=== PATIENT | female | born 1985 | race Caucasian/White ===

== ENCOUNTER → 2017-02-11 | Outpatient (CLI) | payer OTHER ==
--- NOTE | 2017-02-11 10:29 | CT ---
EXAMINATION TYPE: CT lumbar spine wo con DATE OF EXAM: 02/11/2017 9:25 AM COMPARISON: NONE HISTORY: Lumbago with bilateral sciatica CT DLP: 355.6 mGycm Automated exposure control for dose reduction was used. An unenhanced CT of the lumbar spine was performed. Bone and soft tissue window settings are submitt ed as well as coronal and sagittal reconstructions. FINDINGS: Lumbar vertebral bodies are intact and show preserved height and alignment. There is no significant s tee stenosis or evidence of paraspinal mass. Findings within the kidney suggests medullary sponge k idney. The kidneys are otherwise morphologically normal, no hydronephrosis. No retroperitoneal adenop athy, aorta shows normal caliber. L1-L2: Normal disc space height. No disc herniation protrusion or central stenosis. No facet joint arthropathy. No evidence for foraminal encroachment. L2-L3: Normal disc space height. No disc herniation protrusion or central stenosis. No facet joint arthropathy. No evidence for foraminal encroachment. L3-L4: Mild lateral eccentric disc bulge courses towards the neural foramen causing minimal encroachm ent on the right. L4-L5: Eccentric disc bulge laterally on the right encroaches upon the neural foramen. L5-S1: Normal disc space height. No disc herniation protrusion or central stenosis. No facet joint arthropathy. No evidence for foraminal encroachment. Vacuum phenomenon present within the sacroiliac joints. There is some calcification associated with t he right adrenal gland measuring approximately 4 to 5 mm. IMPRESSION: No paraspinal masses are identified. Mild degenerative disc changes are suspected, eccentric disc bul ges as described, consider lumbar MRI. Medullary sponge kidney. Benign-appearing calcification associ ated with the right adrenal gland. Lumbar segments are intact.
== END | disposition home or self-care (01) ==
LOC: RADCTMAIN 09:01
PROVIDERS: ATTEND Family Medicine
DX: M51.26 Other intervertebral disc displacement, lumbar region (principal)
CPT/HCPCS: 72131

== ENCOUNTER 2019-08-04 18:23 | Emergency (ER) | payer OTHER ==
[2019-08-04] MEDS ORDERED: diphenhydrAMINE 50 MG/ML 1 ML VIAL IVP STA (19:01)
[2019-08-04] MEDS ORDERED: METOCLOPRAMIDE 5 MG/ML 2 ML VIAL IVP STA (19:01)
--- NOTE | 2019-08-04 19:30 | ED ---
Recheck HPI - General Chief Complaint: Recheck/Abnormal Lab/Rx Stated Complaint: methadone detox-5 1/2 wks preg Time Seen by Provider: 08/04/19 18:45 Source: patient Mode of arrival: ambulatory Limitations: no limitations - History of Present Illness Initial Comments: 34 year-old female patient presents to the emergency department today for evaluation of methadone withdrawal. Patient is 23 weeks , . Patient states that she had been receiving methadone from [place] up until Tuesday. States that she was switched over to the methadone clinic near her home in [place], she was here visiting her mother when her car broke down and she was unable to make her appointment. Patient states that she has been having tremors, nausea, vomiting, and abdominal tightness. States is her consistent with her usual withdrawal symptoms. She denies any fever or chills. Denies any abnormal vaginal bleeding or discharge. She does detect movement, believes it is increased due to the fetus being agitated. Patient denies any recent rash, shortness breath, chest pain, back pain, numbness, tingling, dizziness, weakness, hematuria, dysuria, urinary urgency, urinary frequency, headache, visual changes, or any other complaints. - Related Data Previous Rx's Medication Instructions Recorded Acetaminophen-Codeine 300-30mg 1 tab PO Q4H PRN #20 tablet 06/13/17 [Tylenol #3] Ibuprofen [Motrin] 600 mg PO Q8HR PRN #30 tab 06/13/17 Penicillin V Potassium [Pen Vee K] 500 mg PO QID #40 tab 06/13/17 Cephalexin [Keflex] 500 mg PO Q6H #28 cap 08/04/19 Allergies Allergy/AdvReac Type Severity Reaction Status Date / Time No Known Allergies Allergy Verified 06/13/17 15:18 Review of Systems ROS Statement: Those systems with pertinent positive or pertinent negative responses have been documented in the HPI. ROS Other: All systems not noted in ROS Statement are negative. Past Medical History Additional Past Medical History / Comment(s): chronic back pain History of Any Multi-Drug Resistant Organisms: None Reported Past Surgical History: Section Past Psychological History: No Psychological Hx Reported Smoking Status: Current every day smoker Past Alcohol Use History: None Reported Past Drug Use History: Marijuana General Exam Limitations: no limitations General appearance: alert, in no apparent distress, other (This is a well- developed, well-nourished adult female patient in no acute distress. Vital signs upon presentation are temperature 98.4F, pulse 100, respirations 20, blood pressure 132/60, pulse ox 99% on room air.) Eye exam: Present: normal appearance, PERRL, EOMI. Absent: scleral icterus, conjunctival injection, periorbital swelling ENT exam: Present: normal exam, normal oropharynx, mucous membranes moist Respiratory exam: Present: normal lung sounds bilaterally. Absent: respiratory distress, wheezes, rales, rhonchi, stridor Cardiovascular Exam: Present: regular rate, normal rhythm, normal heart sounds. Absent: systolic murmur, diastolic murmur, rubs, gallop, clicks GI/Abdominal exam: Present: soft, normal bowel sounds, other (Gravid abdomen). Absent: distended, tenderness, guarding, rebound, rigid Neurological exam: Present: alert, oriented X3, CN II-XII intact Psychiatric exam: Present: normal affect, normal mood Skin exam: Present: warm, dry, intact, normal color. Absent: rash Course Vital Signs 08/04/19 18:36 Temperature 98.4 F Pulse Rate 100 Respiratory 20 Rate Blood Pressure 132/60 O2 Sat by Pulse 99 Oximetry Medical Decision Making - Medical Decision Making 34 old female patient presents to the emergency department today for evaluation for drug withdrawal symptoms. She is 23 weeks . She is reporting tightening to her abdomen. Denies abnormal vaginal bleeding or discharge. Physical examination is unremarkable. Did perform urinalysis which shows evidence for urinary tract infection, this has been sent for culture. She'll be started on Keflex, given 1 dose of IV Rocephin. She was given her missing dose of methadone. She is instructed to follow-up with her methadone clinic as soon as possible. Return parameters discussed in detail. She verbalizes understanding and agrees with this plan. - Lab Data Lab Results 08/04/19 Range/Units 19:20 Urine Color Yellow Urine Appearance Cloudy H (Clear) Urine pH 7.5 (5.0-8.0) Ur Specific [place] 1.031 (1.001-1.035) Urine Protein 2+ H (Negative) Urine Glucose (UA) Negative (Negative) Urine Ketones 3+ H (Negative) Urine Blood Negative (Negative) Urine Nitrite Negative (Negative) Urine Bilirubin Negative (Negative) Urine Urobilinogen 12.0 (<2.0) mg/dL Ur Leukocyte Esterase Large H (Negative) Urine RBC 22 H (0-5) /hpf Urine WBC 46 H (0-5) /hpf Ur Squamous Epith Cells 7 H (0-4) /hpf Urine Mucus Many H (None) /hpf Urine Opiates Screen Not Detected (NotDetected) Ur Oxycodone Screen Not Detected (NotDetected) Urine Methadone Screen Detected H (NotDetected) Ur Propoxyphene Screen Not Detected (NotDetected) Ur Barbiturates Screen Not Detected (NotDetected) U Tricyclic Antidepress Not Detected (NotDetected) Ur Phencyclidine Scrn Not Detected (NotDetected) Ur Amphetamines Screen Not Detected (NotDetected) U Methamphetamines Scrn Not Detected (NotDetected) U Benzodiazepines Scrn Not Detected (NotDetected) Urine Cocaine Screen Detected H (NotDetected) U Marijuana (THC) Screen Detected H (NotDetected) Disposition Clinical Impression: Methadone withdrawal Disposition: HOME SELF-CARE Condition: Good Instructions (If sedation given, give patient instructions): Narcotic Withdrawal (ED) Additional Instructions: Call your clinic first thing Tuesday morning. Follow up with your ASSISTANT ACCOUNT MANAGER for recheck as soon as possible. Increase fluids. Rest. Return to the emergency department for any new, worsening, or concerning symptoms. Prescriptions: Cephalexin [Keflex] 500 mg PO Q6H #28 cap Is patient prescribed a controlled substance at d/c from ED?: No Referrals: Tyler Diaz MD [Primary Care Provider] - 1-2 days Time of Disposition: 20:15
[2019-08-04 19:42] LABS: Appearance,Urine Cloudy (Clear); Bilirubin,Urine Negative (Negative); Blood,Urine Negative (Negative); Color,Urine Yellow; Glucose,Urine (UA) Negative (Negative); Ketones,Urine 3+ (Negative); Leukocyte Esterase,Urine Large (Negative); Mucus,Urine Many /hpf; Nitrite,Urine Negative (Negative); PH, Urine 7.5 (5.0-8.0); Protein,Urine 2+ (Negative); RBC,Urine 22 /hpf (0-5); Specific Gravity,Urine 1.031 (1.001-1.035); Squamous Epithelial Cell,Urine 7 /hpf (0-4); WBC,Urine 46 /hpf (0-5)
[2019-08-04 19:48] LABS: Urn Cannabinoid Scrn Detected (NotDetected)
[2019-08-04 19:49] LABS: Amphetamine Screen,Urine Not Detected (NotDetected); Barbiturate Screen,Urine Not Detected (NotDetected); Benzodiazepines Screen,Urine Not Detected (NotDetected); Cocaine Screen,Urine Detected (NotDetected); Methadone Screen, Urine Detected (NotDetected); Opiate Screen,Urine Not Detected (NotDetected); Oxycodone Screen, Urine Not Detected (NotDetected); Phencyclidine Screen,Urine Not Detected (NotDetected); Tricyclic Antidepressant,Urine Not Detected (NotDetected)
[2019-08-04] MEDS ORDERED: METHADONE 5 MG TAB PO STA (20:12)
[2019-08-04] MEDS ORDERED: cefTRIAXone IN SWFI 1,000 MG/10 ML SYRINGE IVP STA (20:12)
[2019-08-04] MEDS ORDERED: METHADONE 10 MG TAB PO STA (20:12)
[2019-08-04] MEDS ORDERED: CEPHALEXIN 500MG STARTER PACK 4 CAP BTL PO STA (20:16)
[2019-08-04 21:00] VITALS: BP 130/72; PULSE 68; RESP 16; TEMP 97.7
== END 2019-08-04 20:59 | disposition home or self-care (01) ==
LOC: EC 18:23
DX: O99.322 Drug use complicating pregnancy, second trimester (principal); F11.23 Opioid dependence with withdrawal; O23.42 Unspecified infection of urinary tract in pregnancy, second trimester; O99.332 Smoking (tobacco) complicating pregnancy, second trimester; F17.200 Nicotine dependence, unspecified, uncomplicated; Z98.890 Other specified postprocedural states; Z3A.23 23 weeks gestation of pregnancy
CPT/HCPCS: 81001; 80306; 99284; 96374; 96375 ×2; J1200; J2765; J0696; S0109 ×2

== ENCOUNTER 2019-08-04 21:04 | Outpatient (CLI) | payer OTHER ==
[2019-08-04 23:29] VITALS: BP 112/68; PULSE 66; RESP 15; TEMP 99.1
--- NOTE | 2019-08-05 07:02 | P.MSEPDOC ---
Presenting Problems - Arrival Data Date of Arrival on Unit: 08/04/19 Time of Arrival on Unit: 21:04 Mode of Transport: Wheelchair - Complaint OB-Reason for Admission/Chief Complaint: Other Comment: Methadone withdrawl and abdominal pain for the past 3 days Medical History - Information : 6 Para: 5 Number of Living Children: 5 - Gestational Age Gestational Age by BETH (wks/days): 23 Weeks and 3 Days - History Complications: Smoker, Hx. Substance Abuse Comment: Pt states history of norco abuse and started methadone treatment 30 days ago Review of Systems - Review of Systems Constitutional: No problems Breast: No problems ENT: No problems Cardiovascular: No problems Respiratory: No problems Gastrointestinal: No problems Genitourinary: No problems Musculoskeletal: No problems Neurological: No problems Skin: No problems Vital Signs - Temperature Temperature: 99.1 F Temperature Source: Temporal Artery Scan - Pulse Pulse Oximetery Pulse Rate: 66 Pulse Assessment Method: Pulse Oximetry - Respirations Respiratory Rate: 15 Oxygen Delivery Method: Room Air O2 Sat by Pulse Oximetry: 96 - Blood Pressure Right Arm Blood Pressure: 112/68 Blood Pressure Mean: 82 Blood Pressure Source: Automatic Cuff Medical Screen Scoring (Pre) - Cervical Exam Dilation: Exam Deferred Effacement: Exam Deferred Membranes: Intact - Uterine Contractions Frequency: N/A Duration: N/A Intensity: N/A - Maternal Vital Signs Maternal Temperature: N/A Maternal Blood Pressure: N/A Signs of Preeclampsia: N/A Maternal Respirations: N/A - Maternal Trauma Maternal Trauma: N/A - Assessment - Baby A Baseline FHR: 145 Position: N/A Station: N/A - Total Score - Baby A Total Score - Baby A: 0 - Total Score - Baby B Total Score - Baby B: 0 - Total Score - Baby C Total Score - Baby C: 0 - Level of Risk - Baby A Level of Risk - Baby A: Low (0-5) - Level of Risk - Baby B Level of Risk - Baby B: Low (0-5) - Level of Risk - Baby C Level of Risk - Baby C: Low (0-5) Physician Notification (Pre) - Physician Notified Physician Notified Date: 08/04/19 Physician Notified Time: 21:32 New Order Received: Yes Disposition - Disposition OB Disposition: Discharge to home, Written follow up instructions reviewed Discharge Date: 08/04/19 Discharge Time: 21:35 I agree with the RN Medical Screening Exam: Yes Risk & Benefit of care provided described in d/c instruction: Yes Diagnosis: FALSE LABOR AT OR AFTER 37 COMPLETED WEEKS OF GESTATION (Patient presented to the emergency department seeking methadone refill. At the time she complained of some lower abdominal pain. Cervix is closed, heart tones were auscultated, and there was no evidence of labor. Patient was sleeping while in triage and therefore felt to be stable for discharge home follow up with her primary [employer] DRIVER.)
== END 2019-08-04 21:40 | disposition home or self-care (01) ==
LOC: FBPOP 21:04
PROVIDERS: ATTEND Obstetrics & Gynecology
DX: O47.1 False labor at or after 37 completed weeks of gestation (principal); Z3A.23 23 weeks gestation of pregnancy
CPT/HCPCS: 99213

== ENCOUNTER 2020-05-19 04:23 | Observation (INO) | payer OTHER ==
[2020-05-19] MEDS ORDERED: ACETAMINOPHEN TAB 500 MG TAB PO STA (04:45)
[2020-05-19 04:54] LABS: Appearance,Urine Cloudy (Clear); Bilirubin,Urine Negative (Negative); Blood,Urine Large (Negative); Color,Urine Yellow; Glucose,Urine (UA) Negative (Negative); Ketones,Urine Negative (Negative); Leukocyte Esterase,Urine Large (Negative); Mucus,Urine Rare /hpf; Nitrite,Urine Negative (Negative); PH, Urine 5.5 (5.0-8.0); Protein,Urine Trace (Negative); RBC,Urine 4 /hpf (0-5); Specific Gravity,Urine 1.011 (1.001-1.035); Squamous Epithelial Cell,Urine 4 /hpf (0-4); Urobilinogen,Urine <2.0 mg/dL (<2.0); WBC,Urine >182 /hpf (0-5)
--- NOTE | 2020-05-19 05:04 | ED ---
General Adult HPI - General Chief complaint: Urogenital Stated complaint: poss kidney infection Time Seen by Provider: 05/19/20 05:02 Source: patient Mode of arrival: ambulatory Limitations: no limitations - History of Present Illness Initial comments: Chelo is a 34-year-old female with a history of drug abuse, history of admission for pyelonephritis in the past, patient presents the emergency department today via private vehicle for evaluation of concern that she has a kidney infection. Patient reports that she's had over 1 week of dysuria, urinary frequency and hesitancy. She's been drinking plenty of water but she's been getting progressively worse. She reports that over the past day she's had pain in her left flank and associated fever. Patient reports that the pain was so bad she did heroin prior to arrival to treat the pain. Patient reports that she snorts heroin she does not use any IV drugs. She reports she is sexually active with a single partner, has experienced no vaginal discharge has no concern for sexual transmitted infections. - Related Data Home Medications Medication Instructions Recorded Confirmed Methadone [Dolophine] 55 mg PO DAILY 08/04/19 08/04/19 Allergies Allergy/AdvReac Type Severity Reaction Status Date / Time No Known Allergies Allergy Verified 08/04/19 21:09 Review of Systems ROS Statement: Those systems with pertinent positive or pertinent negative responses have been documented in the HPI. ROS Other: All systems not noted in ROS Statement are negative. Past Medical History Additional Past Medical History / Comment(s): chronic back pain History of Any Multi-Drug Resistant Organisms: None Reported Past Surgical History: Section Past Psychological History: No Psychological Hx Reported Smoking Status: Current every day smoker Past Alcohol Use History: None Reported Past Drug Use History: Heroin, Marijuana General Exam - General Exam Comments Initial Comments: Physical Exam GENERAL: Patient is well-developed and well-nourished. Patient is nontoxic and well-hydrated and is in no distress. HENT: Normocephalic, Atraumatic. EYES: PERRL, EOMI PULMONARY: Unlabored respirations. No audible rales rhonchi or wheezing was noted. CARDIOVASCULAR: There is a regular rate and rhythm without any murmurs gallops or rubs. ABDOMEN: Soft and nontender with normal bowel sounds. SKIN: Skin is clear with no lesions or rashes and otherwise unremarkable. : Deferred NEUROLOGIC: Patient is alert and oriented x3. Moving all extremities spontaneously MUSCULOSKELETAL: Normal extremities with adequate strength and full range of motion. No lower extremity swelling or edema. No calf tenderness. PSYCHIATRIC: Normal psychiatric evaluation. Limitations: no limitations Course Vital Signs 05/19/20 05/19/20 05/19/20 04:35 05:29 06:00 Temperature 101.9 F H 101.1 F H 99.2 F Pulse Rate 103 H 87 Respiratory 18 16 Rate Blood Pressure 115/67 107/62 O2 Sat by Pulse 100 100 Oximetry Procedures - Sepsis Sepsis Focused Exam #1 Time Sepsis Criteria Met: 05:30 Sepsis Focused Exam Date: 05/19/20 Sepsis Focused Exam Time: 06:00 Capillary Refill: < 2 Seconds: Fingers, Toes Peripheral Pulses: Normal: Radial (R), Radial (L) Skin Color: Normal for Patient Respiratory Exam: normal lung sounds Cardiovascular Exam: regular rate, normal rhythm Medical Decision Making - Medical Decision Making The patient was seen and evaluated, history is obtained from the patient 34-year-old female with lower urinary tract symptoms left-sided flank pain, fever tachycardia Septic workup was initiated IV fluids and antipyretics were ordered upon arrival Rocephin was empirically ordered for treatment of presumed sepsis Has resulted with leukocytosis, urine consistent with urinary tract infection, culture was obtained Sepsis was identified Considering the patient's been treating her flank pain with heroin and had symptoms for greater than 1 week before coming to the ER don't feel she is reliable for discharge home on oral antibiotics, I do feel the patient warrants IV fluids, IV antibiotics and close observation. Patient is agreeable to admission to the hospital for sepsis secondary to urinary tract infection and pyelonephritis Patient care was discussed with medicine [facility] [employer] consultant Dr. Maldonado of the [facility] who accepts the admission - Lab Data Result diagrams: 05/19/20 04:46 05/19/20 04:46 Lab Results 05/19/20 05/19/20 05/19/20 Range/Units 04:41 04:46 04:46 WBC 14.6 H (3.8-10.6) k/uL RBC 4.45 (3.80-5.40) m/uL Hgb 13.4 (11.4-16.0) gm/dL Hct 40.7 (34.0-46.0) % MCV 91.3 (80.0-100.0) fL MCH 30.1 (25.0-35.0) pg MCHC 33.0 (31.0-37.0) g/dL RDW 13.0 (11.5-15.5) % Plt Count 380 (150-450) k/uL Neutrophils % 75 % Lymphocytes % 16 % Monocytes % 5 % Eosinophils % 2 % Basophils % 0 % Neutrophils # 10.9 H (1.3-7.7) k/uL Lymphocytes # 2.4 (1.0-4.8) k/uL Monocytes # 0.8 (0-1.0) k/uL Eosinophils # 0.3 (0-0.7) k/uL Basophils # 0.1 (0-0.2) k/uL PT 9.6 (9.0-12.0) sec INR 0.9 (<1.2) APTT 26.9 (22.0-30.0) sec Sodium (137-145) mmol/L Potassium (3.5-5.1) mmol/L Chloride (98-107) mmol/L Carbon Dioxide (22-30) mmol/L Anion Gap mmol/L BUN (7-17) mg/dL Creatinine (0.52-1.04) mg/dL Est GFR (CKD-EPI)AfAm (>60 ml/min/1.73 sqM) Est GFR (CKD-EPI)NonAf (>60 ml/min/1.73 sqM) Glucose (74-99) mg/dL Plasma Lactic Acid Davi (0.7-2.0) mmol/L Calcium (8.4-10.2) mg/dL Total Bilirubin (0.2-1.3) mg/dL AST (14-36) U/L ALT (4-34) U/L Alkaline Phosphatase (38-126) U/L Total Protein (6.3-8.2) g/dL Albumin (3.5-5.0) g/dL Urine Color Yellow Urine Appearance Cloudy H (Clear) Urine pH 5.5 (5.0-8.0) Ur Specific [place] 1.011 (1.001-1.035) Urine Protein Trace H (Negative) Urine Glucose (UA) Negative (Negative) Urine Ketones Negative (Negative) Urine Blood Large H (Negative) Urine Nitrite Negative (Negative) Urine Bilirubin Negative (Negative) Urine Urobilinogen <2.0 (<2.0) mg/dL Ur Leukocyte Esterase Large H (Negative) Urine RBC 4 (0-5) /hpf Urine WBC >182 H (0-5) /hpf Urine WBC Clumps Few H (None) /hpf Ur Squamous Epith Cells 4 (0-4) /hpf Urine Mucus Rare H (None) /hpf 05/19/20 05/19/20 Range/Units 04:46 04:46 WBC (3.8-10.6) k/uL RBC (3.80-5.40) m/uL Hgb (11.4-16.0) gm/dL Hct (34.0-46.0) % MCV (80.0-100.0) fL MCH (25.0-35.0) pg MCHC (31.0-37.0) g/dL RDW (11.5-15.5) % Plt Count (150-450) k/uL Neutrophils % % Lymphocytes % % Monocytes % % Eosinophils % % Basophils % % Neutrophils # (1.3-7.7) k/uL Lymphocytes # (1.0-4.8) k/uL Monocytes # (0-1.0) k/uL Eosinophils # (0-0.7) k/uL Basophils # (0-0.2) k/uL PT (9.0-12.0) sec INR (<1.2) APTT (22.0-30.0) sec Sodium 130 L (137-145) mmol/L Potassium 5.2 H (3.5-5.1) mmol/L Chloride 102 (98-107) mmol/L Carbon Dioxide 22 (22-30) mmol/L Anion Gap 6 mmol/L BUN 15 (7-17) mg/dL Creatinine 0.86 (0.52-1.04) mg/dL Est GFR (CKD-EPI)AfAm >90 (>60 ml/min/1.73 sqM) Est GFR (CKD-EPI)NonAf 88 (>60 ml/min/1.73 sqM) Glucose 83 (74-99) mg/dL Plasma Lactic Acid Davi 1.1 (0.7-2.0) mmol/L Calcium 8.6 (8.4-10.2) mg/dL Total Bilirubin 0.9 (0.2-1.3) mg/dL AST 28 (14-36) U/L ALT 12 (4-34) U/L Alkaline Phosphatase 56 (38-126) U/L Total Protein 6.6 (6.3-8.2) g/dL Albumin 3.8 (3.5-5.0) g/dL Urine Color Urine Appearance (Clear) Urine pH (5.0-8.0) Ur Specific [place] (1.001-1.035) Urine Protein (Negative) Urine Glucose (UA) (Negative) Urine Ketones (Negative) Urine Blood (Negative) Urine Nitrite (Negative) Urine Bilirubin (Negative) Urine Urobilinogen (<2.0) mg/dL Ur Leukocyte Esterase (Negative) Urine RBC (0-5) /hpf Urine WBC (0-5) /hpf Urine WBC Clumps (None) /hpf Ur Squamous Epith Cells (0-4) /hpf Urine Mucus (None) /hpf - EKG Data -: EKG Interpreted by Me EKG Comments: EKG was obtained due to tachycardia and part of a septic workup, EKG was obtained at 4:59 AM, rate is 92 rhythm is sinus there is normal axis, normal in tervals LA 140, QRS 82, QTc 447 there are no acute ST elevations or depressions no evidence of acute ischemia or infarction Disposition Clinical Impression: Sepsis, Pyelonephritis Disposition: ADMITTED IP TO THIS [facility] Condition: Serious Referrals: None,Stated [Primary Care Provider] - 1-2 days
[2020-05-19 05:17] LABS: Basophils # (A) 0.1 k/uL (0-0.2); Basophils % (A) 0 %; Eosinophils # (A) 0.3 k/uL (0-0.7); Eosinophils % (A) 2 %; HCT 40.7 % (34.0-46.0); HGB 13.4 gm/dL (11.4-16.0); Lymphocytes # (A) 2.4 k/uL (1.0-4.8); Lymphocytes % (A) 16 %; MCH 30.1 pg (25.0-35.0); MCV 91.3 fL (80.0-100.0); Mean Platelet Volume 6.7; Monocytes # (A) 0.8 k/uL (0-1.0); Monocytes % (A) 5 %; Neutrophils # (A) 10.9 k/uL (1.3-7.7); Neutrophils % (A) 75 %; Platelet Count 380 k/uL (150-450); RBC 4.45 m/uL (3.80-5.40); WBC 14.6 k/uL (3.8-10.6)
[2020-05-19 05:26] LABS: ALT 12 U/L (4-34); AST 28 U/L (14-36); African American GFR (CKD) >90 (>60 ml/min/1.73 sqM); Albumin 3.8 g/dL (3.5-5.0); Alkaline Phosphatase 56 U/L (38-126); Anion Gap 6 mmol/L; Blood Urea Nitrogen 15 mg/dL (7-17); Calcium 8.6 mg/dL (8.4-10.2); Carbon Dioxide 22 mmol/L (22-30); Chloride 102 mmol/L (98-107); Glucose 83 mg/dL (74-99); INR 0.9 (<1.2); Non-African American GFR(CKD) 88 (>60 ml/min/1.73 sqM); Partial Thromboplastin Time 26.9 sec (22.0-30.0); Potassium 5.2 mmol/L (3.5-5.1); Prothrombin Time 9.6 sec (9.0-12.0); Sodium 130 mmol/L (137-145); Total Bilirubin 0.9 mg/dL (0.2-1.3); Total Protein 6.6 g/dL (6.3-8.2)
[2020-05-19] MEDS: SODIUM CHLORIDE 0.9% 1,000 ML IV SCH ×3 (05:26→19:56)
[2020-05-19] MEDS: SODIUM CHLORIDE 0.9% 500 ML 500 ML IV SCH ×2 (05:27→06:30)
[2020-05-19] MEDS ORDERED: NALOXONE 0.4 MG/ML 1 ML VIAL IV PRN (06:59)
[2020-05-19] MEDS ORDERED: ACETAMINOPHEN TAB 325 MG TAB PO PRN (06:59)
[2020-05-19] MEDS ORDERED: IBUPROFEN 400 MG TAB PO PRN (06:59)
[2020-05-19] MEDS ORDERED: MORPHINE SULFATE 4 MG/ML SYRINGE IV PRN (06:59)
[2020-05-19] MEDS ORDERED: KETOROLAC 15 MG/ML 1 ML VIAL IVP PRN (09:48)
[2020-05-19] MEDS ORDERED: HYDROcodone/APAP 5-325MG 1 EACH TAB PO PRN (10:08)
[2020-05-19] MEDS ORDERED: ONDANSETRON 4 MG/2 ML VIAL IVP PRN (10:08)
--- NOTE | 2020-05-19 10:14 | P.HPIM ---
History of Present Illness H&P Date: 05/19/20 Chief Complaint: back pain Patient is a 34-year-old female with a history of chronic back pain, prior opiate dependency, narcolepsy, and COPD who presented to the ER with complaints of flank pain. On arrival to the ER her temperature was 101.9, pulse was 103. Laboratory analysis showed white count 14.6, sodium 30, potassium 5.2 on the urinalysis showed white blood cells greater than 182. She was given Tylenol, Rocephin, and IV fluids. She was admitted for urinary tract infection with sepsis. Patient seen and examined at bedside. She reports that for the last 1 week she was having burning and urinary frequency. Yesterday she noted kidney pain on both sides of her back. This was associated with riders and chills. She also felt overall fatigued. She reports her appetite was good. She denies any nausea. She reports she has had a history of multiple urinary tract infections in the past, she believes they happened when she drinks too much pop. She does not medical attention prior to arrival in the ED yesterday. She has not had any recent antibiotics. She reports that she used to be on methadone but came off of it. Recently she has been snorting heroin. She denies any injection drug use. She has an appointment to resume her methadone on 05/21/2020. Review of Systems Pertinent positives and negatives as discussed in HPI, a complete review of systems was performed and all other systems are negative. Past Medical History Additional Past Medical History / Comment(s): chronic back pain, narcolepsy, COPD History of Any Multi-Drug Resistant Organisms: None Reported Past Surgical History: Section Additional Past Surgical History / Comment(s): Left knee meniscal tear repair Past Psychological History: No Psychological Hx Reported Smoking Status: Current every day smoker Past Alcohol Use History: None Reported Past Drug Use History: Heroin, Marijuana - Past Family History Mother Family Medical History: COPD Additional Family Medical History / Comment(s): Multuple family memeber with ccancer, none affecting the urinary tract Medications and Allergies Home Medications Medication Instructions Recorded Confirmed Type Dextroamphetamine/Amphetamine 20 mg PO BID PRN 05/19/20 05/19/20 History [Adderall] Allergies Allergy/AdvReac Type Severity Reaction Status Date / Time No Known Allergies Allergy Verified 05/19/20 09:12 Physical Exam Osteopathic Statement: *. No significant issues noted on an osteopathic structural exam other than those noted in the History and Physical/Consult. Vitals: Vital Signs Temp Pulse Resp BP Pulse Ox 05/19/20 07:40 89 16 121/89 100 05/19/20 06:00 99.2 F 05/19/20 05:29 101.1 F H 87 16 107/62 100 05/19/20 04:35 101.9 F H 103 H 18 115/67 100 Intake and Output 05/18/20 05/19/20 05/19/20 22:59 06:59 14:59 Other: Voiding Method Toilet Weight 61.235 kg General: ill appearing, no distress, appears at stated age Derm: warm, dry Head: atraumatic, normocephalic, symmetric Eyes: EOMI, no lid lag, anicteric sclera, pupils equal round reactive to light ENT: Nose and ears atraumatic, no thrush, no pharyngeal erythema Neck: No thyromegaly, no cervical lymphadenopathy, trachea midline, supple Mouth: no lip lesion, mucus membranes dry Cardiovascular: S1S2 reg, no murmur, positive posterior tibial pulse bilateral, no edema, capillary refill less than 2 seconds Lungs: clear to ascultation bilateral, no ronchi, no rales, no wheeze, no accessory muscle use Abdominal: soft, + tender to palpation LLQ and left CVA, no guarding, no appreciable organomegaly, normal bowel sounds Ext: no gross muscle atrophy, muscle strength muscle strength 5 out of 5 in all 4 extremities, no contractures Neuro: CN II-XI grossly intact, light touch intact all 4 extremities, finger to nose within normal limits, Psych: Alert, oriented, appropriate affect Results CBC & Chem 7: 05/19/20 04:46 05/19/20 04:46 Labs: Abnormal Lab Results - Last 24 Hours (Table) 05/19/20 05/19/20 05/19/20 Range/Units 04:41 04:46 04:46 WBC 14.6 H (3.8-10.6) k/uL Neutrophils # 10.9 H (1.3-7.7) k/uL Sodium 130 L (137-145) mmol/L Potassium 5.2 H (3.5-5.1) mmol/L Urine Appearance Cloudy H (Clear) Urine Protein Trace H (Negative) Urine Blood Large H (Negative) Ur Leukocyte Esterase Large H (Negative) Urine WBC >182 H (0-5) /hpf Urine WBC Clumps Few H (None) /hpf Urine Mucus Rare H (None) /hpf Thrombosis Risk Factor Assmnt - DVT/VTE Prophylaxis DVT/VTE Prophylaxis: Mechanical Prophylaxis ordered Assessment and Plan Assessment: Pyelonephritis with sepsis - rocephin - IVF - await urine culture - blood cultures pending Narcolepsy - reusme adderal on discharge Tobacco abuse - cessation - nicotine Heorin use - cessation - has plans for methadone clinic The patient is admitted with an anticipated greater than 2 midnight stay for evaluation of urinary tract intection wtih sepsis. Surrogate decision-maker: mother CODE STATUS:full DVT prophylaxis: heparin Discussed with: patient, nursing Anticipated discharge date: 2-[address]: home A total of 65 minutes was spent on the care of this complex patient more than 50% of the time was spent in counseling and care coordination.
[2020-05-19 13:09] LABS: African American GFR (CKD) >90 (>60 ml/min/1.73 sqM); Anion Gap 5 mmol/L; Blood Urea Nitrogen 12 mg/dL (7-17); Calcium 8.4 mg/dL (8.4-10.2); Carbon Dioxide 24 mmol/L (22-30); Chloride 109 mmol/L (98-107); Glucose 92 mg/dL (74-99); Non-African American GFR(CKD) >90 (>60 ml/min/1.73 sqM); Potassium 4.7 mmol/L (3.5-5.1); Sodium 138 mmol/L (137-145)
[2020-05-20] MEDS: SODIUM CHLORIDE 0.9% 1,000 ML IV SCH ×2 (03:41→09:15)
[2020-05-20 07:45] VITALS: BP 96/53; PULSE 77; RESP 16; TEMP 98.4
[2020-05-20 08:53] LABS: HCT 37.6 % (34.0-46.0); HGB 11.9 gm/dL (11.4-16.0); MCH 29.6 pg (25.0-35.0); MCHC 31.6 g/dL (31.0-37.0); MCV 93.7 fL (80.0-100.0); Mean Platelet Volume 6.9; Platelet Count 324 k/uL (150-450); RBC 4.01 m/uL (3.80-5.40); RDW 13.3 % (11.5-15.5); WBC 8.1 k/uL (3.8-10.6)
[2020-05-20] MEDS ORDERED: NICOTINE 14MG/24HR PATCH TRANSDERM SCH (09:00)
[2020-05-20 09:15] LABS: African American GFR (CKD) >90 (>60 ml/min/1.73 sqM); Anion Gap 8 mmol/L; Blood Urea Nitrogen 8 mg/dL (7-17); Calcium 8.4 mg/dL (8.4-10.2); Carbon Dioxide 20 mmol/L (22-30); Chloride 108 mmol/L (98-107); Glucose 118 mg/dL (74-99); Non-African American GFR(CKD) >90 (>60 ml/min/1.73 sqM); Potassium 4.1 mmol/L (3.5-5.1); Sodium 136 mmol/L (137-145)
--- NOTE | 2020-05-20 11:22 | P.DS ---
Providers Date of admission: 05/19/20 06:59 Attending physician: Nazario Maldonado MD Primary care physician: Stated None Hospital Course: Admitting diagnoses: Pyelonephritis with sepsis Narcolepsy Tobacco abuse Heorin use Discharge diagnoses: Pyelonephritis with sepsis Narcolepsy Tobacco abuse Heorin use Patient is a 34-year-old female with a history of chronic back pain, prior opiate dependency, narcolepsy, and COPD who presented to the ER with complaints of flank pain. On arrival to the ER her temperature was 101.9, pulse was 103. Laboratory analysis showed white count 14.6, sodium 30, potassium 5.2 on the urinalysis showed white blood cells greater than 182. She was given Tylenol, Rocephin, and IV fluids. She was admitted for urinary tract infection with sepsis. She reported that for the last 1 week she was having burning and urinary frequency. Yesterday she noted kidney pain on both sides of her back. This was associated with riders and chills. She also felt overall fatigued. She reported her appetite was good. She denied any nausea. She reported she has had a history of multiple urinary tract infections in the past, she believes they happened when she drinks too much pop. She has not had any recent antibiotics. She reported that she used to be on methadone but came off of it. Recently she has been snorting heroin. She denied any injection drug use. She has an appointment to resume her methadone on 05/21/2020. Patient was placed on IV antibiotics. Patient's white blood cell count did improve from 14.6 to 8.1. Sodium improved from 1:30 to 136. Potassium improved from 5.2 to 4.1. Patient was seen and examined at bedside. Patient denied any pain and was eager to go home. Patient could not wait for the process of discharged and signed AMA before given full instructions. However, patient was advised to pickle maker her oral antibiotics from the pharmacy. Vitals temperature 98.4 degrees orally heart rate 77 respiratory rate 16 blood pressure 96/53 oxygen saturation 96% on room air Follow-up with PCP in 1-2 days Condition stable Activity as tolerated Diet regular Patient Condition at Discharge: Stable Plan - Discharge Summary Discharge Rx Participant: Yes New Discharge Prescriptions: New Ciprofloxacin HCl [Cipro] 500 mg PO BID #20 tab Continue Dextroamphetamine/Amphetamine [Adderall] 20 mg PO BID PRN PRN Reason: ADHD Discharge Medication List Dextroamphetamine/Amphetamine [Adderall] 20 mg PO BID PRN 05/19/20 [History] Ciprofloxacin HCl [Cipro] 500 mg PO BID #20 tab 05/20/20 [Rx] Follow up Appointment(s)/Referral(s): None,Stated [Primary Care Provider] - 1-2 days Patient Instructions/Handouts: Urinary Tract Infection in Women (DC), Kidney Infection (DC), Sepsis (GEN) Discharge Disposition: HOME SELF-CARE
[2020-05-20] MEDS ORDERED: CIPROFLOXACIN HCL 500 MG TAB PO SCH (21:00)
== END 2020-05-20 11:21 | disposition left against medical advice (07) ==
LOC: EC 04:23 → 4SSUR 06:59 → INTOOBSV 06:59 → 4SSUR 15:23 → UNDODISIN 05-20 11:21
PROVIDERS: ADMIT Internal Medicine; ATTEND Internal Medicine
DX: A41.9 Sepsis, unspecified organism (principal); N12 Tubulo-interstitial nephritis, not specified as acute or chronic; G47.419 Narcolepsy without cataplexy; F17.200 Nicotine dependence, unspecified, uncomplicated; G89.29 Other chronic pain; M54.9 Dorsalgia, unspecified; J44.9 Chronic obstructive pulmonary disease, unspecified; Z87.440 Personal history of urinary (tract) infections; Z53.29 Procedure and treatment not carried out because of patient's decision for other reasons; E87.1 Hypo-osmolality and hyponatremia; E86.0 Dehydration; Z80.9 Family history of malignant neoplasm, unspecified; Z82.5 Family history of asthma and other chronic lower respiratory diseases; Z79.899 Other long term (current) drug therapy; F11.21 Opioid dependence, in remission
CPT/HCPCS: 96361; 96365; 99285; 36415; 93005; 80053; 80048 ×2; 83605; 83735; 85025; 85027; 85610; 85730; 81001; 87040; 87086; G0378 ×2; J0696 ×2

== ENCOUNTER 2020-06-15 16:40 | Emergency (ER) | payer OTHER ==
[2020-06-15 17:34] LABS: Appearance,Urine Clear (Clear); Bilirubin,Urine Negative (Negative); Blood,Urine Negative (Negative); Color,Urine Yellow; Glucose,Urine (UA) Negative (Negative); Ketones,Urine Negative (Negative); Leukocyte Esterase,Urine Negative (Negative); Nitrite,Urine Negative (Negative); PH, Urine 6.5 (5.0-8.0); Protein,Urine Negative (Negative); Specific Gravity,Urine 1.012 (1.001-1.035); Urobilinogen,Urine <2.0 mg/dL (<2.0)
--- NOTE | 2020-06-15 17:35 | ED ---
General Adult HPI - General Chief complaint: Recheck/Abnormal Lab/Rx Stated complaint: Kidney infection Time Seen by Provider: 06/15/20 17:00 Source: patient, RN notes reviewed Mode of arrival: ambulatory Limitations: no limitations - History of Present Illness Initial comments: This is a 34-year-old female who presents with complaints of possible UTI. She states she was here previously no head leave AMA and did not receive any antibiotics she denies any fevers chills nausea vomiting sweats dysuria hematuria abdominal or flank pain but she wants to make sure she has no evidence of infection. No other modifying factors or complaints at this time - Related Data Home Medications Medication Instructions Recorded Confirmed Dextroamphetamine/Amphetamine 20 mg PO BID PRN 05/19/20 05/19/20 [Adderall] Previous Rx's Medication Instructions Recorded Ciprofloxacin HCl [Cipro] 500 mg PO BID #20 tab 05/20/20 Allergies Allergy/AdvReac Type Severity Reaction Status Date / Time No Known Allergies Allergy Verified 06/15/20 16:53 Review of Systems ROS Statement: Those systems with pertinent positive or pertinent negative responses have been documented in the HPI. ROS Other: All systems not noted in ROS Statement are negative. Past Medical History Past Medical History: COPD Additional Past Medical History / Comment(s): Past pyelonephritis/sepsis, UTIs, chronic low back pain, narcolepsy, bronchitis. History of Any Multi-Drug Resistant Organisms: None Reported Past Surgical History: Section Additional Past Surgical History / Comment(s): Left knee meniscal tear repair Past Anesthesia/Blood Transfusion Reactions: No Reported Reaction Past Psychological History: No Psychological Hx Reported Smoking Status: Current every day smoker Past Alcohol Use History: None Reported Past Drug Use History: None Reported - Past Family History Mother Family Medical History: COPD Additional Family Medical History / Comment(s): Multuple family memeber with ccancer, none affecting the urinary tract Father History Unknown: Yes General Exam - General Exam Comments Initial Comments: This is a well-developed well-nourished awake alert oriented 3 female Limitations: no limitations General appearance: alert, in no apparent distress Head exam: Present: atraumatic, normocephalic, normal inspection Eye exam: Present: normal appearance, PERRL, EOMI. Absent: scleral icterus, conjunctival injection, periorbital swelling ENT exam: Present: normal exam, mucous membranes moist Neck exam: Present: normal inspection. Absent: tenderness, meningismus, lymphadenopathy Respiratory exam: Present: normal lung sounds bilaterally. Absent: respiratory distress, wheezes, rales, rhonchi, stridor Cardiovascular Exam: Present: regular rate, normal rhythm, normal heart sounds. Absent: systolic murmur, diastolic murmur, rubs, gallop, clicks GI/Abdominal exam: Present: soft, normal bowel sounds. Absent: distended, tenderness, guarding, rebound, rigid Extremities exam: Present: normal inspection, full ROM, normal capillary refill. Absent: tenderness, pedal edema, joint swelling, calf tenderness Back exam: Present: normal inspection Neurological exam: Present: alert, oriented X3, CN II-XII intact Psychiatric exam: Present: normal affect, normal mood Skin exam: Present: warm, dry, intact, normal color. Absent: rash Course Vital Signs 06/15/20 16:49 Temperature 98.0 F Pulse Rate 90 Respiratory 18 Rate Blood Pressure 119/66 O2 Sat by Pulse 99 Oximetry Medical Decision Making - Medical Decision Making I did review the findings the patient patient will be discharged no evidence of UTI at this time. - Lab Data Lab Results 06/15/20 Range/Units 17:15 Urine Color Yellow Urine Appearance Clear (Clear) Urine pH 6.5 (5.0-8.0) Ur Specific [place] 1.012 (1.001-1.035) Urine Protein Negative (Negative) Urine Glucose (UA) Negative (Negative) Urine Ketones Negative (Negative) Urine Blood Negative (Negative) Urine Nitrite Negative (Negative) Urine Bilirubin Negative (Negative) Urine Urobilinogen <2.0 (<2.0) mg/dL Ur Leukocyte Esterase Negative (Negative) Disposition Clinical Impression: Feared condition not demonstrated Disposition: HOME SELF-CARE Condition: Good Instructions (If sedation given, give patient instructions): Urinary Tract Infection in Women (ED) Is patient prescribed a controlled substance at d/c from ED?: No Referrals: None,Stated [Primary Care Provider] - 1-2 days
[2020-06-15 18:02] VITALS: BP 128/62; PULSE 62; RESP 14; TEMP 97.1
== END 2020-06-15 18:03 | disposition home or self-care (01) ==
LOC: EC 16:40
DX: Z71.1 Person with feared health complaint in whom no diagnosis is made (principal); G89.29 Other chronic pain; M54.5 Low back pain; F17.200 Nicotine dependence, unspecified, uncomplicated
CPT/HCPCS: 81003; 99283

== ENCOUNTER 2020-06-27 09:28 | Emergency (ER) | payer OTHER ==
[2020-06-27 09:32] VITALS: BP 115/72; PULSE 74; TEMP 97.9
--- NOTE | 2020-06-27 09:55 | ED ---
Recheck HPI - General Chief Complaint: Recheck/Abnormal Lab/Rx Stated Complaint: cough/congestion Time Seen by Provider: 06/27/20 09:40 Source: patient, RN notes reviewed, old records reviewed Mode of arrival: ambulatory Limitations: no limitations - History of Present Illness Initial Comments: Patient is a 34 rolled female presents emergency room today with upper respiratory congestion for the past week. She complains of a runny nose, dry cough. Patient states that she was exposed to positive Covid patient's last week. Patient states that she is intending to go to rehab next week and needs to be sure she does not have Covid virus before entering rehab.. Patient reports that there is been no recent fevers or chills. She denies any chest jocelyne n. She reports that she wants to be tested for covert that. - Related Data Home Medications Medication Instructions Recorded Confirmed Dextroamphetamine/Amphetamine 20 mg PO BID PRN 05/19/20 05/19/20 [Adderall] Previous Rx's Medication Instructions Recorded Ciprofloxacin HCl [Cipro] 500 mg PO BID #20 tab 05/20/20 Allergies Allergy/AdvReac Type Severity Reaction Status Date / Time No Known Allergies Allergy Verified 06/27/20 09:32 Review of Systems ROS Statement: Those systems with pertinent positive or pertinent negative responses have been documented in the HPI. ROS Other: All systems not noted in ROS Statement are negative. Past Medical History Past Medical History: COPD Additional Past Medical History / Comment(s): Past pyelonephritis/sepsis, UTIs, chronic low back pain, narcolepsy, bronchitis. History of Any Multi-Drug Resistant Organisms: None Reported Past Surgical History: Section Additional Past Surgical History / Comment(s): Left knee meniscal tear repair Past Anesthesia/Blood Transfusion Reactions: No Reported Reaction Past Psychological History: No Psychological Hx Reported Smoking Status: Current every day smoker Past Alcohol Use History: None Reported Past Drug Use History: None Reported - Past Family History Mother Family Medical History: COPD Additional Family Medical History / Comment(s): Multuple family memeber with ccancer, none affecting the urinary tract Father History Unknown: Yes General Exam - General Exam Comments Initial Comments: Well-appearing 34-year-old female. Limitations: no limitations General appearance: alert, in no apparent distress Head exam: Present: atraumatic, normocephalic, normal inspection Eye exam: Present: normal appearance, PERRL, EOMI. Absent: scleral icterus, conjunctival injection, periorbital swelling ENT exam: Present: normal exam, mucous membranes moist Neck exam: Present: normal inspection Respiratory exam: Present: normal lung sounds bilaterally. Absent: respiratory distress, wheezes, rales, rhonchi, stridor Cardiovascular Exam: Present: regular rate, normal rhythm, normal heart sounds. Absent: systolic murmur, diastolic murmur, rubs, gallop, clicks GI/Abdominal exam: Present: soft, normal bowel sounds. Absent: distended, tenderness, guarding, rebound, rigid Extremities exam: Present: normal inspection, full ROM, normal capillary refill. Absent: tenderness, pedal edema, joint swelling, calf tenderness Back exam: Present: normal inspection Neurological exam: Present: alert, oriented X3, CN II-XII intact Psychiatric exam: Present: normal affect, normal mood Skin exam: Present: warm, dry, intact, normal color. Absent: rash Course Vital Signs 06/27/20 09:29 Temperature 97.9 F Pulse Rate 74 Respiratory 18 Rate Blood Pressure 115/72 O2 Sat by Pulse 100 Oximetry Medical Decision Making - Medical Decision Making 34-year-old female presents with 1 week of URI symptoms. At this time Patient appears clinically well. She wants tested for Covid 19. Vital signs his treatment with [id number] medication. Discussed Patient should self quarantine until results of Covid. Disposition Clinical Impression: Congestion of respiratory tract Disposition: HOME SELF-CARE Condition: Good Instructions (If sedation given, give patient instructions): Upper Respiratory Infection (DC) Additional Instructions: Patient advised to follow-up with primary care physician. Patient should quarantine until results of Covid testing. Return to the ED if any alarming signs or symptoms occur. Is patient prescribed a controlled substance at d/c from ED?: No Referrals: None,Stated [Primary Care Provider] - 1-2 days Time of Disposition: 09:54
[2020-06-27 10:17] VITALS: RESP 19
== END 2020-06-27 10:11 | disposition home or self-care (01) ==
LOC: EC 09:28
DX: R09.89 Other specified symptoms and signs involving the circulatory and respiratory systems (principal); R05 Cough; F17.200 Nicotine dependence, unspecified, uncomplicated; Z20.828 Contact with and (suspected) exposure to other viral communicable diseases
CPT/HCPCS: 99284; U0003

== ENCOUNTER 2020-07-23 12:05 | Emergency (ER) | payer OTHER ==
[2020-07-23 12:28] VITALS: TEMP 98.1
[2020-07-23 13:06] LABS: Appearance,Urine Cloudy (Clear); Bilirubin,Urine Negative (Negative); Blood,Urine Negative (Negative); Color,Urine Yellow; Glucose,Urine (UA) Negative (Negative); Hyaline Casts,Urine 1 /lpf (0-2); Ketones,Urine Negative (Negative); Leukocyte Esterase,Urine Large (Negative); Nitrite,Urine Negative (Negative); PH, Urine 5.5 (5.0-8.0); Protein,Urine Negative (Negative); RBC,Urine 5 /hpf (0-5); Specific Gravity,Urine 1.014 (1.001-1.035); Squamous Epithelial Cell,Urine 28 /hpf (0-4); Urobilinogen,Urine <2.0 mg/dL (<2.0); WBC,Urine 10 /hpf (0-5)
[2020-07-23 14:02] VITALS: RESP 18
--- NOTE | 2020-07-23 14:10 | ED ---
General Adult HPI - General Chief complaint: Urogenital Stated complaint: Poss yeast infection Time Seen by Provider: 07/23/20 13:37 Source: patient, RN notes reviewed Limitations: no limitations - History of Present Illness Initial comments: 35-year-old female presents to the emergency room for vaginal discharge. Patient states she has had a white vaginal discharge over the past few weeks. States this started have a foul odor. Denies this she smell. Denies itching. Denies pelvic pain. Patient does not believe she is high risk for STD.Patient has no other complaints at this time including shortness of breath, chest pain, abdominal pain, nausea or vomiting, headache, or visual changes. - Related Data Home Medications Medication Instructions Recorded Confirmed Dextroamphetamine/Amphetamine 20 mg PO BID PRN 05/19/20 05/19/20 [Adderall] Previous Rx's Medication Instructions Recorded Ciprofloxacin HCl [Cipro] 500 mg PO BID #20 tab 05/20/20 Allergies Allergy/AdvReac Type Severity Reaction Status Date / Time No Known Allergies Allergy Verified 07/23/20 12:27 Review of Systems ROS Statement: Those systems with pertinent positive or pertinent negative responses have been documented in the HPI. ROS Other: All systems not noted in ROS Statement are negative. Past Medical History Past Medical History: COPD Additional Past Medical History / Comment(s): Past pyelonephritis/sepsis, UTIs, chronic low back pain, narcolepsy, bronchitis. History of Any Multi-Drug Resistant Organisms: None Reported Past Surgical History: Section, Orthopedic Surgery Additional Past Surgical History / Comment(s): Left knee meniscal tear repair Past Anesthesia/Blood Transfusion Reactions: No Reported Reaction Past Psychological History: No Psychological Hx Reported Smoking Status: Current every day smoker Past Alcohol Use History: None Reported Past Drug Use History: None Reported - Past Family History Mother Family Medical History: COPD Additional Family Medical History / Comment(s): Multuple family memeber with ccancer, none affecting the urinary tract Father History Unknown: Yes General Exam Limitations: no limitations General appearance: alert, in no apparent distress Head exam: Present: atraumatic, normocephalic, normal inspection Eye exam: Present: normal appearance, PERRL, EOMI. Absent: scleral icterus, conjunctival injection, periorbital swelling ENT exam: Present: normal exam, mucous membranes moist Neck exam: Present: normal inspection. Absent: tenderness, meningismus, lymphadenopathy Respiratory exam: Present: normal lung sounds bilaterally. Absent: respiratory distress, wheezes, rales, rhonchi, stridor Cardiovascular Exam: Present: regular rate, normal rhythm, normal heart sounds. Absent: systolic murmur, diastolic murmur, rubs, gallop, clicks GI/Abdominal exam: Present: soft, normal bowel sounds. Absent: distended, tenderness, guarding, rebound, rigid External exam: Present: normal external exam. Absent: erythema, swelling, lesions, lacerations, ecchymosis Speculum exam: Present: vaginal discharge (Patient has white vaginal discharge noted on pelvic exam). Absent: normal speculum exam, erythema, cervical discharge, vaginal bleeding, foreign body, tissue, laceration By manual exam: Present: normal by manual exam. Absent: cervical motion tenderness, adnexal tenderness, adnexal mass, uterine enlargement, uterine tenderness Neurological exam: Present: alert Course Vital Signs 07/23/20 07/23/20 12:24 13:27 Temperature 98.1 F Pulse Rate 85 Respiratory 20 18 Rate Blood Pressure 117/75 O2 Sat by Pulse 99 Oximetry Medical Decision Making - Medical Decision Making Patient is positive for Trichomonas. She does not have any pelvic pain or symptoms consistent with PID. Patient requested 2 g dosing of Flagyl versus seven-day course. Patient is agreeable to being treated empirically for gonorrhea and chlamydia as well. I discussed refraining from sexual intercourse until all symptoms have resolved and have partner treated as well. Discussed returning here for any worsening symptoms. - Lab Data Lab Results 07/23/20 07/23/20 07/23/20 Range/Units 12:34 12:34 13:57 Urine Color Yellow Urine Appearance Cloudy H (Clear) Urine pH 5.5 (5.0-8.0) Ur Specific [place] 1.014 (1.001-1.035) Urine Protein Negative (Negative) Urine Glucose (UA) Negative (Negative) Urine Ketones Negative (Negative) Urine Blood Negative (Negative) Urine Nitrite Negative (Negative) Urine Bilirubin Negative (Negative) Urine Urobilinogen <2.0 (<2.0) mg/dL Ur Leukocyte Esterase Large H (Negative) Urine RBC 5 (0-5) /hpf Urine WBC 10 H (0-5) /hpf Ur Squamous Epith Cells 28 H (0-4) /hpf Hyaline Casts 1 (0-2) /lpf Urine HCG, Qual Not Detected (Not Detectd) Trichomonas Ag (Rapid) Positive H (Negative) Disposition Clinical Impression: Trichomoniasis Disposition: HOME SELF-CARE Condition: Good Instructions (If sedation given, give patient instructions): Sexually Transmitted Diseases (ED) Additional Instructions: Please do not have sexual intercourse until your partner is treated and until all your symptoms have resolved. Please follow-up with your doctor in one to 2 days. If you have any worsening symptoms return to the emergency room. Is patient prescribed a controlled substance at d/c from ED?: No Referrals: Orquidea Shrot MD [Primary Care Provider] - 1-2 days Time of Disposition: 14:26
[2020-07-23] MEDS ORDERED: cefTRIAXone 250 MG VIAL IM STA (14:21)
[2020-07-23] MEDS ORDERED: AZITHROMYCIN 500 MG TAB PO STA (14:21)
[2020-07-23] MEDS ORDERED: metroNIDAZOLE 500 MG TAB PO STA (14:21)
[2020-07-23 14:53] VITALS: BP 119/73; PULSE 67
== END 2020-07-23 14:53 | disposition home or self-care (01) ==
LOC: EC 12:05
DX: A59.9 Trichomoniasis, unspecified (principal); G47.419 Narcolepsy without cataplexy; F17.200 Nicotine dependence, unspecified, uncomplicated
CPT/HCPCS: 81001; 81025; 87808; 87491; 87591; 87070; 99283; 96372; J0696

== ENCOUNTER 2021-02-23 15:18 | Emergency (ER) | payer OTHER ==
[2021-02-23] MEDS ORDERED: SODIUM CHLORIDE 0.9% 1,000 ML IV STA (15:33)
--- NOTE | 2021-02-23 15:47 | ED ---
General Adult HPI - General Chief complaint: Syncope Stated complaint: Heat exhaustion Time Seen by Provider: 02/23/21 15:25 Source: patient, EMS Mode of arrival: EMS Limitations: no limitations - History of Present Illness Initial comments: Patient is a 35-year-old female presenting to the emergency department via EMS secondary to heat exhaustion. Patient states she was visiting a friend in [place] when she started walking to [place]. Patient states she walked about 15 miles, felt fatigued, lightheaded, so she laid down on the ground. She denies any loss of consciousness. She states she has not eaten or drinking anything today as she did not have any money on her and was in a different city. She denies being . She denies any chest pain or shortness of breath, no abdominal pain, no nausea or vomiting. Patient received 1 L fluid in the EMS prior to arrival and states she is already feeling better. Patient has no further complaints at this time. Upon arrival to the ER, her vitals are stable. - Related Data Home Medications Medication Instructions Recorded Confirmed Dextroamphetamine/Amphetamine 20 mg PO BID PRN 05/19/20 05/19/20 [Adderall] Previous Rx's Medication Instructions Recorded Ciprofloxacin HCl [Cipro] 500 mg PO BID #20 tab 05/20/20 Allergies Allergy/AdvReac Type Severity Reaction Status Date / Time No Known Allergies Allergy Verified 07/23/20 12:27 Review of Systems ROS Statement: Those systems with pertinent positive or pertinent negative responses have been documented in the HPI. ROS Other: All systems not noted in ROS Statement are negative. Past Medical History Past Medical History: COPD Additional Past Medical History / Comment(s): Past pyelonephritis/sepsis, UTIs, chronic low back pain, narcolepsy, bronchitis. History of Any Multi-Drug Resistant Organisms: None Reported Past Surgical History: Section, Orthopedic Surgery Additional Past Surgical History / Comment(s): Left knee meniscal tear repair Past Anesthesia/Blood Transfusion Reactions: No Reported Reaction Past Psychological History: No Psychological Hx Reported Smoking Status: Current every day smoker Past Alcohol Use History: None Reported Past Drug Use History: None Reported - Past Family History Mother Family Medical History: COPD Additional Family Medical History / Comment(s): Multuple family memeber with ccancer, none affecting the urinary tract Father History Unknown: Yes General Exam - General Exam Comments Initial Comments: GENERAL: Patient is well-developed and well-nourished. Patient is nontoxic and in no acute distress. HEAD: Atraumatic, normocephalic. EYES: Pupils equal round and reactive to light, extraocular movements intact, sclera anicteric, conjunctiva are normal. Eyelids were unremarkable. ENT: TMs normal, nares patent, oropharynx clear without exudates. Moist mucous membranes. NECK: Normal range of motion, supple without lymphadenopathy or JVD. LUNGS: Unlabored respirations. Breath sounds clear to auscultation bilaterally and equal. No wheezes rales or rhonchi. HEART: Regular rate and rhythm without murmurs, rubs or gallops. ABDOMEN: Soft, nontender, normoactive bowel sounds. No guarding, no rebound. No masses appreciated. : Deferred MUSCULOSKELETAL: Normal extremities with adequate strength and normal range of motion, no pitting or edema. No clubbing or cyanosis. NEUROLOGICAL: Patient is alert and oriented x 3. Motor and sensory are also intact. Cranial nerves II through XII grossly intact. Symmetrical smile. Normal speech, normal gait. PSYCH: Normal mood, normal affect. SKIN: Warm, Dry, normal turgor, no rashes or lesions noted. Limitations: no limitations Course Vital Signs 02/23/21 02/23/21 15:31 16:03 Temperature 98.8 F Pulse Rate 72 Respiratory 16 16 Rate Blood Pressure 134/94 O2 Sat by Pulse 99 Oximetry Medical Decision Making - Medical Decision Making Patient is a 35-year-old female brought in by EMS for heat exhaustion. Patient was attempting to walk from [place] to [place] as nobody will come pick her up. Her vital signs are stable, labs are normal. Patient was given a total of 2 L of fluids. She reports improvement in her symptoms. She states she does have somebody to come pick her up, she is bradycardic O home. Patient is stable for discharge. Return parameters were discussed with her and she verbalized understanding. Case discussed with Dr. Colón. - Lab Data Result diagrams: 02/23/21 15:48 02/23/21 15:48 Lab Results 02/23/21 02/23/21 Range/Units 15:48 15:48 WBC 8.9 (3.8-10.6) k/uL RBC 4.37 (3.80-5.40) m/uL Hgb 13.1 (11.4-16.0) gm/dL Hct 38.3 (34.0-46.0) % MCV 87.6 (80.0-100.0) fL MCH 30.0 (25.0-35.0) pg MCHC 34.2 (31.0-37.0) g/dL RDW 13.6 (11.5-15.5) % Plt Count 294 (150-450) k/uL MPV 6.7 Neutrophils % 71 % Lymphocytes % 22 % Monocytes % 4 % Eosinophils % 1 % Basophils % 1 % Neutrophils # 6.3 (1.3-7.7) k/uL Lymphocytes # 2.0 (1.0-4.8) k/uL Monocytes # 0.4 (0-1.0) k/uL Eosinophils # 0.1 (0-0.7) k/uL Basophils # 0.1 (0-0.2) k/uL Sodium 142 (137-145) mmol/L Potassium 3.3 L (3.5-5.1) mmol/L Chloride 112 H (98-107) mmol/L Carbon Dioxide 23 (22-30) mmol/L Anion Gap 7 mmol/L BUN 14 (7-17) mg/dL Creatinine 0.92 (0.52-1.04) mg/dL Est GFR (CKD-EPI)AfAm >90 (>60 ml/min/1.73 sqM) Est GFR (CKD-EPI)NonAf 80 (>60 ml/min/1.73 sqM) Glucose 102 H (74-99) mg/dL Calcium 8.9 (8.4-10.2) mg/dL Total Bilirubin 0.5 (0.2-1.3) mg/dL AST 22 (14-36) U/L ALT 14 (4-34) U/L Alkaline Phosphatase 98 (38-126) U/L Total Protein 7.2 (6.3-8.2) g/dL Albumin 4.3 (3.5-5.0) g/dL Disposition Clinical Impression: Dehydration, Heat exhaustion Disposition: HOME SELF-CARE Condition: Stable Instructions (If sedation given, give patient instructions): Dehydration (ED) Additional Instructions: Please return to the Emergency Department if symptoms worsen or any other concerns. Continue to increase your fluid intakes, increase diet as tolerated. Follow up with your PCP. Is patient prescribed a controlled substance at d/c from ED?: No Referrals: Orquidea Short MD [Primary Care Provider] - 1-2 days Time of Disposition: 16:47
[2021-02-23 16:02] LABS: Basophils # (A) 0.1 k/uL (0-0.2); Basophils % (A) 1 %; Eosinophils # (A) 0.1 k/uL (0-0.7); Eosinophils % (A) 1 %; HCT 38.3 % (34.0-46.0); HGB 13.1 gm/dL (11.4-16.0); Lymphocytes % (A) 22 %; MCHC 34.2 g/dL (31.0-37.0); MCV 87.6 fL (80.0-100.0); Mean Platelet Volume 6.7; Monocytes # (A) 0.4 k/uL (0-1.0); Monocytes % (A) 4 %; Neutrophils # (A) 6.3 k/uL (1.3-7.7); Neutrophils % (A) 71 %; Platelet Count 294 k/uL (150-450); RBC 4.37 m/uL (3.80-5.40); RDW 13.6 % (11.5-15.5); WBC 8.9 k/uL (3.8-10.6)
[2021-02-23 16:13] LABS: ALT 14 U/L (4-34); AST 22 U/L (14-36); African American GFR (CKD) >90 (>60 ml/min/1.73 sqM); Albumin 4.3 g/dL (3.5-5.0); Alkaline Phosphatase 98 U/L (38-126); Anion Gap 7 mmol/L; Blood Urea Nitrogen 14 mg/dL (7-17); Calcium 8.9 mg/dL (8.4-10.2); Carbon Dioxide 23 mmol/L (22-30); Chloride 112 mmol/L (98-107); Glucose 102 mg/dL (74-99); Non-African American GFR(CKD) 80 (>60 ml/min/1.73 sqM); Potassium 3.3 mmol/L (3.5-5.1); Sodium 142 mmol/L (137-145); Total Bilirubin 0.5 mg/dL (0.2-1.3); Total Protein 7.2 g/dL (6.3-8.2)
[2021-02-23 17:56] VITALS: BP 158/84; PULSE 86; RESP 18; TEMP 98.1
== END 2021-02-23 17:56 | disposition home or self-care (01) ==
LOC: EC 15:18
DX: E86.0 Dehydration (principal); T67.5XXA Heat exhaustion, unspecified, initial encounter; J44.9 Chronic obstructive pulmonary disease, unspecified; F17.200 Nicotine dependence, unspecified, uncomplicated
CPT/HCPCS: 36415; 80053; 85025; 99284

== ENCOUNTER 2021-02-28 19:56 | Emergency (ER) | payer OTHER ==
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
[2021-02-28 20:38] VITALS: RESP 20
--- NOTE | 2021-02-28 20:49 | CT ---
EXAMINATION TYPE: CT brain wo con DATE OF EXAM: 02/28/2021 COMPARISON: 08/12/2012 HISTORY: Fall with head injury. CT DLP: 1099.4 mGycm Automated exposure control for dose reduction was used. Ventricles and sulci appear normal. There is no mass effect nor midline shift. There is no sign of in tracranial hemorrhage. The calvarium is intact. Skull base is intact. There is normal aeration of the mastoid sinuses. IMPRESSION: Negative unenhanced head CT scan. No change.
[2021-02-28 21:30] VITALS: BP 160/78; PULSE 78; TEMP 98.2
== END 2021-02-28 21:25 | disposition home or self-care (01) ==
LOC: EC 19:56
DX: T40.1X1A Poisoning by heroin, accidental (unintentional), initial encounter (principal); S00.03XA Contusion of scalp, initial encounter; F19.10 Other psychoactive substance abuse, uncomplicated; J44.9 Chronic obstructive pulmonary disease, unspecified; F17.200 Nicotine dependence, unspecified, uncomplicated; Z87.440 Personal history of urinary (tract) infections; W18.2XXA Fall in (into) shower or empty bathtub, initial encounter
CPT/HCPCS: 70450; 93005

== ENCOUNTER 2021-03-05 05:15 | Emergency (ER) | payer OTHER ==
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
[2021-03-05 06:31] LABS: Amorphous Sediment,Urine Rare /hpf; Appearance,Urine Clear (Clear); Bilirubin,Urine Negative (Negative); Blood,Urine Trace (Negative); Color,Urine Yellow; Glucose,Urine (UA) Negative (Negative); Hyaline Casts,Urine 3 /lpf (0-2); Ketones,Urine Negative (Negative); Leukocyte Esterase,Urine Negative (Negative); Mucus,Urine Many /hpf; Nitrite,Urine Negative (Negative); PH, Urine 6.5 (5.0-8.0); Protein,Urine 2+ (Negative); Squamous Epithelial Cell,Urine 4 /hpf (0-4); WBC,Urine 6 /hpf (0-5)
[2021-03-05 06:53] LABS: Amphetamine Screen,Urine Not Detected (NotDetected); Barbiturate Screen,Urine Not Detected (NotDetected); Benzodiazepines Screen,Urine Not Detected (NotDetected); Cocaine Screen,Urine Detected (NotDetected); Methadone Screen, Urine Not Detected (NotDetected); Opiate Screen,Urine Not Detected (NotDetected); Oxycodone Screen, Urine Not Detected (NotDetected); Phencyclidine Screen,Urine Not Detected (NotDetected); Tricyclic Antidepressant,Urine Not Detected (NotDetected); Urn Cannabinoid Scrn Detected (NotDetected)
[2021-03-05 07:01] VITALS: BP 133/68; PULSE 99; RESP 22; TEMP 99
[2021-03-09 14:29] LABS: C. trachomatis,PCR Negative (Neg,Equiv); Chlamydia trachomatis Source Urine; N. gonorrhoeae,PCR Negative (Neg,Equiv); Neisseria Source Urine
== END 2021-03-05 07:01 | disposition home or self-care (01) ==
LOC: EC 05:15
DX: R41.82 Altered mental status, unspecified (principal); F17.200 Nicotine dependence, unspecified, uncomplicated; J44.9 Chronic obstructive pulmonary disease, unspecified; Y04.8XXA Assault by other bodily force, initial encounter
CPT/HCPCS: 80306; 81001; 87491; 87591; 99284

== ENCOUNTER 2021-06-25 04:00 | Emergency (ER) | payer OTHER ==
[2021-06-25 04:08] VITALS: BP 121/70; PULSE 101; RESP 22; TEMP 98
--- NOTE | 2021-06-25 05:03 | ED ---
Female Urogenital HPI - General Chief complaint: GI Bleed Stated complaint: GI bleed Time Seen by Provider: 06/25/21 04:07 Source: patient, RN notes reviewed, old records reviewed Mode of arrival: ambulatory Limitations: no limitations - History of Present Illness Initial comments: This is a 35-year-old female to the emergency room today. Patient Dese for evaluation regards to dysuria with concern for STD she also noticed blood in stool started a few bowel movements. Patient does have history of hemorrhoids. Patient mainly here for concern for STD SVT treatment. Doesn't some mild abdominal pain but no other significant complaints. MD Complaint: vaginal discharge, dysuria, pelvic pain, possible STD -: days(s) Location: suprapubic Radiation: suprapubic Severity: mild Severity scale (1-10): 2 Quality: sharp Consistency: intermittent Improves with: none Worsens with: urination Patient : No Associated Symptoms: abdominal pain, dysuria - Related Data Sexually active: Yes Home Medications Medication Instructions Recorded Confirmed Dextroamphetamine/Amphetamine 20 mg PO BID PRN 05/19/20 02/28/21 [Adderall] Allergies Allergy/AdvReac Type Severity Reaction Status Date / Time No Known Allergies Allergy Verified 06/25/21 04:08 Review of Systems ROS Statement: Those systems with pertinent positive or pertinent negative responses have been documented in the HPI. ROS Other: All systems not noted in ROS Statement are negative. Past Medical History Past Medical History: COPD Additional Past Medical History / Comment(s): Past pyelonephritis/sepsis, UTIs, chronic low back pain, narcolepsy, bronchitis. History of Any Multi-Drug Resistant Organisms: None Reported Past Surgical History: Section, Orthopedic Surgery Additional Past Surgical History / Comment(s): Left knee meniscal tear repair Past Anesthesia/Blood Transfusion Reactions: No Reported Reaction Past Psychological History: No Psychological Hx Reported Smoking Status: Current every day smoker Past Alcohol Use History: None Reported Past Drug Use History: Cocaine, Heroin, Opiates - Past Family History Mother Family Medical History: COPD Additional Family Medical History / Comment(s): Multuple family memeber with ccancer, none affecting the urinary tract Father History Unknown: Yes General Exam Limitations: no limitations General appearance: alert, in no apparent distress, anxious Head exam: Present: atraumatic, normocephalic, normal inspection Eye exam: Present: normal appearance, PERRL, EOMI. Absent: scleral icterus, conjunctival injection, periorbital swelling ENT exam: Present: normal exam, mucous membranes moist Neck exam: Present: normal inspection. Absent: tenderness, meningismus, lymphadenopathy Respiratory exam: Present: normal lung sounds bilaterally. Absent: respiratory distress, wheezes, rales, rhonchi, stridor Cardiovascular Exam: Present: regular rate, normal rhythm, normal heart sounds. Absent: systolic murmur, diastolic murmur, rubs, gallop, clicks GI/Abdominal exam: Present: soft, normal bowel sounds. Absent: distended, tenderness, guarding, rebound, rigid Extremities exam: Present: normal inspection, full ROM, normal capillary refill. Absent: tenderness, pedal edema, joint swelling, calf tenderness Back exam: Present: normal inspection Neurological exam: Present: alert, oriented X3, CN II-XII intact Psychiatric exam: Present: normal affect, normal mood Skin exam: Present: warm, dry, intact, normal color. Absent: rash Course Vital Signs 06/25/21 04:02 Temperature 98 F Pulse Rate 101 H Respiratory 22 Rate Blood Pressure 121/70 O2 Sat by Pulse 97 Oximetry - Reevaluation(s) Reevaluation #1: 06/25/21 06:08 Medical records reviewed Reevaluation #2: Patient reassured regarding GI bleed, or for STD will send cultures Medical Decision Making - Medical Decision Making 35 female to the emergency department, patient concern for hemorrhoids, GI bleed no active bleeding here in the ER tested for STDs the patient has no symptoms and can be discharged home - Lab Data Lab Results 06/25/21 06/25/21 Range/Units 05:33 05:33 Urine Color Yellow Urine Appearance Clear (Clear) Urine pH 5.5 (5.0-8.0) Ur Specific [place] 1.017 (1.001-1.035) Urine Protein Negative (Negative) Urine Glucose (UA) Negative (Negative) Urine Ketones Negative (Negative) Urine Blood Negative (Negative) Urine Nitrite Negative (Negative) Urine Bilirubin Negative (Negative) Urine Urobilinogen <2.0 (<2.0) mg/dL Ur Leukocyte Esterase Small H (Negative) Urine RBC 1 (0-5) /hpf Urine WBC 7 H (0-5) /hpf Ur Squamous Epith Cells 1 (0-4) /hpf Urine Bacteria Rare H (None) /hpf Urine Mucus Rare H (None) /hpf Urine HCG, Qual Not Detected (Not Detectd) Disposition Clinical Impression: Dysuria, Hemorrhoids Disposition: HOME SELF-CARE Condition: Good Instructions (If sedation given, give patient instructions): Cervicitis (ED), Hemorrhoids (ED) Is patient prescribed a controlled substance at d/c from ED?: No Referrals: Orquidea Short MD [Primary Care Provider] - 1-2 days
[2021-06-25 06:08] LABS: Appearance,Urine Clear (Clear); Bacteria,Urine Rare /hpf; Bilirubin,Urine Negative (Negative); Blood,Urine Negative (Negative); Color,Urine Yellow; Glucose,Urine (UA) Negative (Negative); Ketones,Urine Negative (Negative); Leukocyte Esterase,Urine Small (Negative); Mucus,Urine Rare /hpf; Nitrite,Urine Negative (Negative); PH, Urine 5.5 (5.0-8.0); Protein,Urine Negative (Negative); RBC,Urine 1 /hpf (0-5); Specific Gravity,Urine 1.017 (1.001-1.035); Squamous Epithelial Cell,Urine 1 /hpf (0-4); Urobilinogen,Urine <2.0 mg/dL (<2.0); WBC,Urine 7 /hpf (0-5)
[2021-06-26 15:12] LABS: C. trachomatis,PCR Positive (Neg,Equiv); Chlamydia trachomatis Source Urine; N. gonorrhoeae,PCR Negative (Neg,Equiv); Neisseria Source Urine
== END 2021-06-25 07:26 | disposition home or self-care (01) ==
LOC: EC 04:00
DX: K64.9 Unspecified hemorrhoids (principal); R30.0 Dysuria; J44.9 Chronic obstructive pulmonary disease, unspecified; F17.200 Nicotine dependence, unspecified, uncomplicated; F14.90 Cocaine use, unspecified, uncomplicated; F11.90 Opioid use, unspecified, uncomplicated; F12.90 Cannabis use, unspecified, uncomplicated; Z79.899 Other long term (current) drug therapy
CPT/HCPCS: 81001; 81025; 87491; 87591; 99284

== ENCOUNTER 2021-09-07 12:05 | Emergency (ER) | payer OTHER ==
[2021-09-07 12:53] VITALS: BP 101/63; PULSE 136; RESP 18; TEMP 100.8
[2021-09-07] MEDS ORDERED: IBUPROFEN 600 MG TAB PO STA (13:29)
[2021-09-07] MEDS ORDERED: ACETAMINOPHEN TAB 325 MG TAB PO STA (13:29)
--- NOTE | 2021-09-07 14:18 | XR ---
EXAMINATION TYPE: XR chest 2V DATE OF EXAM: 09/07/2021 COMPARISON: Chest x-ray May 29, 2010 HISTORY: Cough and Shortness of breath. TECHNIQUE: Frontal and lateral views of the chest are obtained. FINDINGS: There is mild chronic parenchymal change without suspicious new focal air space opacity, p leural effusion, or pneumothorax seen. New Lateral left basilar linear atelectasis. The cardiac silhouette size remains within normal limits. The osseous structures are intact. IMPRESSION: No new acute infiltrate.
== END 2021-09-07 13:30 | disposition left against medical advice (07) ==
LOC: EC 12:05
DX: Z53.21 Procedure and treatment not carried out due to patient leaving prior to being seen by health care provider (principal)
CPT/HCPCS: 71046; 87635; 99499

== ENCOUNTER 2021-09-08 02:26 | Emergency (ER) | payer OTHER ==
[2021-09-08 02:30] VITALS: TEMP 98.1
[2021-09-08 02:42] VITALS: BP 140/85; PULSE 99; RESP 19
[2021-09-08] MEDS ORDERED: DOXYCYCLINE 100 MG CAP PO STA (03:04)
[2021-09-08] MEDS ORDERED: cefTRIAXone 1,000 MG VIAL (IM USE) IM STA (03:04)
[2021-09-08 03:24] LABS: Appearance,Urine Cloudy (Clear); Bacteria,Urine Occasional /hpf; Bilirubin,Urine Negative (Negative); Blood,Urine Small (Negative); Color,Urine Yellow; Glucose,Urine (UA) Negative (Negative); Ketones,Urine Negative (Negative); Leukocyte Esterase,Urine Moderate (Negative); Mucus,Urine Rare /hpf; Nitrite,Urine Negative (Negative); Protein,Urine Trace (Negative); RBC,Urine 28 /hpf (0-5); Specific Gravity,Urine 1.028 (1.001-1.035); Squamous Epithelial Cell,Urine 19 /hpf (0-4); WBC,Urine 98 /hpf (0-5)
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
[2021-09-09 13:25] LABS: C. trachomatis,PCR Negative (Neg,Equiv); Chlamydia trachomatis Source Vagina; N. gonorrhoeae,PCR Negative (Neg,Equiv); Neisseria Source Vagina
== END 2021-09-08 03:54 | disposition home or self-care (01) ==
LOC: EC 02:26
DX: N72 Inflammatory disease of cervix uteri (principal); R30.0 Dysuria; J44.9 Chronic obstructive pulmonary disease, unspecified; F17.200 Nicotine dependence, unspecified, uncomplicated
CPT/HCPCS: 81001; 81025; 87808; 87491; 87591; 87070; 87086; 99283; 96372; J0696

== ENCOUNTER 2021-10-11 21:35 | Emergency (ER) | payer OTHER ==
[2021-10-11 21:50] VITALS: TEMP 98.1
[2021-10-11 22:45] LABS: Basophils % (A) 0 %; Eosinophils # (A) 0.1 k/uL (0-0.7); Eosinophils % (A) 1 %; HCT 39.7 % (34.0-46.0); HGB 13.2 gm/dL (11.4-16.0); Lymphocytes # (A) 1.7 k/uL (1.0-4.8); Lymphocytes % (A) 17 %; MCH 31.4 pg (25.0-35.0); MCHC 33.3 g/dL (31.0-37.0); MCV 94.5 fL (80.0-100.0); Mean Platelet Volume 6.8; Monocytes # (A) 0.4 k/uL (0-1.0); Monocytes % (A) 4 %; Neutrophils # (A) 7.2 k/uL (1.3-7.7); Neutrophils % (A) 76 %; Platelet Count 365 k/uL (150-450); RDW 14.6 % (11.5-15.5); WBC 9.6 k/uL (3.8-10.6)
[2021-10-11] MEDS ORDERED: ONDANSETRON 4 MG/2 ML VIAL IVP STA (22:47)
[2021-10-11] MEDS ORDERED: SODIUM CHLORIDE 0.9% 1,000 ML IV ONE (22:48)
[2021-10-11] MEDS ORDERED: SODIUM CHLORIDE 0.9% 1,000 ML IV STA (22:48)
[2021-10-11 22:51] LABS: Appearance,Urine Clear (Clear); Bilirubin,Urine Negative (Negative); Blood,Urine Negative (Negative); Color,Urine Yellow; Glucose,Urine (UA) Negative (Negative); Ketones,Urine Negative (Negative); Leukocyte Esterase,Urine Negative (Negative); Mucus,Urine Moderate /hpf; Nitrite,Urine Negative (Negative); PH, Urine 5.5 (5.0-8.0); Protein,Urine 1+ (Negative); RBC,Urine 7 /hpf (0-5); Specific Gravity,Urine 1.027 (1.001-1.035); Squamous Epithelial Cell,Urine 1 /hpf (0-4); Urobilinogen,Urine <2.0 mg/dL (<2.0); WBC,Urine 7 /hpf (0-5)
[2021-10-11 23:14] LABS: ALT 18 U/L (4-34); AST 34 U/L (14-36); African American GFR (CKD) >90 (>60 ml/min/1.73 sqM); Albumin 4.7 g/dL (3.5-5.0); Alkaline Phosphatase 90 U/L (38-126); Anion Gap 7 mmol/L; Blood Urea Nitrogen 18 mg/dL (7-17); Calcium 9.7 mg/dL (8.4-10.2); Carbon Dioxide 31 mmol/L (22-30); Chloride 99 mmol/L (98-107); Glucose 114 mg/dL (74-99); Non-African American GFR(CKD) >90 (>60 ml/min/1.73 sqM); Potassium 4.6 mmol/L (3.5-5.1); Sodium 137 mmol/L (137-145); Total Protein 7.8 g/dL (6.3-8.2)
[2021-10-11 23:18] LABS: Amylase 88 U/L (30-110); Lipase 43 U/L (23-300)
[2021-10-12 00:58] VITALS: BP 108/71; PULSE 72; RESP 18
--- NOTE | 2021-10-12 01:03 | ED ---
Nausea/Vomiting/Diarrhea HPI - General Chief complaint: Nausea/Vomiting/Diarrhea Stated complaint: Vomiting, Fever Time Seen by Provider: 10/11/21 21:53 Source: patient Mode of arrival: ambulatory Limitations: no limitations - History of Present Illness Initial comments: This patient is a 36-year-old woman who presents to be evaluated for nausea and vomiting. She states that it had started earlier today and just continued throughout the day. She has not been able keep down anything in the way of food and only very small amounts of liquids. No hematemesis. No fever or chills. There has been some abdominal cramping. MD complaint: nausea, vomiting Onset/Timin -: days(s) Description of Vomiting: food contents Associated Abdominal Pain: Yes Location: diffuse Radiation: none Severity: mild Quality: cramping Consistency: intermittent, now resolved Improves with: none Worsens with: none Associated Symptoms: denies other symptoms - Related Data Home Medications Medication Instructions Recorded Confirmed Dextroamphetamine/Amphetamine 20 mg PO TID PRN 05/19/20 09/10/21 [Adderall] HYDROcodone/APAP 10-325MG [[place] 1 tab PO Q6HR PRN 09/10/21 09/10/21 10-325] medroxyPROGESTERone [Depo-Provera] 150 mg IM Q84D 09/10/21 09/10/21 Previous Rx's Medication Instructions Recorded Doxycycline [Vibramycin] 100 mg PO BID #14 capsule 09/08/21 Ondansetron Odt [Zofran ODT] 4 mg PO Q8HR PRN #10 tab 10/12/21 Allergies Allergy/AdvReac Type Severity Reaction Status Date / Time No Known Allergies Allergy Verified 10/11/21 21:48 Review of Systems ROS Statement: Those systems with pertinent positive or pertinent negative responses have been documented in the HPI. ROS Other: All systems not noted in ROS Statement are negative. Constitutional: Denies: fever, chills Respiratory: Denies: cough, dyspnea Cardiovascular: Denies: chest pain, palpitations, edema Gastrointestinal: Reports: abdominal pain, nausea, vomiting. Denies: diarrhea, constipation, hematemesis, melena, hematochezia Genitourinary: Denies: dysuria, frequency, hematuria Musculoskeletal: Denies: back pain Skin: Denies: rash Neurological: Denies: headache, weakness, numbness Past Medical History Past Medical History: COPD Additional Past Medical History / Comment(s): Past pyelonephritis/sepsis, UTIs, chronic low back pain, narcolepsy, bronchitis. History of Any Multi-Drug Resistant Organisms: None Reported Past Surgical History: Section, Orthopedic Surgery Additional Past Surgical History / Comment(s): Left knee meniscal tear repair Past Anesthesia/Blood Transfusion Reactions: No Reported Reaction Past Psychological History: No Psychological Hx Reported Smoking Status: Current every day smoker Past Alcohol Use History: None Reported Past Drug Use History: Marijuana - Past Family History Mother Family Medical History: COPD Additional Family Medical History / Comment(s): Multuple family memeber with c cancer, none affecting the urinary tract Father History Unknown: Yes General Exam Limitations: no limitations General appearance: alert, in no apparent distress Head exam: Present: atraumatic, normocephalic Eye exam: Present: normal appearance Respiratory exam: Present: normal lung sounds bilaterally. Absent: respiratory distress, wheezes, rales, rhonchi, stridor Cardiovascular Exam: Present: regular rate, normal rhythm, normal heart sounds. Absent: systolic murmur, diastolic murmur, rubs, gallop GI/Abdominal exam: Present: soft. Absent: distended, tenderness, guarding, rebound, rigid, mass, pulsatile mass, hernia Extremities exam: Present: normal inspection, normal capillary refill. Absent: pedal edema Neurological exam: Present: alert Skin exam: Present: warm, dry, intact, normal color. Absent: rash Course Vital Signs 10/11/21 10/12/21 21:48 00:57 Temperature 98.1 F Pulse Rate 79 72 Respiratory 20 18 Rate Blood Pressure 101/68 108/71 O2 Sat by Pulse 97 96 Oximetry Medical Decision Making - Medical Decision Making This patient is 36-year-old woman here for nausea and vomiting. She has had good relief of symptoms with the ondansetron here. The patient had described having concerns about possibility of sexually transmitted infection. She had told this to one of the nurses who did provide swab which she self administered. I was subsequently informed of this and the patient declined gynecologic exam here. She states she had been treated for this previously but was concerned that things may not have resolved. She states there had been some increase in clear drainage. Patient declined empiric treatment pending results. She has had good relief of the nausea and vomiting with fluids and ondansetron. Discussed appropriate return parameters and f ollow-up. - Lab Data Result diagrams: 10/11/21 22:36 10/11/21 22:36 Lab Results 10/11/21 10/11/21 10/11/21 Range/Units 22:36 22:36 22:36 WBC 9.6 (3.8-10.6) k/uL RBC 4.20 (3.80-5.40) m/uL Hgb 13.2 (11.4-16.0) gm/dL Hct 39.7 (34.0-46.0) % MCV 94.5 (80.0-100.0) fL MCH 31.4 (25.0-35.0) pg MCHC 33.3 (31.0-37.0) g/dL RDW 14.6 (11.5-15.5) % Plt Count 365 (150-450) k/uL MPV 6.8 Neutrophils % 76 % Lymphocytes % 17 % Monocytes % 4 % Eosinophils % 1 % Basophils % 0 % Neutrophils # 7.2 (1.3-7.7) k/uL Lymphocytes # 1.7 (1.0-4.8) k/uL Monocytes # 0.4 (0-1.0) k/uL Eosinophils # 0.1 (0-0.7) k/uL Basophils # 0.0 (0-0.2) k/uL Sodium (137-145) mmol/L Potassium (3.5-5.1) mmol/L Chloride (98-107) mmol/L Carbon Dioxide (22-30) mmol/L Anion Gap mmol/L BUN (7-17) mg/dL Creatinine (0.52-1.04) mg/dL Est GFR (CKD-EPI)AfAm (>60 ml/min/1.73 sqM) Est GFR (CKD-EPI)NonAf (>60 ml/min/1.73 sqM) Glucose (74-99) mg/dL Calcium (8.4-10.2) mg/dL Total Bilirubin (0.2-1.3) mg/dL AST (14-36) U/L ALT (4-34) U/L Alkaline Phosphatase (38-126) U/L Total Protein (6.3-8.2) g/dL Albumin (3.5-5.0) g/dL Amylase (30-110) U/L Lipase (23-300) U/L Urine Color Yellow Urine Appearance Clear (Clear) Urine pH 5.5 (5.0-8.0) Ur Specific [place] 1.027 (1.001-1.035) Urine Protein 1+ H (Negative) Urine Glucose (UA) Negative (Negative) Urine Ketones Negative (Negative) Urine Blood Negative (Negative) Urine Nitrite Negative (Negative) Urine Bilirubin Negative (Negative) Urine Urobilinogen <2.0 (<2.0) mg/dL Ur Leukocyte Esterase Negative (Negative) Urine RBC 7 H (0-5) /hpf Urine WBC 7 H (0-5) /hpf Ur Squamous Epith Cells 1 (0-4) /hpf Urine Mucus Moderate H (None) /hpf Urine HCG, Qual Not Detected (Not Detectd) Trichomonas Ag (Rapid) (Negative) 10/11/21 10/11/21 10/11/21 Range/Units 22:36 22:36 22:36 WBC (3.8-10.6) k/uL RBC (3.80-5.40) m/uL Hgb (11.4-16.0) gm/dL Hct (34.0-46.0) % MCV (80.0-100.0) fL MCH (25.0-35.0) pg MCHC (31.0-37.0) g/dL RDW (11.5-15.5) % Plt Count (150-450) k/uL MPV Neutrophils % % Lymphocytes % % Monocytes % % Eosinophils % % Basophils % % Neutrophils # (1.3-7.7) k/uL Lymphocytes # (1.0-4.8) k/uL Monocytes # (0-1.0) k/uL Eosinophils # (0-0.7) k/uL Basophils # (0-0.2) k/uL Sodium 137 (137-145) mmol/L Potassium 4.6 (3.5-5.1) mmol/L Chloride 99 (98-107) mmol/L Carbon Dioxide 31 H (22-30) mmol/L Anion Gap 7 mmol/L BUN 18 H (7-17) mg/dL Creatinine 0.72 (0.52-1.04) mg/dL Est GFR (CKD-EPI)AfAm >90 (>60 ml/min/1.73 sqM) Est GFR (CKD-EPI)NonAf >90 (>60 ml/min/1.73 sqM) Glucose 114 H (74-99) mg/dL Calcium 9.7 (8.4-10.2) mg/dL Total Bilirubin 1.0 (0.2-1.3) mg/dL AST 34 (14-36) U/L ALT 18 (4-34) U/L Alkaline Phosphatase 90 (38-126) U/L Total Protein 7.8 (6.3-8.2) g/dL Albumin 4.7 (3.5-5.0) g/dL Amylase 88 (30-110) U/L Lipase 43 (23-300) U/L Urine Color Urine Appearance (Clear) Urine pH (5.0-8.0) Ur Specific [place] (1.001-1.035) Urine Protein (Negative) Urine Glucose (UA) (Negative) Urine Ketones (Negative) Urine Blood (Negative) Urine Nitrite (Negative) Urine Bilirubin (Negative) Urine Urobilinogen (<2.0) mg/dL Ur Leukocyte Esterase (Negative) Urine RBC (0-5) /hpf Urine WBC (0-5) /hpf Ur Squamous Epith Cells (0-4) /hpf Urine Mucus (None) /hpf Urine HCG, Qual (Not Detectd) Trichomonas Ag (Rapid) Negative (Negative) Disposition Clinical Impression: Vomiting with nausea, not intractable Disposition: HOME SELF-CARE Condition: Good Instructions (If sedation given, give patient instructions): Acute Nausea and Vomiting (ED) Prescriptions: Ondansetron Odt [Zofran ODT] 4 mg PO Q8HR PRN #10 tab PRN Reason: Nausea Is patient prescribed a controlled substance at d/c from ED?: No Referrals: Orquidea Short MD [Primary Care Provider] - 1-2 days
[2021-10-13 13:55] LABS: C. trachomatis,PCR Negative (Neg,Equiv); Chlamydia trachomatis Source Vagina; N. gonorrhoeae,PCR Negative (Neg,Equiv); Neisseria Source Vagina
== END 2021-10-12 01:10 | disposition home or self-care (01) ==
LOC: EC 21:35
DX: R11.2 Nausea with vomiting, unspecified (principal); J44.9 Chronic obstructive pulmonary disease, unspecified; F17.200 Nicotine dependence, unspecified, uncomplicated; F12.90 Cannabis use, unspecified, uncomplicated; Z79.899 Other long term (current) drug therapy
CPT/HCPCS: 36415; 80053; 82150; 83690; 85025; 81001; 81025; 87808; 87491; 87591; 87070; 99284; 96374; J2405

== ENCOUNTER 2021-10-12 22:05 | Emergency (ER) | payer OTHER ==
[2021-10-12 22:12] VITALS: BP 121/75; PULSE 87; RESP 18; TEMP 98.8
--- NOTE | 2021-10-12 22:40 | XR ---
EXAMINATION TYPE: XR foot complete RT DATE OF EXAM: 10/12/2021 COMPARISON: NONE HISTORY: Foot pain TECHNIQUE: 3 views FINDINGS: I see no fracture nor dislocation. Metatarsals are intact. Joint spaces are normal. IMPRESSION: Negative right foot exam.
[2021-10-12] MEDS ORDERED: MORPHINE SULFATE 4 MG/ML SYRINGE IM STA (23:01)
--- NOTE | 2021-10-13 00:30 | ED ---
Lower Extremity Injury HPI - General Chief Complaint: Extremity Injury, Lower Stated Complaint: Dropped TV on RT foot Source: patient, family Mode of arrival: wheelchair Limitations: no limitations - History of Present Illness Initial Comments: 36-year-old female presents emergency Department with foot pain. Patient states that she accidentally dropped a TV on her right foot was prior to hospital arrival. States the majority of the pain is in her heel. Denies any knee or hip pain. Patient has been ambulatory in the extremity. Denies any additional injuries. No other alleviating, precipitating or modifying factors - Related Data Home Medications Medication Instructions Recorded Confirmed Dextroamphetamine/Amphetamine 20 mg PO TID PRN 05/19/20 10/12/21 [Adderall] HYDROcodone/APAP 10-325MG [[place] 1 tab PO Q6HR PRN 09/10/21 10/12/21 10-325] medroxyPROGESTERone [Depo-Provera] 150 mg IM Q84D 09/10/21 10/12/21 Previous Rx's Medication Instructions Recorded Ondansetron Odt [Zofran ODT] 4 mg PO Q8HR PRN #10 tab 10/12/21 Allergies Allergy/AdvReac Type Severity Reaction Status Date / Time No Known Allergies Allergy Verified 10/12/21 22:52 Review of Systems ROS Statement: Those systems with pertinent positive or pertinent negative responses have been documented in the HPI. ROS Other: All systems not noted in ROS Statement are negative. Past Medical History Past Medical History: COPD Additional Past Medical History / Comment(s): Past pyelonephritis/sepsis, UTIs, chronic low back pain, narcolepsy, bronchitis. History of Any Multi-Drug Resistant Organisms: None Reported Past Surgical History: Section, Orthopedic Surgery Additional Past Surgical History / Comment(s): Left knee meniscal tear repair Past Anesthesia/Blood Transfusion Reactions: No Reported Reaction Past Psychological History: No Psychological Hx Reported Smoking Status: Current every day smoker Past Alcohol Use History: None Reported Past Drug Use History: Marijuana - Past Family History Mother Family Medical History: COPD Additional Family Medical History / Comment(s): Multuple family memeber with ccancer, none affecting the urinary tract Father History Unknown: Yes General Exam Limitations: no limitations Course Vital Signs 10/12/21 22:09 Temperature 98.8 F Pulse Rate 87 Respiratory 18 Rate Blood Pressure 121/75 O2 Sat by Pulse 100 Oximetry Medical Decision Making - Medical Decision Making Upon arrival patient is placed into room 30. Thorough history and physical exam was performed. Patient is requesting pain medications and therefore she is given morphine 4 mg IM in the emergency department. X-rays of the foot are performed which showed 3 no acute fracture. Due to the patient's significant pain she is placed in a posterior short leg splint. She is instructed not to weight-bear. Patient is given a prescription for crutches and asked to ambulate with the crutches. She is instructed to rest, ice and elevate the extremity. Alternate taking Motrin and Tylneol for pain control. Patient's last to hospital visits have been for opiate overdose and therefore I am apprehensive did provide the patient with a prescription for opiates. She will be given follow-up information for the orthopedic clinic. She does have an appointment w ith her primary care doctor in 2-4 days. Instructed that if she has continued pain that she needs repeat imaging. Patient understood was given written and verbal discharge instructions and discharged home in stable condition Disposition Clinical Impression: Right foot pain Disposition: HOME SELF-CARE Condition: Stable Instructions (If sedation given, give patient instructions): Foot Sprain (ED) Additional Instructions: Please follow-up with your primary care doctor within 2-4 days. Alternate taking Motrin and Tylenol for pain. I also recommend you follow up with the orthopedic surgeon. You may need repeat imaging in 7-10 days if your pain pers ists. Rest, ice and elevate the extremity. Do not weight bear and use the crutches for ambulation. Return to the emergency department for any new or worsening symptoms Is patient prescribed a controlled substance at d/c from ED?: No Referrals: Orquidea Short MD [Primary Care Provider] - 1-2 days Jose Cuevas MD [STAFF PHYSICIAN] - 1-2 days Time of Disposition: 00:27
== END 2021-10-13 02:20 | disposition home or self-care (01) ==
LOC: EC 22:05
DX: M79.671 Pain in right foot (principal); J44.9 Chronic obstructive pulmonary disease, unspecified; F17.200 Nicotine dependence, unspecified, uncomplicated; F12.90 Cannabis use, unspecified, uncomplicated; Z79.899 Other long term (current) drug therapy; W20.8XXA Other cause of strike by thrown, projected or falling object, initial encounter
CPT/HCPCS: 73630; 99283; 96372; J2270

== ENCOUNTER 2021-11-26 23:32 | Emergency (ER) | payer OTHER ==
[2021-11-26 23:42] VITALS: BP 106/63; PULSE 81; RESP 20; TEMP 98.3
--- NOTE | 2021-11-26 23:52 | ED ---
General Adult HPI - General Chief complaint: Urogenital Stated complaint: Urogenital Time Seen by Provider: 11/26/21 23:50 Source: patient, RN notes reviewed, old records reviewed Mode of arrival: ambulatory Limitations: no limitations - History of Present Illness Initial comments: Well-appearing 36-year-old female alert and oriented and nontoxic appearing presents with complaints of vaginal odor on and off for the past several months. Patient states she's been seen here in the emergency room multiple times for this same discharge and tested for STI's and always negative. Patient states that she just does not know what is causing the odor. She states no one can figure out what is causing it. She denies any . No pain no fevers no nausea vomiting or diarrhea. She denies any abdominal pain. She is pack-a-day smoker does not take any medications on a daily basis. She has not had a period in 4 months but denies any chance of . -: month(s) (4) Severity scale (1-10): 0 Consistency: intermittent Associated Symptoms: denies other symptoms - Related Data Home Medications Medication Instructions Recorded Confirmed Dextroamphetamine/Amphetamine 20 mg PO TID PRN 05/19/20 10/12/21 [Adderall] HYDROcodone/APAP 10-325MG [[place] 1 tab PO Q6HR PRN 09/10/21 10/12/21 10-325] medroxyPROGESTERone [Depo-Provera] 150 mg IM Q84D 09/10/21 10/12/21 Previous Rx's Medication Instructions Recorded Ondansetron Odt [Zofran ODT] 4 mg PO Q8HR PRN #10 tab 10/12/21 Allergies Allergy/AdvReac Type Severity Reaction Status Date / Time No Known Allergies Allergy Verified 11/26/21 23:40 Review of Systems ROS Statement: Those systems with pertinent positive or pertinent negative responses have been documented in the HPI. ROS Other: All systems not noted in ROS Statement are negative. Past Medical History Past Medical History: COPD Additional Past Medical History / Comment(s): Past pyelonephritis/sepsis, UTIs, chronic low back pain, narcolepsy, bronchitis. History of Any Multi-Drug Resistant Organisms: None Reported Past Surgical History: Section, Orthopedic Surgery Additional Past Surgical History / Comment(s): Left knee meniscal tear repair Past Anesthesia/Blood Transfusion Reactions: No Reported Reaction Past Psychological History: No Psychological Hx Reported Smoking Status: Current every day smoker Past Alcohol Use History: None Reported Past Drug Use History: Marijuana - Past Family History Mother Family Medical History: COPD Additional Family Medical History / Comment(s): Multuple family memeber with ccancer, none affecting the urinary tract Father History Unknown: Yes General Exam Limitations: no limitations General appearance: alert, in no apparent distress Eye exam: Present: normal appearance Course Vital Signs 11/26/21 23:40 Temperature 98.3 F Pulse Rate 81 Respiratory 20 Rate Blood Pressure 106/63 O2 Sat by Pulse 99 Oximetry Medical Decision Making - Medical Decision Making 36-year-old female presents with complaints of vaginal odor on and off for the past several months. She's been seen here in the emergency room multiple times for this same discharge and STI testing has been negative. Patient states that she just does not know what is causing the odor. She also states she hasn't had a period in the past 4 months. Patient was offered a vaginal exam and declined. She denies any vaginal bleeding or lesions. She states that this is the same vaginal discharge she's had in the past and she was able to self swab in the past. Patient did self swab today for STI testing. She denies abdominal pain, no nausea, vomiting, diarrhea or fevers. Urinalysis is negative for or infection. According to her medical records she has been referred to a cafeteria attendant. I did discuss with her that this may be a hormonal imbalance and to follow up for further testing with her primary care doctor or the gynecology. Patient is agreeable with this plan of care. - Lab Data Lab Results 11/26/21 11/26/21 11/26/21 Range/Units 23:50 23:50 23:57 Urine Color Light Yellow Urine Appearance Clear (Clear) Urine pH 6.0 (5.0-8.0) Ur Specific [place] 1.006 (1.001-1.035) Urine Protein Negative (Negative) Urine Glucose (UA) Negative (Negative) Urine Ketones Negative (Negative) Urine Blood Negative (Negative) Urine Nitrite Negative (Negative) Urine Bilirubin Negative (Negative) Urine Urobilinogen <2.0 (<2.0) mg/dL Ur Leukocyte Esterase Small H (Negative) Urine RBC 1 (0-5) /hpf Urine WBC 2 (0-5) /hpf Ur Squamous Epith Cells 1 (0-4) /hpf Urine HCG, Qual Not Detected (Not Detectd) Trichomonas Ag (Rapid) Positive H (Negative) Disposition Clinical Impression: Vaginal Discharge Disposition: HOME SELF-CARE Condition: Good Instructions (If sedation given, give patient instructions): Vaginal Discharge (ED) Additional Instructions: Please follow-up with your primary care doctor regarding lack of menstrual period with persistent vaginal discharge. If your cultures come back positive you will be notified by the Hospital. Return to the emergency room with any new or concerning symptoms. Is patient prescribed a controlled substance at d/c from ED?: No Referrals: Orquidea Short MD [Primary Care Provider] - 1-2 days Janet Barrera MD [STAFF PHYSICIAN] - 1-2 days Time of Disposition: 00:38
[2021-11-27 00:28] LABS: Appearance,Urine Clear (Clear); Bilirubin,Urine Negative (Negative); Blood,Urine Negative (Negative); Color,Urine Light Yellow; Glucose,Urine (UA) Negative (Negative); Ketones,Urine Negative (Negative); Leukocyte Esterase,Urine Small (Negative); Nitrite,Urine Negative (Negative); Protein,Urine Negative (Negative); RBC,Urine 1 /hpf (0-5); Specific Gravity,Urine 1.006 (1.001-1.035); Squamous Epithelial Cell,Urine 1 /hpf (0-4); Urobilinogen,Urine <2.0 mg/dL (<2.0); WBC,Urine 2 /hpf (0-5)
== END 2021-11-27 00:42 | disposition home or self-care (01) ==
LOC: EC 23:32
DX: N89.8 Other specified noninflammatory disorders of vagina (principal); J44.9 Chronic obstructive pulmonary disease, unspecified; F17.200 Nicotine dependence, unspecified, uncomplicated; F12.90 Cannabis use, unspecified, uncomplicated; Z79.899 Other long term (current) drug therapy
CPT/HCPCS: 81001; 81025; 87491; 87591; 87808; 99283

== ENCOUNTER 2022-02-23 06:42 | Emergency (ER) | payer OTHER ==
[2022-02-23 06:49] VITALS: BP 101/60; PULSE 77; RESP 20; TEMP 98.3
--- NOTE | 2022-02-23 07:13 | ED ---
Eye Problem HPI - General Chief complaint: Eye Problems Stated complaint: eye problems Time Seen by Provider: 02/23/22 06:51 Source: patient, RN notes reviewed Mode of arrival: ambulatory Limitations: no limitations - History of Present Illness Initial comments: 36-year-old female presents emergency Department with multiple complaints. Patient primary complaint is eye itching, drainage. Symptoms have been present for 1 week. Patient states are red, crusted and blood shot. She has no visual disturbance no trauma. Denies any history of ALLERGY issues. Patient states she she also has itchy feet between her toes. Patient states there is some rash. Patient denies applying any lotions to the area. Patient also cleanser right knee pain which is chronic in nature. - Related Data Home Medications Medication Instructions Recorded Confirmed Dextroamphetamine/Amphetamine 20 mg PO TID PRN 05/19/20 10/12/21 [Adderall] HYDROcodone/APAP 10-325MG [[place] 1 tab PO Q6HR PRN 09/10/21 10/12/21 10-325] medroxyPROGESTERone [Depo-Provera] 150 mg IM Q84D 09/10/21 10/12/21 Previous Rx's Medication Instructions Recorded Ondansetron Odt [Zofran ODT] 4 mg PO Q8HR PRN #10 tab 10/12/21 Butenafine HCl [Lotrimin Ultra] 1 applic TOPICAL BID #24 gm 02/23/22 Tobramycin [Tobrex 0.3% Ophth Soln] 1 drop BOTH EYES Q4HR #5 ml 02/23/22 Allergies Allergy/AdvReac Type Severity Reaction Status Date / Time No Known Allergies Allergy Verified 02/23/22 06:48 Review of Systems ROS Statement: Those systems with pertinent positive or pertinent negative responses have been documented in the HPI. ROS Other: All systems not noted in ROS Statement are negative. Past Medical History Past Medical History: COPD Additional Past Medical History / Comment(s): Past pyelonephritis/sepsis, UTIs, chronic low back pain, narcolepsy, bronchitis. History of Any Multi-Drug Resistant Organisms: None Reported Past Surgical History: Section, Orthopedic Surgery Additional Past Surgical History / Comment(s): Left knee meniscal tear repair Past Anesthesia/Blood Transfusion Reactions: No Reported Reaction Past Psychological History: No Psychological Hx Reported Smoking Status: Current every day smoker Past Alcohol Use History: None Reported Past Drug Use History: Marijuana - Past Family History Mother Family Medical History: COPD Additional Family Medical History / Comment(s): Multuple family memeber with ccancer, none affecting the urinary tract Father History Unknown: Yes General Exam Limitations: no limitations General appearance: alert, in no apparent distress Head exam: Present: atraumatic, normocephalic, normal inspection Eye exam: Present: PERRL, EOMI, conjunctival injection. Absent: normal appearance, scleral icterus, periorbital swelling ENT exam: Present: normal exam, normal oropharynx, mucous membranes moist Neck exam: Present: normal inspection, full ROM. Absent: tenderness, meningismus, lymphadenopathy Respiratory exam: Present: normal lung sounds bilaterally. Absent: respiratory distress, wheezes, rales, rhonchi, stridor Cardiovascular Exam: Present: regular rate, normal rhythm, normal heart sounds. Absent: systolic murmur, diastolic murmur, rubs, gallop, clicks Extremities exam: Present: other (Right knee full range of motion neurovascular intact no laxity noted trauma) Skin exam: Present: warm, dry, intact, normal color, rash (Cracking between the toes noted, mild erythema) Course Vital Signs 02/23/22 06:44 Temperature 98.3 F Pulse Rate 77 Respiratory 20 Rate Blood Pressure 101/60 O2 Sat by Pulse 97 Oximetry Medical Decision Making - Medical Decision Making Patient we treated for conjunctivitis maybe ALLERGY component nature she is advise use [id number] eyedrops for ALLERGIES. Patient has chronic right knee pain with no trauma patient's concerned about meniscus injury she'll follow-up with PCP, orthopedics. She also has athlete's foot in which she is given Lotrimin Disposition Clinical Impression: Tinea pedis, Conjunctivitis, Right knee pain Disposition: HOME SELF-CARE Condition: Stable Instructions (If sedation given, give patient instructions): Conjunctivitis (ED) Additional Instructions: Please return to the Emergency Department if symptoms worsen or any other concerns. Prescriptions: Butenafine HCl [Lotrimin Ultra] 1 applic TOPICAL BID #24 gm Tobramycin [Tobrex 0.3% Ophth Soln] 1 drop BOTH EYES Q4HR #5 ml Is patient prescribed a controlled substance at d/c from ED?: No Referrals: Orquidea Short MD [Primary Care Provider] - 1-2 days Time of Disposition: 07:12
== END 2022-02-23 07:29 | disposition home or self-care (01) ==
LOC: EC 06:42
DX: H10.9 Unspecified conjunctivitis (principal); B35.3 Tinea pedis; M25.561 Pain in right knee; G89.29 Other chronic pain; J44.9 Chronic obstructive pulmonary disease, unspecified; F17.200 Nicotine dependence, unspecified, uncomplicated; F12.90 Cannabis use, unspecified, uncomplicated
CPT/HCPCS: 99283

== ENCOUNTER 2022-03-11 02:27 | Inpatient (IN) | payer MEDICAID, OTHER ==
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
[2022-03-11 07:06] LABS: Appearance,Urine Cloudy (Clear); Bacteria,Urine Moderate /hpf; Bilirubin,Urine 1+ (Negative); Blood,Urine Large (Negative); Color,Urine Yellow; Glucose,Urine (UA) Negative (Negative); Hyaline Casts,Urine 67 /lpf (0-2); Ketones,Urine Negative (Negative); Leukocyte Esterase,Urine Moderate (Negative); Mucus,Urine Many /hpf; Nitrite,Urine Positive (Negative); Protein,Urine 3+ (Negative); RBC,Urine 70 /hpf (0-5); Specific Gravity,Urine 1.023 (1.001-1.035); Squamous Epithelial Cell,Urine 4 /hpf (0-4); WBC,Urine 55 /hpf (0-5)
[2022-03-11 07:27] LABS: Amphetamine Screen,Urine Not Detected (NotDetected); Barbiturate Screen,Urine Not Detected (NotDetected); Benzodiazepines Screen,Urine Not Detected (NotDetected); Cocaine Screen,Urine Detected (NotDetected); Methadone Screen, Urine Not Detected (NotDetected); Opiate Screen,Urine Detected (NotDetected); Oxycodone Screen, Urine Not Detected (NotDetected); Phencyclidine Screen,Urine Not Detected (NotDetected); Tricyclic Antidepressant,Urine Not Detected (NotDetected); Urn Cannabinoid Scrn Detected (NotDetected)
[2022-03-11] MEDS ORDERED: SULFAMETHOX-TMP 800-160MG 1 EACH TAB PO STA (07:37)
[2022-03-11] MEDS ORDERED: NICOTINE 21MG/24HR PATCH TRANSDERM STA (08:20)
[2022-03-11] MEDS ORDERED: ACETAMINOPHEN TAB 325 MG TAB PO PRN (15:17)
[2022-03-11] MEDS ORDERED: MAGNESIUM HYDROXIDE 2,400 MG/10 ML CUP PO PRN (15:17)
[2022-03-11] MEDS ORDERED: HALOPERIDOL LACTATE 5 MG/ML 1 ML VIAL IM PRN (15:17)
[2022-03-11] MEDS ORDERED: haloperidoL 5 MG TAB PO PRN (15:22)
[2022-03-11] MEDS ORDERED: hydrOXYzine HCL 50 MG/ML 1 ML VIAL IM PRN (15:22)
[2022-03-11 18:05] VITALS: RESP 16
[2022-03-11] MEDS: MAG HYDROX/AL HYDROX/SIMETH 30 ML CUP PO PRN (18:10)
[2022-03-11] MEDS: SULFAMETHOX-TMP 800-160MG 1 EACH TAB PO SCH (21:00)
[2022-03-11] MEDS: CLOTRIMAZOLE 1% CREAM 30 GM TUBE TOPICAL SCH (21:00)
--- NOTE | 2022-03-11 22:23 | CONS ---
CONSULTATION REASON FOR CONSULTATION: Advice regarding narcolepsy and other medical issues requested by Psychiatry. HISTORY OF PRESENT ILLNESS: This 36-year-old woman with a past medical history of COPD, history of narcolepsy, was taking previously. Currently the patient is off the medication. Patient also complains of severe back pain as well. The patient admitted for psychiatric evaluation. The patient has history of substance abuse also. There is no history of fever, rigors, chills at this time. PAST MEDICAL HISTORY: History of COPD, history of section. MEDICATIONS: Reviewed and include: Tobrex, dose and rest of medications noted. ALLERGIES: None. FAMILY HISTORY: History of COPD. SOCIAL HISTORY: History of polysubstance abuse. REVIEW OF SYSTEMS: Fourteen point review of system is negative except as mentioned earlier. PHYSICAL EXAMINATION: Pulse is 109, blood pressure 105/72, respirations 18. HEENT: Conjunctivae normal. NECK: No Jugular venous distention. CARDIOVASCULAR: S1, S2 normal. RESPIRATIONS: Breath sounds diminished in the bases. No rhonchi. No crackles. ABDOMEN: Soft, nontender. LEGS are no edema. No swelling. Nervous system: Cranial nerves 2 thru 12, grossly intact. Moves all 4 limbs. No focal motor or sensory deficits. LYMPHATICS: No lymph nodes palpable in the neck, axilla or groin. SKIN: No ulcer, rash or bleeding. JOINTS: No active deforming arthropathy. LABS: UA possible UTI. ASSESSMENT: 1. Urinary tract infection. 2. Polysubstance abuse. 3. Suicidal ideation, possible depression. 4. Narcolepsy. 5. Chronic obstructive pulmonary disease. RECOMMENDATIONS AND DISCUSSION: In this 36-year-old woman who presented with multiple medical issues, at this time I recommend to continue the current medications, symptomatic treatment. Watch for withdrawals. I would recommend a short course of p.o. antibiotics. I would also recommend close followup with Neurology for followup of narcolepsy. Prognosis guarded because of multiple complex medical issues. Further recommendations to follow. MMODL / IJN: [id number] / MTDD
[2022-03-12] MEDS: CLOTRIMAZOLE 1% CREAM 30 GM TUBE TOPICAL SCH ×2 (09:29→20:23)
[2022-03-12] MEDS: SULFAMETHOX-TMP 800-160MG 1 EACH TAB PO SCH ×2 (09:29→20:23)
[2022-03-12] MEDS: NICOTINE 21MG/24HR PATCH TRANSDERM SCH (09:29)
[2022-03-12 12:16] LABS: Basophils % (A) 0 %; Eosinophils # (A) 0.1 k/uL (0-0.7); Eosinophils % (A) 1 %; HCT 43.1 % (34.0-46.0); HGB 14.2 gm/dL (11.4-16.0); Lymphocytes % (A) 9 %; MCH 29.6 pg (25.0-35.0); MCV 89.7 fL (80.0-100.0); Mean Platelet Volume 7.1; Monocytes # (A) 0.6 k/uL (0-1.0); Monocytes % (A) 5 %; Neutrophils # (A) 9.4 k/uL (1.3-7.7); Neutrophils % (A) 82 %; Platelet Count 358 k/uL (150-450); RBC 4.81 m/uL (3.80-5.40); RDW 13.6 % (11.5-15.5); WBC 11.4 k/uL (3.8-10.6)
[2022-03-12 12:53] LABS: ALT 18 U/L (4-34); AST 34 U/L (14-36); African American GFR (CKD) 82 (>60 ml/min/1.73 sqM); Albumin 4.2 g/dL (3.5-5.0); Alkaline Phosphatase 106 U/L (38-126); Anion Gap 11 mmol/L; Bilirubin, Delta 0.3 mg/dL (0.0-0.2); Bilirubin,Unconjugated 0.2 mg/dL (0.0-1.1); Blood Urea Nitrogen 14 mg/dL (7-17); Calcium 9.2 mg/dL (8.4-10.2); Carbon Dioxide 31 mmol/L (22-30); Chloride 95 mmol/L (98-107); Glucose 108 mg/dL (74-99); Non-African American GFR(CKD) 71 (>60 ml/min/1.73 sqM); Potassium 4.6 mmol/L (3.5-5.1); Sodium 137 mmol/L (137-145); Total Bilirubin 0.5 mg/dL (0.2-1.3); Total Protein 7.4 g/dL (6.3-8.2)
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
[2022-03-12 14:50] LABS: C. trachomatis,PCR Negative (Neg,Equiv); Chlamydia trachomatis Source Vagina
[2022-03-12 15:07] LABS: N. gonorrhoeae,PCR Negative (Neg,Equiv); Neisseria Source Vagina
[2022-03-12] MEDS: SERTRALINE 50 MG TAB PO SCH (15:39)
[2022-03-12 18:05] LABS: Chol/HDL Ratio 5.58 Ratio; LDL Cholesterol,Calculated 92.1 mg/dL (0.0-131.0)
[2022-03-12] MEDS: MAG HYDROX/AL HYDROX/SIMETH 30 ML CUP PO PRN (20:22)
[2022-03-12] MEDS: MELATONIN 5 MG TABLET PO SCH (21:58)
[2022-03-13] MEDS: SULFAMETHOX-TMP 800-160MG 1 EACH TAB PO SCH (09:00)
[2022-03-13] MEDS: NICOTINE 21MG/24HR PATCH TRANSDERM SCH (09:00)
[2022-03-13] MEDS: CLOTRIMAZOLE 1% CREAM 30 GM TUBE TOPICAL SCH ×2 (09:00→20:00)
[2022-03-13] MEDS: SERTRALINE 50 MG TAB PO SCH (09:00)
[2022-03-13] MEDS: CEFDINIR 300 MG CAP PO SCH ×2 (12:41→20:51)
[2022-03-13] MEDS ORDERED: ONDANSETRON ODT 4 MG TAB PO PRN (14:33)
--- NOTE | 2022-03-13 14:50 | P.PN ---
Progress Note - Text Subjective: Patient was seen today as a cross coverage for . The patient was evaluated, chart reviewed, case discussed with the treatment team. Patient reports poor sleep last night, and appetite was reported as " very bad". Patient has not been going to groups and other unit activities. The patient is compliant with her medications and denies any adverse reactions. Patient reported feeling very sick today because of opiate withdrawal. She reported symptoms of stomach upset, nausea, sweating, shaking, and severe irritability. She denied having diarrhea, but reported she might have that later today. She reported last time used any heroin was 2 days ago. Patient reported feeling depressed about her withdrawal symptoms, but denies any suicidal ideation. Patient denies any intent or plan to hurt herself. She denied any manic or psychotic symptoms. Objective: Vitals has been reviewed. Mental status examination; Appearance: The patient appears stated age, poorly groomed, below average body built, no specific features. Gait/posture:normal gait, Normal arm swinging: No abnormal movements. Attitude and behavior: guarded, not fully engaged, superficially cooperative, intermittent eye contact. Motor activity: increased psychomotor activity Speech:normal Mood:irritable Affect:restricted Thought form: goal-directed, linear, coherent. Thought content: Non-delusional, denies suicidal thoughts, denies homicidal thoughts, denies intentions or plans. Perception: Denies any auditory or visual hallucinations Attention: No impairment. Patient was able to repeat serial 5. Orientation: Patient is oriented to time place person and situation. Insight: Patient has fair insight about her psychiatric disorder. Judgment: Patient has fair judgment about her psychiatric treatment. Assessment: Major depressive disorder, without psychotic features Cocaine abuse Opioid abuse Nicotine dependence Cannabis use disorder mild Plan: Continue inpatient level of care due to depression and opioid withdrawal Precautions: Continue 15 minutes check for safety. Consider medical consultation if any acute medical issues arise. Provide the patient individual, group therapy, substance use disorder counseling to give better insight and learn coping skills. Medications: Zoloft 50 mg daily for mood/anxiety. Melatonin 5 mg daily at bedtime for sleep. Pt has only 2 films of Suboxone as NF medication and received one film yesterday as been confirmed by nursing. Today, patient didn't receive any Suboxone. The patient probably started on Suboxone while her drug screen positive for opiates on 6/23/22 and that could be causing precipitated withdrawal. Also, there is a possibility of not receiving Suboxone today causing her withdrawal symptoms. As the patient has no Suboxone more than one 8 mg film, I will target withdrawal symptoms with the following symptomatic relief medications. Start clonidine 0.1 mg 4 times a day as needed for opiate withdrawal-hold if blood pressure less than 90/60. Start Zofran as needed for nausea/vomiting. Start Imodium as needed for diarrhea Continue Tylenol when necessary for pain. Continue as needed medications for psychiatric emergencies including Haldol for psychosis, agitation and Vistaril for anxiety. Continue non-psychiatric medications for medical conditions as recommended by the medical team. Patient was counselled on substance abuse and desired to cut back on use Discharge patient to OUTPATIENT services upon a stabilization
[2022-03-13] MEDS: hydrOXYzine pamoate 25 MG CAP PO PRN (16:01)
[2022-03-13] MEDS: LOPERAMIDE 2 MG CAP PO PRN (16:01)
[2022-03-13] MEDS: cloNIDine HCL 0.1 MG TAB PO PRN (16:08)
[2022-03-13] MEDS: MELATONIN 5 MG TABLET PO SCH (20:51)
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
[2022-03-14] MEDS: SERTRALINE 50 MG TAB PO SCH (08:39)
[2022-03-14] MEDS: NICOTINE 21MG/24HR PATCH TRANSDERM SCH (08:39)
[2022-03-14] MEDS: CLOTRIMAZOLE 1% CREAM 30 GM TUBE TOPICAL SCH ×2 (08:39→21:09)
[2022-03-14] MEDS: CEFDINIR 300 MG CAP PO SCH ×2 (08:40→21:07)
[2022-03-14] MEDS: cloNIDine HCL 0.1 MG TAB PO PRN ×2 (08:42→21:07)
[2022-03-14] MEDS: hydrOXYzine pamoate 25 MG CAP PO PRN ×2 (08:42→21:07)
--- NOTE | 2022-03-14 15:00 | P.PN ---
Progress Note - Text Progress Note Date: 03/14/22 Subjective: Patient was seen today as a cross coverage for . The patient was evaluated, chart reviewed, case discussed with the treatment team. Patient reports her withdrawal symptoms are less severe than yesterday and medications for symptomatic relief are helping. Patient didn't receive Suboxone yesterday or today. She took an 8 mg Suboxone on which probably induced precipitated withdrawal as she had opiates in her body as per UDS results. The patient didn't share much information about recent use of opiates today but she stated "I don't want to take Suboxone because it will make my symptoms worse". Patient denies feeling depressed, denies any suicidal or homicidal ideation. She reported relatively better sleep last night and some improvement in her appetite. Patient continued to take her psychiatric medications as prescribed and denies side effects. Patient doesn't attend groups today because of her physical symptoms. Objective: Vitals has been reviewed. Mental status examination; Appearance: The patient appears stated age, poorly groomed, below average body built, no specific features. Gait/posture:normal gait, Normal arm swinging: No abnormal movements. Attitude and behavior: guarded, not fully engaged, superficially cooperative, intermittent eye contact. Motor activity: increased psychomotor activity Speech:normal Mood:irritable Affect:restricted Thought form: goal-directed, linear, coherent. Thought content: Non-delusional, denies suicidal thoughts, denies homicidal thoughts, denies intentions or plans. Perception: Denies any auditory or visual hallucinations Attention: No impairment. Patient was able to repeat serial 5. Orientation: Patient is oriented to time place person and situation. Insight: Patient has fair insight about her psychiatric disorder. Judgment: Patient has fair judgment about her psychiatric treatment. Assessment: Major depressive disorder, without psychotic features Cocaine abuse Opioid abuse Nicotine dependence Cannabis use disorder mild Plan: Continue inpatient level of care due to depression and opioid withdrawal Precautions: Continue 15 minutes check for safety. Consider medical consultation if any acute medical issues arise. Provide the patient individual, group therapy, substance use disorder counseling to give better insight and learn coping skills. Medications: Zoloft 50 mg daily for mood/anxiety. Melatonin 5 mg daily at bedtime for sleep. Pt has only 2 films of Suboxone as NF medication and received one film , confirmed by nursing. Patient didn't receive any Suboxone yesterday or today. The patient probably started on Suboxone while there was an opiate in her sister as per drug screen results on 03/11/22 and that could be caused precipitated withdrawal. If decided to give Suboxone again, please obtain a drug screen and make sure no opiates in her system. Continue symptomatic treatment of opioid withdrawal including clonidine 0.1 mg 4 times a day as needed for opiate withdrawal-hold if blood pressure less than 90/60. Zofran as needed for nausea/vomiting. Imodium as needed for diarrhea Tylenol when necessary for pain. Continue as needed medications for psychiatric emergencies including Haldol for psychosis, agitation and Vistaril for anxiety. Continue non-psychiatric medications for medical conditions as recommended by the medical team. Patient was counselled on substance abuse and desired to cut back on use Discharge patient to OUTPATIENT services upon a stabilization
[2022-03-14] MEDS: MELATONIN 5 MG TABLET PO SCH (21:08)
[2022-03-15 06:55] VITALS: BP 129/88; PULSE 79; TEMP 97.1
[2022-03-15] MEDS: NICOTINE 21MG/24HR PATCH TRANSDERM SCH (09:12)
[2022-03-15] MEDS: CEFDINIR 300 MG CAP PO SCH (09:13)
[2022-03-15] MEDS: SERTRALINE 50 MG TAB PO SCH (09:13)
[2022-03-15] MEDS: LOPERAMIDE 2 MG CAP PO PRN (09:14)
[2022-03-15] MEDS: CLOTRIMAZOLE 1% CREAM 30 GM TUBE TOPICAL SCH (09:55)
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
== END 2022-03-15 15:12 | disposition home or self-care (01) | DRG 881 ==
LOC: EC 02:27 → 3MHU 15:11
PROVIDERS: ADMIT Psychiatry & Neurology Psychiatry; ATTEND Psychiatry & Neurology Psychiatry
DX: F32.9 Major depressive disorder, single episode, unspecified (principal); F11.13 Opioid abuse with withdrawal; N39.0 Urinary tract infection, site not specified; R45.851 Suicidal ideations; Z16.29 Resistance to other single specified antibiotic; Z71.51 Drug abuse counseling and surveillance of drug abuser; Z71.89 Other specified counseling; G89.29 Other chronic pain; F12.10 Cannabis abuse, uncomplicated; B96.20 Unspecified Escherichia coli [E. coli] as the cause of diseases classified elsewhere; F14.10 Cocaine abuse, uncomplicated; F17.210 Nicotine dependence, cigarettes, uncomplicated; F41.9 Anxiety disorder, unspecified; G47.419 Narcolepsy without cataplexy; J44.9 Chronic obstructive pulmonary disease, unspecified; M54.50 Low back pain, unspecified; Z82.5 Family history of asthma and other chronic lower respiratory diseases; Z56.0 Unemployment, unspecified; Z79.899 Other long term (current) drug therapy; Z91.410 Personal history of adult physical and sexual abuse; Z98.891 History of uterine scar from previous surgery; Z20.822 Contact with and (suspected) exposure to COVID-19; Z28.310 Unvaccinated for COVID-19; Z98.890 Other specified postprocedural states; Z86.19 Personal history of other infectious and parasitic diseases
CPT/HCPCS: 80053; 80061; 80306; 81001; 81025; 82075; 82248; 83036; 84443; 85025; 86780; 87077; 87086; 87186; 87491; 87591; 87635; 87661; 99285

== ENCOUNTER 2022-03-23 02:43 | Emergency (ER) | payer OTHER ==
[2022-03-23 02:58] VITALS: BP 156/106; PULSE 86; RESP 16; TEMP 98.2
--- NOTE | 2022-03-23 03:05 | ED ---
Overdose HPI - General Chief Complaint: Overdose Stated Complaint: Overdose Time Seen by Provider: 03/23/22 03:01 Source: EMS, RN notes reviewed, old records reviewed Mode of arrival: EMS Limitations: no limitations - History of Present Illness Initial Comments: This is a 36-year-old female DF for evaluation she presents today for evaluation of overdose and opiate overdose. She does have history of same. Patient is suicidal and denies all any other drug or alcohol abuse. Patient's plan by EMS for evaluation treatment MD Complaint: accidental overdose -: minutes(s) Intent: unwilling to say How Overdose Was Discovered: family/friend present at time, called 911 Context: Intentional Overdose: relationship problems, drug/ETOH problems Context: Accidental Overdose: wanted to get high Associated Symptoms: other (0) Treatments Prior to Arrival: none - Related Data Home Medications Medication Instructions Recorded Confirmed Buprenorphine HCl/Naloxone HCl 1 film SL BID 03/11/22 03/11/22 [Suboxone 8 mg-2 mg Sl Film] Previous Rx's Medication Instructions Recorded Butenafine HCl [Lotrimin Ultra] 1 applic TOPICAL BID #24 gm 02/23/22 Acetaminophen Tab [Tylenol] 650 mg PO Q4HR PRN tab 03/15/22 Cefdinir [Omnicef] 300 mg PO BID 7 Days cap 03/15/22 Melatonin 5 mg PO HS 30 Days tab 03/15/22 Nicotine 21Mg/24Hr Patch [Habitrol] 1 patch TRANSDERM DAILY 14 Days 03/15/22 patch Sertraline [Zoloft] 50 mg PO DAILY 30 Days tab 03/15/22 Allergies Allergy/AdvReac Type Severity Reaction Status Date / Time No Known Allergies Allergy Verified 03/23/22 02:56 Review of Systems ROS Statement: Those systems with pertinent positive or pertinent negative responses have been documented in the HPI. ROS Other: All systems not noted in ROS Statement are negative. Past Medical History Past Medical History: COPD Additional Past Medical History / Comment(s): Past pyelonephritis/sepsis, UTIs, chronic low back pain, narcolepsy, bronchitis. History of Any Multi-Drug Resistant Organisms: None Reported Past Surgical History: Section, Orthopedic Surgery Additional Past Surgical History / Comment(s): Left knee meniscal tear repair Past Anesthesia/Blood Transfusion Reactions: No Reported Reaction Past Psychological History: No Psychological Hx Reported Smoking Status: Current every day smoker Past Alcohol Use History: None Reported Past Drug Use History: Cocaine, Marijuana, Methamphetamine, Opiates - Past Family History Mother Family Medical History: COPD Additional Family Medical History / Comment(s): Multuple family memeber with ccancer, none affecting the urinary tract Father History Unknown: Yes General Exam Limitations: no limitations General appearance: alert, in no apparent distress Head exam: Present: atraumatic, normocephalic, normal inspection Eye exam: Present: normal appearance, PERRL, EOMI. Absent: scleral icterus, conjunctival injection, periorbital swelling ENT exam: Present: normal exam, mucous membranes moist Neck exam: Present: normal inspection. Absent: tenderness, meningismus, lym phadenopathy Respiratory exam: Present: normal lung sounds bilaterally. Absent: respiratory distress, wheezes, rales, rhonchi, stridor Cardiovascular Exam: Present: regular rate, normal rhythm, normal heart sounds. Absent: systolic murmur, diastolic murmur, rubs, gallop, clicks GI/Abdominal exam: Present: soft, normal bowel sounds. Absent: distended, tenderness, guarding, rebound, rigid Extremities exam: Present: normal inspection, full ROM, normal capillary refill. Absent: tenderness, pedal edema, joint swelling, calf tenderness Back exam: Present: normal inspection Neurological exam: Present: alert, oriented X3, CN II-XII intact Psychiatric exam: Present: normal affect, normal mood Skin exam: Present: warm, dry, intact, normal color. Absent: rash Course Vital Signs 03/23/22 02:56 Temperature 98.2 F Pulse Rate 86 Respiratory 16 Rate Blood Pressure 156/106 O2 Sat by Pulse 98 Oximetry - Reevaluation(s) Reevaluation #1: 03/23/22 Medical record is reviewed Reevaluation #2: 03/23/22 Patient informed of results and questions answered Reevaluation #3: 03/23/22 Patient's okay for discharge home Medical Decision Making - Medical Decision Making 36 female to the emergency department for evaluation of opiate overdose. Patient awake alert in his times earlier today, patient can be discharged Disposition Clinical Impression: Poisoning by opiates and related narcotics, other, Drug overdose, Accidental drug overdose Disposition: HOME SELF-CARE Condition: Fair Instructions (If sedation given, give patient instructions): Adult Overdose (ED) Is patient prescribed a controlled substance at d/c from ED?: No Referrals: Orquidea Short MD [Primary Care Provider] - 1-2 days Time of Disposition: 05:00
[2022-03-23] MEDS ORDERED: IPRATROPIUM-ALBUTEROL 3 ML NEB INHALATION STA (03:07)
== END 2022-03-23 05:13 | disposition home or self-care (01) ==
LOC: EC 02:43
DX: T40.0X1A Poisoning by opium, accidental (unintentional), initial encounter (principal); J44.9 Chronic obstructive pulmonary disease, unspecified; F17.200 Nicotine dependence, unspecified, uncomplicated
CPT/HCPCS: 99284

== ENCOUNTER 2022-04-20 04:31 | Emergency (ER) | payer OTHER ==
[2022-04-20 04:40] VITALS: BP 120/60; PULSE 69; RESP 16; TEMP 97.9
[2022-04-20] MEDS ORDERED: metroNIDAZOLE 500 MG TAB PO STA (05:09)
[2022-04-20] MEDS ORDERED: AZITHROMYCIN 500 MG TAB PO STA (05:09)
[2022-04-20] MEDS ORDERED: cefTRIAXone 250 MG VIAL IM STA (05:09)
--- NOTE | 2022-04-20 05:09 | ED ---
Female Urogenital HPI - General Chief complaint: Urogenital Stated complaint: Abdominal pain Time Seen by Provider: 04/20/22 04:42 Source: patient Mode of arrival: ambulatory Limitations: no limitations - Related Data Home Medications Medication Instructions Recorded Confirmed Buprenorphine HCl/Naloxone HCl 1 film SL BID 03/11/22 03/11/22 [Suboxone 8 mg-2 mg Sl Film] Previous Rx's Medication Instructions Recorded Butenafine HCl [Lotrimin Ultra] 1 applic TOPICAL BID #24 gm 02/23/22 Acetaminophen Tab [Tylenol] 650 mg PO Q4HR PRN tab 03/15/22 Cefdinir [Omnicef] 300 mg PO BID 7 Days cap 03/15/22 Melatonin 5 mg PO HS 30 Days tab 03/15/22 Nicotine 21Mg/24Hr Patch [Habitrol] 1 patch TRANSDERM DAILY 14 Days 03/15/22 patch Sertraline [Zoloft] 50 mg PO DAILY 30 Days tab 03/15/22 Allergies Allergy/AdvReac Type Severity Reaction Status Date / Time No Known Allergies Allergy Verified 04/20/22 04:36 Review of Systems ROS Statement: Those systems with pertinent positive or pertinent negative responses have been documented in the HPI. ROS Other: All systems not noted in ROS Statement are negative. Past Medical History Past Medical History: COPD Additional Past Medical History / Comment(s): Past pyelonephritis/sepsis, UTIs, chronic low back pain, narcolepsy, bronchitis. History of Any Multi-Drug Resistant Organisms: None Reported Past Surgical History: Section, Orthopedic Surgery Additional Past Surgical History / Comment(s): Left knee meniscal tear repair Past Anesthesia/Blood Transfusion Reactions: No Reported Reaction Past Psychological History: No Psychological Hx Reported Smoking Status: Current every day smoker Past Alcohol Use History: None Reported Past Drug Use History: Cocaine, Marijuana, Methamphetamine, Opiates - Past Family History Mother Family Medical History: COPD Additional Family Medical History / Comment(s): Multuple family memeber with ccancer, none affecting the urinary tract Father History Unknown: Yes General Exam Limitations: no limitations Course Vital Signs 04/20/22 04:37 Temperature 97.9 F Pulse Rate 69 Respiratory 16 Rate Blood Pressure 120/60 O2 Sat by Pulse 98 Oximetry Medical Decision Making - Lab Data Lab Results 04/20/22 Range/Units 04:55 Urine Color Yellow Urine Appearance Cloudy H (Clear) Urine pH 6.5 (5.0-8.0) Ur Specific [place] 1.026 (1.001-1.035) Urine Protein 1+ H (Negative) Urine Glucose (UA) Negative (Negative) Urine Ketones Trace H (Negative) Urine Blood Negative (Negative) Urine Nitrite Negative (Negative) Urine Bilirubin Negative (Negative) Urine Urobilinogen 4.0 (<2.0) mg/dL Ur Leukocyte Esterase Large H (Negative) Urine RBC 1 (0-5) /hpf Urine WBC 75 H (0-5) /hpf Ur Squamous Epith Cells 4 (0-4) /hpf Urine Bacteria Moderate H (None) /hpf Urine Mucus Moderate H (None) /hpf Disposition Clinical Impression: UTI (urinary tract infection), STD (female) Disposition: HOME SELF-CARE Condition: Good Instructions (If sedation given, give patient instructions): Urinary Tract Infection in Women (ED), Sexually Transmitted Diseases (ED) Is patient prescribed a controlled substance at d/c from ED?: No Referrals: Orquidea Short MD [Primary Care Provider] - 1-2 days
[2022-04-20 05:16] LABS: Appearance,Urine Cloudy (Clear); Bacteria,Urine Moderate /hpf; Bilirubin,Urine Negative (Negative); Blood,Urine Negative (Negative); Color,Urine Yellow; Glucose,Urine (UA) Negative (Negative); Ketones,Urine Trace (Negative); Leukocyte Esterase,Urine Large (Negative); Mucus,Urine Moderate /hpf; Nitrite,Urine Negative (Negative); PH, Urine 6.5 (5.0-8.0); Protein,Urine 1+ (Negative); RBC,Urine 1 /hpf (0-5); Specific Gravity,Urine 1.026 (1.001-1.035); Squamous Epithelial Cell,Urine 4 /hpf (0-4); WBC,Urine 75 /hpf (0-5)
[2022-04-20] MEDS ORDERED: LIDOCAINE 2% INJ 20 MG/ML (20 ML MDV) IV ONE (05:25)
[2022-04-20] MEDS ORDERED: LIDOCAINE 1% INJ 10MG/ML (20 ML MDV) IV ONE (05:45)
[2022-04-22 14:53] LABS: C. trachomatis,PCR Negative (Neg,Equiv); Chlamydia trachomatis Source Urine; N. gonorrhoeae,PCR Negative (Neg,Equiv); Neisseria Source Urine
== END 2022-04-20 06:07 | disposition home or self-care (01) ==
LOC: EC 04:31
DX: N39.0 Urinary tract infection, site not specified (principal); A64 Unspecified sexually transmitted disease; J44.9 Chronic obstructive pulmonary disease, unspecified; F17.200 Nicotine dependence, unspecified, uncomplicated; F12.90 Cannabis use, unspecified, uncomplicated; Z79.899 Other long term (current) drug therapy
CPT/HCPCS: 81001; 81025; 87491; 87591; 87086; 87077; 87186; 99284; 96374; 96372; J2001; J0696

== ENCOUNTER 2022-09-26 07:15 | Emergency (ER) | payer OTHER ==
[2022-09-26 07:21] VITALS: RESP 18; TEMP 97.7
[2022-09-26] MEDS ORDERED: cefTRIAXone 1,000 MG VIAL (IM USE) IM STA (07:43)
[2022-09-26] MEDS ORDERED: metroNIDAZOLE 500 MG TAB PO STA (07:44)
[2022-09-26] MEDS ORDERED: AZITHROMYCIN 500 MG TAB PO STA (07:46)
--- NOTE | 2022-09-26 07:52 | ED ---
General Adult HPI - General Chief complaint: Abdominal Pain Stated complaint: Abd & Lower Back Pain Time Seen by Provider: 09/26/22 07:20 Source: patient, RN notes reviewed, old records reviewed Mode of arrival: ambulatory Limitations: no limitations - History of Present Illness Initial comments: This is a 37-year-old female who presents emergency Department stating she thinks is sexually transmitted disease because she's had before. Patient states she has some vaginal drainage and it is very malodorous. Patient states she's here just to get the shots and pills. Patient states she does not want a pelvic exam. Patient states she has a little bit of lower pelvic pain and occasional lower back pain. Patient denies any dysuria hematuria. Patient denies any fever chills. Patient denies any lesions. - Related Data Home Medications Medication Instructions Recorded Confirmed Buprenorphine HCl/Naloxone HCl 1 film SL BID 03/11/22 03/11/22 [Suboxone 8 mg-2 mg Sl Film] Previous Rx's Medication Instructions Recorded Butenafine HCl [Lotrimin Ultra] 1 applic TOPICAL BID #24 gm 02/23/22 Acetaminophen Tab [Tylenol] 650 mg PO Q4HR PRN tab 03/15/22 Cefdinir [Omnicef] 300 mg PO BID 7 Days cap 03/15/22 Melatonin 5 mg PO HS 30 Days tab 03/15/22 Nicotine 21Mg/24Hr Patch [Habitrol] 1 patch TRANSDERM DAILY 14 Days 03/15/22 patch Sertraline [Zoloft] 50 mg PO DAILY 30 Days tab 03/15/22 Doxycycline Hyclate 100 mg PO BID 7 Days #14 tab 04/20/22 Doxycycline [Vibramycin] 100 mg PO BID 1 Days #28 capsule 09/26/22 Allergies Allergy/AdvReac Type Severity Reaction Status Date / Time No Known Allergies Allergy Verified 09/26/22 07:19 Review of Systems ROS Statement: Those systems with pertinent positive or pertinent negative responses have been documented in the HPI. ROS Other: All systems not noted in ROS Statement are negative. Past Medical History Past Medical History: COPD Additional Past Medical History / Comment(s): Past pyelonephritis/sepsis, UTIs, chronic low back pain, narcolepsy, bronchitis. History of Any Multi-Drug Resistant Organisms: None Reported Past Surgical History: Section, Orthopedic Surgery Additional Past Surgical History / Comment(s): Left knee meniscal tear repair Past Anesthesia/Blood Transfusion Reactions: No Reported Reaction Past Psychological History: No Psychological Hx Reported Smoking Status: Current every day smoker Past Alcohol Use History: None Reported Past Drug Use History: Cocaine, Marijuana, Methamphetamine, Opiates - Past Family History Mother Family Medical History: COPD Additional Family Medical History / Comment(s): Multuple family memeber with ccancer, none affecting the urinary tract Father History Unknown: Yes General Exam - General Exam Comments Initial Comments: GENERAL: Patient is well-developed and well-nourished. Patient is nontoxic and well- hydrated and is in no acute distress. ENT: Neck is soft and supple. No significant lymphadenopathy is noted. Oropharynx is clear. Moist mucous membranes. Neck has full range of motion without eliciting any pain. EYES: The sclera were anicteric and conjunctiva were pink and moist. Extraocular movements were intact and pupils were equal round and reactive to light. Eyelids were unremarkable. PULMONARY: Unlabored respirations. Good breath sounds bilaterally. No audible rales rhonchi or wheezing was noted. CARDIOVASCULAR: There is a regular rate and rhythm without any murmurs gallops or rubs. ABDOMEN: Soft and nontender with normal bowel sounds. SKIN: Skin is clear with no lesions or rashes and otherwise unremarkable. GENITALIA: Patient refuses pelvic examination NEUROLOGIC: Patient is alert and oriented x3. Cranial nerves II through XII are grossly int act. Motor and sensory are also intact. Normal speech, volume and content. Symmetrical smile. MUSCULOSKELETAL: Normal extremities with adequate strength and full range of motion. LYMPHATICS: No significant lymphadenopathy is noted PSYCHIATRIC: Normal psychiatric evaluation. Limitations: no limitations Course Vital Signs 09/26/22 07:19 Temperature 97.7 F Pulse Rate 91 Respiratory 18 Rate Blood Pressure 134/88 O2 Sat by Pulse 98 Oximetry Medical Decision Making - Medical Decision Making Was pt. sent in by a medical professional or institution (, PA, EXTENSION FORESTER, urgent care, hospital, or care home...) When possible be specific @ -No Did you speak to anyone other than the patient for history (EMS, parent, family, police, friend...)? What history was obtained from this source @ -No Did you review nursing and triage notes (agree or disagree)? Why? @ -I reviewed and agree with nursing and triage notes Were old charts reviewed (outside hosp., previous admission, EMS record, old EKG, old radiological studies, urgent care reports/EKG's, care home records)? Report findings @ -No old charts were reviewed Differential Diagnosis (chest pain, altered mental status, abdominal pain women, abdominal pain men, vaginal bleeding, weakness, fever, dyspnea, syncope, headache, dizziness, GI bleed, back pain, seizure, CVA, palpatations, mental health)? @ -not applicable EKG interpreted by me (3pts min.). @ -As above X-rays interpreted by me (1pt min.). @ -None done CT interpreted by me (1pt min.). @ -None done U/S interpreted by me (1pt. min.). @ -None done What testing was considered but not performed or refused? (CT, X-rays, U/S, labs)? Why? @ -None What meds were considered but not given or refused? Why? @ -None Did you discuss the management of the patient with other professionals (professionals i.e. , PA, EXT[employer]ESTER, lab, RT, psych nurse, social and human services assistant, clean energy policy analyst, teacher, landcare officer, case management coordinator)? Give summary @ -No Was smoking cessation discussed for >3mins.? @ -No Was critical care preformed (if so, how long)? @ -No Were there social determinants of health that impacted care today? How? (Homelessness, low income, unemployed, alcoholism, drug addiction, transportation, low edu. Level, literacy, decrease access to med. care, snf, rehab)? @ -No Was there de-escalation of care discussed even if they declined (Discuss DNR or withdrawal of care, Hospice)? DNR status @ -No What co-morbidities impacted this encounter? (DM, HTN, Smoking, COPD, CAD, Cancer, CVA, ARF, Chemo, Hep., AIDS, mental health diagnosis, sleep apnea, morbid obesity)? @ -None Was patient admitted / discharged? Hospital course, mention meds given and route, prescriptions, significant lab abnormalities, going to OR and other pertinent info. @ -To be discharged with a diagnosis of prophylaxis for STD. Patient refused pelvic exam so patient received Rocephin and Flagyl and Zithromax Undiagnosed new problem with uncertain prognosis? @ -No Drug Therapy requiring intensive monitoring for toxicity (Heparin, Nitro, Insulin, Cardizem)? @ -No Were any procedures done? @ -No Diagnosis/symptom? @ -Prophylaxis and STD Acute, or Chronic, or Acute on Chronic? @ -Acute Uncomplicated (without systemic symptoms) or Complicated (systemic symptoms)? @ -Uncomplicated Side effects of treatment? @ -No Exacerbation, Progression, or Severe Exacerbation? @ -No Poses a threat to life or bodily function? How? (Chest pain, [place], [place], pneumonia, PE, COPD, DKA, ARF, appy, cholecystitis, CVA, Diverticulitis, Homicidal, Suicidal, threat to staff... and all critical care pts) @ -No Disposition Clinical Impression: Sexually transmitted disease (STD) Disposition: HOME SELF-CARE Condition: Good Prescriptions: Doxycycline [Vibramycin] 100 mg PO BID 1 Days #28 capsule Is patient prescribed a controlled substance at d/c from ED?: No Referrals: None,Stated [Primary Care Provider] - 1-2 days Time of Disposition: 07:51
[2022-09-26 08:24] LABS: Appearance,Urine Clear (Clear); Bilirubin,Urine Negative (Negative); Blood,Urine Large (Negative); Color,Urine Yellow; Glucose,Urine (UA) Negative (Negative); Hyaline Casts,Urine 1 /lpf (0-2); Ketones,Urine Negative (Negative); Leukocyte Esterase,Urine Moderate (Negative); Mucus,Urine Few /hpf; Nitrite,Urine Negative (Negative); PH, Urine 5.5 (5.0-8.0); Protein,Urine Trace (Negative); RBC,Urine 11 /hpf (0-5); Specific Gravity,Urine 1.035 (1.001-1.035); Squamous Epithelial Cell,Urine 1 /hpf (0-4); WBC,Urine 19 /hpf (0-5)
[2022-09-26 09:33] VITALS: BP 132/87; PULSE 72
== END 2022-09-26 09:33 | disposition home or self-care (01) ==
LOC: EC 07:15
DX: A64 Unspecified sexually transmitted disease (principal); J44.9 Chronic obstructive pulmonary disease, unspecified; F17.200 Nicotine dependence, unspecified, uncomplicated; F12.90 Cannabis use, unspecified, uncomplicated
CPT/HCPCS: 81001; 87086; 99284; 96372; J0696

== ENCOUNTER 2023-04-03 04:48 | Emergency (ER) | payer OTHER ==
[2023-04-03 04:59] VITALS: BP 159/93; PULSE 120; RESP 20; TEMP 98.7
--- NOTE | 2023-04-03 04:59 | ED ---
Medical Clearance HPI - General Stated complaint: Residential Clearance Time Seen by Provider: 04/03/23 05:00 - History of Present Illness Initial comments: 37-year-old female presents to the emergency department for usp clearance. Police were called to a scene where it was reported that the patient was using meth. She got aggressive with police and started punching the police car. They were unable to de-escalate the patient and therefore she ended up taking use. Police are requesting to take the patient to usp however need clearance because of the taze. Patient is extremely aggressive with staff upon arrival. States that she does not want to talk to me. There is no reported history of psychosis however patient does have significant history of polysubstance abuse. Patient did not sustain any other injuries. The HPI is limited because of the patient's current mental status Home medications: Home Medications Medication Instructions Recorded Confirmed Buprenorphine HCl/Naloxone HCl 1 film SL BID 03/11/22 03/11/22 [Suboxone 8 mg-2 mg Sl Film] Previous Rx's Medication Instructions Recorded Butenafine HCl [Lotrimin Ultra] 1 applic TOPICAL BID #24 gm 02/23/22 Acetaminophen Tab [Tylenol] 650 mg PO Q4HR PRN tab 03/15/22 Cefdinir [Omnicef] 300 mg PO BID 7 Days cap 03/15/22 Melatonin 5 mg PO HS 30 Days tab 03/15/22 Nicotine 21Mg/24Hr Patch [Habitrol] 1 patch TRANSDERM DAILY 14 Days 03/15/22 patch Sertraline [Zoloft] 50 mg PO DAILY 30 Days tab 03/15/22 Doxycycline Hyclate 100 mg PO BID 7 Days #14 tab 04/20/22 Doxycycline [Vibramycin] 100 mg PO BID 1 Days #28 capsule 09/26/22 Allergies/Adverse reactions: Allergies Allergy/AdvReac Type Severity Reaction Status Date / Time No Known Allergies Allergy Verified 04/03/23 04:59 Review of Systems ROS Statement: Those systems with pertinent positive or pertinent negative responses have been documented in the HPI. ROS Other: All systems not noted in ROS Statement are negative. Past Medical History Past Medical History: COPD Additional Past Medical History / Comment(s): Past pyelonephritis/sepsis, UTIs, chronic low back pain, narcolepsy, bronchitis. History of Any Multi-Drug Resistant Organisms: None Reported Past Surgical History: Section, Orthopedic Surgery Additional Past Surgical History / Comment(s): Left knee meniscal tear repair Past Anesthesia/Blood Transfusion Reactions: No Reported Reaction Past Psychological History: No Psychological Hx Reported Smoking Status: Current every day smoker Past Alcohol Use History: None Reported Past Drug Use History: Cocaine, Marijuana, Methamphetamine, Opiates - Past Family History Mother Family Medical History: COPD Additional Family Medical History / Comment(s): Multuple family memeber with ccancer, none affecting the urinary tract Father History Unknown: Yes General Exam Limitations: altered mental status General appearance: other (altered, hallucinating, aggressive, threatening to staff) Head exam: Present: atraumatic, normocephalic, normal inspection Respiratory exam: Present: normal lung sounds bilaterally, other (tazer vasquez anterior chest). Absent: respiratory distress, wheezes, rales, rhonchi, stridor Cardiovascular Exam: Present: tachycardia GI/Abdominal exam: Present: soft, normal bowel sounds. Absent: distended, tenderness, guarding, rebound, rigid Neurological exam: Present: altered Psychiatric exam: Present: manic Skin exam: Present: warm, dry, intact, normal color. Absent: rash Course Vital Signs 04/03/23 04:56 Temperature 98.7 F Pulse Rate 120 H Respiratory 20 Rate Blood Pressure 159/93 O2 Sat by Pulse 94 L Oximetry Procedures - Restraint - Face to Face Restraint Occurrence 1 Patient's Immediate Situation: Endangers self safety, Endangers others' safety Patient's Reaction to the Intervention: Bizarre, Aggressive, Combative Patient's Medical & Behavioral Condition: Agitated, Paranoid, Manic Need to Continue or Terminate Restraint or Seclusion: Continue Face to Face Eval of Restraint Date: 04/03/23 Face to Face Eval of Restraint Time: 04:50 Medical Decision Making - Medical Decision Making Was pt. sent in by a medical professional or institution (, PA, WELDER FITTER, urgent care, hospital, or usp...) When possible be specific @ -Police Did you speak to anyone other than the patient for history (EMS, parent, family, police, friend...)? What history was obtained from this source @ -Police Did you review nursing and triage notes (agree or disagree)? Why? @ -I reviewed and agree with nursing and triage notes Were old charts reviewed (outside hosp., previous admission, EMS record, old EKG, old radiological studies, urgent care reports/EKG's, usp records)? Report findings @ -No old charts were reviewed Differential Diagnosis (chest pain, altered mental status, abdominal pain women, abdominal pain men, vaginal bleeding, weakness, fever, dyspnea, syncope, headache, dizziness, GI bleed, back pain, seizure, CVA, palpatations, mental health, musculoskeletal)? @ -meth ingestion, alcohol intoxication, manic episode EKG interpreted by me (3pts min.). @ -Yes and demonstrates sinus tachycardia with a rate of 109. [place] interval 144. QRS 80. QTC 395. No acute segment elevations or depressions X-rays interpreted by me (1pt min.). @ -None done CT interpreted by me (1pt min.). @ -None done U/S interpreted by me (1pt. min.). @ -None done What testing was considered but not performed or refused? (CT, X-rays, U/S, labs)? Why? @ -None What meds were considered but not given or refused? Why? @ -None Did you discuss the management of the patient with other professionals (professionals i.e. , PA, WELDER FITTER, lab, RT, psych nurse, bilingual social worker, resident programs assistant, teacher, community services officer, case filler)? Give summary @ -Police - discussed goals of care and what they need to take patient to usp Was smoking cessation discussed for >3mins.? @ -No Was critical care preformed (if so, how long)? @ -No Were there social determinants of health that impacted care today? How? (Homeles sness, low income, unemployed, alcoholism, drug addiction, transportation, low edu. Level, literacy, decrease access to med. care, usp, rehab)? @ -drug abuse Was there de-escalation of care discussed even if they declined (Discuss DNR or withdrawal of care, Hospice)? DNR status @ -No What co-morbidities impacted this encounter? (DM, HTN, Smoking, COPD, CAD, Cancer, CVA, ARF, Chemo, Hep., AIDS, mental health diagnosis, sleep apnea, morbid obesity)? @ -None Was patient admitted / discharged? Hospital course, mention meds given and route, prescriptions, significant lab abnormalities, going to OR and other pertinent info. @ -Upon arrival patient was placed into room 12. Thorough history and physical exam was performed. Patient does have some Tazer vasquez to her anterior abdomen. 12-lead EKG was completed because of this. ECG demonstrates sinus tachycardia. Discussed the patient's symptoms with police. They're comfortable taking the patient's usp at this time. Patient is cleared for usp Undiagnosed new problem with uncertain prognosis? @ -No Drug Therapy requiring intensive monitoring for toxicity (Heparin, Nitro, Insulin, Cardizem)? @ -No Were any procedures done? @ -No Diagnosis/symptom? @ -acute toxic encephalopathy, suspected meth use, acute tazer discharge Acute, or Chronic, or Acute on Chronic? @ -acute Uncomplicated (without systemic symptoms) or Complicated (systemic symptoms)? @ -complicated Side effects of treatment? @ -No Exacerbation, Progression, or Severe Exacerbation? @ -No Poses a threat to life or bodily function? How? (Chest pain, [place], [place], pneumonia, PE, COPD, DKA, ARF, appy, cholecystitis, CVA, Diverticulitis, Homicidal, Suicidal, threat to staff... and all critical care pts) @ -No Disposition Clinical Impression: Taser injury, Psychosis Disposition: HOME SELF-CARE Condition: Stable Is patient prescribed a controlled substance at d/c from ED?: No Referrals: None,Stated [Primary Care Provider] - 1-2 days Time of Disposition: 04:59
== END 2023-04-03 05:38 | disposition home or self-care (01) ==
LOC: EC 04:48
DX: T75.4XXA Electrocution, initial encounter (principal); F29 Unspecified psychosis not due to a substance or known physiological condition; J44.9 Chronic obstructive pulmonary disease, unspecified; F17.200 Nicotine dependence, unspecified, uncomplicated; F12.90 Cannabis use, unspecified, uncomplicated; F14.90 Cocaine use, unspecified, uncomplicated; F11.90 Opioid use, unspecified, uncomplicated; F15.90 Other stimulant use, unspecified, uncomplicated
CPT/HCPCS: 93005; 99283

== ENCOUNTER 2023-10-11 22:56 | Inpatient (IN) | payer MEDICAID ==
--- NOTE | 2023-10-12 00:28 | ED ---
General Adult HPI - General Source: RN notes reviewed, old records reviewed <GaspercourtneyKristian abdalla Kendall - Last Filed: 10/12/23 12:08> - General Source: patient Mode of arrival: ambulatory Limitations: no limitations <Agustin Short - Last Filed: 10/14/23 19:10> - General Chief complaint: Psychiatric Symptoms Stated complaint: suicidal Time Seen by Provider: 10/11/23 23:22 - History of Present Illness Initial comments: 38-year-old female presenting to the ED with a chief complaint of suicidal ideation. Patient reports she was recently released from long-term. Reports increased depression recently. Now notes some suicidal thoughts. Currently has no plans but notes that she has tried to hang herself in the past. Denies homicidal ideations. Denies auditory or visual hallucinations. Currently denies any chest pain, shortness of breath, abdominal pain, nausea, vomiting, diarrhea, or otherwise any other medical complaints at this time. (Agustin Morales) - Related Data Home Medications Medication Instructions Recorded Confirmed No Known Home Medications 10/12/23 10/12/23 Allergies Allergy/AdvReac Type Severity Reaction Status Date / Time No Known Allergies Allergy Verified 10/12/23 07:08 Review of Systems ROS Other: All systems not noted in ROS Statement are negative. <Kristian Parra - Last Filed: 10/12/23 12:08> ROS Other: All systems not noted in ROS Statement are negative. <Agustin Short - Last Filed: 10/14/23 19:10> ROS Statement: Those systems with pertinent positive or pertinent negative responses have been documented in the HPI. Past Medical History Past Medical History: COPD Additional Past Medical History / Comment(s): Past pyelonephritis/sepsis, UTIs, chronic low back pain, narcolepsy, bronchitis. History of Any Multi-Drug Resistant Organisms: None Reported Past Surgical History: Section, Orthopedic Surgery Additional Past Surgical History / Comment(s): Left knee meniscal tear repair Past Anesthesia/Blood Transfusion Reactions: No Reported Reaction Past Psychological History: No Psychological Hx Reported Smoking Status: Current every day smoker Past Alcohol Use History: None Reported Past Drug Use History: Cocaine, Marijuana, Methamphetamine, Opiates - Past Family History Mother Family Medical History: COPD Additional Family Medical History / Comment(s): Multuple family memeber with ccancer, none affecting the urinary tract Father History Unknown: Yes <Agustin Short - Last Filed: 10/14/23 19:10> General Exam Limitations: no limitations General appearance: alert, in no apparent distress Head exam: Present: atraumatic, normocephalic Neck exam: Present: normal inspection Respiratory exam: Present: normal lung sounds bilaterally Cardiovascular Exam: Present: regular rate, normal rhythm GI/Abdominal exam: Present: soft Neurological exam: Present: alert, oriented X3 Skin exam: Present: warm, dry <Agustin Short - Last Filed: 10/14/23 19:10> Course Vital Signs 10/11/23 10/12/23 23:11 06:40 Temperature 98.3 F 98.4 F Pulse Rate 79 95 Respiratory 18 16 Rate Blood Pressure 102/62 O2 Sat by Pulse 96 98 Oximetry Medical Decision Making <Kristian Parra - Last Filed: 10/12/23 12:08> - Lab Data Result diagrams: 10/13/23 06:16 10/13/23 06:16 <DejaAgustin - Last Filed: 10/14/23 19:10> - Medical Decision Making Evaluated by EPS and will be admitted to this institution (Kristian Parra) Was pt. sent in by a medical professional or institution (Dr. PA, VALUATION CONSULTANT, urgent care, hospital, or penitentiary...) When possible be specific @ -[No] Did you speak to anyone other than the patient for history (EMS, parent, family, police, friend...)? What history was obtained from this source @ -[No] Did you review nursing and triage notes (agree or disagree)? Why? @ -[I reviewed and agree with nursing and triage notes] Were old charts reviewed (outside hosp., previous admission, EMS record, old EKG, old radiological studies, urgent care reports/EKG's, penitentiary records)? Report findings @ -[No old charts were reviewed] Differential Diagnosis (chest pain, altered mental status, abdominal pain women, abdominal pain men, vaginal bleeding, weakness, fever, dyspnea, syncope, headache, dizziness, GI bleed, back pain, seizure, CVA, palpatations, mental health, musculoskeletal)? @ -Differential Mental Health Depression, anxiety, bipolar, psychosis, schizophrenia, borderline personality, situational depression, adjustment disorder, behavioral disorder, brain tumor, malingering, substance abuse, encephalopathy, medication reaction, dementia, hypothyroidism, degenerative neurologic disorder, lupus.... This is not meant to be all-inclusive list EKG interpreted by me (3pts min.). @ -None X-rays interpreted by me (1pt min.). @ -[None done] CT interpreted by me (1pt min.). @ -[None done] U/S interpreted by me (1pt. min.). @ -[None done] What testing was considered but not performed or refused? (CT, X-rays, U/S, labs)? Why? @ -[None] What meds were considered but not given or refused? Why? @ -[None] Did you discuss the management of the patient with other professionals (professionals i.e. , PA, VALUATION CONSULTANT, lab, RT, psych nurse, social media campaign manager, fur nailer, teacher, civil preparedness officer, medical case manager)? Give summary @ -[No] Was smoking cessation discussed for >3mins.? @ -[No] Was critical care preformed (if so, how long)? @ -[No] Were there social determinants of health that impacted care today? How? (Homelessness, low income, unemployed, alcoholism, drug addiction, transportation, low edu. Level, literacy, decrease access to med. care, long-term, rehab)? @ -[No] Was there de-escalation of care discussed even if they declined (Discuss DNR or withdrawal of care, Hospice)? DNR status @ -[No] What co-morbidities impacted this encounter? (DM, HTN, Smoking, COPD, CAD, Cancer, CVA, ARF, Chemo, Hep., AIDS, mental health diagnosis, sleep apnea, morbid obesity)? @ -[None] Was patient admitted / discharged? Hospital course, mention meds given and route, prescriptions, significant lab abnormalities, going to OR and other pertinent info. @ -Pending 38-year-old female presenting to the ED with suicidal ideation. At this time disposition pending psychiatric evaluation. No medical complaints at this time. Patient evaluated by psychiatry. At this time recommend inpatient admission to the mental health unit. (Agustin Short) - Lab Data Lab Results 10/12/23 10/12/23 Range/Units 01:31 12:30 Urine Opiates Screen Not Detected (NotDetected) Ur Oxycodone Screen Not Detected (NotDetected) Urine Methadone Screen Not Detected (NotDetected) Ur Barbiturates Screen Not Detected (NotDetected) U Tricyclic Antidepress Not Detected (NotDetected) Ur Phencyclidine Scrn Not Detected (NotDetected) Ur Amphetamines Screen Not Detected (NotDetected) U Methamphetamines Scrn Not Detected (NotDetected) U Benzodiazepines Scrn Not Detected (NotDetected) Urine Cocaine Screen Detected H (NotDetected) U Marijuana (THC) Screen Detected H (NotDetected) Influenza Type A (PCR) Not Detected (Not Detectd) Influenza Type B (PCR) Not Detected (Not Detectd) RSV (PCR) Not Detected (Not Detectd) SARS-CoV-2 (PCR) Not Detected (Not Detectd) Disposition Is patient prescribed a controlled substance at d/c from ED?: No Time of Disposition: 12:09 <Kristian Parra - Last Filed: 10/12/23 12:08> <Agustin Short - Last Filed: 10/14/23 19:10> Clinical Impression: Depression, Suicidal ideation Disposition: ADMITTED IP TO THIS HOSP Condition: Stable
[2023-10-12 02:36] LABS: Amphetamine Screen,Urine Not Detected (NotDetected); Barbiturate Screen,Urine Not Detected (NotDetected); Benzodiazepines Screen,Urine Not Detected (NotDetected); Cocaine Screen,Urine Detected (NotDetected); Methadone Screen, Urine Not Detected (NotDetected); Opiate Screen,Urine Not Detected (NotDetected); Oxycodone Screen, Urine Not Detected (NotDetected); Phencyclidine Screen,Urine Not Detected (NotDetected); Tricyclic Antidepressant,Urine Not Detected (NotDetected); Urn Cannabinoid Scrn Detected (NotDetected)
[2023-10-12] MEDS ORDERED: LORazepam 2 MG/ML INJ IM STA (03:12)
[2023-10-12] MEDS ORDERED: MAG HYDROX/AL HYDROX/SIMETH 30 ML CUP PO PRN (17:46)
[2023-10-12] MEDS ORDERED: MAGNESIUM HYDROXIDE 2,400 MG/30 ML CUP PO PRN (17:46)
[2023-10-12] MEDS ORDERED: OLANZapine 10 MG VIAL IM PRN (17:49)
[2023-10-12] MEDS: IBUPROFEN 600 MG TAB PO PRN (19:00)
[2023-10-12] MEDS: OLANZapine 5 MG TAB PO PRN (19:00)
[2023-10-12] MEDS ORDERED: LORazepam 1 MG TAB PO STA (21:22)
[2023-10-13 06:45] LABS: Basophils % (A) 1 %; Eosinophils # (A) 0.1 k/uL (0-0.7); Eosinophils % (A) 2 %; HCT 38.1 % (34.0-46.0); Lymphocytes # (A) 2.2 k/uL (1.0-4.8); Lymphocytes % (A) 38 %; MCH 32.5 pg (25.0-35.0); MCHC 34.2 g/dL (31.0-37.0); MCV 94.9 fL (80.0-100.0); Mean Platelet Volume 6.7; Monocytes # (A) 0.4 k/uL (0-1.0); Monocytes % (A) 6 %; Neutrophils % (A) 50 %; Platelet Count 316 k/uL (150-450); RBC 4.01 m/uL (3.80-5.40); RDW 12.6 % (11.5-15.5)
[2023-10-13 06:57] LABS: ALT 20 U/L (4-34); AST 27 U/L (14-36); African American GFR (CKD) >90 (>60 ml/min/1.73 sqM); Albumin 3.7 g/dL (3.5-5.0); Alkaline Phosphatase 86 U/L (38-126); Anion Gap 7 mmol/L; Blood Urea Nitrogen 18 mg/dL (7-17); Calcium 8.3 mg/dL (8.4-10.2); Carbon Dioxide 22 mmol/L (22-30); Chloride 109 mmol/L (98-107); Glucose 81 mg/dL (74-99); Non-African American GFR(CKD) >90 (>60 ml/min/1.73 sqM); Potassium 4.2 mmol/L (3.5-5.1); Sodium 138 mmol/L (137-145); Total Bilirubin 0.5 mg/dL (0.2-1.3); Total Protein 6.5 g/dL (6.3-8.2)
[2023-10-13] MEDS: NICOTINE 14MG/24HR PATCH TRANSDERM SCH (08:13)
[2023-10-13] MEDS: OLANZapine 5 MG TAB PO PRN ×2 (13:18→21:10)
[2023-10-13] MEDS ORDERED: PALIPERIDONE 3 MG TAB.ER.24 PO STA (14:24)
--- NOTE | 2023-10-13 14:38 | P.HP ---
Psychiatric H&P - . H&P Date: 10/13/23 History & Physical: Allergies Allergy/AdvReac Type Severity Reaction Status Date / Time No Known Allergies Allergy Verified 10/12/23 07:08 Vital Signs Temp 98.1 F 10/13/23 07:10 Pulse 76 10/13/23 07:10 Resp 16 10/13/23 07:10 BP 110/68 10/13/23 07:10 Pulse Ox 98 10/13/23 07:10 FiO2 Intake & Output 10/12/23 10/13/23 10/13/23 18:59 06:59 18:59 Weight 67.132 kg Laboratory Last Values WBC 6.0 k/uL (3.8-10.6) 10/13/23 06:16 RBC 4.01 m/uL (3.80-5.40) 10/13/23 06:16 Hgb 13.0 gm/dL (11.4-16.0) 10/13/23 06:16 Hct 38.1 % (34.0-46.0) 10/13/23 06:16 MCV 94.9 fL (80.0-100.0) 10/13/23 06:16 MCH 32.5 pg (25.0-35.0) 10/13/23 06:16 MCHC 34.2 g/dL (31.0-37.0) 10/13/23 06:16 RDW 12.6 % (11.5-15.5) 10/13/23 06:16 Plt Count 316 k/uL (150-450) 10/13/23 06:16 MPV 6.7 10/13/23 06:16 Neutrophils % 50 % 10/13/23 06:16 Lymphocytes % 38 % 10/13/23 06:16 Monocytes % 6 % 10/13/23 06:16 Eosinophils % 2 % 10/13/23 06:16 Basophils % 1 % 10/13/23 06:16 Neutrophils # 3.0 k/uL (1.3-7.7) 10/13/23 06:16 Lymphocytes # 2.2 k/uL (1.0-4.8) 10/13/23 06:16 Monocytes # 0.4 k/uL (0-1.0) 10/13/23 06:16 Eosinophils # 0.1 k/uL (0-0.7) 10/13/23 06:16 Basophils # 0.0 k/uL (0-0.2) 10/13/23 06:16 Sodium 138 mmol/L (137-145) 10/13/23 06:16 Potassium 4.2 mmol/L (3.5-5.1) 10/13/23 06:16 Chloride 109 mmol/L (98-107) H 10/13/23 06:16 Carbon Dioxide 22 mmol/L (22-30) 10/13/23 06:16 Anion Gap 7 mmol/L 10/13/23 06:16 BUN 18 mg/dL (7-17) H 10/13/23 06:16 Creatinine 0.76 mg/dL (0.52-1.04) 10/13/23 06:16 Est GFR (CKD-EPI)AfAm >90 (>60 ml/min/1.73 sqM) 10/13/23 06:16 Est GFR (CKD-EPI)NonAf >90 (>60 ml/min/1.73 sqM) 10/13/23 06:16 Glucose 81 mg/dL (74-99) 10/13/23 06:[address] Glu mg/dL 100 mg/dL 10/13/23 06:16 Hemoglobin A1c 5.1 % (<=6.0) 10/13/23 06:16 Calcium 8.3 mg/dL (8.4-10.2) L 10/13/23 06:16 Total Bilirubin 0.5 mg/dL (0.2-1.3) 10/13/23 06:16 AST 27 U/L (14-36) 10/13/23 06:16 ALT 20 U/L (4-34) 10/13/23 06:16 Alkaline Phosphatase 86 U/L (38-126) 10/13/23 06:16 Total Protein 6.5 g/dL (6.3-8.2) 10/13/23 06:16 Albumin 3.7 g/dL (3.5-5.0) 10/13/23 06:16 TSH 1.230 mIU/L (0.465-4.680) 10/13/23 06:16 Urine Opiates Screen Not Detected (NotDetected) 10/12/23 01:31 Ur Oxycodone Screen Not Detected (NotDetected) 10/12/23 01:31 Urine Methadone Screen Not Detected (NotDetected) 10/12/23 01:31 Ur Barbiturates Screen Not Detected (NotDetected) 10/12/23 01:31 U Tricyclic Antidepress Not Detected (NotDetected) 10/12/23 01:31 Ur Phencyclidine Scrn Not Detected (NotDetected) 10/12/23 01:31 Ur Amphetamines Screen Not Detected (NotDetected) 10/12/23 01:31 U Methamphetamines Scrn Not Detected (NotDetected) 10/12/23 01:31 U Benzodiazepines Scrn Not Detected (NotDetected) 10/12/23 01:31 Urine Cocaine Screen Detected (NotDetected) H 10/12/23 01:31 U Marijuana (THC) Screen Detected (NotDetected) H 10/12/23 01:31 Influenza Type A (PCR) Not Detected (Not Detectd) 10/12/23 12:30 Influenza Type B (PCR) Not Detected (Not Detectd) 10/12/23 12:30 RSV (PCR) Not Detected (Not Detectd) 10/12/23 12:30 SARS-CoV-2 (PCR) Not Detected (Not Detectd) 10/12/23 12:30 10/13/23 14:20 IDENTIFYING DATA: Patient is a 38-year-old female, currently lives with her friend in a house, has 5 kids, currently unemployed HPI: Patient presented to the hospital with a chief complaint of suicidal ideations. Apparently patient has [facility]. States that she has [facility] in [facility] "[facility]" and claims that her charge was related to a "possession of a crack pipe". She states that since being in [facility] she has had increase in depression, suicidal thoughts no plan. States that she was" solitary confinement" while she was in [facility]. Her urine drug screen was positive for cocaine and marijuana. States that she was feeling like a "demon on Adderall". States that her other medications did not help her much. States that she was taking the previous medications while in [facility]. She states that she is irritable, states that she is angry at people. She was swearing at times and appears to be impulsive and has a low frustration tolerance. She states that she is also been hearing voices, states that they are causing her distress. She is denying any visual hallucinations. She is claiming that she is having josselin cidal thoughts no intent or plan. Denies any homicidal ideations. Patient admits to using substances in the past including marijuana, cigarettes, heroin and also cocaine. Patient was fairly focused on obtaining either Xanax or Ativan during the conversation. PAST PSYCHIATRIC HISTORY: Patient states that she has history of depression and polysubstance abuse. Patient denies being on any psychiatric medications at this time however used to be on Zoloft, remeron, BuSpar, lithium, Prozac, Abilify. Patient was last psychiatrically admitted today mental health unit in August 2023. Patient denies any psychiatric outpatient follow-up, ever states that she used to follow-up at [facility]. Patient denies any history of suicide attempts in the past. Past Medical History: COPD Additional Past Medical History / Comment(s): Past pyelonephritis/sepsis, UTIs, chronic low back pain, narcolepsy, bronchitis. ALLERGIES: as per EMR CHEMICAL DEPENDENCY HISTORY: as per HPI FAMILY PSYCHIATRIC/SUBSTANCE USE HISTORY: denies SOCIAL HISTORY: Patient was born and raised in [facility]. She states that she is currently unemployed, has no kids. She lives in a house with her friend. She claims that she has been to [facility] several times this past year, mainly drug- related charges. She states that she completed high school and did some college. 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 MENTAL STATUS EXAM: General Appearance: Patient appears to be thin, disheveled, stated age is alert, directable, irritable and demanding. Patient appears to have poor hygiene and grooming. Behavior: Patient is seated without any agitated behavior. Manipulative Speech: Patient's speech is fluent and nonpressured. Irritable tone Mood/Affect: Patient reports their mood is depressed and anxious, affect is congruent and constricted. Suicidality/Homicidality: Patient denies having any homicidal ideation intent or plan. Denies any suicidal ideations intent or plan Perceptions: Patient denies any visual hallucinations and denies any auditory hallucinations Though content/process: There is no evidence of any delusional thought content and thought process is linear and goal-directed. Medication seeking. Manipulative Memory and concentration: AOX3, grossly intact for the purposes of this session. Can spell "WORLD" backwards Judgment and insight: poor/impulsive STRENGTHS/WEAKNESSES: strength is that patient is resilient. Weakness is that patient has poor judgment and is impulsive INTELLECT: average IMPRESSIONS: Depressive disorder unspecified, rule out bipolar depression hx of Cocaine abuse hx of Opioid abuse Nicotine dependence Cannabis use disorder Cluster B personality disorder PLAN: -Patient is admitted under voluntary status to MHU for stabilization of psych iatric symptoms and safety. Patient has signed adult voluntary form and is placed in patient's chart. -Medications : Start paliperidone p.o. 3 mg nightly for mood stabilization/psychosis, Zoloft 50 mg nightly for mood/anxiety. Vistaril as needed for anxiety. -zyprexa PRN for agitation/aggression. WIll not give BZD as patient has strong hx of abuse and polysubtance use. -Patient was counselled on substance abuse and desired to cut back on use -Patient was informed of the risks, benefits and side effects of the medication and did not sign medication consent form -Internal Medicine consult to perform medical evaluation and physical. -NRT - nicotine patch -SW on board for discharge planning. Encourage patient to participate in groups to work on coping skills. 10/13/23 14:33 10/13/23 14:37
[2023-10-13] MEDS: SERTRALINE 50 MG TAB PO SCH (19:50)
[2023-10-13] MEDS ORDERED: PALIPERIDONE 3 MG TAB.ER.24 PO SCH (21:00)
[2023-10-13] MEDS: hydrOXYzine HCL 25 MG TAB PO PRN (21:10)
[2023-10-14] MEDS: NICOTINE 14MG/24HR PATCH TRANSDERM SCH (08:14)
[2023-10-14] MEDS: hydrOXYzine HCL 25 MG TAB PO PRN ×2 (08:15→17:29)
[2023-10-14] MEDS: PALIPERIDONE 3 MG TAB.ER.24 PO SCH ×2 (11:36→20:11)
--- NOTE | 2023-10-14 11:36 | P.PN ---
Progress Note - Text Progress Note Date: 10/14/23 Interval history: Patient was seen today laying in her bed and was agreeable to speak to scenario writer in the office. She states that her stomach was upset this morning and does not know why. States that she is not having any other GI symptoms. States that her mood and anxiety are mildly improving. She was less irritable today with scenario writer. States that she thinks that the Invega is doing fairly well for her racing thoughts and also her voices. She asked to have it doubled at this time. Claims that her mood is also improving. States that she was able to sleep fairly last night. Claims to have a fair appetite. At this time she is denying any suicidal homicidal ideations intent or plan. Denying any auditory or visual hallucinations. MENTAL STATUS EXAM: General Appearance: Patient appears to be thin, disheveled, stated age is alert, directable, less irritable. Patient appears to have mildly improving hygiene and grooming. Behavior: Patient is seated without any agitated behavior. Manipulative, improving. Cooperative today Speech: Patient's speech is fluent and nonpressured. Mood/Affect: Patient reports their mood is improving, affect is congruent and constricted, improving Suicidality/Homicidality: Patient denies having any homicidal ideation intent or plan. Denies any suicidal ideations intent or plan Perceptions: Patient denies any visual hallucinations and denies any auditory hallucinations Though content/process: There is no evidence of any delusional thought content and thought process is linear and goal-directed. Medication seeking. Memory and concentration: AOX3, grossly intact for the purposes of this session. Can spell "WORLD" backwards Judgment and insight: poor/impulsive, improving IMPRESSIONS: Depressive disorder unspecified, rule out bipolar depression hx of Cocaine abuse hx of Opioid abuse Nicotine dependence Cannabis use disorder Cluster B personality disorder PLAN: -Patient is admitted under voluntary status to [facility]HU for stabilization of psychiatric symptoms and safety. Patient has signed adult voluntary form and is placed in patient's chart. -Medications : Increase paliperidone p.o. 3 mg twice daily for mood stabilization/psychosis, Zoloft 50 mg nightly for mood/anxiety. Vistaril as needed for anxiety. -zyprexa PRN for agitation/aggression. Will not give BZD as patient has strong hx of abuse and polysubtance use. -NRT - nicotine patch -SW on board for discharge planning. Encourage patient to participate in groups to work on coping skills. Currently awaiting decision from rehab. Patient is fairly focused on discharge, likely discharge Tuesday if patient is improving over the weekend.
[2023-10-14] MEDS: OLANZapine 5 MG TAB PO PRN (14:07)
[2023-10-14] MEDS: IBUPROFEN 600 MG TAB PO PRN (15:11)
[2023-10-14] MEDS: ACETAMINOPHEN TAB 325 MG TAB PO PRN (15:12)
[2023-10-14] MEDS: SERTRALINE 50 MG TAB PO SCH (20:11)
[2023-10-14] MEDS ORDERED: PALIPERIDONE 6 MG TAB.ER.24 PO SCH (21:00)
[2023-10-15] MEDS ORDERED: MIRTAZAPINE 15 MG TAB PO PRN (08:06)
[2023-10-15] MEDS ORDERED: ACETAMINOPHEN TAB 325 MG TAB PO PRN (08:07)
[2023-10-15] MEDS: NICOTINE 14MG/24HR PATCH TRANSDERM SCH (08:28)
[2023-10-15] MEDS: PALIPERIDONE 3 MG TAB.ER.24 PO SCH ×2 (08:29→20:22)
[2023-10-15] MEDS: ACETAMINOPHEN TAB 325 MG TAB PO PRN ×2 (08:30→20:24)
[2023-10-15] MEDS: IBUPROFEN 600 MG TAB PO PRN ×2 (08:30→20:23)
[2023-10-15 10:21] LABS: Appearance,Urine Clear (Clear); Bilirubin,Urine Negative (Negative); Blood,Urine Negative (Negative); Color,Urine Light Yellow; Glucose,Urine (UA) Negative (Negative); Ketones,Urine Negative (Negative); Leukocyte Esterase,Urine Negative (Negative); Nitrite,Urine Negative (Negative); PH, Urine 5.5 (5.0-8.0); Protein,Urine Negative (Negative); Specific Gravity,Urine 1.016 (1.001-1.035); Urobilinogen,Urine <2.0 mg/dL (<2.0)
--- NOTE | 2023-10-15 11:09 | P.PN ---
Progress Note - Text Interval history: Patient was seen [wandering the hallways] and was directable and agreeable to speak with show card writer. States that Zoloft is helping her depression. Irritability is improving. Continues to have auditory hallucinations. Requesting mirtazapine or Seroquel for sleep. States that she was on mirtazapine while she was in [facility].. At this time patient denies any suicidal or homicidal ideations intent or plan. Denies any visual hallucinations. Patient denies any side effects from the medications and has been compliant with meds. Mental status exam: General Appearance: [Patient appears to be her than stated age is alert, directable, and cooperative.] Behavior: [No agitated behavior. Patient is calm and directable] Speech: Patient's speech is fluent and nonpressured. Mood/Affect: Mood is improving mildly, affect is congruent and constricted. Suicidality/Homicidality: Patient denies having any suicidal or homicidal ideation intent or plan. Perceptions: Patient denies any auditory or visual hallucinations. Though content/process: [There is no evidence of any delusional thought content and thought process is linear and goal-directed.] Memory and concentration: AOX3, grossly intact for the purposes of this session Judgment and insight: improving mildly Assessment/Plan: Continue with current diagnosis. Patient continues to meet criteria for inpatient psychiatric admission for symptom stabilization and safety.[Add mirtazapine 7.5 mg daily at bedtime. Continue other medications. Monitor for medication compliance and for any psychotropic medication side effects. Will continue to monitor ongoing response to treatment. Encouraged participation in milieu.
[2023-10-15] MEDS: SERTRALINE 50 MG TAB PO SCH (20:22)
[2023-10-16] MEDS: PALIPERIDONE 3 MG TAB.ER.24 PO SCH ×2 (08:08→20:01)
[2023-10-16] MEDS: NICOTINE 14MG/24HR PATCH TRANSDERM SCH (08:08)
--- NOTE | 2023-10-16 09:24 | P.PN ---
Progress Note - Text Interval history: Patient was seen in her room and was directable and agreeable to speak with expert medical writer. Reports improvement of depression and denies any irritability. At this time patient denies any suicidal or homicidal ideations intent or plan. Denies any Auditory or visual hallucinations. Patient denies any side effects from the medications and has been compliant with meds. Mental status exam: General Appearance: [Patient appears to be older than stated age is alert, directable, and cooperative.] Behavior: [No agitated behavior. Patient is calm and directable] Speech: Patient's speech is fluent and nonpressured. Mood/Affect: Mood is improving mildly, affect is congruent and constricted. Suicidality/Homicidality: Patient denies having any suicidal or homicidal ideation intent or plan. Perceptions: Patient denies any auditory or visual hallucinations. Though content/process: [There is no evidence of any delusional thought content and thought process is linear and goal-directed.] Memory and concentration: AOX3, grossly intact for the purposes of this session Judgment and insight: improving mildly Assessment/Plan: Continue with current diagnosis. Patient continues to meet criteria for inpatient psychiatric admission for symptom stabilization and safety.[Patient will be maintained on current psychotropic medication regimen.] Monitor for medication compliance and for any psychotropic medication side effects. Will continue to monitor ongoing response to treatment. Encouraged participation in milieu.
[2023-10-16] MEDS: IBUPROFEN 600 MG TAB PO PRN (20:01)
[2023-10-16] MEDS: SERTRALINE 50 MG TAB PO SCH (20:01)
[2023-10-16] MEDS: ACETAMINOPHEN TAB 325 MG TAB PO PRN (20:02)
[2023-10-17 07:17] VITALS: BP 142/69; PULSE 69; RESP 16; TEMP 97.7
[2023-10-17] MEDS: PALIPERIDONE 3 MG TAB.ER.24 PO SCH (08:43)
[2023-10-17] MEDS: NICOTINE 14MG/24HR PATCH TRANSDERM SCH (08:43)
--- NOTE | 2023-10-17 09:51 | P.DS ---
Providers Date of admission: 10/12/23 17:44 Expected date of discharge: 10/17/23 Attending physician: Randy Lopez MD Consults: 10/12/23 17:46 Consult Physician Routine Consulting Provider: [facility] Consult Reason/Comments: H&P Do you want consulting provider notified?: Yes Primary care physician: Stated None - Discharge Diagnosis(es) (1) Depressive disorder Current Visit: Yes Status: Acute Priority: High (2) History of cocaine abuse Current Visit: Yes Status: Acute Priority: Medium (3) History of opioid abuse Current Visit: Yes Status: Acute Priority: Medium (4) Nicotine dependence Current Visit: Yes Status: Acute Priority: Low (5) Cannabis use disorder Current Visit: Yes Status: Acute Priority: Medium (6) Cluster B personality disorder Current Visit: Yes Status: Acute Priority: High Hospital Course: Admission HPI: Admission note was completed by proposal writer "Patient is a 38-year-old female, currently lives with her friend in a house, has 5 kids, currently unemployed. Patient presented to the hospital with a chief complaint of suicidal ideations. Apparently patient has recently been released from half-way 2 days ago. States that she has been in half-way for "6 months" and claims that her charge was related to a "possession of a crack pipe". She states that since being in half-way she has had increase in depression, suicidal thoughts no plan. States that she was" solitary confinement" while she was in half-way. Her urine drug screen was positive for cocaine and marijuana. States that she was feeling like a "demon on Adderall". States that her other medications did not help her much. States that she was taking the previous medications while in half-way. She states that she is irritable, states that she is angry at people. She was swearing at times and appears to be impulsive and has a low frustration tolerance. She states that she is also been hearing voices, states that they are causing her distress. She is denying any visual hallucinations. She is claiming that she is having suicidal thoughts no intent or plan. Denies any homicidal ideations. Patient admits to using substances in the past including marijuana, cigarettes, heroin and also cocaine. Patient was fairly focused on obtaining either Xanax or Ativan during the conversation." Hospital course: Upon admission to the unit patient was directable and agreeable to commence treatment and signed adult voluntary form. Patient got along well with other patients on the unit and followed unit protocol. Patient was compliant with the medications and denied any side effects throughout hospital course. Patient was started on Invega p.o. 3 mg increased to twice daily dosing for mood stabilization/hallucinations, Zoloft 50 mg nightly for mood/anxiety, Vistaril as needed for anxiety.. Patient spoke of her stressors and engaged in therapy both group and individual. Patient was also seen by medical team for history and physical exam. Throughout the course of the hospitalization patient gradually improved with regards to mood, anxiety, racing thoughts, agitation/irritability, hallucinations, sleep and returned back to their baseline level of functioning. On the day of discharge patient denied any suicidal or homicidal ideations intent or plan denied any auditory or visual hallucinations. Patient endorsed wanting to live for their health and family. The patient denied any access to guns or weapons. Patient denied any paranoia and did not endorse any delusions. Patient does have a significant history of substance abuse and was counseled on abstaining from all substances including alcohol and marijuana. Patient elected to do outpatient substance use treatment program through their outpatient provider. Patient ended up agreeing to inpatient subtance rehab however states that she would like to go home and take care of different things before she is ready to go to rehab. Patient was also counseled on the medications and need for regular compliance and was encouraged to follow-up with their outpatient appointment for mental health and also for primary care. Mental status exam: General Appearance: Patient appears to be thin, stated age is alert, pleasant, and cooperative. Patient is in no acute distress and has improved hygiene and grooming Behavior: Patient is calmly seated without any agitated behavior. Speech: Patient's speech is fluent and nonpressured. Mood/Affect: Patient reports their mood is "good", affect is congruent and euthymic. Suicidality/Homicidality: Patient denies having any suicidal or homicidal ideation intent or plan. Perceptions: Patient denies any auditory or visual hallucinations. Though content/process: There is no evidence of any delusional thought content and thought process is linear and goal-directed. More future oriented Memory and concentration: AOX3, grossly intact for the purposes of this session. Can spell "WORLD" backwards correctly. Judgment and insight: Chronically poor, however has improved with guarded prognosis Impression: Depressive disorder unspecified, rule out bipolar depression History of opioid abuse History of cocaine abuse Cannabis use disorder Cluster B personality disorder Nicotine dependence Plan: -Continue with discharge today as patient has improved and stabilized psychiatrically and is not currently an imminent threat to themself and/or others. Patient will remain at chronically elevated risk for harm to self and/or others due to their impulsivity and substance abuse. -Continue medications: Invega p.o. 3 mg twice daily for mood stabilization/hallucinations, Zoloft 50 mg nightly for mood/anxiety, Vistaril 25 mg daily as needed for anxiety. -Patient was counseled on the need for medication compliance and appropriate follow-up at mental health and also primary care for medical issues. Patient verbalized understanding and agreed. -Social work to help coordinate patient's discharge today back to her home. And also to ensure safe home environment that guns/weapons are either removed from the home or locked away. Social work also to arrange for patients follow up appointments with [facility] for psychiatric care along with follow up with primary care provider. -Patient counseled on abstaining from recreational drugs and marijuana and alcohol. Was informed/educated on the adverse effects on their physical and mental health. Patient verbally agreed and understood. Patient is currently in the process of getting into rehab, will continue to process when she is home. -Patient was instructed to return to the hospital or seek immediate medical care if their psychiatric or medical symptoms do worsen or reoccur. Allergies Allergy/AdvReac Type Severity Reaction Status Date / Time No Known Allergies Allergy Verified 10/12/23 07:08 Laboratory Results WBC 6.0 k/uL (3.8-10.6) 10/13/23 06:16 RBC 4.01 m/uL (3.80-5.40) 10/13/23 06:16 Hgb 13.0 gm/dL (11.4-16.0) 10/13/23 06:16 Hct 38.1 % (34.0-46.0) 10/13/23 06:16 MCV 94.9 fL (80.0-100.0) 10/13/23 06:16 MCH 32.5 pg (25.0-35.0) 10/13/23 06:16 MCHC 34.2 g/dL (31.0-37.0) 10/13/23 06:16 RDW 12.6 % (11.5-15.5) 10/13/23 06:16 Plt Count 316 k/uL (150-450) 10/13/23 06:16 MPV 6.7 10/13/23 06:16 Neutrophils % 50 % 10/13/23 06:16 Lymphocytes % 38 % 10/13/23 06:16 Monocytes % 6 % 10/13/23 06:16 Eosinophils % 2 % 10/13/23 06:16 Basophils % 1 % 10/13/23 06:16 Neutrophils # 3.0 k/uL (1.3-7.7) 10/13/23 06:16 Lymphocytes # 2.2 k/uL (1.0-4.8) 10/13/23 06:16 Monocytes # 0.4 k/uL (0-1.0) 10/13/23 06:16 Eosinophils # 0.1 k/uL (0-0.7) 10/13/23 06:16 Basophils # 0.0 k/uL (0-0.2) 10/13/23 06:16 Sodium 138 mmol/L (137-145) 10/13/23 06:16 Potassium 4.2 mmol/L (3.5-5.1) 10/13/23 06:16 Chloride 109 mmol/L (98-107) H 10/13/23 06:16 Carbon Dioxide 22 mmol/L (22-30) 10/13/23 06:16 Anion Gap 7 mmol/L 10/13/23 06:16 BUN 18 mg/dL (7-17) H 10/13/23 06:16 Creatinine 0.76 mg/dL (0.52-1.04) 10/13/23 06:16 Est GFR (CKD-EPI)AfAm >90 (>60 ml/min/1.73 sqM) 10/13/23 06:16 Est GFR (CKD-EPI)NonAf >90 (>60 ml/min/1.73 sqM) 10/13/23 06:16 Glucose 81 mg/dL (74-99) 10/13/23 06:[address] Glu mg/dL 100 mg/dL 10/13/23 06:16 Hemoglobin A1c 5.1 % (<=6.0) 10/13/23 06:16 Calcium 8.3 mg/dL (8.4-10.2) L 10/13/23 06:16 Total Bilirubin 0.5 mg/dL (0.2-1.3) 10/13/23 06:16 AST 27 U/L (14-36) 10/13/23 06:16 ALT 20 U/L (4-34) 10/13/23 06:16 Alkaline Phosphatase 86 U/L (38-126) 10/13/23 06:16 Total Protein 6.5 g/dL (6.3-8.2) 10/13/23 06:16 Albumin 3.7 g/dL (3.5-5.0) 10/13/23 06:16 TSH 1.230 mIU/L (0.465-4.680) 10/13/23 06:16 Urine Color Light Yellow 10/15/23 08:40 Urine Appearance Clear (Clear) 10/15/23 08:40 Urine pH 5.5 (5.0-8.0) 10/15/23 08:40 Ur Specific [place] 1.016 (1.001-1.035) 10/15/23 08:40 Urine Protein Negative (Negative) 10/15/23 08:40 Urine Glucose (UA) Negative (Negative) 10/15/23 08:40 Urine Ketones Negative (Negative) 10/15/23 08:40 Urine Blood Negative (Negative) 10/15/23 08:40 Urine Nitrite Negative (Negative) 10/15/23 08:40 Urine Bilirubin Negative (Negative) 10/15/23 08:40 Urine Urobilinogen <2.0 mg/dL (<2.0) 10/15/23 08:40 Ur Leukocyte Esterase Negative (Negative) 10/15/23 08:40 Urine HCG, Qual Not Detected (Not Detectd) 10/15/23 08:40 Urine Opiates Screen Not Detected (NotDetected) 10/12/23 01:31 Ur Oxycodone Screen Not Detected (NotDetected) 10/12/23 01:31 Urine Methadone Screen Not Detected (NotDetected) 10/12/23 01:31 Ur Barbiturates Screen Not Detected (NotDetected) 10/12/23 01:31 U Tricyclic Antidepress Not Detected (NotDetected) 10/12/23 01:31 Ur Phencyclidine Scrn Not Detected (NotDetected) 10/12/23 01:31 Ur Amphetamines Screen Not Detected (NotDetected) 10/12/23 01:31 U Methamphetamines Scrn Not Detected (NotDetected) 10/12/23 01:31 U Benzodiazepines Scrn Not Detected (NotDetected) 10/12/23 01:31 Urine Cocaine Screen Detected (NotDetected) H 10/12/23 01:31 U Marijuana (THC) Screen Detected (NotDetected) H 10/12/23 01:31 Influenza Type A (PCR) Not Detected (Not Detectd) 10/12/23 12:30 Influenza Type B (PCR) Not Detected (Not Detectd) 10/12/23 12:30 RSV (PCR) Not Detected (Not Detectd) 10/12/23 12:30 SARS-CoV-2 (PCR) Not Detected (Not Detectd) 10/12/23 12:30 Vital Signs Temp 97.7 F 10/17/23 06:51 Pulse 69 10/17/23 06:51 Resp 16 10/17/23 06:51 BP 142/69 10/17/23 06:51 Pulse Ox 98 10/13/23 07:10 FiO2 Patient Condition at Discharge: Stable Plan - Discharge Summary Discharge Rx Participant: No New Discharge Prescriptions: New Sertraline [Zoloft] 50 mg PO HS 14 Days #14 tab hydrOXYzine HCL [Atarax] 50 mg PO DAILY PRN 14 Days #14 tab PRN Reason: Anxiety Nicotine 14Mg/24Hr Patch [Habitrol] 1 patch TRANSDERM DAILY 14 Days #14 patch Paliperidone [Invega] 3 mg PO BID 14 Days #28 tab Discharge Medication List Nicotine 14Mg/24Hr Patch [Habitrol] 1 patch TRANSDERM DAILY 14 Days #14 patch 10/17/23 [Rx] Paliperidone [Invega] 3 mg PO BID 14 Days #28 tab 10/17/23 [Rx] Sertraline [Zoloft] 50 mg PO HS 14 Days #14 tab 10/17/23 [Rx] hydrOXYzine HCL [Atarax] 50 mg PO DAILY PRN 14 Days #14 tab 10/17/23 [Rx] Follow up Appointment(s)/Referral(s): None,Stated [Primary Care Provider] - 1-2 days Activity/Diet/Wound Care/Special Instructions: Avoid the use of street drugs and alcohol. Take all medications as prescribed. When you are in need of refills on your medications, please contact your medical provider and/or outpatient psychiatrist/provider to have this done. Please go to your scheduled outpatient appointment for aftercare treatment. If symptoms return or become worse, call the crisis line at and/or go to the nearest emergency room for evaluation. National Suicide Hotline 988. Discharge Disposition: HOME SELF-CARE
== END 2023-10-17 12:50 | disposition home or self-care (01) | DRG 754 ==
LOC: EC 22:56 → 3MHU 10-12 17:44
PROVIDERS: ADMIT Psychiatry & Neurology Psychiatry; ATTEND Psychiatry & Neurology Psychiatry
DX: F32.A Depression, unspecified (principal); R45.851 Suicidal ideations; Z71.51 Drug abuse counseling and surveillance of drug abuser; F14.10 Cocaine abuse, uncomplicated; F11.10 Opioid abuse, uncomplicated; F17.210 Nicotine dependence, cigarettes, uncomplicated; F12.10 Cannabis abuse, uncomplicated; F60.89 Other specific personality disorders; Z56.0 Unemployment, unspecified; Z79.899 Other long term (current) drug therapy; Z82.5 Family history of asthma and other chronic lower respiratory diseases; Z11.52 Encounter for screening for COVID-19; G47.419 Narcolepsy without cataplexy; Z65.3 Problems related to other legal circumstances; Z28.21 Immunization not carried out because of patient refusal; Z87.440 Personal history of urinary (tract) infections; G89.29 Other chronic pain; M54.50 Low back pain, unspecified
CPT/HCPCS: 80053; 80306; 81003; 81025; 82075; 83036; 84443; 85025; 87636; 96372; 99285

== ENCOUNTER 2023-10-21 21:37 | Inpatient (IN) | payer MEDICAID, OTHER ==
--- NOTE | 2023-10-21 22:09 | ED ---
General Adult HPI - General Source: patient Mode of arrival: ambulatory - History of Present Illness -: minutes(s) Location: neck Quality: sharp Consistency: constant Improves with: none Worsens with: none Associated Symptoms: denies other symptoms Treatments Prior to Arrival: none <Art Parkinson - Last Filed: 10/22/23 08:03> <Ubaldo Shoemaker - Last Filed: 10/22/23 10:40> - General Chief complaint: Wound/Laceration Stated complaint: Mental health Time Seen by Provider: 10/21/23 21:40 - History of Present Illness Initial comments: This patient is a 38-year-old woman brought to have evaluation of laceration to the left side and anterior of the neck. The patient admits to drinking tonight and then cut her neck using a knife. There was no loss consciousness. Patient denies dyspnea or trouble with breathing or swallowing. Patient's friend brought her to the emergency department. (Art Parkinson) - Related Data Previous Rx's Medication Instructions Recorded Nicotine 14Mg/24Hr Patch [Habitrol] 1 patch TRANSDERM DAILY 14 Days 10/17/23 #14 patch Paliperidone [Invega] 3 mg PO BID 14 Days #28 tab 10/17/23 Sertraline [Zoloft] 50 mg PO HS 14 Days #14 tab 10/17/23 hydrOXYzine HCL [Atarax] 50 mg PO DAILY PRN 14 Days #14 tab 10/17/23 Allergies Allergy/AdvReac Type Severity Reaction Status Date / Time No Known Allergies Allergy Verified 10/21/23 21:47 Review of Systems ROS Other: All systems not noted in ROS Statement are negative. Constitutional: Denies: fever ENT: Denies: throat pain Respiratory: Denies: cough, dyspnea Cardiovascular: Denies: chest pain, syncope Gastrointestinal: Denies: abdominal pain, vomiting, diarrhea Genitourinary: Denies: dysuria, hematuria Musculoskeletal: Denies: back pain Skin: Denies: rash Neurological: Denies: headache, weakness <Art Parkinson - Last Filed: 10/22/23 08:03> ROS Other: All systems not noted in ROS Statement are negative. <Ubaldo Shoemaker - Last Filed: 10/22/23 10:40> ROS Statement: Those systems with pertinent positive or pertinent negative responses have been documented in the HPI. Past Medical History Past Medical History: COPD Additional Past Medical History / Comment(s): Past pyelonephritis/sepsis, UTIs, chronic low back pain, narcolepsy, bronchitis. History of Any Multi-Drug Resistant Organisms: None Reported Past Surgical History: Section, Orthopedic Surgery Additional Past Surgical History / Comment(s): Left knee meniscal tear repair Past Anesthesia/Blood Transfusion Reactions: No Reported Reaction Past Psychological History: No Psychological Hx Reported Smoking Status: Current every day smoker Past Alcohol Use History: None Reported Past Drug Use History: Cocaine, Marijuana, Methamphetamine, Opiates - Past Family History Mother Family Medical History: COPD Additional Family Medical History / Comment(s): Multuple family memeber with ccancer, none affecting the urinary tract Father History Unknown: Yes <IggyArt - Last Filed: 10/22/23 08:03> General Exam General appearance: alert, appears intoxicated Head exam: Present: atraumatic, normocephalic Eye exam: Present: normal appearance, PERRL, EOMI, nystagmus. Absent: scleral icterus, conjunctival injection ENT exam: Present: normal oropharynx Neck exam: Present: full ROM, other (Approximately 7 cm laceration left lateral aspect and anterior neck. Laceration does not appear to extend deep to the subcutaneous tissue. No evident penetration of the platysma) Respiratory exam: Present: normal lung sounds bilaterally. Absent: respiratory distress, wheezes, rales, rhonchi, stridor Cardiovascular Exam: Present: normal rhythm, tachycardia, normal heart sounds. Absent: systolic murmur, diastolic murmur, rubs, gallop GI/Abdominal exam: Present: soft. Absent: distended, tenderness, guarding, rebound, rigid, mass Extremities exam: Present: normal inspection, normal capillary refill. Absent: pedal edema, calf tenderness Back exam: Present: normal inspection. Absent: CVA tenderness (R), CVA tenderness (L) Neurological exam: Present: alert Skin exam: Present: warm, dry, normal color, other (Laceration as above) <IggyArt - Last Filed: 10/22/23 08:03> Course Vital Signs 10/21/23 10/21/23 10/22/23 21:42 22:39 00:14 Temperature 98.7 F 98.0 F Pulse Rate 114 H 70 73 Respiratory 20 19 16 Rate Blood Pressure 121/79 106/76 122/84 O2 Sat by Pulse 97 98 95 Oximetry 10/22/23 10/22/23 10/22/23 01:00 01:30 02:00 Temperature 98.0 F 98.0 F 98.0 F Pulse Rate 79 79 79 Respiratory 17 17 17 Rate Blood Pressure 84/51 94/53 97/57 O2 Sat by Pulse 95 95 95 Oximetry 10/22/23 10/22/23 10/22/23 02:30 03:00 03:30 Temperature Pulse Rate 77 81 77 Respiratory 18 12 16 Rate Blood Pressure 97/57 97/57 97/61 O2 Sat by Pulse 95 95 95 Oximetry 10/22/23 10/22/23 10/22/23 04:00 04:30 05:30 Temperature 98.0 F Pulse Rate 77 74 81 Respiratory 19 18 16 Rate Blood Pressure 100/66 99/67 125/90 O2 Sat by Pulse 95 95 96 Oximetry 10/22/23 10/22/23 10/22/23 06:30 07:57 10:00 Temperature Pulse Rate 77 84 80 Respiratory 16 16 16 Rate Blood Pressure 101/75 120/86 120/60 O2 Sat by Pulse 95 98 98 Oximetry EKG Findings - EKG Results: EKG: interpreted by ERMD, sinus rhythm (Rate 79 bpm), normal axis, normal QRS ( Incomplete right bundle branch block pattern), normal ST/T <Atr Parkinson - Last Filed: 10/22/23 08:03> Procedures - Laceration Laceration #1 Consent Obtained: verbal consent Indication: laceration Site: neck Size (cm): 12 Description: linear Depth: simple, single layer Anesthetic Used: lidocaine 1% Anesthesia Technique: local infiltration Amount (mls): 5 Type of Sutures: nylon Size of Sutures: 5-0 Number of Sutures: 20 Technique: running Patient Tolerated Procedure: well, no complications <Art Parkinson - Last Filed: 10/22/23 08:03> Medical Decision Making - Lab Data Result diagrams: 10/21/23 21:45 10/21/23 21:45 <Art Parkinson - Last Filed: 10/22/23 08:03> - Lab Data Result diagrams: 10/21/23 21:45 10/21/23 21:45 <Ubaldo Shoemaker - Last Filed: 10/22/23 10:40> - Medical Decision Making The patient had chest x-ray which I interpreted as negative for acute pneumothorax, bony injury, acute infiltrate. The patient had pelvis x-ray which I interpreted as negative for acute bony injury. The patient had CT angiogram of the neck which I interpreted as negative for vessel or airway injury. (Art Parkinson) Was patient admitted / discharged? Hospital course, mention meds given and route, prescriptions, significant lab abnormalities, going to OR and other pertinent info. @ -Patient had a CTA of the neck and it showed no acute normality. Patient's neck was sewn up by Dr. lCements. Patient was signed out to me at 7 AM. Patient was evaluated by EPS and EPS spoke with his psychiatrist and they determined the patient need to be admitted I interviewed the patient I filled out a clinical certification and admitted the patient. Undiagnosed new problem with uncertain prognosis? @ -No Drug Therapy requiring intensive monitoring for toxicity (Heparin, Nitro, Insulin, Cardizem)? @ -No Were any procedures done? @ -No Diagnosis/symptom? @ -Depression Acute, or Chronic, or Acute on Chronic? @ -Acute Uncomplicated (without systemic symptoms) or Complicated (systemic symptoms)? @ -Complicated Side effects of treatment? @ -No Exacerbation, Progression, or Severe Exacerbation? @ -No Poses a threat to life or bodily function? How? (Chest pain, [place], [place], pneumonia, PE, COPD, DKA, ARF, appy, cholecystitis, CVA, Diverticulitis, Homicidal, Suicidal, threat to staff... and all critical care pts) @ -This could lead to suicide Diagnosis/symptom? @ -Suicide attempt Acute, or Chronic, or Acute on Chronic? @ -Acute Uncomplicated (without systemic symptoms) or Complicated (systemic symptoms)? @ -Complicated Side effects of treatment? @ -None Exacerbation, Progression, or Severe Exacerbation] @ -No Poses a threat to life or bodily function? @ -Yes this could lead to Diagnosis/symptom? @ -Laceration neck Acute, or Chronic, or Acute on Chronic? @ -Acute Uncomplicated (without systemic symptoms) or Complicated (systemic symptoms)? @ -Complicated Side effects of treatment? @ -None Exacerbation, Progression, or Severe Exacerbation] @ -No Poses a threat to life or bodily function? @ -No (Ubaldo Shoemaker) - Lab Data Lab Results 10/21/23 10/21/23 10/21/23 Range/Units 21:45 21:45 21:45 WBC 7.6 (3.8-10.6) k/uL RBC 3.92 (3.80-5.40) m/uL Hgb 12.5 (11.4-16.0) gm/dL Hct 36.9 (34.0-46.0) % MCV 94.2 (80.0-100.0) fL MCH 32.0 (25.0-35.0) pg MCHC 33.9 (31.0-37.0) g/dL RDW 12.6 (11.5-15.5) % Plt Count 382 (150-450) k/uL MPV 7.0 Neutrophils % 45 % Lymphocytes % 42 % Monocytes % 7 % Eosinophils % 2 % Basophils % 1 % Neutrophils # 3.4 (1.3-7.7) k/uL Lymphocytes # 3.2 (1.0-4.8) k/uL Monocytes # 0.5 (0-1.0) k/uL Eosinophils # 0.2 (0-0.7) k/uL Basophils # 0.1 (0-0.2) k/uL PT 10.2 (10.0-12.5) sec INR 0.9 (<1.2) APTT 26.5 (22.0-30.0) sec Sodium (137-145) mmol/L Potassium (3.5-5.1) mmol/L Chloride (98-107) mmol/L Carbon Dioxide (22-30) mmol/L Anion Gap mmol/L BUN (7-17) mg/dL Creatinine (0.52-1.04) mg/dL Est GFR (CKD-EPI)AfAm (>60 ml/min/1.73 sqM) Est GFR (CKD-EPI)NonAf (>60 ml/min/1.73 sqM) Glucose (74-99) mg/dL POC Glucose (mg/dL) (70-110) mg/dL POC Glu [employer] Agent ID Plasma Lactic Acid Davi (0.7-2.0) mmol/L Calcium (8.4-10.2) mg/dL Total Bilirubin (0.2-1.3) mg/dL AST (14-36) U/L ALT (4-34) U/L Alkaline Phosphatase (38-126) U/L Troponin I (0.000-0.034) ng/mL Total Protein (6.3-8.2) g/dL Albumin (3.5-5.0) g/dL Urine HCG, Qual Not Detected (Not Detectd) Urine Opiates Screen (NotDetected) Ur Oxycodone Screen (NotDetected) Urine Methadone Screen (NotDetected) Ur Barbiturates Screen (NotDetected) U Tricyclic Antidepress (NotDetected) Ur Phencyclidine Scrn (NotDetected) Ur Amphetamines Screen (NotDetected) U Methamphetamines Scrn (NotDetected) U Benzodiazepines Scrn (NotDetected) Urine Cocaine Screen (NotDetected) U Marijuana (THC) Screen (NotDetected) Serum Alcohol mg/dL 10/21/23 10/21/23 10/21/23 Range/Units 21:45 21:45 21:45 WBC (3.8-10.6) k/uL RBC (3.80-5.40) m/uL Hgb (11.4-16.0) gm/dL Hct (34.0-46.0) % MCV (80.0-100.0) fL MCH (25.0-35.0) pg MCHC (31.0-37.0) g/dL RDW (11.5-15.5) % Plt Count (150-450) k/uL MPV Neutrophils % % Lymphocytes % % Monocytes % % Eosinophils % % Basophils % % Neutrophils # (1.3-7.7) k/uL Lymphocytes # (1.0-4.8) k/uL Monocytes # (0-1.0) k/uL Eosinophils # (0-0.7) k/uL Basophils # (0-0.2) k/uL PT (10.0-12.5) sec INR (<1.2) APTT (22.0-30.0) sec Sodium 140 (137-145) mmol/L Potassium 4.3 (3.5-5.1) mmol/L Chloride 114 H (98-107) mmol/L Carbon Dioxide 19 L (22-30) mmol/L Anion Gap 7 mmol/L BUN 13 (7-17) mg/dL Creatinine 0.95 (0.52-1.04) mg/dL Est GFR (CKD-EPI)AfAm 87 (>60 ml/min/1.73 sqM) Est GFR (CKD-EPI)NonAf 76 (>60 ml/min/1.73 sqM) Glucose 85 (74-99) mg/dL POC Glucose (mg/dL) (70-110) mg/dL POC Glu [employer] Operations Agent ID Plasma Lactic Acid Davi 1.9 (0.7-2.0) mmol/L Calcium 8.8 (8.4-10.2) mg/dL Total Bilirubin 0.4 (0.2-1.3) mg/dL AST 22 (14-36) U/L ALT 13 (4-34) U/L Alkaline Phosphatase 79 (38-126) U/L Troponin I (0.000-0.034) ng/mL Total Protein 6.8 (6.3-8.2) g/dL Albumin 3.9 (3.5-5.0) g/dL Urine HCG, Qual (Not Detectd) Urine Opiates Screen Not Detected (NotDetected) Ur Oxycodone Screen Not Detected (NotDetected) Urine Methadone Screen Not Detected (NotDetected) Ur Barbiturates Screen Not Detected (NotDetected) U Tricyclic Antidepress Not Detected (NotDetected) Ur Phencyclidine Scrn Not Detected (NotDetected) Ur Amphetamines Screen Not Detected (NotDetected) U Methamphetamines Scrn Not Detected (NotDetected) U Benzodiazepines Scrn Not Detected (NotDetected) Urine Cocaine Screen Detected H (NotDetected) U Marijuana (THC) Screen Detected H (NotDetected) Serum Alcohol 192 mg/dL 10/21/23 10/21/23 Range/Units 21:45 23:45 WBC (3.8-10.6) k/uL RBC (3.80-5.40) m/uL Hgb (11.4-16.0) gm/dL Hct (34.0-46.0) % MCV (80.0-100.0) fL MCH (25.0-35.0) pg MCHC (31.0-37.0) g/dL RDW (11.5-15.5) % Plt Count (150-450) k/uL MPV Neutrophils % % Lymphocytes % % Monocytes % % Eosinophils % % Basophils % % Neutrophils # (1.3-7.7) k/uL Lymphocytes # (1.0-4.8) k/uL Monocytes # (0-1.0) k/uL Eosinophils # (0-0.7) k/uL Basophils # (0-0.2) k/uL PT (10.0-12.5) sec INR (<1.2) APTT (22.0-30.0) sec Sodium (137-145) mmol/L Potassium (3.5-5.1) mmol/L Chloride (98-107) mmol/L Carbon Dioxide (22-30) mmol/L Anion Gap mmol/L BUN (7-17) mg/dL Creatinine (0.52-1.04) mg/dL Est GFR (CKD-EPI)AfAm (>60 ml/min/1.73 sqM) Est GFR (CKD-EPI)NonAf (>60 ml/min/1.73 sqM) Glucose (74-99) mg/dL POC Glucose (mg/dL) 84 (70-110) mg/dL POC Glu [employer] Operations Agent ID Randy Hensley Plasma Lactic Acid Davi (0.7-2.0) mmol/L Calcium (8.4-10.2) mg/dL Total Bilirubin (0.2-1.3) mg/dL AST (14-36) U/L ALT (4-34) U/L Alkaline Phosphatase (38-126) U/L Troponin I <0.012 (0.000-0.034) ng/mL Total Protein (6.3-8.2) g/dL Albumin (3.5-5.0) g/dL Urine HCG, Qual (Not Detectd) Urine Opiates Screen (NotDetected) Ur Oxycodone Screen (NotDetected) Urine Methadone Screen (NotDetected) Ur Barbiturates Screen (NotDetected) U Tricyclic Antidepress (NotDetected) Ur Phencyclidine Scrn (NotDetected) Ur Amphetamines Screen (NotDetected) U Methamphetamines Scrn (NotDetected) U Benzodiazepines Scrn (NotDetected) Urine Cocaine Screen (NotDetected) U Marijuana (THC) Screen (NotDetected) Serum Alcohol mg/dL Critical Care Time Critical Care Time: Yes Total Critical Care Time: 35 <Ubaldo Shoemaker - Last Filed: 10/22/23 10:40> Disposition <Art Parkinson - Last Filed: 10/22/23 08:03> Time of Disposition: 10:40 <Ubaldo Shoemaker - Last Filed: 10/22/23 10:40> Clinical Impression: Laceration of neck, Depression, Suicide attempt Disposition: ADMITTED IP TO THIS HOSP Referrals: None,Stated [Primary Care Provider] - 1-2 days
--- NOTE | 2023-10-21 22:13 | XR ---
EXAMINATION TYPE: XR chest 1V portable DATE OF EXAM: 10/21/2023 COMPARISON: Chest x-ray September 10, 2021 HISTORY: Trauma TECHNIQUE: Single frontal view of the chest is obtained. FINDINGS: There is no suspicious new focal air space opacity, pleural effusion, or pneumothorax seen . The cardiac silhouette size is stable and within normal limits. The osseous structures are intac t. IMPRESSION: No acute process. No significant change from prior.
--- NOTE | 2023-10-21 22:14 | XR ---
EXAMINATION TYPE: XR pelvis AP view DATE OF EXAM: 10/21/2023 CLINICAL HISTORY: Trauma with pain TECHNIQUE: A single AP view of the pelvis is obtained. COMPARISON: None. FINDINGS: There is no acute fracture/dislocation evident in the pelvis. Moderate to severe spurring in both hip joints with moderate superior joint space loss on the left. Sacroiliac joints are maintai diogo. Pubic symphysis is intact. Overlying soft tissue is unremarkable. IMPRESSION: There is no acute displaced fracture in the pelvis.
--- NOTE | 2023-10-21 22:46 | CT ---
EXAMINATION TYPE: CT angio neck DATE OF EXAM: 10/21/2023 HISTORY: laceration to left side of neck COMPARISON: CT neck July 09, 2023 CT DLP: 412.2 mGycm. Automated Exposure Control for Dose Reduction was Utilized. TECHNIQUE: CTA scan of the head and neck is performed with IV Contrast, patient injected with 80ml m L of Isovue 370, axial images are obtained, coronal and sagittal reformatted images are reviewed. 3D reconstructed images are created on an independent workstation and reviewed. FINDINGS: Carotid/Vascular Structures: No significant plaque or stenosis in the carotid arteries bilaterally. N o linear hypodensity to suggest dissection. The vertebral basilar system within normal limits. Other: Some prominent but subcentimeter lymph nodes in the left neck at the submandibular level are p resent. No well-formed fluid collection or abscess is seen. Mild to moderate disc space narrowing and spurring C5-C6 and C6-C7 levels is present. IMPRESSION: No significant posttraumatic abnormality is seen. NASCET criteria was used in interpretation of this exam?
[2023-10-21 22:47] LABS: Basophils # (A) 0.1 k/uL (0-0.2); Basophils % (A) 1 %; Eosinophils # (A) 0.2 k/uL (0-0.7); Eosinophils % (A) 2 %; HCT 36.9 % (34.0-46.0); HGB 12.5 gm/dL (11.4-16.0); Lymphocytes # (A) 3.2 k/uL (1.0-4.8); Lymphocytes % (A) 42 %; MCHC 33.9 g/dL (31.0-37.0); MCV 94.2 fL (80.0-100.0); Monocytes # (A) 0.5 k/uL (0-1.0); Monocytes % (A) 7 %; Neutrophils # (A) 3.4 k/uL (1.3-7.7); Neutrophils % (A) 45 %; Platelet Count 382 k/uL (150-450); RBC 3.92 m/uL (3.80-5.40); RDW 12.6 % (11.5-15.5); WBC 7.6 k/uL (3.8-10.6)
[2023-10-21 22:56] LABS: INR 0.9 (<1.2); Partial Thromboplastin Time 26.5 sec (22.0-30.0); Prothrombin Time 10.2 sec (10.0-12.5)
[2023-10-21 22:59] LABS: ALT 13 U/L (4-34); AST 22 U/L (14-36); African American GFR (CKD) 87 (>60 ml/min/1.73 sqM); Albumin 3.9 g/dL (3.5-5.0); Alkaline Phosphatase 79 U/L (38-126); Anion Gap 7 mmol/L; Blood Urea Nitrogen 13 mg/dL (7-17); Calcium 8.8 mg/dL (8.4-10.2); Carbon Dioxide 19 mmol/L (22-30); Chloride 114 mmol/L (98-107); Glucose 85 mg/dL (74-99); Non-African American GFR(CKD) 76 (>60 ml/min/1.73 sqM); Potassium 4.3 mmol/L (3.5-5.1); Sodium 140 mmol/L (137-145); Total Bilirubin 0.4 mg/dL (0.2-1.3); Total Protein 6.8 g/dL (6.3-8.2)
[2023-10-21] MEDS: LIDOCAINE 1% INJ 10MG/ML (20 ML MDV) SQ ONE (23:00)
[2023-10-21] MEDS: DIPH,PERTUS(ACELL)TETVAC-LF 0.5 ML VIAL IM ONE (23:01)
[2023-10-21 23:03] LABS: Amphetamine Screen,Urine Not Detected (NotDetected); Barbiturate Screen,Urine Not Detected (NotDetected); Benzodiazepines Screen,Urine Not Detected (NotDetected); Cocaine Screen,Urine Detected (NotDetected); Methadone Screen, Urine Not Detected (NotDetected); Opiate Screen,Urine Not Detected (NotDetected); Oxycodone Screen, Urine Not Detected (NotDetected); Phencyclidine Screen,Urine Not Detected (NotDetected); Tricyclic Antidepressant,Urine Not Detected (NotDetected); Urn Cannabinoid Scrn Detected (NotDetected)
[2023-10-21 23:12] LABS: Alcohol 192 mg/dL
[2023-10-21 23:49] LABS: Glucose,Whole Blood 84 mg/dL (70-110)
[2023-10-22] MEDS ORDERED: haloperidoL 5 MG TAB PO PRN (12:49)
[2023-10-22] MEDS ORDERED: HALOPERIDOL LACTATE 5 MG/ML 1 ML VIAL IM PRN (12:49)
[2023-10-22] MEDS ORDERED: LORazepam 2 MG/ML INJ IM PRN (12:49)
[2023-10-22] MEDS ORDERED: MAG HYDROX/AL HYDROX/SIMETH 30 ML CUP PO PRN (12:49)
[2023-10-22] MEDS ORDERED: LORazepam 1 MG TAB PO PRN (12:49)
[2023-10-22] MEDS ORDERED: hydrOXYzine HCL 25 MG TAB PO PRN (12:55)
[2023-10-22] MEDS ORDERED: NICOTINE 14MG/24HR PATCH TRANSDERM SCH (13:00)
[2023-10-22] MEDS: PALIPERIDONE 3 MG TAB.ER.24 PO SCH (14:00)
[2023-10-22] MEDS: NICOTINE 14MG/24HR PATCH TRANSDERM SCH (14:00)
[2023-10-22] MEDS: SERTRALINE 50 MG TAB PO SCH (21:30)
[2023-10-23] MEDS ORDERED: OLANZapine 10 MG VIAL IM PRN (10:59)
--- NOTE | 2023-10-23 11:22 | P.HP ---
Psychiatric H&P - . H&P Date: 10/23/23 History & Physical: Allergies Allergy/AdvReac Type Severity Reaction Status Date / Time No Known Allergies Allergy Verified 10/22/23 13:51 Vital Signs Temp 97.2 F L 10/23/23 08:22 Pulse 109 H 10/23/23 08:22 Resp 20 10/23/23 08:22 BP 128/81 10/23/23 08:22 Pulse Ox 98 10/22/23 14:31 FiO2 Intake & Output 10/22/23 10/23/23 10/23/23 18:59 06:59 18:59 Weight 67.67 kg Laboratory Last Values WBC 7.6 k/uL (3.8-10.6) 10/21/23 21:45 RBC 3.92 m/uL (3.80-5.40) 10/21/23 21:45 Hgb 12.5 gm/dL (11.4-16.0) 10/21/23 21:45 Hct 36.9 % (34.0-46.0) 10/21/23 21:45 MCV 94.2 fL (80.0-100.0) 10/21/23 21:45 MCH 32.0 pg (25.0-35.0) 10/21/23 21:45 MCHC 33.9 g/dL (31.0-37.0) 10/21/23 21:45 RDW 12.6 % (11.5-15.5) 10/21/23 21:45 Plt Count 382 k/uL (150-450) 10/21/23 21:45 MPV 7.0 10/21/23 21:45 Neutrophils % 45 % 10/21/23 21:45 Lymphocytes % 42 % 10/21/23 21:45 Monocytes % 7 % 10/21/23 21:45 Eosinophils % 2 % 10/21/23 21:45 Basophils % 1 % 10/21/23 21:45 Neutrophils # 3.4 k/uL (1.3-7.7) 10/21/23 21:45 Lymphocytes # 3.2 k/uL (1.0-4.8) 10/21/23 21:45 Monocytes # 0.5 k/uL (0-1.0) 10/21/23 21:45 Eosinophils # 0.2 k/uL (0-0.7) 10/21/23 21:45 Basophils # 0.1 k/uL (0-0.2) 10/21/23 21:45 PT 10.2 sec (10.0-12.5) 10/21/23 21:45 INR 0.9 (<1.2) 10/21/23 21:45 APTT 26.5 sec (22.0-30.0) 10/21/23 21:45 Sodium 140 mmol/L (137-145) 10/21/23 21:45 Potassium 4.3 mmol/L (3.5-5.1) 10/21/23 21:45 Chloride 114 mmol/L (98-107) H 10/21/23 21:45 Carbon Dioxide 19 mmol/L (22-30) L 10/21/23 21:45 Anion Gap 7 mmol/L 10/21/23 21:45 BUN 13 mg/dL (7-17) 10/21/23 21:45 Creatinine 0.95 mg/dL (0.52-1.04) 10/21/23 21:45 Est GFR (CKD-EPI)AfAm 87 (>60 ml/min/1.73 sqM) 10/21/23 21:45 Est GFR (CKD-EPI)NonAf 76 (>60 ml/min/1.73 sqM) 10/21/23 21:45 Glucose 85 mg/dL (74-99) 10/21/23 21:45 POC Glucose (mg/dL) 84 mg/dL (70-110) 10/21/23 23:45 POC Glu Residential Advisor ID Randy Hensley 10/21/23 23:45 Plasma Lactic Acid Davi 1.9 mmol/L (0.7-2.0) 10/21/23 21:45 Calcium 8.8 mg/dL (8.4-10.2) 10/21/23 21:45 Total Bilirubin 0.4 mg/dL (0.2-1.3) 10/21/23 21:45 AST 22 U/L (14-36) 10/21/23 21:45 ALT 13 U/L (4-34) 10/21/23 21:45 Alkaline Phosphatase 79 U/L (38-126) 10/21/23 21:45 Troponin I <0.012 ng/mL (0.000-0.034) 10/21/23 21:45 Total Protein 6.8 g/dL (6.3-8.2) 10/21/23 21:45 Albumin 3.9 g/dL (3.5-5.0) 10/21/23 21:45 Urine HCG, Qual Not Detected (Not Detectd) 10/21/23 21:45 Urine Opiates Screen Not Detected (NotDetected) 10/21/23 21:45 Ur Oxycodone Screen Not Detected (NotDetected) 10/21/23 21:45 Urine Methadone Screen Not Detected (NotDetected) 10/21/23 21:45 Ur Barbiturates Screen Not Detected (NotDetected) 10/21/23 21:45 U Tricyclic Antidepress Not Detected (NotDetected) 10/21/23 21:45 Ur Phencyclidine Scrn Not Detected (NotDetected) 10/21/23 21:45 Ur Amphetamines Screen Not Detected (NotDetected) 10/21/23 21:45 U Methamphetamines Scrn Not Detected (NotDetected) 10/21/23 21:45 U Benzodiazepines Scrn Not Detected (NotDetected) 10/21/23 21:45 Urine Cocaine Screen Detected (NotDetected) H 10/21/23 21:45 U Marijuana (THC) Screen Detected (NotDetected) H 10/21/23 21:45 Serum Alcohol 192 mg/dL 10/21/23 21:45 Influenza Type A (PCR) Not Detected (Not Detectd) 10/22/23 10:14 Influenza Type B (PCR) Not Detected (Not Detectd) 10/22/23 10:14 RSV (PCR) Not Detected (Not Detectd) 10/22/23 10:14 SARS-CoV-2 (PCR) Not Detected (Not Detectd) 10/22/23 10:14 10/23/23 10:49 IDENTIFYING DATA: Patient is a 38-year-old female, currently lives with her friend in a house, has 5 kids, currently unemployed HPI: Patient presented to the hospital on 10/21 with a laceration over her neck, self-inflicted wound suicide attempt. Patient apparently has been increasing drinking lately, apparently her friend brought her in. Patient was recently discharged from the mental health unit on 10/17. Urine drug screen was positive for cocaine and marijuana. Blood alcohol level was 192. Patient claims that when she left the hospital she did not fill her medications because "they were not working for me". She states that she began feeling depressed again and used $20 worth of crack cocaine the night before the attempt. She states that she also drank "2 beers". She states that she was hearing voices telling her that her kids were being raped, she was having "discussions with God". She states that she decided to take her life. He claims that she went to the backyard with a knife and cut herself on her neck. Claims that "it was not working" and went upstairs and her friend saw her. Drove her to the hospital. She was fairly focused on obtaining Ativan and states that "you want to put me on something that works". She states that "nothing else will help me". She has very poor insight and judgment, poor impulse control. Irritable. States that she is feeling depressed and anxious. Claims that her sleep has been fair, appetite has been fair. She is denying any visual hallucinations. She is claiming that she is having suicidal thoughts no intent or plan. Denies any homicidal ideations. Patient admits to using substances in the past including marijuana, cigarettes, cocaine as described above. Patient was fairly focused on obtaining either Xanax or Ativan during the conversation. PAST PSYCHIATRIC HISTORY: Patient states that she has history of depression and polysubstance abuse. Patient denies being on any psychiatric medications, did not fill the prescription when she left the hospital. Was previously on Zoloft, Invega, remeron, BuSpar, lithium, Prozac, Abilify. Patient was last psychiatrically admitted today mental health unit in last week. Patient denies any psychiatric outpatient follow-up, ever states that she used to follow-up at [facility]. Patient denies any history of suicide attempts in the past. Past Medical History: COPD Additional Past Medical History / Comment(s): Past pyelonephritis/sepsis, UTIs, chronic low back pain, narcolepsy, bronchitis. ALLERGIES: as per EMR CHEMICAL DEPENDENCY HISTORY: as per HPI FAMILY PSYCHIATRIC/SUBSTANCE USE HISTORY: denies SOCIAL HISTORY: Patient was born and raised in [facility] [facility]. She states that she is currently unemployed, has no kids. She lives in a house with her friend. She claims that she has been to [facility] several times this past year, mainly drug- related charges. She states that she completed high school and did some college. 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 MENTAL STATUS EXAM: General Appearance: Patient appears to be thin, disheveled, stated age is alert, directable, irritable and demanding. Patient appears to have poor hygiene and grooming. Behavior: Patient is seated without any agitated behavior. Manipulative Speech: Patient's speech is fluent and nonpressured. Irritable tone Mood/Affect: Patient reports their mood is depressed and anxious, affect is congruent and constricted. Suicidality/Homicidality: Patient denies having any homicidal ideation intent or plan. Denies any suicidal ideations intent or plan Perceptions: Patient denies any visual hallucinations and denies any auditory hallucinations Though content/process: There is no evidence of any delusional thought content and thought process is linear and goal-directed. Medication seeking. Manipulative Memory and concentration: AOX3, grossly intact for the purposes of this session. Can spell "WORLD" backwards Judgment and insight: poor/impulsive STRENGTHS/WEAKNESSES: strength is that patient is resilient. Weakness is that patient has poor judgment and is impulsive INTELLECT: average IMPRESSIONS: Psychosis unspecified Cocaine use disorder hx of Opioid abuse Nicotine dependence Cannabis use disorder Cluster B personality disorder Noncompliant with allocations PLAN: -Patient is admitted under involuntary status to MHU for stabilization of psychiatric symptoms and safety. Patient has not signed adult voluntary form and is placed in patient's chart. A second certificate was completed and will be faxed to the court. -Medications : paliperidone p.o. 3 mg bid for mood stabilization/psychosis, Zoloft 100 mg daily for mood/anxiety. -zyprexa and Vistaril PRN for agitation/aggression. WIll not give BZD as patient has strong hx of abuse and polysubtance use. -Patient was counselled on substance abuse and desired to cut back on use, patient was very superficial and dismissive. -Patient was informed of the risks, benefits and side effects of the medication and did not sign medication consent form -Internal Medicine consult to perform medical evaluation and physical. -NRT - nicotine patch -SW on board for discharge planning. Encourage patient to participate in groups to work on coping skills. Will await deferral and court hearing date.
[2023-10-23 18:26] LABS: Appearance,Urine Clear (Clear); Bacteria,Urine Rare /hpf; Bilirubin,Urine Negative (Negative); Blood,Urine Negative (Negative); Color,Urine Colorless; Glucose,Urine (UA) Negative (Negative); Ketones,Urine Negative (Negative); Leukocyte Esterase,Urine Trace (Negative); Mucus,Urine Rare /hpf; Nitrite,Urine Negative (Negative); Protein,Urine Negative (Negative); RBC,Urine <1 /hpf (0-5); Specific Gravity,Urine 1.013 (1.001-1.035); Squamous Epithelial Cell,Urine 3 /hpf (0-4); Urobilinogen,Urine <2.0 mg/dL (<2.0); WBC,Urine 3 /hpf (0-5)
[2023-10-23] MEDS: OLANZapine 10 MG TAB PO PRN (18:57)
[2023-10-23] MEDS: traZODone HCL 50 MG TAB PO PRN (20:55)
[2023-10-23] MEDS: AMOXIC-POT CLAV 875-125MG 1 EACH TAB PO SCH (22:47)
--- NOTE | 2023-10-23 23:31 | P.MDCNMH ---
History of Present Illness H&P Date: 10/23/23 Chief Complaint: medical eval 38 year old female with no significant past medical history came in for evaluation of a laceration of the left side of anterior neck , she has history of bipolar disorder with depression. she was drinking heavily on the night she used a knife to slit her neck. patient friend brought her for evaluation to the ED, patient did not pass out. her neck laceration was cleaned and stitched , however, today (2 days later) she ripped open her wound and removed half the sutures. minimal bleeding , wound penetrating into the superficial subcutaneous tissue. nursing staff cleaned the wound and applied dressing. patient denies any pain , trouble breathing or swallowing, no active bleeding she denies any fever, chills, cough, sore throat, chest pain , trouble breathing , nausea , vomiting, abd pain , changes in urinary or bowel habits. review of systems Pertinent positives as noted in HPI. All other systems were reviewed and are neg ative on exam Constitutional: No acute distress, cooperative Eyes: Anicteric sclerae, moist conjunctiva, Pupils equal round reactive to light ENMT: NC/AT Oropharynx clear, no erythema, or exudates Neck: big laceration over the left anterior neck, about 8 cm cm long, with 2/3 of the wound open no active bleeding , laceration extending into the superficial subcutaneous tissue Lungs: Clear to auscultation Clear to percussion Normal respiratory effort, no accessory muscle use Cardiovascular: Heart regular in rate and rhythm, No murmurs, gallops, or rubs No peripheral edema Abdominal: Soft Nontender, no guarding, rebound or rigidity Abdomen moving with respiration Normoactive bowel sounds No hepatomegaly, No splenomegaly No palpable mass No abdominal wall hernia noted Extremities: No digital cyanosis No clubbing Pedal pulses intact and symmetrical Radial pulses intact and symmetrical No calf tenderness Psychiatric: Alert and oriented to person, place and time Neuro Muscles Strength 5/5 in all 4 extremities Sensation to light touch grossly present throughout Cranial nerves II-XII grossly intact Lymphatics: no palpable cervical or supraclavicular lymph nodes Past Medical History Past Medical History: COPD Additional Past Medical History / Comment(s): Past pyelonephritis/sepsis, UTIs, chronic low back pain, narcolepsy, bronchitis. History of Any Multi-Drug Resistant Organisms: None Reported Past Surgical History: Section, Orthopedic Surgery Additional Past Surgical History / Comment(s): Left knee meniscal tear repair Past Anesthesia/Blood Transfusion Reactions: No Reported Reaction Past Psychological History: No Psychological Hx Reported Additional Psychological History / Comment(s): Pt resides with friends. She states she had an appointment at 9am 09/10/21 to hopefully be allowed to go into rehab for drug addiction. She also states she lives with friends who use drugs and would like assistance with housing. Smoking Status: Current every day smoker Past Alcohol Use History: None Reported Additional Past Alcohol Use History / Comment(s): Pt started smoking in 1992 and is a ppd smoker. Past Drug Use History: Cocaine, Marijuana, Methamphetamine, Opiates Additional Drug Use History / Comment(s): Pt states she has never used IV drugs. She snorts heroin. Recent use of Crack Cocaine and Heroin. Patient reports pa st use of Adderall for narcolepsy and Suboxone. - Past Family History Mother Family Medical History: COPD Additional Family Medical History / Comment(s): Multuple family memeber [facility], none affecting the urinary tract Father History Unknown: Yes Medications and Allergies Home Medications Medication Instructions Recorded Confirmed Type Nicotine 14Mg/24Hr Patch [Habitrol] 1 patch TRANSDERM DAILY 14 Days 10/17/23 10/22/23 Rx #14 patch Paliperidone [Invega] 3 mg PO BID 14 Days #28 tab 10/17/23 10/22/23 Rx Sertraline [Zoloft] 50 mg PO HS 14 Days #14 tab 10/17/23 10/22/23 Rx hydrOXYzine HCL [Atarax] 50 mg PO DAILY PRN 14 Days #14 tab 10/17/23 10/22/23 Rx Allergies Allergy/AdvReac Type Severity Reaction Status Date / Time No Known Allergies Allergy Verified 10/22/23 13:51 Physical Exam Vitals: Vital Signs Temp Pulse Resp BP 10/23/23 19:14 98.3 F 90 20 141/79 10/23/23 08:22 97.2 F L 109 H 20 128/81 Intake and Output 10/23/23 10/23/23 10/24/23 14:59 22:59 06:59 Other: Weight 67.7 kg Cranial Nerve Examination - Cranial Nerves Cranial Nerve II- Optic: Intact Cranial Nerve III- Oculomotor: Intact Cranial Nerve IV- Trochlear: Intact Cranial Nerve V- Trigeminal: Intact Cranial Nerve - Abducens: Intact Cranial Nerve VII- Facial: Intact Cranial Nerve VIII- Auditory: Intact Cranial Nerve IX- Glossopharyngeal: Intact Cranial Nerve X- Vagus: Intact Cranial Nerve XI- Accessory: Intact Cranial Nerve XII- Hypoglossal: Intact Results CBC & Chem 7: 10/21/23 21:45 10/21/23 21:45 Labs: Abnormal Lab Results - Last 24 Hours (Table) 10/23/23 Range/Units 17:24 Ur Leukocyte Esterase Trace H (Negative) Urine Bacteria Rare H (None) /hpf Urine Mucus Rare H (None) /hpf Assessment and Plan Assessment: bipolar disorder , depression attempted suicidal attempt management per psych polysubstance abuse positive urine drug screen for cocaine marijuana left anterior neck intentional laceration patient ripped open the wound and removed the sutures 2 days post suturing wound was cleaned with normal saline by nursing staff steri strips applied to the wound to hold it closed , dressing applied start on oral antibiotics augmentin 875/125 mg BID po for 10 days bed side sitter for safety thank you for this consultation will continue to follow up blood work reviewed overall unremarkable White count 7.6 hemoglobin 12.5 Patient afebrile Sodium 140 potassium 4.3 BUN 13 creatinine 0.9 Urine drug screen showing positive for cocaine marijuana
[2023-10-24] MEDS: SERTRALINE 100 MG TAB PO SCH (08:07)
--- NOTE | 2023-10-24 14:36 | P.PN ---
Progress Note - Text Progress Note Date: 10/24/23 Interval History: Patient was seen today in her room and was agreeable to speak to specifications writer. patient was on a 1:1 sitter since last night due taking off her stitches in her neck in an episode of self harm. Patient was laying in bed, she is recovering her. She states that she has been eating fairly, she states that she is doing a bit better with regards to her mood. She states that she likes being on the Zoloft. Claims that her anxiety is mildly improving. She continues to have fairly poor insight and judgment. She was fairly evasive when asked about the incident last night about her taking out her stitches. She states that she used a knife however states that "they took it away for me". She remains on finger foods. She continues to be fairly superficial with specifications writer. At this time denying any suicidal homicidal ideations intent or plan. Denying any auditory or visual elucidation's. Has been taking her medications not reporting any side effects. Mental status exam: General Appearance: Patient appears to be thin, disheveled, stated age is alert, directable, less irritable today, superficial. Patient appears to have mildly improving hygiene and grooming. Behavior: Patient is seated without any agitated behavior. Manipulative, superficial Speech: Patient's speech is fluent and nonpressured. Irritable tone, improving Mood/Affect: Patient reports their mood is depressed and anxious, affect is congruent and constricted. Suicidality/Homicidality: Patient denies having any homicidal ideation intent or plan. Denies any suicidal ideations intent or plan Perceptions: Patient denies any visual hallucinations and denies any auditory hallucinations Though content/process: There is no evidence of any delusional thought content and thought process is linear and goal-directed. Less medication seeking. Manipulative Memory and concentration: AOX3, grossly intact for the purposes of this session Judgment and insight: poor/impulsive, improving mildly IMPRESSIONS: Psychosis unspecified Cocaine use disorder hx of Opioid abuse Nicotine dependence Cannabis use disorder Cluster B personality disorder Noncompliant with allocations PLAN: -Patient is admitted under involuntary status to MHU for stabilization of psychiatric symptoms and safety. Patient has not signed adult voluntary form and is placed in patient's chart. A second certificate was completed and will be faxed to the court. -Medications : increase paliperidone p.o. 3 mg daily + 6 mg qhs for mood sta bilization/psychosis, Zoloft 100 mg daily for mood/anxiety. trazodone prn for sleep -zyprexa and Vistaril PRN for agitation/aggression. WIll not give BZD as patient has strong hx of abuse and polysubtance use. -NRT - nicotine patch -SW on board for discharge planning. Encourage patient to participate in groups to work on coping skills. Will await deferral and court hearing date. will need to transition patient onto [facility] prior to discharge to ensure compliance.
[2023-10-24] MEDS: PALIPERIDONE 6 MG TAB.ER.24 PO SCH (20:05)
[2023-10-25] MEDS: PALIPERIDONE 3 MG TAB.ER.24 PO SCH (08:41)
--- NOTE | 2023-10-25 10:03 | P.PN ---
Progress Note - Text Progress Note Date: 10/25/23 Interval History: Patient was seen today in her room and was agreeable to speak to senior technical writer. patient was on a 1:1 sitter still as patient was unpredictable and had a episode of self-harm. Patient was laying in bed today. She states that she feels a bit tired today, states that she slept fairly last night. Claims that she was awoken this morning by a patient in the hallway yelling. States that she is tolerating the medications fairly well, anxiety and mood have been improving. She has been mainly keeping herself on the unit. States that she signed the deferral with the consulting project director yesterday. Appetite is fair. She remains on finger foods. She continues to be fairly superficial with senior technical writer. At this time denying any suicidal homicidal ideations intent or plan. Denying any auditory or visual elucidation's. Has been taking her medications not reporting any side effects. Mental status exam: General Appearance: Patient appears to be thin, disheveled, stated age is alert, directable, l calmer today, Patient appears to have mildly improving hygiene and grooming. Behavior: Patient is seated without any agitated behavior. Manipulative, improving mildly Speech: Patient's speech is fluent and nonpressured, improving Mood/Affect: Patient reports their mood is improving mildly, affect is congruent and constricted. Suicidality/Homicidality: Patient denies having any homicidal ideation intent or plan. Denies any suicidal ideations intent or plan Perceptions: Patient denies any visual hallucinations and denies any auditory hallucinations Though content/process: There is no evidence of any delusional thought content and thought process is linear and goal-directed. Fairly concrete Memory and concentration: AOX3, grossly intact for the purposes of this session Judgment and insight: poor/impulsive, improving mildly IMPRESSIONS: Psychosis unspecified Cocaine use disorder hx of Opioid abuse Nicotine dependence Cannabis use disorder Cluster B personality disorder Noncompliant with allocations PLAN: -Patient is admitted under involuntary status to MHU for stabilization of psychiatric symptoms and safety. Patient has not signed adult voluntary form and is placed in patient's chart. A second certificate was completed and will be faxed to the court. -Medications : change Invega 6 mg qhs for mood stabilization/psychosis, will need to transition patient onto [facility] likely tomorrow to ensure compliance. increase Zoloft 150 mg daily for mood/anxiety. trazodone prn for sleep -zyprexa and Vistaril PRN for agitation/aggression. WIll not give BZD as patient has strong hx of abuse and polysubtance use. -NRT - nicotine patch -SW on board for discharge planning. Encourage patient to participate in groups to work on coping skills. patient deffered with her consulting project director on 10/24. will need to transition patient onto [facility] prior to discharge to ensure compliance.
[2023-10-25 15:25] LABS: C. trachomatis,PCR Negative (Negative)
[2023-10-25 15:39] LABS: N. gonorrhoeae,PCR Negative (Negative)
[2023-10-25] MEDS: ACETAMINOPHEN TAB 325 MG TAB PO PRN (16:44)
[2023-10-26] MEDS: SERTRALINE 50 MG TAB PO SCH ×2 (08:11→21:06)
--- NOTE | 2023-10-26 11:51 | P.PN ---
Progress Note - Text Progress Note Date: 10/26/23 Interval History: Patient was seen today in her room and was agreeable to speak to flex o writer operator. Patient was laying in bed today. Patient contracted for safety, so flex o writer operator discontinued the enforcement safety officer. She states that she feels pretty good today, states that she slept fairly last night. States that she is tolerating the medications fairly well, anxiety and mood have been improving. She has started going to groups on the unit, and getting out of her room more. She has deferred with her insurance attorney. States that her appetite is good. She continues to be fairly superficial with flex o writer operator. Telegraphic Service Dispatcher explained to patient that she will be transitioned onto a [facility] to ensure medication compliance, patient agreeable. At this time denying any suicidal homicidal ideations intent or plan. Denying any auditory or visual hallucinations. Has been taking her medications not reporting any side effects. Mental status exam: General Appearance: Patient appears to be thin, disheveled, stated age is alert, directable, Patient appears to have mildly improving hygiene and grooming. Behavior: Patient is seated without any agitated behavior. Manipulative, improving mildly Speech: Patient's speech is fluent and nonpressured, improving Mood/Affect: Patient reports their mood is improving mildly, affect is congruent and constricted. Suicidality/Homicidality: Patient denies having any homicidal ideation intent or plan. Denies any suicidal ideations intent or plan Perceptions: Patient denies any visual hallucinations and denies any auditory hallucinations Though content/process: There is no evidence of any delusional thought content and thought process is linear and goal-directed. Fairly concrete Memory and concentration: AOX3, grossly intact for the purposes of this session Judgment and insight: poor/impulsive, improving mildly IMPRESSIONS: Psychosis unspecified Cocaine use disorder hx of Opioid abuse Nicotine dependence Cannabis use disorder Cluster B personality disorder Noncompliant with allocations PLAN: -Patient is admitted under involuntary status to MHU for stabilization of psychiatric symptoms and safety. Patient has not signed adult voluntary form and is placed in patient's chart. Patient deferred with insurance attorney. -Medications :Invega 6 mg qhs for mood stabilization/psychosis, Start loading dose of Invega 234mg IM today, with next dose of 156mg next week. Change Zoloft 150 mg to qhs for mood/anxiety. trazodone prn for sleep -zyprexa and Vistaril PRN for agitation/aggression. WIll NOT give BZD as patient has strong hx of abuse and polysubtance use. -NRT - nicotine patch -SW on board for discharge planning. Encourage patient to participate in groups to work on coping skills. patient deferred with her insurance attorney on 10/24. transition patient onto [facility] prior to discharge to ensure compliance. likely discharge next week after patient is transitioned onto [facility].
[2023-10-26] MEDS: PALIPERIDONE IM 234 MG/1.5 ML SYG IM ONE (16:00)
--- NOTE | 2023-10-27 11:05 | P.PN ---
Progress Note - Text Progress Note Date: 10/27/23 Interval History: Patient was seen today in her room and was agreeable to speak to freelance copywriter. Patient was laying in bed today. She states that she feels ok. Patient seems fairly sedated, states that she slept fairly last night, however, she is just tired. States that she is tolerating the medications fairly well, anxiety and mood are improving. She has deferred with her energy attorney. States that her appetite is good. Spoke with patient about drug use and mental health. Explained to patient that rehab would be a good option for her upon discharge. Patient willing to call for intake, and freelance copywriter told patient that social work could help her with this. At this time denying any suicidal homicidal ideations intent or plan. Denying any auditory or visual hallucinations. Has been taking her medications not reporting any side effects. Mental status exam: General Appearance: Patient appears to be thin, disheveled, stated age is alert, directable, Patient appears to have mildly improving hygiene and grooming. Behavior: Patient is seated without any agitated behavior. Speech: Patient's speech is fluent and nonpressured, improving Mood/Affect: Patient reports their mood is improving mildly, affect is congruent and constricted. mildly improving Suicidality/Homicidality: Patient denies having any homicidal ideation intent or plan. Denies any suicidal ideations intent or plan Perceptions: Patient denies any visual hallucinations and denies any auditory hallucinations Though content/process: There is no evidence of any delusional thought content and thought process is linear and goal-directed. Fairly concrete, mildly improving Memory and concentration: AOX3, grossly intact for the purposes of this session Judgment and insight: poor/impulsive, improving mildly IMPRESSIONS: Psychosis unspecified Cocaine use disorder hx of Opioid abuse Nicotine dependence Cannabis use disorder Cluster B personality disorder Noncompliant with medication PLAN: -Patient is admitted under involuntary status to [facility] for stabilization of psychiatric symptoms and safety. Patient has not signed adult voluntary form and is placed in patient's chart. Patient deferred with energy attorney. -Medications :decrease Invega 3 mg qhs for mood stabilization/psychosis will need to taper off, Invega 234mg IM given 2/7, with next dose of 156mg next week. Zoloft 150 mg to qhs for mood/anxiety. trazodone prn for sleep -zyprexa and Vistaril PRN for agitation/aggression. WIll NOT give BZD as patient has strong hx of abuse and polysubtance use. -NRT - nicotine patch -SW on board for discharge planning. Encourage patient to participate in groups to work on coping skills. patient deferred with her energy attorney on 10/24. transition patient onto [facility] prior to discharge to ensure compliance. likely discharge next week after patient is transitioned onto [facility]., patient agreeable to go to rehab upon discharge.
[2023-10-27] MEDS: PALIPERIDONE 3 MG TAB.ER.24 PO SCH (20:10)
--- NOTE | 2023-10-28 11:26 | P.PN ---
Progress Note - Text Progress Note Date: 10/28/23 Interval History: Patient was seen today in her room and was agreeable to speak to headline writer. Patient was laying in bed today and appeared to have a mildly constricted affect. She claims that she is feeling "pretty tired" today. We spoke about continuing to adjust her medications and decrease the paliperidone. She is not going to many groups at all. She claims that her mood and anxiety have been improving. Denies any other complaints. States that she is able to sleep fairly throughout the nighttime and has been taking the trazodone as needed. she did receive the information and number for rehab however has not called it at this time. At this time denying any suicidal homicidal ideations intent or plan. Denying any auditory or visual hallucinations. Has been taking her medications not reporting any side effects. Mental status exam: General Appearance: Patient appears to be thin, disheveled, stated age is alert, directable, Patient appears to have mildly improving hygiene and grooming. Behavior: Patient is seated without any agitated behavior. fairly constricted, keeping to herself. Speech: Patient's speech is fluent and nonpressured, improving Mood/Affect: Patient reports their mood is improving mildly, affect is congruent and constricted. mildly improving Suicidality/Homicidality: Patient denies having any homicidal ideation intent or plan. Denies any suicidal ideations intent or plan Perceptions: Patient denies any visual hallucinations and denies any auditory hallucinations Though content/process: There is no evidence of any delusional thought content and thought process is linear and goal-directed. Fairly concrete, mildly improving Memory and concentration: AOX3, grossly intact for the purposes of this session Judgment and insight: poor/impulsive, improving mildly IMPRESSIONS: Psychosis unspecified Cocaine use disorder hx of Opioid abuse Nicotine dependence Cannabis use disorder Cluster B personality disorder Noncompliant with medication PLAN: -Patient is admitted under involuntary status to [facility] for stabilization of psychiatric symptoms and safety. Patient has not signed adult voluntary form and is placed in patient's chart. Patient deferred with attorney lawyer. -Medications : d/c po Invega, patient received Invega 234mg IM given 10/26, with next dose of 156mg on 11/01. Zoloft 150 mg to qhs for mood/anxiety. trazodone prn for sleep -zyprexa and Vistaril PRN for agitation/aggression. Will NOT give BZD as patient has strong hx of abuse and polysubtance use. -NRT - nicotine patch -SW on board for discharge planning. Encourage patient to participate in groups to work on coping skills. patient deferred with her attorney lawyer on 10/24. transition patient onto [facility] prior to discharge to ensure compliance. likely discharge next week after patient is transitioned onto [facility]., patient agreeable to go to rehab upon discharge however has not called yet. likely discharge on tuesday
--- NOTE | 2023-10-29 16:55 | P.PN ---
Progress Note - Text Progress Note Date: 10/29/23 Interval History: Patient was seen today in her room and was agreeable to speak to life insurance underwriter. Patient was laying in bed today and appeared to have a mildly constricted affect. She provides brief responses. She claims that she is feeling "good" today. She reports having low energy during the daytime but otherwise denies any other concerns. She was encouraged to not be laying in bed majority of the day but was not receptive to this recommendation. She reported good sleep last night (took trazodone 50 mg PRN) and good appetite this afternoon. At this time denying any suicidal homicidal ideation intent or plan. Denying any auditory or visual hallucinations. Has been taking her medications not reporting any side effects. Mental status exam: General Appearance: Patient appears to be disheveled, stated age is alert, directable, Patient appears to have mildly improving hygiene and grooming. Behavior: Patient is seated without any agitated behavior. fairly constricted, keeping to herself. Speech: Patient's speech is fluent and nonpressured, improving Mood/Affect: Patient reports their mood is improving mildly, affect is congruent and constricted. mildly improving Suicidality/Homicidality: Patient denies having any homicidal ideation intent or plan. Denies any suicidal ideation intent or plan Perceptions: Patient denies any visual hallucinations and denies any auditory hallucinations Though content/process: There is no evidence of any delusional thought content and thought process is linear and goal-directed. Fairly concrete, mildly improving Memory and concentration: AOX3, grossly intact for the purposes of this session Judgment and insight: poor/impulsive, improving mildly IMPRESSIONS: Psychosis unspecified Cocaine use disorder hx of Opioid abuse Nicotine dependence Cannabis use disorder Cluster B personality disorder Noncompliant with medication PLAN: -Patient is admitted under involuntary status to [facility] for stabilization of psychiatric symptoms and safety. Patient has not signed adult voluntary form and is placed in patient's chart. Patient deferred with insurance attorney. -Medications :Patient received Invega 234mg IM given 10/26, with next dose of 156mg on 11/01. Zoloft 150 mg to qhs for mood/anxiety. trazodone prn for sleep -zyprexa and Vistaril PRN for agitation/aggression. Will NOT give BZD as patient has strong hx of abuse and polysubtance use. -NRT - nicotine patch -SW on board for discharge planning. Encourage patient to participate in groups to work on coping skills. patient deferred with her insurance attorney on 10/24. transition patient onto [facility] prior to discharge to ensure compliance. likely discharge next week after patient is transitioned onto [facility]., patient agreeable to go to rehab upon discharge however has not called yet. likely discharge on tuesday
[2023-10-29] MEDS: hydrOXYzine HCL 25 MG TAB PO PRN (20:27)
--- NOTE | 2023-10-30 15:11 | P.PN ---
Progress Note - Text Progress Note Date: 10/30/23 Interval History: Patient was agreeable with being seen in the interview room today. She presents with significantly better hygiene and is more awake today. She states that she is doing significantly better. She reports having "great "mood. She also endorses improved energy and motivation. She states that Zyprexa when necessary has been really helpful for further improving auditory hallucinations. She currently denies auditory hallucinations and is agreeable with staying on the medication course. She reports being future oriented and is hopeful to be discharged soon. She states that she feels ready to go home. She also admits that substance use has led to worsening her condition. She superficially agrees to participate in rehab. She reports good sleep and appetite. At this time denying any suicidal homicidal ideation intent or plan. Denying any auditory or visual hallucinations. Has been taking her medications not reporting any side effects. Mental status exam: General Appearance: Patient appears to be disheveled, stated age is alert, directable, Patient appears to have mildly improving hygiene and grooming. Behavior: Patient is seated without any agitated behavior. fairly constricted, was interacting with others on the milieu Speech: Patient's speech is fluent and nonpressured Mood/Affect: Patient reports their mood is improving, affect is congruent and constricted. Suicidality/Homicidality: Patient denies having any homicidal ideation intent or plan. Denies any suicidal ideation intent or plan Perceptions: Patient denies any visual hallucinations and denies any auditory hallucinations Though content/process: There is no evidence of any delusional thought content and thought process is linear and goal-directed. Asking about discharge Memory and concentration: AOX3, grossly intact for the purposes of this session Judgment and insight: poor/impulsive, improving mildly IMPRESSIONS: Psychosis unspecified Cocaine use disorder hx of Opioid abuse Nicotine dependence Cannabis use disorder Cluster B personality disorder Noncompliant with medication PLAN: -Patient is admitted under involuntary status to [facility] for stabilization of psychiatric symptoms and safety. Patient has not signed adult voluntary form and is placed in patient's chart. Patient deferred with civil attorney. -Medications :Patient received Invega 234mg IM given 10/26, with next dose of 156mg on 11/01. Zoloft 150 mg qhs for mood/anxiety. trazodone prn for sleep -zyprexa and Vistaril PRN for agitation/aggression. Will NOT give BZD as patient has strong hx of abuse and polysubtance use. -NRT - nicotine patch -SW on board for discharge planning. Encourage patient to participate in groups to work on coping skills. patient deferred with her civil attorney on 10/24. transition patient onto [facility] prior to discharge to ensure compliance. likely discharge next week after patient is transitioned onto [facility]., patient agreeable to go to rehab upon discharge however has not called yet. likely discharge on
--- NOTE | 2023-10-31 10:23 | P.PN ---
Progress Note - Text Progress Note Date: 10/31/23 Interval History: Patient was seen at bedside, and agreeable to speak with typewriter mechanic. States she is less tired during the afternoon now, and offers no other complaints. Patient focused on discharge, typewriter mechanic told patient she will more than likely be discharged tomorrow, after her second [facility] dose. Patient agreeable. She reports good sleep and appetite. has only been going to select groups over the weekend. At this time denying any suicidal homicidal ideation intent or plan. Denying any auditory or visual hallucinations. Has been taking her medications not reporting any side effects. Mental status exam: General Appearance: Patient appears to be disheveled, stated age is alert, directable, Patient appears to have mildly improving hygiene and grooming. Behavior: Patient is seated without any agitated behaviors interacting with others on the milieu Speech: Patient's speech is fluent and nonpressured Mood/Affect: Patient reports their mood is improving, affect is congruent and constricted. Suicidality/Homicidality: Patient denies having any homicidal ideation intent or plan. Denies any suicidal ideation intent or plan Perceptions: Patient denies any visual hallucinations and denies any auditory hallucinations Though content/process: There is no evidence of any delusional thought content and thought process is linear and goal-directed. Asking about discharge Memory and concentration: AOX3, grossly intact for the purposes of this session Judgment and insight: poor/impulsive, improving mildly IMPRESSIONS: Psychosis unspecified Cocaine use disorder hx of Opioid abuse Nicotine dependence Cannabis use disorder Cluster B personality disorder Noncompliant with medication PLAN: -Patient is admitted under involuntary status to [facility] for stabilization of psychiatric symptoms and safety. Patient has not signed adult voluntary form and is placed in patient's chart. Patient deferred with employee benefits attorney. -Medications :Patient received Invega 234mg IM given 10/26, with next dose of 156mg on 11/01, monthly maintenance dose of 117 mg IM will be due on 11/28. Zoloft 150 mg qhs for mood/anxiety. trazodone prn for sleep -zyprexa and Vistaril PRN for agitation/aggression. Will NOT give BZD as patient has strong hx of abuse and polysubtance use. -NRT - nicotine patch -SW on board for discharge planning. Encourage patient to participate in groups to work on coping skills. patient deferred with her employee benefits attorney on 10/24. transition patient onto [facility] prior to discharge to ensure compliance. likely discharge Tuesday after patient is transitioned onto [facility]. patient is refusing rehab.
[2023-11-01 06:20] VITALS: BP 107/63; PULSE 70; RESP 15; TEMP 96.9
[2023-11-01] MEDS: PALIPERIDONE IM 156 MG/ML SYG IM STA (10:11)
--- NOTE | 2023-11-01 10:23 | P.DS ---
Providers Date of admission: 10/22/23 12:46 Expected date of discharge: 11/01/23 Attending physician: Randy Lopez MD Consults: 10/22/23 12:49 Consult Physician Routine Consulting Provider: Melissa Smith Consult Reason/Comments: H&P for mental health admission Do you want consulting provider notified?: Yes Primary care physician: Stated None - Discharge Diagnosis(es) (1) Unspecified psychosis Current Visit: Yes Status: Acute Priority: High (2) Cocaine use disorder Current Visit: Yes Status: Acute Priority: High (3) History of opioid abuse Current Visit: No Status: Acute Priority: Medium (4) Nicotine dependence Current Visit: No Status: Acute Priority: Low (5) Suicide attempt Current Visit: Yes Status: Acute Priority: High Hospital Course: Admission HPI: Admission note was completed by conventional underwriter "Patient presented to the hospital on 10/21 with a laceration over her neck, self-inflicted wound suicide attempt. Patient apparently has been increasing drinking lately, apparently her friend brought her in. Patient was recently discharged from the mental health unit on 10/17. Urine drug screen was positive for cocaine and marijuana. Blood alcohol level was 192. Patient claims that when she left the hospital she did not fill her medications because "they were not working for me". She states that she began feeling depressed again and used $20 worth of crack cocaine the night before the attempt. She states that she also drank "2 beers". She states that she was hearing voices telling her that her kids were being raped, she was having "discussions with God". She states that she decided to take her life. He claims that she went to the backyard with a knife and cut herself on her neck. Claims that "it was not working" and went upstairs and her friend saw her. Drove her to the hospital. She was fairly focused on obtaining Ativan and states that "you want to put me on something that works". She states that "nothing else will help me". She has very poor insight and judgment, poor impulse control. Irritable. States that she is feeling depressed and anxious. Claims that her sleep has been fair, appetite has been fair. She is denying any visual hallucinations. She is claiming that she is having suicidal thoughts no intent or plan. Denies any homicidal ideations. Patient admits to using substances in the past including marijuana, cigarettes, cocaine as described above. Patient was fairly focused on obtaining either Xanax or Ativan during the conversation." Hospital course: Upon admission to the unit patient was admitted involuntarily on a petition and certificate and a second certificate was completed and faxed with the courts. Patient ended up signing a deferral with the timber inspector and agreeing to treatment. Patient mainly kept to herself during her hospitalization however with time and treatment she eventually got along well with other patients on the unit and followed unit protocol. Patient was compliant with the medications and denied any side effects throughout hospital course. Patient was started on Invega p.o. and was transitioned onto SUAREZ inevag sustenna given loading dose of 234 mg IM on 10/26, second dose will be given on day of discharge 156 mg IM, monthly maintenance dose of 117 mg IM will be due on 11/28 at [facility]. Zoloft was increased to dose of 200 mg nightly for mood/anxiety, trazodone 100 mg nightly for sleep. Patient spoke of his stressors and engaged in therapy both group and individual. Patient was also seen by medical team for history and physical exam. patient was fairly med seeking initially seeking BZD and other controlled meds. Throughout the course of the hospitalization patient gradually improved with regards to mood, anxiety, auditory hallucinations, agitation, sleep and returned back to their baseline level of functioning. On the day of discharge patient denied any suicidal or homicidal ideations intent or plan denied any auditory or visual hallucinations. Patient endorsed wanting to live for her health and her future. The patient denied any access to guns or weapons. Patient denied any paranoia and did not endorse any delusions. Patient does have a significant history of substance abuse and was counseled on abstaining from all substances including alcohol and marijuana. Patient was offered however declined inpatient substance-abuse rehab. Patient elected to do outpatient substance use treatment program through [facility]. Patient was also counseled on the medications and need for regular compliance and was encouraged to follow-up with their outpatient appointment for mental health and also for primary care. Prior to discharge a family meeting will be arranged by child welfare social worker to answer any questions and ensure safety upon discharge. Mental status exam: General Appearance: Patient appears to be stated age is alert, pleasant, and cooperative. Patient is in no acute distress and has improved hygiene and grooming Behavior: Patient is calmly seated without any agitated behavior. Speech: Patient's speech is fluent and nonpressured. Mood/Affect: Patient reports their mood is "good", affect is congruent and euthymic. Suicidality/Homicidality: Patient denies having any suicidal or homicidal ideation intent or plan. Perceptions: Patient denies any auditory or visual hallucinations. Though content/process: There is no evidence of any delusional thought content and thought process is linear and goal-directed. Memory and concentration: AOX3, grossly intact for the purposes of this session. Can spell "WORLD" backwards correctly. Judgment and insight: Chronically poor/impulsive, however has improved with guarded prognosis Impression: suicide attempt (by cutting neck) Psychosis unspecified Cocaine use disorder hx of Opioid abuse Nicotine dependence Cannabis use disorder Cluster B personality disorder Noncompliant with allocations Plan: -Continue with discharge today as patient has improved and stabilized psychiatrically and is not currently an imminent threat to herself and/or others. Patient will remain at chronically elevated risk for harm to self and/or others due to her impulsivity and polysubstance abuse. -Continue medications: Invega Sustenna 234 mg IM given on 10/26, second dose of 156 mg IM will be given on 11/01, monthly maintenance dose of 117 mg IM will be due on 11/28. Zoloft 200 mg nightly for mood/anxiety, trazodone 100 mg nightly as needed for sleep. Will also give patient a 5-day supply of Zyprexa 5 mg p.o. daily as needed for agitation. -Patient was counseled on the need for medication compliance and appropriate follow-up at mental health and also primary care for medical issues. Patient verbalized understanding and agreed. -Social work to arrange for and conduct family meeting to ensure safety upon discharge and answer any questions/concerns. Social work also to arrange for patients follow up appointments with [facility] for psychiatric care along with follow up with primary care provider. -Patient counseled on abstaining from recreational drugs and marijuana and alcohol. Was informed/educated on the adverse effects on their physical and mental health. Patient verbally agreed and understood. Patient was offered substance abuse treatment however declined at this time. -Patient was instructed to return to the hospital or seek immediate medical care if their psychiatric or medical symptoms do worsen or reoccur. Allergies Allergy/AdvReac Type Severity Reaction Status Date / Time No Known Allergies Allergy Verified 10/22/23 13:51 Laboratory Results WBC 7.6 k/uL (3.8-10.6) 10/21/23 21:45 RBC 3.92 m/uL (3.80-5.40) 10/21/23 21:45 Hgb 12.5 gm/dL (11.4-16.0) 10/21/23 21:45 Hct 36.9 % (34.0-46.0) 10/21/23 21:45 MCV 94.2 fL (80.0-100.0) 10/21/23 21:45 MCH 32.0 pg (25.0-35.0) 10/21/23 21:45 MCHC 33.9 g/dL (31.0-37.0) 10/21/23 21:45 RDW 12.6 % (11.5-15.5) 10/21/23 21:45 Plt Count 382 k/uL (150-450) 10/21/23 21:45 MPV 7.0 10/21/23 21:45 Neutrophils % 45 % 10/21/23 21:45 Lymphocytes % 42 % 10/21/23 21:45 Monocytes % 7 % 10/21/23 21:45 Eosinophils % 2 % 10/21/23 21:45 Basophils % 1 % 10/21/23 21:45 Neutrophils # 3.4 k/uL (1.3-7.7) 10/21/23 21:45 Lymphocytes # 3.2 k/uL (1.0-4.8) 10/21/23 21:45 Monocytes # 0.5 k/uL (0-1.0) 10/21/23 21:45 Eosinophils # 0.2 k/uL (0-0.7) 10/21/23 21:45 Basophils # 0.1 k/uL (0-0.2) 10/21/23 21:45 PT 10.2 sec (10.0-12.5) 10/21/23 21:45 INR 0.9 (<1.2) 10/21/23 21:45 APTT 26.5 sec (22.0-30.0) 10/21/23 21:45 Sodium 140 mmol/L (137-145) 10/21/23 21:45 Potassium 4.3 mmol/L (3.5-5.1) 10/21/23 21:45 Chloride 114 mmol/L (98-107) H 10/21/23 21:45 Carbon Dioxide 19 mmol/L (22-30) L 10/21/23 21:45 Anion Gap 7 mmol/L 10/21/23 21:45 BUN 13 mg/dL (7-17) 10/21/23 21:45 Creatinine 0.95 mg/dL (0.52-1.04) 10/21/23 21:45 Est GFR (CKD-EPI)AfAm 87 (>60 ml/min/1.73 sqM) 10/21/23 21:45 Est GFR (CKD-EPI)NonAf 76 (>60 ml/min/1.73 sqM) 10/21/23 21:45 Glucose 85 mg/dL (74-99) 10/21/23 21:45 POC Glucose (mg/dL) 84 mg/dL (70-110) 10/21/23 23:45 POC Glu Refiner Operator ID Randy Hensley 10/21/23 23:45 Plasma Lactic Acid Davi 1.9 mmol/L (0.7-2.0) 10/21/23 21:45 Calcium 8.8 mg/dL (8.4-10.2) 10/21/23 21:45 Total Bilirubin 0.4 mg/dL (0.2-1.3) 10/21/23 21:45 AST 22 U/L (14-36) 10/21/23 21:45 ALT 13 U/L (4-34) 10/21/23 21:45 Alkaline Phosphatase 79 U/L (38-126) 10/21/23 21:45 Troponin I <0.012 ng/mL (0.000-0.034) 10/21/23 21:45 Total Protein 6.8 g/dL (6.3-8.2) 10/21/23 21:45 Albumin 3.9 g/dL (3.5-5.0) 10/21/23 21:45 Urine Color Colorless 10/23/23 17:24 Urine Appearance Clear (Clear) 10/23/23 17:24 Urine pH 7.0 (5.0-8.0) 10/23/23 17:24 Ur Specific [place] 1.013 (1.001-1.035) 10/23/23 17:24 Urine Protein Negative (Negative) 10/23/23 17:24 Urine Glucose (UA) Negative (Negative) 10/23/23 17:24 Urine Ketones Negative (Negative) 10/23/23 17:24 Urine Blood Negative (Negative) 10/23/23 17:24 Urine Nitrite Negative (Negative) 10/23/23 17:24 Urine Bilirubin Negative (Negative) 10/23/23 17:24 Urine Urobilinogen <2.0 mg/dL (<2.0) 10/23/23 17:24 Ur Leukocyte Esterase Trace (Negative) H 10/23/23 17:24 Urine RBC <1 /hpf (0-5) 10/23/23 17:24 Urine WBC 3 /hpf (0-5) 10/23/23 17:24 Ur Squamous Epith Cells 3 /hpf (0-4) 10/23/23 17:24 Urine Bacteria Rare /hpf (None) H 10/23/23 17:24 Urine Mucus Rare /hpf (None) H 10/23/23 17:24 Urine HCG, Qual Not Detected (Not Detectd) 10/21/23 21:45 Urine Opiates Screen Not Detected (NotDetected) 10/21/23 21:45 Ur Oxycodone Screen Not Detected (NotDetected) 10/21/23 21:45 Urine Methadone Screen Not Detected (NotDetected) 10/21/23 21:45 Ur Barbiturates Screen Not Detected (NotDetected) 10/21/23 21:45 U Tricyclic Antidepress Not Detected (NotDetected) 10/21/23 21:45 Ur Phencyclidine Scrn Not Detected (NotDetected) 10/21/23 21:45 Ur Amphetamines Screen Not Detected (NotDetected) 10/21/23 21:45 U Methamphetamines Scrn Not Detected (NotDetected) 10/21/23 21:45 U Benzodiazepines Scrn Not Detected (NotDetected) 10/21/23 21:45 Urine Cocaine Screen Detected (NotDetected) H 10/21/23 21:45 U Marijuana (THC) Screen Detected (NotDetected) H 10/21/23 21:45 Serum Alcohol 192 mg/dL 10/21/23 21:45 Chlamydia DNA (PCR) Negative (Negative) 10/24/23 18:25 Influenza Type A (PCR) Not Detected (Not Detectd) 10/22/23 10:14 Influenza Type B (PCR) Not Detected (Not Detectd) 10/22/23 10:14 N.gonorrhoeae DNA Probe Negative (Negative) 10/24/23 18:25 RSV (PCR) Not Detected (Not Detectd) 10/22/23 10:14 SARS-CoV-2 (PCR) Not Detected (Not Detectd) 10/22/23 10:14 Miscellaneous Test Trichomonas 10/22/23 12:45 Misc Test Result See Comment 10/22/23 12:45 Vital Signs Temp 96.9 F L 11/01/23 06:14 Pulse 70 11/01/23 06:14 Resp 15 11/01/23 06:14 BP 107/63 11/01/23 06:14 Pulse Ox 96 10/31/23 06:50 FiO2 Patient Condition at Discharge: Stable Plan - Discharge Summary Discharge Rx Participant: No New Discharge Prescriptions: New traZODone HCL [Desyrel] 100 mg PO HS PRN 14 Days #14 tab PRN Reason: Insomnia OLANZapine [ZyPREXA] 5 mg PO DAILY PRN 5 Days #5 tablet PRN Reason: Agitation hydrOXYzine HCL [Atarax] 50 mg PO DAILY PRN 14 Days #28 tab PRN Reason: Anxiety Paliperidone Palmitate [Invega Sustenna] 117 mg IM QMONTHLY #1 each Sertraline [Zoloft] 200 mg PO HS 14 Days #28 tab Continue Nicotine 14Mg/24Hr Patch [Habitrol] 1 patch TRANSDERM DAILY 14 Days #14 patch Discontinued Sertraline [Zoloft] 50 mg PO HS 14 Days #14 tab hydrOXYzine HCL [Atarax] 50 mg PO DAILY PRN 14 Days #14 tab PRN Reason: Anxiety Paliperidone [Invega] 3 mg PO BID 14 Days #28 tab Discharge Medication List Nicotine 14Mg/24Hr Patch [Habitrol] 1 patch TRANSDERM DAILY 14 Days #14 patch 10/17/23 [Rx] OLANZapine [ZyPREXA] 5 mg PO DAILY PRN 5 Days #5 tablet 11/01/23 [Rx] Paliperidone Palmitate [Invega Sustenna] 117 mg IM QMONTHLY #1 each 11/01/23 [Rx] Sertraline [Zoloft] 200 mg PO HS 14 Days #28 tab 11/01/23 [Rx] hydrOXYzine HCL [Atarax] 50 mg PO DAILY PRN 14 Days #28 tab 11/01/23 [Rx] traZODone HCL [Desyrel] 100 mg PO HS PRN 14 Days #14 tab 11/01/23 [Rx] Follow up Appointment(s)/Referral(s): [facility] [Outside] - 11/01/23 1:45 pm (11/01 @ 13:45 with Jessica 11/02 @ 11:00 with Theresa 11/04/2023 14:30 MOISES POLANCO 11/11/2023 8:00AM - 9:00AM KENYATTA VIRAMONTES ) None,Stated [Primary Care Provider] - 1-2 days Activity/Diet/Wound Care/Special Instructions: Avoid the use of street drugs and alcohol. Take all medications as prescribed. When you are in need of refills on your medications, please contact your medical provider and/or outpatient psychiatrist/provider to have this done. Please go to your scheduled outpatient appointment for aftercare treatment. If symptoms return or become worse, call the crisis line at and/or go to the nearest emergency room for evaluation. National Suicide Hotline 158. Discharge Disposition: HOME SELF-CARE
[2023-11-01] MEDS ORDERED: SERTRALINE 100 MG TAB PO SCH (21:00)
[2023-11-01] MEDS ORDERED: traZODone HCL 100 MG TAB PO SCH (21:00)
== END 2023-11-01 13:47 | disposition home or self-care (01) | DRG 751 ==
LOC: EC 21:37 → 3MHU 10-22 12:46
PROVIDERS: ADMIT Psychiatry & Neurology Psychiatry; ATTEND Psychiatry & Neurology Psychiatry
PROC: 0HQ4XZZ Repair Neck Skin, External Approach (ICD-10-PCS; principal; 2023-10-21)
DX: F29 Unspecified psychosis not due to a substance or known physiological condition (principal); S11.91XA Laceration without foreign body of unspecified part of neck, initial encounter; F14.10 Cocaine abuse, uncomplicated; F12.10 Cannabis abuse, uncomplicated; J44.9 Chronic obstructive pulmonary disease, unspecified; X78.9XXA Intentional self-harm by unspecified sharp object, initial encounter; F60.89 Other specific personality disorders; F32.A Depression, unspecified; G47.419 Narcolepsy without cataplexy; F11.11 Opioid abuse, in remission; F41.9 Anxiety disorder, unspecified; Z11.52 Encounter for screening for COVID-19; Z28.310 Unvaccinated for COVID-19; Z91.148 Patient's other noncompliance with medication regimen for other reason; Z91.199 Patient's noncompliance with other medical treatment and regimen due to unspecified reason; G89.29 Other chronic pain; M54.50 Low back pain, unspecified; F17.210 Nicotine dependence, cigarettes, uncomplicated; Z71.6 Tobacco abuse counseling; Z79.899 Other long term (current) drug therapy; Z87.440 Personal history of urinary (tract) infections; Z56.0 Unemployment, unspecified; Z71.41 Alcohol abuse counseling and surveillance of alcoholic; Z71.51 Drug abuse counseling and surveillance of drug abuser
CPT/HCPCS: 12004; 36415; 70498; 71045; 72170; 80053; 80306; 80320; 81001; 81025; 83605; 84484; 85025; 85610; 85730; 87491; 87591; 87636; 90471; 90715; 93005; 96365; 96366; 99291

== ENCOUNTER 2023-11-08 21:07 | Observation (INO) | payer OTHER ==
--- NOTE | 2023-11-08 21:27 | ED ---
Psych HPI - General Chief Complaint: Psychiatric Symptoms Stated Complaint: Laceration Neck-Suicidal Time Seen by Provider: 11/08/23 21:17 Source: patient, RN notes reviewed, old records reviewed Mode of arrival: ambulatory Limitations: altered mental status, physical limitation - History of Present Illness Initial Comments: This is a 38-year-old female to ER for evaluation. Patient presents for suicide attempt today. Patient has recent history of cutting left side of her neck and she did the exact same thing today. Patient is here for suicide attempt with depression patient did cut her sutures off on the left side of her neck with a knife, plastic neck tonight Complaint: suicidal ideation, feels depressed -: unknown Associated Psychiatric Symptoms: depression, suicidal ideation History of same: Yes Quality: constant Improves With: none Context: significant life stressor Treatments Prior to Arrival: placed on mental health hold If Self Harm: admits thoughts of self harm - Related Data Home Medications Medication Instructions Recorded Confirmed Nicotine 14Mg/24Hr Patch [Habitrol] 1 patch TRANSDERM DAILY PRN 11/08/23 11/08/23 Previous Rx's Medication Instructions Recorded OLANZapine [ZyPREXA] 5 mg PO DAILY PRN 5 Days #5 tablet 11/01/23 Paliperidone Palmitate [Invega 117 mg IM QMONTHLY #1 each 11/01/23 Sustenna] Sertraline [Zoloft] 200 mg PO HS 14 Days #28 tab 11/01/23 hydrOXYzine HCL [Atarax] 50 mg PO DAILY PRN 14 Days #28 tab 11/01/23 traZODone HCL [Desyrel] 100 mg PO HS PRN 14 Days #14 tab 11/01/23 Allergies Allergy/AdvReac Type Severity Reaction Status Date / Time No Known Allergies Allergy Verified 11/08/23 22:04 Review of Systems ROS Statement: Those systems with pertinent positive or pertinent negative responses have been documented in the HPI. ROS Other: All systems not noted in ROS Statement are negative. Past Medical History Past Medical History: COPD Additional Past Medical History / Comment(s): Past pyelonephritis/sepsis, UTIs, chronic low back pain, narcolepsy, bronchitis. History of Any Multi-Drug Resistant Organisms: None Reported Past Surgical History: Section, Orthopedic Surgery Additional Past Surgical History / Comment(s): Left knee meniscal tear repair Past Anesthesia/Blood Transfusion Reactions: No Reported Reaction Past Psychological History: Anxiety, Bipolar, Depression Smoking Status: Current every day smoker Past Alcohol Use History: Occasional Past Drug Use History: Cocaine, Marijuana, Methamphetamine, Opiates - Past Family History Mother Family Medical History: COPD Additional Family Medical History / Comment(s): Multuple family memeber with ccancer, none affecting the urinary tract Father History Unknown: Yes General Exam Limitations: no limitations General appearance: alert, in no apparent distress Head exam: Present: atraumatic, normocephalic, normal inspection Eye exam: Present: normal appearance, PERRL, EOMI. Absent: scleral icterus, conjunctival injection, periorbital swelling ENT exam: Present: mucous membranes moist. Absent: normal exam (Abrasion left side of side of neck) Neck exam: Present: normal inspection. Absent: tenderness, meningismus, lymphadenopathy Respiratory exam: Present: normal lung sounds bilaterally. Absent: respiratory distress, wheezes, rales, rhonchi, stridor Cardiovascular Exam: Present: regular rate, normal rhythm, normal heart sounds. Absent: systolic murmur, diastolic murmur, rubs, gallop, clicks GI/Abdominal exam: Present: soft, normal bowel sounds. Absent: distended, tenderness, guarding, rebound, rigid Extremities exam: Present: normal inspection, full ROM, normal capillary refill. Absent: tenderness, pedal edema, joint swelling, calf tenderness Back exam: Present: normal inspection Neurological exam: Present: alert, oriented X3, CN II-XII intact Psychiatric exam: Present: normal affect, normal mood Skin exam: Present: warm, dry, intact, normal color. Absent: rash Course Vital Signs 11/08/23 21:10 Temperature 98 F Pulse Rate 104 H Respiratory 20 Rate Blood Pressure 125/84 O2 Sat by Pulse 96 Oximetry - Reevaluation(s) Reevaluation #1: 11/09/23 01:22 Medical records reviewed Reevaluation #2: 11/09/23 01:22 Medically cleared for psychiatric evaluation Positive for coronavirus will admit for coronavirus and psychiatric evaluation Medical Decision Making - Medical Decision Making 38 female will be admitted for psychiatric evaluation and treatment positive for coronavirus under quarantine for 10 days from any psychiatric admission - Lab Data Result diagrams: 11/08/23 23:25 11/08/23 23:25 Lab Results 11/08/23 11/08/23 11/08/23 Range/Units 23:25 23:25 23:53 WBC 7.9 (3.8-10.6) k/uL RBC 4.14 (3.80-5.40) m/uL Hgb 13.2 (11.4-16.0) gm/dL Hct 39.5 (34.0-46.0) % MCV 95.4 (80.0-100.0) fL MCH 31.9 (25.0-35.0) pg MCHC 33.5 (31.0-37.0) g/dL RDW 12.6 (11.5-15.5) % Plt Count 372 (150-450) k/uL MPV 7.1 Neutrophils % 69 % Lymphocytes % 24 % Monocytes % 5 % Eosinophils % 1 % Basophils % 1 % Neutrophils # 5.4 (1.3-7.7) k/uL Lymphocytes # 1.9 (1.0-4.8) k/uL Monocytes # 0.4 (0-1.0) k/uL Eosinophils # 0.0 (0-0.7) k/uL Basophils # 0.0 (0-0.2) k/uL Sodium 140 (137-145) mmol/L Potassium 3.9 (3.5-5.1) mmol/L Chloride 112 H (98-107) mmol/L Carbon Dioxide 21 L (22-30) mmol/L Anion Gap 7 mmol/L BUN 12 (7-17) mg/dL Creatinine 0.67 (0.52-1.04) mg/dL Est GFR (CKD-EPI)AfAm >90 (>60 ml/min/1.73 sqM) Est GFR (CKD-EPI)NonAf >90 (>60 ml/min/1.73 sqM) Glucose 92 (74-99) mg/dL Calcium 8.8 (8.4-10.2) mg/dL Urine Color Colorless Urine Appearance Clear (Clear) Urine pH 6.0 (5.0-8.0) Ur Specific [place] 1.011 (1.001-1.035) Urine Protein Negative (Negative) Urine Glucose (UA) Negative (Negative) Urine Ketones Negative (Negative) Urine Blood Large H (Negative) Urine Nitrite Negative (Negative) Urine Bilirubin Negative (Negative) Urine Urobilinogen <2.0 (<2.0) mg/dL Ur Leukocyte Esterase Negative (Negative) Urine RBC 35 H (0-5) /hpf Urine WBC 4 (0-5) /hpf Ur Squamous Epith Cells 1 (0-4) /hpf Urine Bacteria Rare H (None) /hpf Urine Mucus Occasional H (None) /hpf Urine HCG, Qual (Not Detectd) Urine Opiates Screen Not Detected (NotDetected) Ur Oxycodone Screen Not Detected (NotDetected) Urine Methadone Screen Not Detected (NotDetected) Ur Barbiturates Screen Not Detected (NotDetected) U Tricyclic Antidepress Not Detected (NotDetected) Ur Phencyclidine Scrn Not Detected (NotDetected) Ur Amphetamines Screen Not Detected (NotDetected) U Methamphetamines Scrn Not Detected (NotDetected) U Benzodiazepines Scrn Not Detected (NotDetected) Urine Cocaine Screen Detected H (NotDetected) U Marijuana (THC) Screen Detected H (NotDetected) SARS-CoV-2 (PCR) (Not Detectd) 11/08/23 11/09/23 Range/Units 23:53 23:52 WBC (3.8-10.6) k/uL RBC (3.80-5.40) m/uL Hgb (11.4-16.0) gm/dL Hct (34.0-46.0) % MCV (80.0-100.0) fL MCH (25.0-35.0) pg MCHC (31.0-37.0) g/dL RDW (11.5-15.5) % Plt Count (150-450) k/uL MPV Neutrophils % % Lymphocytes % % Monocytes % % Eosinophils % % Basophils % % Neutrophils # (1.3-7.7) k/uL Lymphocytes # (1.0-4.8) k/uL Monocytes # (0-1.0) k/uL Eosinophils # (0-0.7) k/uL Basophils # (0-0.2) k/uL Sodium (137-145) mmol/L Potassium (3.5-5.1) mmol/L Chloride (98-107) mmol/L Carbon Dioxide (22-30) mmol/L Anion Gap mmol/L BUN (7-17) mg/dL Creatinine (0.52-1.04) mg/dL Est GFR (CKD-EPI)AfAm (>60 ml/min/1.73 sqM) Est GFR (CKD-EPI)NonAf (>60 ml/min/1.73 sqM) Glucose (74-99) mg/dL Calcium (8.4-10.2) mg/dL Urine Color Urine Appearance (Clear) Urine pH (5.0-8.0) Ur Specific [place] (1.001-1.035) Urine Protein (Negative) Urine Glucose (UA) (Negative) Urine Ketones (Negative) Urine Blood (Negative) Urine Nitrite (Negative) Urine Bilirubin (Negative) Urine Urobilinogen (<2.0) mg/dL Ur Leukocyte Esterase (Negative) Urine RBC (0-5) /hpf Urine WBC (0-5) /hpf Ur Squamous Epith Cells (0-4) /hpf Urine Bacteria (None) /hpf Urine Mucus (None) /hpf Urine HCG, Qual Not Detected (Not Detectd) Urine Opiates Screen (NotDetected) Ur Oxycodone Screen (NotDetected) Urine Methadone Screen (NotDetected) Ur Barbiturates Screen (NotDetected) U Tricyclic Antidepress (NotDetected) Ur Phencyclidine Scrn (NotDetected) Ur Amphetamines Screen (NotDetected) U Methamphetamines Scrn (NotDetected) U Benzodiazepines Scrn (NotDetected) Urine Cocaine Screen (NotDetected) U Marijuana (THC) Screen (NotDetected) SARS-CoV-2 (PCR) Detected A (Not Detectd) Disposition Clinical Impression: Acute anxiety, Grief, Polysubstance abuse, Adjustment reaction of adult life, Depression, Laceration of neck Disposition: ADMITTED IP TO THIS [facility] Condition: Fair Is patient prescribed a controlled substance at d/c from ED?: No Referrals: Orquidea Short MD [Primary Care Provider] - 1-2 days Time of Disposition: 01:20
[2023-11-08 23:34] LABS: Basophils % (A) 1 %; Eosinophils % (A) 1 %; HCT 39.5 % (34.0-46.0); HGB 13.2 gm/dL (11.4-16.0); Lymphocytes # (A) 1.9 k/uL (1.0-4.8); Lymphocytes % (A) 24 %; MCH 31.9 pg (25.0-35.0); MCHC 33.5 g/dL (31.0-37.0); MCV 95.4 fL (80.0-100.0); Mean Platelet Volume 7.1; Monocytes # (A) 0.4 k/uL (0-1.0); Monocytes % (A) 5 %; Neutrophils # (A) 5.4 k/uL (1.3-7.7); Neutrophils % (A) 69 %; Platelet Count 372 k/uL (150-450); RBC 4.14 m/uL (3.80-5.40); RDW 12.6 % (11.5-15.5); WBC 7.9 k/uL (3.8-10.6)
[2023-11-08 23:43] LABS: African American GFR (CKD) >90 (>60 ml/min/1.73 sqM); Anion Gap 7 mmol/L; Blood Urea Nitrogen 12 mg/dL (7-17); Calcium 8.8 mg/dL (8.4-10.2); Carbon Dioxide 21 mmol/L (22-30); Chloride 112 mmol/L (98-107); Glucose 92 mg/dL (74-99); Non-African American GFR(CKD) >90 (>60 ml/min/1.73 sqM); Potassium 3.9 mmol/L (3.5-5.1); Sodium 140 mmol/L (137-145)
[2023-11-09 00:13] LABS: Appearance,Urine Clear (Clear); Bacteria,Urine Rare /hpf; Bilirubin,Urine Negative (Negative); Blood,Urine Large (Negative); Color,Urine Colorless; Glucose,Urine (UA) Negative (Negative); Ketones,Urine Negative (Negative); Leukocyte Esterase,Urine Negative (Negative); Mucus,Urine Occasional /hpf; Nitrite,Urine Negative (Negative); Protein,Urine Negative (Negative); RBC,Urine 35 /hpf (0-5); Specific Gravity,Urine 1.011 (1.001-1.035); Squamous Epithelial Cell,Urine 1 /hpf (0-4); Urobilinogen,Urine <2.0 mg/dL (<2.0); WBC,Urine 4 /hpf (0-5)
[2023-11-09 00:52] LABS: Amphetamine Screen,Urine Not Detected (NotDetected); Barbiturate Screen,Urine Not Detected (NotDetected); Benzodiazepines Screen,Urine Not Detected (NotDetected); Cocaine Screen,Urine Detected (NotDetected); Methadone Screen, Urine Not Detected (NotDetected); Opiate Screen,Urine Not Detected (NotDetected); Oxycodone Screen, Urine Not Detected (NotDetected); Phencyclidine Screen,Urine Not Detected (NotDetected); Tricyclic Antidepressant,Urine Not Detected (NotDetected); Urn Cannabinoid Scrn Detected (NotDetected)
[2023-11-09] MEDS ORDERED: NALOXONE 0.4 MG/ML 1 ML VIAL IV PRN (01:17)
[2023-11-09] MEDS ORDERED: OLANZapine 5 MG TAB PO PRN (02:16)
[2023-11-09] MEDS ORDERED: hydrOXYzine HCL 25 MG TAB PO PRN (02:16)
[2023-11-09] MEDS ORDERED: ACETAMINOPHEN TAB 325 MG TAB PO PRN (06:53)
[2023-11-09] MEDS ORDERED: ONDANSETRON 4 MG/2 ML VIAL IVP PRN (06:53)
[2023-11-09] MEDS: ENOXAPARIN 40 MG/0.4 ML SYRINGE SQ SCH (08:18)
[2023-11-09] MEDS: NICOTINE 14MG/24HR PATCH TRANSDERM SCH (08:18)
[2023-11-09] MEDS: ZINC SULFATE 220 MG CAP PO SCH (08:18)
[2023-11-09] MEDS: ASCORBIC ACID 500 MG TAB PO SCH (08:19)
[2023-11-09] MEDS: CHOLECALCIFEROL 125 MCG (5000 IU) TABLET PO SCH (08:19)
[2023-11-09] MEDS: PANTOPRAZOLE 40 MG TABLET PO SCH (08:19)
--- NOTE | 2023-11-09 13:43 | P.HPIM ---
History of Present Illness 38-year-old female came in with neck laceration suicide attempt presently denies any suicidal ideations at this time. Patient is admitted to medical service because of her COVID-19 being positive. Patient denies any symptoms of COVID-19 at this time does not have any fever does not have any body aches not requiring any oxygen no need for any further intervention for COVID-19. Patient urine drug screen is positive for cocaine and marijuana. REVIEW OF SYSTEMS: CONSTITUTIONAL: No fever, no malaise, no fatigue. HEENT: No recent visual problems or hearing problems. Denied any sore throat. CARDIOVASCULAR: No chest pain, orthopnea, PND, no palpitations, no syncope. PULMONARY: No shortness of breath, no cough, no hemoptysis. GASTROINTESTINAL: No diarrhea, no nausea, no vomiting, no abdominal pain. NEUROLOGICAL: No headaches, no weakness, no numbness. HEMATOLOGICAL: Denies any bleeding or petechiae. GENITOURINARY: Denies any burning micturition, frequency, or urgency. MUSCULOSKELETAL/RHEUMATOLOGICAL: Denies any joint pain, swelling, or any muscle pain. ENDOCRINE: Denies any polyuria or polydipsia. The rest of the 14-point review of systems is negative. PHYSICAL EXAMINATION: GENERAL: The patient is alert and oriented x3, not in any acute distress. Well developed, well nourished. HEENT: Pupils are round and equally reacting to light. EOMI. No scleral icterus. No conjunctival pallor. Normocephalic, atraumatic. No pharyngeal erythema. No thyromegaly. CARDIOVASCULAR: S1 and S2 present. No murmurs, rubs, or gallops. PULMONARY: Chest is clear to auscultation, no wheezing or crackles. ABDOMEN: Soft, nontender, nondistended, normoactive bowel sounds. No palpable organomegaly. MUSCULOSKELETAL: No joint swelling or deformity. EXTREMITIES: No cyanosis, clubbing, or pedal edema. NEUROLOGICAL: Gross neurological examination did not reveal any focal deficits. SKIN: No rashes. Assessment and plan -Major depression suicidal ideation: Psychiatry will evaluate the patient other than patient will have one-on-one sitter COVID-19 infection without any symptoms at this time, no need for steroids or remdesivir at this time -Bipolar disorder/depression management as per psychiatry -Nicotine use: Counseling was provided -Cocaine and marijuana use: Counseling was provided Mild hyperchloremic metabolic acidosis secondary to IV fluids which are not required anymore her heart rate improved with IV fluids. IV fluids will be discontinued DVT prophylaxis: Early ambulation this is Past Medical History Past Medical History: COPD Additional Past Medical History / Comment(s): Past pyelonephritis/sepsis, UTIs, chronic low back pain, narcolepsy, bronchitis. History of Any Multi-Drug Resistant Organisms: None Reported Past Surgical History: Section, Orthopedic Surgery Additional Past Surgical History / Comment(s): Left knee meniscal tear repair Past Anesthesia/Blood Transfusion Reactions: No Reported Reaction Past Psychological History: Anxiety, Bipolar, Depression Smoking Status: Current every day smoker Past Alcohol Use History: Occasional Past Drug Use History: Cocaine, Marijuana, Methamphetamine, Opiates - Past Family History Mother Family Medical History: COPD Additional Family Medical History / Comment(s): Multuple family memeber with ccancer, none affecting the urinary tract Father History Unknown: Yes Medications and Allergies Home Medications Medication Instructions Recorded Confirmed Type OLANZapine [ZyPREXA] 5 mg PO DAILY PRN 5 Days #5 tablet 11/01/23 11/08/23 Rx Paliperidone Palmitate [Invega 117 mg IM QMONTHLY #1 each 11/01/23 11/08/23 Rx Sustenna] Sertraline [Zoloft] 200 mg PO HS 14 Days #28 tab 11/01/23 11/08/23 Rx hydrOXYzine HCL [Atarax] 50 mg PO DAILY PRN 14 Days #28 tab 11/01/23 11/08/23 Rx traZODone HCL [Desyrel] 100 mg PO HS PRN 14 Days #14 tab 11/01/23 11/08/23 Rx Nicotine 14Mg/24Hr Patch [Habitrol] 1 patch TRANSDERM DAILY PRN 11/08/23 11/08/23 History Allergies Allergy/AdvReac Type Severity Reaction Status Date / Time No Known Allergies Allergy Verified 11/08/23 22:04 Physical Exam Vitals: Vital Signs Temp Pulse Resp BP Pulse Ox 11/09/23 08:58 68 16 138/68 98 11/08/23 21:10 98 F 104 H 20 125/84 96 Intake and Output 11/08/23 11/09/23 11/09/23 22:59 06:59 14:59 Other: Weight 75.75 kg Results CBC & Chem 7: 11/08/23 23:25 11/08/23 23:25 Labs: Abnormal Lab Results - Last 24 Hours (Table) 11/08/23 11/08/23 11/09/23 Range/Units 23:25 23:53 23:52 Chloride 112 H (98-107) mmol/L Carbon Dioxide 21 L (22-30) mmol/L Urine Blood Large H (Negative) Urine RBC 35 H (0-5) /hpf Urine Bacteria Rare H (None) /hpf Urine Mucus Occasional H (None) /hpf Urine Cocaine Screen Detected H (NotDetected) U Marijuana (THC) Screen Detected H (NotDetected) SARS-CoV-2 (PCR) Detected A (Not Detectd)
[2023-11-09] MEDS: SERTRALINE 100 MG TAB PO SCH (21:08)
[2023-11-10] MEDS: FLUCONAZOLE 100 MG TAB PO ONE (16:42)
[2023-11-10] MEDS: traZODone HCL 100 MG TAB PO PRN (20:49)
--- NOTE | 2023-11-10 22:45 | P.PN ---
Subjective Progress Note Date: 11/10/23 38-year-old female came in with neck laceration suicide attempt presently denies any suicidal ideations at this time. Patient is admitted to medical service because of her COVID-19 being positive. Patient denies any symptoms of COVID-19 at this time does not have any fever does not have any body aches not requiring any oxygen no need for any further intervention for COVID-19. Patient urine drug screen is positive for cocaine and marijuana. 11/10/2023 Patient is evaluated today resting in bed. Patient denying suicidal ideation today. Neck abrasions healing. Pending psychiatry evaluation. No shortness of breath noted having dry nonproductive cough. Review of Systems Constitutional: Denied any fatigue denied any fever. Cardio vascular: denied any chest pain, palpitations Gastrointestinal: denied any nausea, vomiting, diarrhea Pulmonary: Denied any shortness of breath cough Neurologic denied any new focal deficits All inpatient medications were reviewed and appropriate changes in these me dications as dictated in the interval history and assessment and plan. PHYSICAL EXAMINATION: GENERAL: The patient is alert and oriented x3, not in any acute distress. Well developed, well nourished. HEENT: Pupils are round and equally reacting to light. EOMI. No scleral icterus. No conjunctival pallor. Normocephalic, atraumatic. No pharyngeal erythema. No thyromegaly. CARDIOVASCULAR: S1 and S2 present. No murmurs, rubs, or gallops. PULMONARY: Chest is clear to auscultation, no wheezing or crackles. ABDOMEN: Soft, nontender, nondistended, normoactive bowel sounds. No palpable organomegaly. MUSCULOSKELETAL: No joint swelling or deformity. EXTREMITIES: No cyanosis, clubbing, or pedal edema. NEUROLOGICAL: Gross neurological examination did not reveal any focal deficits. SKIN: No rashes. Assessment and plan -Major depression suicidal ideation: Psychiatry will evaluate the patient other than patient will have one-on-one sitter COVID-19 infection without any symptoms at this time, no need for steroids or remdesivir at this time -Bipolar disorder/depression management as per psychiatry -Nicotine use: Counseling was provided -Cocaine and marijuana use: Counseling was provided Mild hyperchloremic metabolic acidosis secondary to IV fluids which are not required anymore her heart rate improved with IV fluids. IV fluids will be discontinued DVT prophylaxis: Early ambulation The impression and plan of care has been dictated by Monserrat Johns Nurse Practitioner as directed. Dr. Gail MD I have performed a history and physical examination and medical decision making of this patient, discussed the same with the dictator, and agree with the dictators assessment and plan as written, documented as a scribe. Based on total visit time, I have performed more than 50% of this visit. Objective - Vital Signs Vital signs: Vital Signs Temp 98.1 F 11/10/23 09:03 Pulse 71 11/10/23 09:03 Resp 18 11/10/23 09:03 BP 103/63 11/10/23 09:03 Pulse Ox 98 11/10/23 09:03 FiO2 - Labs CBC & Chem 7: 11/08/23 23:25 11/08/23 23:25 Assessment and Plan Time with Patient: Less than 30
[2023-11-11 15:14] VITALS: BP 126/73; PULSE 68; RESP 17; TEMP 97.6
--- NOTE | 2023-11-11 15:20 | P.CN ---
Psychiatric Consult - . Consult date: 11/11/23 Consult:: 11/11/23 15:16 Chelo is a 38-year-old female with long history of mental illness Patient reports that she has been going through a difficult time since she was in the correction in solitary confinement for about 6 months Patient says that the charges were drug use or different times in the last 6 months Patient states that she has a history of cocaine and alcohol use She said that she has been stressed out from her confinement and was going through depression and anxiety She said that she is planning to see as an outpatient for further outpatient follow-up and care She reports that she initially presented with anxiety and depression and was started on hydroxyzine which made her feel like being on speed She says that she is currently doing well on the Zoloft and Zyprexa and trazodone for sleep She denies any thoughts of wanting to hurt himself or others She said that she is looking forward to going home she said that she currently lives with her boyfriend who is supportive She says that she plans to get some outpatient counseling for substance use problems. Past history personal social history as described well present for grave further details patient states that she is currently unemployed and lives with her boyfriend patient was somewhat vague about her past history and seemed to be not too motivated to give any specific details She mainly reports that she is doing much better now and prefers to treatment done as an outpatient She said that she plans to see psychiatrist and outpatient Mental status examination reveals a middle-aged female who comes across as somewhat immature for age. Patient is alert and oriented to time place and person Speech was clear coherent and relevant Thought processes are goal-directed sequential and logical Affect at this time appears to be fair Thought processes are goal-directed sequential and logical Patient denies any suicidal or homicidal ideations She denies any thoughts of wanting to herself or others Denies any auditory or visual hallucinations Formal and operational judgment appears to be fair Agents insight into her problem appears to be fair Cognitively she appears be intact Diagnostic impression Adjustment disorder with mixed emotional features Mood disorder unspecified Polysubstance use disorder that includes cocaine cannabis and alcohol Personality disorder with borderline traits Plan: The patient this time does not meet the criteria for involuntary psychiatric hospitalization Patient is a good candidate for referral to outpatient counseling and supportive care Patient is advised to follow-up with her psychiatrist as an outpatient as well as to attend other psychosocial services like AA in [place] Thank you very much for a kind referral please refer to contact me if any further questions Rambo rios M.D.
[2023-11-11] MEDS ORDERED: FLUCONAZOLE 100 MG TAB PO ONE (16:15)
--- NOTE | 2023-11-12 21:50 | P.DS ---
Providers Date of admission: 11/09/23 01:19 Attending physician: Peter Garner Consults: 11/09/23 01:17 Consult Physician Routine Consulting Provider: Randy Lopez Consult Reason/Comments: SI Do you want consulting provider notified?: Yes 11/11/23 15:03 Consult Physician Routine Consulting Provider: Rambo Key Consult Reason/Comments: suicide attempt needs psych eval Do you want consulting provider notified?: Yes Primary care physician: Orquidea Short Hospital Course: Final Diagnosis -Major depression suicidal and attempt, psychiatry felt patient does not meet IP criteria and recommending referral to [facility] outpatient. -COVID-19 infection without any symptoms at this time, no need for steroids or remdesivir at this time -Bipolar disorder/depression management as per psychiatry -Nicotine use: Counseling was provided -Cocaine and marijuana use: Counseling was provided -Mild hyperchloremic metabolic acidosis secondary to IV fluids which are not required anymore her heart rate improved with IV fluids. IV fluids will be discontinued Discharge Disposition Patient is stable for discharge home. Patient was cleared by psychiatry and felt that the patient does not meet inpatient criteria and recommending to follow-up with community mental health and outpatient counseling services. Patient was with her boyfriend states that she has a good support system. Patient is currently denying suicidal ideation. She is mild nonproductive cough but no shortness of breath and will continue with supportive care for her acute COVID infection. Hospital course 38-year-old female came in with neck laceration suicide attempt presently denies any suicidal ideations at this time. Patient is admitted to medical service because of her COVID-19 being positive. Patient denies any symptoms of COVID-19 at this time does not have any fever does not have any body aches not requiring any oxygen no need for any further intervention for COVID-19. Patient urine drug screen is positive for cocaine and marijuana. Patient was admitted to the hospital for psychiatric evaluation and one-to-one sitter. After follow-up by psychiatry felt the patient does not need or meet inpatient criteria for mental health unit admission. Patient is currently denying any suicidal ideations. Was recently started on Atarax for treatment of her anxiety and that she felt like this medication attributed to this increased feelings of depression and suicidal ideation with attempt. This medication has been discontinued on discharge. She has no acute complaints no shortness of breath no chest pain no nausea vomiting or diarrhea. She is alert x 3 with no focal neurological deficits. Her neck abrasions are superficial with no signs of erythema or drainage. Urinalysis is unremarkable her urine drug toxicology as mentioned shows cocaine and marijuana. Complete blood count is within normal limits and her renal function is stable. Patient will be discharged home with the above-mentioned recommendations. Please see medication reconciliation for list of current medication. Thank you for allowing us to participate in care of this patient. The impression and plan of care has been dictated by Monserrat Johns, Nurse Practitioner as directed. Dr. Gail MD I have performed a history and physical examination and medical decision making of this patient, discussed the same with the dictator, and agree with the dictators assessment and plan as written, documented as a scribe. Based on total visit time, I have performed more than 50% of this visit. Patient Condition at Discharge: Fair Plan - Discharge Summary Discharge Rx Participant: No New Discharge Prescriptions: New Pantoprazole [Protonix] 40 mg PO AC-BRKFST #30 tab Cholecalciferol [Vitamin D3 (125 Mcg = 5000 Iu)] 125 mcg PO DAILY #30 tab Continue traZODone HCL [Desyrel] 100 mg PO HS PRN 14 Days #14 tab PRN Reason: Insomnia OLANZapine [ZyPREXA] 5 mg PO DAILY PRN 5 Days #5 tablet PRN Reason: Agitation Paliperidone Palmitate [Invega Sustenna] 117 mg IM QMONTHLY #1 each Sertraline [Zoloft] 200 mg PO HS 14 Days #28 tab Nicotine 14Mg/24Hr Patch [Habitrol] 1 patch TRANSDERM DAILY PRN PRN Reason: Nicotine Cravings Discontinued hydrOXYzine HCL [Atarax] 50 mg PO DAILY PRN 14 Days #28 tab PRN Reason: Anxiety Discharge Medication List OLANZapine [ZyPREXA] 5 mg PO DAILY PRN 5 Days #5 tablet 11/01/23 [Rx] Paliperidone Palmitate [Invega Sustenna] 117 mg IM QMONTHLY #1 each 11/01/23 [Rx] Sertraline [Zoloft] 200 mg PO HS 14 Days #28 tab 11/01/23 [Rx] traZODone HCL [Desyrel] 100 mg PO HS PRN 14 Days #14 tab 11/01/23 [Rx] Nicotine 14Mg/24Hr Patch [Habitrol] 1 patch TRANSDERM DAILY PRN 11/08/23 [History] Cholecalciferol [Vitamin D3 (125 Mcg = 5000 Iu)] 125 mcg PO DAILY #30 tab 11/11/23 [Rx] Pantoprazole [Protonix] 40 mg PO AC-BRKFST #30 tab 11/11/23 [Rx] Follow up Appointment(s)/Referral(s): Orquidea Short MD [Primary Care Provider] - 1-[address] [facility] [NON-STAFF] - 3 Days Activity/Diet/Wound Care/Special Instructions: Continue supportive care for the acute covid infection. Recommend to follow up with [facility] mental health. See your PCP in 1 to 2 days. Recommend to avoid atarax. Discharge/Stand Alone Forms: Who Do I Call?, Community Resources, Outpatient Counseling Discharge Disposition: HOME SELF-CARE
== END 2023-11-11 16:56 | disposition home or self-care (01) ==
LOC: EC 21:07 → 4SSUR 11-09 01:19 → INTOOBSV 11-09 01:19 → 4SSUR 11-09 11:53
PROVIDERS: ADMIT Hospitalist; ATTEND Hospitalist
DX: F32.9 Major depressive disorder, single episode, unspecified (principal); S11.91XA Laceration without foreign body of unspecified part of neck, initial encounter; U07.1 COVID-19; E87.29 Other acidosis; E87.8 Other disorders of electrolyte and fluid balance, not elsewhere classified; F12.90 Cannabis use, unspecified, uncomplicated; F14.90 Cocaine use, unspecified, uncomplicated; F17.200 Nicotine dependence, unspecified, uncomplicated; F41.9 Anxiety disorder, unspecified; J44.9 Chronic obstructive pulmonary disease, unspecified; Z82.5 Family history of asthma and other chronic lower respiratory diseases; Z91.52 Personal history of nonsuicidal self-harm; X83.8XXA Intentional self-harm by other specified means, initial encounter
CPT/HCPCS: 96372 ×2; 82075; 99285; 36415; 80048; 85025; 81001; 81025; 80306; 87635; G0378 ×3; S4990 ×3; J1650 ×2

== ENCOUNTER 2024-01-19 12:08 | Inpatient (IN) | payer MEDICAID, OTHER ==
--- NOTE | 2024-01-19 12:41 | ED ---
Psych HPI - General Chief Complaint: Psychiatric Symptoms Stated Complaint: Mental health eval Time Seen by Provider: 01/19/24 12:19 Source: patient, RN notes reviewed Mode of arrival: wheelchair Limitations: no limitations - History of Present Illness Initial Comments: 38-year-old female presents emergency department chief complaint of needing psychiatric help. Patient states that she has been hearing voices states the voices are getting worse and states that the voices are telling her to do to do bad things. Patient denies being suicidal homicidal patient states this started after being in solitary confinement in senior care. Patient states that she was admitted to psychiatric for in the past was started on medications but states symptoms worsened on them. - Related Data Home Medications Medication Instructions Recorded Confirmed No Known Home Medications 01/19/24 01/19/24 Allergies Allergy/AdvReac Type Severity Reaction Status Date / Time No Known Allergies Allergy Verified 01/19/24 13:07 Review of Systems ROS Statement: Those systems with pertinent positive or pertinent negative responses have been documented in the HPI. ROS Other: All systems not noted in ROS Statement are negative. Past Medical History Past Medical History: COPD Additional Past Medical History / Comment(s): Past pyelonephritis/sepsis, UTIs, chronic low back pain, narcolepsy, bronchitis. History of Any Multi-Drug Resistant Organisms: None Reported Past Surgical History: Section, Orthopedic Surgery Additional Past Surgical History / Comment(s): Left knee meniscal tear repair Past Anesthesia/Blood Transfusion Reactions: No Reported Reaction Past Psychological History: Anxiety, Bipolar, Depression Smoking Status: Current every day smoker Past Alcohol Use History: Occasional Past Drug Use History: Cocaine, Marijuana, Methamphetamine, Opiates - Past Family History Mother Family Medical History: COPD Additional Family Medical History / Comment(s): Multuple family memeber with ccancer, none affecting the urinary tract Father History Unknown: Yes General Exam Limitations: no limitations General appearance: alert, in no apparent distress Head exam: Present: atraumatic, normocephalic, normal inspection Eye exam: Present: normal appearance, PERRL, EOMI. Absent: scleral icterus, conjunctival injection, periorbital swelling ENT exam: Present: normal exam, mucous membranes moist Neck exam: Present: normal inspection, full ROM. Absent: tenderness, meningismus, lymphadenopathy Respiratory exam: Present: normal lung sounds bilaterally. Absent: respiratory distress, wheezes, rales, rhonchi, stridor Cardiovascular Exam: Present: regular rate, normal rhythm, normal heart sounds. Absent: systolic murmur, diastolic murmur, rubs, gallop, clicks Neurological exam: Present: alert Psychiatric exam: Present: anxious Skin exam: Present: warm, dry, intact, normal color. Absent: rash Course Vital Signs 01/19/24 12:13 Temperature 97.6 F Pulse Rate 92 Respiratory 16 Rate Blood Pressure 128/84 O2 Sat by Pulse 98 Oximetry Medical Decision Making - Medical Decision Making was pt. sent in by a medical professional or institution (, PA, OUTREACH REPRESENTATIVE, urgent care, hospital, or [place] health care facility...) When possible be specific @ -No Did you speak to anyone other than the patient for history (EMS, parent, family, police, friend...)? What history was obtained from this source @ -No Did you review nursing and triage notes (agree or disagree)? Why? @ -I reviewed and agree with nursing and triage notes Were old charts reviewed (outside hosp., previous admission, EMS record, old EKG, old radiological studies, urgent care reports/EKG's, [place] health care facility records)? Report findings @ -No old charts were reviewed Differential Diagnosis (chest pain, altered mental status, abdominal pain women, abdominal pain men, vaginal bleeding, weakness, fever, dyspnea, syncope, headache, dizziness, GI bleed, back pain, seizure, CVA, palpatations, mental health, musculoskeletal)? @ -Differential Mental Health Depression, anxiety, bipolar, psychosis, schizophrenia, borderline personality, situational depression, adjustment disorder, behavioral disorder, brain tumor, malingering, substance abuse, encephalopathy, medication reaction, dementia, hyp othyroidism, degenerative neurologic disorder, lupus.... This is not meant to be all-inclusive list EKG interpreted by me (3pts min.). @ -None X-rays interpreted by me (1pt min.). @ -None done CT interpreted by me (1pt min.). @ -None done U/S interpreted by me (1pt. min.). @ -None done What testing was considered but not performed or refused? (CT, X-rays, U/S, labs)? Why? @ -None What meds were considered but not given or refused? Why? @ -None Did you discuss the management of the patient with other professionals (professionals i.e. , PA, OUTREACH REPRESENTATIVE, lab, RT, psych nurse, social security benefits interviewer, hospital liaison, teacher, earth science technical officer, case reviewer)? Give summary @ -[EPS eval with the patient recommended inpatient treatment Was smoking cessation discussed for >3mins.? @ -No Was critical care preformed (if so, how long)? @ -No Were there social determinants of health that impacted care today? How? (Homelessness, low income, unemployed, alcoholism, drug addiction, transportation, low edu. Level, literacy, decrease access to med. care, senior care, rehab)? @ -No Was there de-escalation of care discussed even if they declined (Discuss DNR or withdrawal of care, Hospice)? DNR status @ -No What co-morbidities impacted this encounter? (DM, HTN, Smoking, COPD, CAD, Cancer, CVA, ARF, Chemo, Hep., AIDS, mental health diagnosis, sleep apnea, morbid obesity)? @ -None Was patient admitted / discharged? Hospital course, mention meds given and route, prescriptions, significant lab abnormalities, going to OR and other pertinent info. @ -Admitted to [facility] for psychiatric treatment Undiagnosed new problem with uncertain prognosis? @ -No Drug Therapy requiring intensive monitoring for toxicity (Heparin, Nitro, Insulin, Cardizem)? @ -No Were any procedures done? @ -No Diagnosis/symptom? @ -Drug abuse, depression with psychotic features Acute, or Chronic, or Acute on Chronic? @ -Acute Uncomplicated (without systemic symptoms) or Complicated (systemic symptoms)? @ -Uncomplicated Side effects of treatment? @ -No Exacerbation, Progression, or Severe Exacerbation? @ -No Poses a threat to life or bodily function? How? (Chest pain, [place], [place], pneumonia, PE, COPD, DKA, ARF, appy, cholecystitis, CVA, Diverticulitis, Homicidal, Suicidal, threat to staff... and all critical care pts) @ -No - Lab Data Lab Results 01/19/24 Range/Units 12:46 Urine Opiates Screen Not Detected (NotDetected) Ur Oxycodone Screen Not Detected (NotDetected) Urine Methadone Screen Not Detected (NotDetected) Ur Barbiturates Screen Not Detected (NotDetected) U Tricyclic Antidepress Not Detected (NotDetected) Ur Phencyclidine Scrn Not Detected (NotDetected) Ur Amphetamines Screen Detected H (NotDetected) U Methamphetamines Scrn Detected H (NotDetected) U Benzodiazepines Scrn Not Detected (NotDetected) Urine Cocaine Screen Detected H (NotDetected) U Marijuana (THC) Screen Detected H (NotDetected) Disposition Clinical Impression: Polysubstance abuse, Major depressive disorder without psychotic features Disposition: TRANSFER TO PSYCH HOSP/UNIT Referrals: Orquidea Short MD [Primary Care Provider] - 1-2 days Time of Disposition: 15:46
[2024-01-19 13:39] LABS: Cocaine Screen,Urine Detected (NotDetected); Phencyclidine Screen,Urine Not Detected (NotDetected); Urn Cannabinoid Scrn Detected (NotDetected)
[2024-01-19 13:40] LABS: Amphetamine Screen,Urine Detected (NotDetected); Barbiturate Screen,Urine Not Detected (NotDetected); Benzodiazepines Screen,Urine Not Detected (NotDetected); Methadone Screen, Urine Not Detected (NotDetected); Opiate Screen,Urine Not Detected (NotDetected); Oxycodone Screen, Urine Not Detected (NotDetected); Tricyclic Antidepressant,Urine Not Detected (NotDetected)
[2024-01-19] MEDS ORDERED: ACETAMINOPHEN TAB 325 MG TAB PO PRN (17:36)
[2024-01-19] MEDS ORDERED: MAGNESIUM HYDROXIDE 2,400 MG/30 ML CUP PO PRN (17:36)
[2024-01-19] MEDS ORDERED: MAG HYDROX/AL HYDROX/SIMETH 355 ML BOTTLE PO PRN (17:36)
[2024-01-19] MEDS ORDERED: HALOPERIDOL LACTATE 5 MG/ML 1 ML VIAL IM PRN (17:38)
[2024-01-19] MEDS ORDERED: haloperidoL 5 MG TAB PO PRN (17:38)
[2024-01-19] MEDS ORDERED: LORazepam 2 MG/ML INJ IM PRN (17:38)
[2024-01-19] MEDS: LORazepam 1 MG TAB PO PRN (18:19)
[2024-01-20 04:03] LABS: Appearance,Urine Cloudy (Clear); Bilirubin,Urine Negative (Negative); Blood,Urine Negative (Negative); Calcium Oxalate Crystals,Urine Few /hpf; Color,Urine Yellow; Glucose,Urine (UA) Negative (Negative); Ketones,Urine Negative (Negative); Leukocyte Esterase,Urine Moderate (Negative); Mucus,Urine Many /hpf; Nitrite,Urine Negative (Negative); Protein,Urine 1+ (Negative); RBC,Urine 11 /hpf (0-5); Specific Gravity,Urine 1.029 (1.001-1.035); Squamous Epithelial Cell,Urine 37 /hpf (0-4); Urobilinogen,Urine <2.0 mg/dL (<2.0); WBC,Urine 59 /hpf (0-5)
[2024-01-20] MEDS: NICOTINE 14MG/24HR PATCH TRANSDERM SCH (10:20)
--- NOTE | 2024-01-20 14:43 | P.MDCNMH ---
History of Present Illness H&P Date: 01/20/24 This is a 38-year-old female who presented to the emergency department with increased voices being heard and for further psychiatric evaluation. Patient reports the voices have been becoming intense and reports telling her to do bad things. Patient denies suicidal ideation. Patient follows with Dr. Perera in the outpatient setting with a past medical history of COPD, chronic low back pain, bronchitis, anxiety/bipolar depression, admits to smoking daily and occasionally using alcohol. Patient reports history of cocaine methamphetamines and marijuana. Patient has signed voluntarily to [facility] for further psychiatric evaluation. Patient was found and examined in her room sleeping although arousable with no reports of chest pain, shortness of breath, coughing. Patient denies any nausea or vomiting and reports has been eating. Patient reports to feeling tired and has not slept much over the last few days. Medical record reviewed and vital signs within normal limits, only labs at the time were urinalysis along with drug screen which was positive for amphetamines, methamphetamines, cocaine, and marijuana. COVID testing was negative. Recommend basic labs including CBC, CMP, magnesium, thyroid studies which are all currently pending. Patient is 98% on room air and denies any shortness of breath. REVIEW OF SYSTEMS: CONSTITUTIONAL: No fever, no malaise, reports of fatigue. HEENT: No recent visual problems or hearing problems. Denied any sore throat. CARDIOVASCULAR: No chest pain, orthopnea, PND, no palpitations, no syncope. PULMONARY: No shortness of breath, no cough, no hemoptysis. GASTROINTESTINAL: No diarrhea, no nausea, no vomiting, no abdominal pain. NEUROLOGICAL: No headaches, no weakness, no numbness. HEMATOLOGICAL: Denies any bleeding or petechiae. GENITOURINARY: Denies any burning micturition, frequency, or urgency. MUSCULOSKELETAL/RHEUMATOLOGICAL: Denies any joint pain, swelling, or any muscle pain. ENDOCRINE: Denies any polyuria or polydipsia. The rest of the 14-point review of systems is negative. PHYSICAL EXAMINATION: GENERAL: The patient is asleep although easily arousable, alert and oriented x3, not in any acute distress. Well developed, well nourished. Appears older than stated age HEENT: Pupils are round and equally reacting to light. EOMI. No scleral icterus. No conjunctival pallor. Normocephalic, atraumatic. No pharyngeal erythema. No thyromegaly. CARDIOVASCULAR: S1 and S2 present. No murmurs, rubs, or gallops. PULMONARY: Diminished breath sounds bilaterally otherwise chest is clear to auscultation, no wheezing or crackles. ABDOMEN: Soft, nontender, nondistended, normoactive bowel sounds. No palpable organomegaly. MUSCULOSKELETAL: No joint swelling or deformity. EXTREMITIES: No cyanosis, clubbing, or pedal edema. NEUROLOGICAL: Gross neurological examination did not reveal any focal deficits. SKIN: No rashes. Assessment: Auditory hallucinations, significant hearing of voices that have been worsening and telling her to do bad things History of COPD, not in exacerbation Continued ongoing nicotine dependence History of anxiety, bipolar depression Cocaine, marijuana, methamphetamine use, positive on the drug screen this admission Full code Plan: Patient was seen and evaluated on [facility] and was admitted there voluntarily for further psychiatric evaluation. Patient has history of anxiety, bipolar depression and has been reporting increased voices being heard telling her to do bad things and continues to use illicit drugs including methamphetamines amphetamines, cocaine, marijuana Basic labs ordered and pending at this time Encouraged patient to attend group therapy sessions and compliance with medications including psychiatric evaluation Follow-up with primary care provider on discharge Thank you kindly for this consultation. The impression and plan of care has been dictated by Esthela Eugene, Nurse Practitioner as directed. MD Arcelia I have performed a history and examination and MDM of this patient, discussed the same with the dictator, and agree with the dictator's assessment and plan as written ,documented as a scribe. Based on total visit time, I have performed more than 50% of the visit. 460 Past Medical History Past Medical History: COPD Additional Past Medical History / Comment(s): Past pyelonephritis/sepsis, UTIs, chronic low back pain, narcolepsy, bronchitis. History of Any Multi-Drug Resistant Organisms: None Reported Past Surgical History: Section, Orthopedic Surgery Additional Past Surgical History / Comment(s): Left knee meniscal tear repair Past Anesthesia/Blood Transfusion Reactions: No Reported Reaction Past Psychological History: Anxiety, Bipolar, Depression Additional Psychological History / Comment(s): Pt resides with friends. She states she had an appointment at 9am 09/10/21 to hopefully be allowed to go into rehab for drug addiction. She also states she lives with friends who use drugs and would like assistance with housing. Smoking Status: Current every day smoker Past Alcohol Use History: Rare Additional Past Alcohol Use History / Comment(s): Pt started smoking in 1992 and is a ppd smoker. Past Drug Use History: Cocaine, Marijuana, Methamphetamine, Opiates Additional Drug Use History / Comment(s): Pt states she has never used IV drugs. She snorts heroin. Recent use of Crack Cocaine and Heroin. Patient reports past use of Adderall for narcolepsy and Suboxone. New use of methamphetamines - Past Family History Mother Family Medical History: COPD Additional Family Medical History / Comment(s): Multuple family memeber with ccancer, none affecting the urinary tract Father History Unknown: Yes Medications and Allergies Home Medications Medication Instructions Recorded Confirmed Type No Known Home Medications 01/19/24 01/19/24 History Allergies Allergy/AdvReac Type Severity Reaction Status Date / Time No Known Allergies Allergy Verified 01/19/24 13:07 Physical Exam Vitals: Vital Signs Temp Pulse Pulse Resp BP BP BP 01/20/24 10:22 86 113/75 01/20/24 06:44 96.5 F L 76 16 123/57 01/19/24 18:00 97.5 F L 89 16 110/72 01/19/24 12:13 97.6 F 92 16 128/84 Pulse Ox 01/20/24 10:22 01/20/24 06:44 01/19/24 18:00 97 01/19/24 12:13 98 Intake and Output 01/19/24 01/20/24 01/20/24 22:59 06:59 14:59 Other: Weight 63.645 kg Cranial Nerve Examination - Cranial Nerves Cranial Nerve I- Olfactory: Intact Cranial Nerve II- Optic: Intact Cranial Nerve III- Oculomotor: Intact Cranial Nerve IV- Trochlear: Intact Cranial Nerve V- Trigeminal: Intact Cranial Nerve - Abducens: Intact Cranial Nerve VII- Facial: Intact Cranial Nerve VIII- Auditory: Intact Cranial Nerve IX- Glossopharyngeal: Intact Cranial Nerve X- Vagus: Intact Cranial Nerve XI- Accessory: Intact Cranial Nerve XII- Hypoglossal: Intact Results Labs: Abnormal Lab Results - Last 24 Hours (Table) 01/19/24 01/19/24 Range/Units 12:46 12:46 Urine Appearance Cloudy H (Clear) Urine Protein 1+ H (Negative) Ur Leukocyte Esterase Moderate H (Negative) Urine RBC 11 H (0-5) /hpf Urine WBC 59 H (0-5) /hpf Ur Squamous Epith Cells 37 H (0-4) /hpf Calcium Oxalate Crystal Few H (None) /hpf Urine Mucus Many H (None) /hpf Ur Amphetamines Screen Detected H (NotDetected) U Methamphetamines Scrn Detected H (NotDetected) Urine Cocaine Screen Detected H (NotDetected) U Marijuana (THC) Screen Detected H (NotDetected) Assessment and Plan Time with Patient: Less than 30
[2024-01-20] MEDS: PALIPERIDONE 3 MG TAB.ER.24 PO SCH (21:15)
--- NOTE | 2024-01-21 10:37 | P.PN ---
Progress Note - Text Progress Note Date: 01/21/24 Interval History: Patient was seen laying in bed today and was directable and agreeable to speak with life underwriter. Patient claims that she is doing a bit better today, was fairly vague, concrete. States that her anxiety and mood are mildly improving. She wants to remain on the same medications at this time. Has been mainly isolating in her room, continues to have poor insight poor judgment, poor hygiene and grooming. Has been up for meals. At this time patient denies any suicidal or homical ideations, intent or plan. Patient denies any auditory, visual hallucinations and denies any paranoia or delusions. Patient denies any side effects from the medications and has been compliant with meds. Mental Status Exam: General Appearance: Patient appears to be poor hygiene and grooming. Stated age is alert, directable, and cooperative. Behavior: Patient is calmly seated without any agitated behavior. Fairly isolative. Professional. Speech: Patient's speech is fluent and nonpressured. Paul Mood/Affect: Mood is improving mildly, affect is congruent and constricted. Suicidality/Homicidality: Patient denies having any suicidal or homicidal ideation intent or plan. Perceptions: Patient denies any visual hallucinations and denies any auditory hallucinations Though content/process: There is no evidence of any delusional thought content and thought process is linear and goal-directed. Paul. Poverty of content. Memory and concentration: AOX3, grossly intact for the purposes of this session Judgment and insight: Poor Assessment/Plan: Continue with current diagnosis. Patient continues to meet criteria for inpatient psychiatric admission for symptom stabilization and safety. Patient will be maintained on current psychotropic medication regimen. Monitor for medication compliance and for any psychotropic medication side effects. Will continue to monitor ongoing response to treatment. Encouraged participation in milieu.
[2024-01-21 11:46] LABS: Basophils % (A) 1 %; Eosinophils # (A) 0.1 k/uL (0-0.7); Eosinophils % (A) 1 %; HCT 46.3 % (34.0-46.0); HGB 15.1 gm/dL (11.4-16.0); Lymphocytes # (A) 1.7 k/uL (1.0-4.8); Lymphocytes % (A) 26 %; MCHC 32.6 g/dL (31.0-37.0); MCV 94.9 fL (80.0-100.0); Mean Platelet Volume 7.4; Monocytes # (A) 0.4 k/uL (0-1.0); Monocytes % (A) 6 %; Neutrophils # (A) 4.2 k/uL (1.3-7.7); Neutrophils % (A) 65 %; Platelet Count 318 k/uL (150-450); RBC 4.88 m/uL (3.80-5.40); RDW 12.8 % (11.5-15.5); WBC 6.6 k/uL (3.8-10.6)
[2024-01-21 12:11] LABS: ALT 11 U/L (4-34); AST 19 U/L (14-36); African American GFR (CKD) >90 (>60 ml/min/1.73 sqM); Albumin 4.2 g/dL (3.5-5.0); Alkaline Phosphatase 59 U/L (38-126); Anion Gap 10 mmol/L; Blood Urea Nitrogen 14 mg/dL (7-17); Calcium 9.2 mg/dL (8.4-10.2); Carbon Dioxide 19 mmol/L (22-30); Chloride 109 mmol/L (98-107); Glucose 94 mg/dL (74-99); Non-African American GFR(CKD) >90 (>60 ml/min/1.73 sqM); Potassium 4.4 mmol/L (3.5-5.1); Sodium 138 mmol/L (137-145); Total Bilirubin 0.7 mg/dL (0.2-1.3); Total Protein 7.2 g/dL (6.3-8.2)
[2024-01-21 12:32] LABS: Glucose,Whole Blood 87 mg/dL (70-110)
[2024-01-21] MEDS: PALIPERIDONE 3 MG TAB.ER.24 PO SCH (21:16)
[2024-01-21 23:08] LABS: Chol/HDL Ratio 3.75 Ratio; LDL Cholesterol,Calculated 106.8 mg/dL (0.0-131.0)
--- NOTE | 2024-01-22 11:40 | P.PN ---
Progress Note - Text Progress Note Date: 01/22/24 Interval History: Patient was seen laying in bed today and was directable and agreeable to speak with food writer. Patient claims that she is doing a bit better today, was fairly vague, concrete. Patient continues to mainly isolate in her room, fairly superficial with food writer. States that her anxiety and mood are mildly improving and she is not endorsing any complaints at this time. She wants to remain on the same medications at this time. Has been mainly isolating in her room, continues to have poor insight poor judgment, poor hygiene and grooming. At this time patient denies any suicidal or homical ideations, intent or plan. Patient denies any auditory, visual hallucinations and denies any paranoia or delusions. Patient denies any side effects from the medications and has been compliant with meds. Mental Status Exam: General Appearance: Patient appears to be poor hygiene and grooming. Stated age is alert, directable, and cooperative. Behavior: Patient is calmly seated without any agitated behavior. Fairly isolative. Superficial Speech: Patient's speech is fluent and nonpressured. [place], improving mildly Mood/Affect: Mood is improving mildly, affect is congruent and constricted. Suicidality/Homicidality: Patient denies having any suicidal or homicidal ideation intent or plan. Perceptions: Patient denies any visual hallucinations and denies any auditory hallucinations Though content/process: There is no evidence of any delusional thought content and thought process is linear and goal-directed. [place]. Poverty of content. Memory and concentration: AOX3, grossly intact for the purposes of this session Judgment and insight: Poor Assessment/Plan: Continue with current diagnosis. Patient continues to meet criteria for inpatient psychiatric admission for symptom stabilization and safety. Patient will be maintained on current psychotropic medication regimen. Monitor for medication compliance and for any psychotropic medication side effects. Will continue to monitor ongoing response to treatment. Encouraged participation in milieu.
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
--- NOTE | 2024-01-23 22:00 | P.PN ---
Progress Note - Text Progress Note Date: 01/23/24 In-Patient Follow-up Chief Complaint: I am doing good Subjective: The patient noted doing good. She feels that her mood is improved. She has no side effects from the oral Invega. The patient had no complaints. She reports no side effects of medication. The patient feels that she is close to discharge. The patient has plans to go to [facility] for out-pt follow-up. The patient has been attending [facility]. She is interacting wit staff and peers appropriately. She is compliant with treatment recommendations. No side effects reported. Overall, patients MS is nicely stabilizing. The patient declined [place] Inj Invega sustenna. She wants to start it as an out-pt Leading questions: The patient denied Depression and Anxiety. Denied SI or HI. Denied symptoms consistent with psychosis Sleep and Appetite: good. Interim History: Behavioral Changes: PRN meds/isolation/restraints/ change in status: None Change in medical condition: No change. Change in medications: No change. Side effects from Medications: None. Objective- MSE: Alert and attentive. Orientation times three. Dressed and Groomed: Appropriately. Pleasant and cooperative. Psychomotor Activity: Normal. Speech: Normal in tone, quality, and quantity. Mood: Good. Affect: Appropriate SI or HI: None. Perceptual disturbance: None. Thought Content: No paranoia or other delusional thinking noted. Thought Process: Normal. Cognition: Intact Judgment and Insight: Good AIMS: Normal. Labs: No new labs. Diagnosis: No change. Plan and recommendation: Continue current Medications. Monitor MS and side effects of medications and adjust medications accordingly. Provide supportive psychotherapy. The patient provided psychoeducation. The patient provided Substance abuse counseling. Smoke cessation therapy. The patient to continue attending the [facility]. Medication Consent with explanation of risk/benefits and side effects: Explained and obtained.
[2024-01-24 07:24] VITALS: RESP 16; TEMP 98.1
[2024-01-24 09:51] VITALS: BP 110/72; PULSE 120
--- NOTE | 2024-01-24 10:30 | P.DS ---
Providers Date of admission: 01/19/24 17:14 Expected date of discharge: 01/24/24 Attending physician: Vinh Galarza MD Consults: 01/19/24 17:36 Consult Physician Routine Consulting Provider: [facility] Hospitalists Consult Reason/Comments: H&P Do you want consulting provider notified?: Yes Primary care physician: Orquidea Short - Discharge Diagnosis(es) (1) Polysubstance abuse Current Visit: Yes Status: Acute Priority: High (2) Unspecified psychosis Current Visit: No Status: Acute Priority: High Hospital Course: Discharge Summary HPI: Identifying Data: Ms. Mcleod is 38 years old, single, WH, who lives in [place], [place] in a house with her sister. Chief Complaint: Hearing Voices History of Psychiatric Illness- Current psychiatric History: The patient noted that she hears voice of a woman, who harasses her by saying stupid things, bring her rape, mocks, makes noise to prevent her from going to sleep, watching TV. The patient stated that she cannot take this anymore. The patient gets angry because she cant get her to shut up. The patient was getting very worked up due to this, so her friend vAery brought he to the hospital. The patient smokes Marijuana to calm the voices. She ended up doing Stimulants and marijuana. The patient noted that she has been in this hospital 9 times. She stated that everytime they put her on the same medicat ions. Those medications do not work. She is always told that she does not give enough time. She stated that one medication worked. She believes that it was given LA Invega. Her last dose was before the discharge from this hospital She never went for out-pt follow-up. She would like to be resumed on it. The patient noted that she started psychiatric treatment in 2019. She was feeling depressed. She went to [facility]. She was prescribed Zolof and provided counseling. She went to this clinic for approximately a year. Following that she did not seek any out-pt psychiatric treatment. The patient has had 5-6 psychiatric admissions to this hospital between [id number]. Her last admission was in 11/12. Past Medication History: Prozac, Zoloft, Wellbutrin, Effexor Remeron, Trazodone, Zyprexa. The patient noted none of these medications helped her. She noted that shot of Zyprexa helps her. Leading questions: The patient denied Depression. Admitted to Anxiety. Denied SI or HI. She reports hearing voices, paranoid. She noted that she feels that TV is talking to her. Hospital Course: After admission, the patient was provided pharmacotherapy, sanchez milieu and individual psychotherapy. She initiated of Invega. The was taking this medication in the past. She started at 3 mg daily and then the dose was titrated to 9 mg daily. The patient shoed gradual improvement and her psychosis abated. Her mood improved. She was no more suicidal or Homicidal. She felt almost back to her normal self. The patient attended and participated in sanchez activities well. She maintained good relationship with peers and the staff. She did not display any behavioral issue. Overall her stay was uneventful. She remained compliant with treatment recommendations through out the stay. She was considered to be stable to be discharged to next level of care. She has no guns or weapons in her possession. The patient to be discharged today. The patient will attend out-pt care after discharge. She intends to compliant with medication. She declined to start LA Inj Invega sustenna as in in-patient. She stated that she will initiate this process as an out-pt. MSE: Alert and attentive. Orientation times three Dressed and Groomed: Appropriately. Pleasant and cooperative. Psychomotor Activity: Normal. Speech: Normal in tone, quality, and quantity. Mood: Anxious Affect: Appropriate SI or HI: None. Perceptual disturbance: The patient reports hearing voices. She hears voice of one woman all the time. Sometimes she hears more than one voice. She hears voices coming out of TV. No hallucinatory behavior was noted. Thought Content: She reported being paranoid. No overt delusional thinking was noted. Thought Process: Normal. Cognition: Intact Judgment and Insight: Poor. Diagnosis: Psychosis, NOS Cluster B personality Disorder Polysubstance abuse Plan: The patient to be discharged today. The patient has attained good improvement since admission. He is stable to be followed as an outpatient. The patient is not suicidal or Homicidal. He does not pose any harm to self or others. The patient remains at a greater risk of self-harm or harm to others than general population on a chronic basis due to psychiatric illness and substance abuse. The patient will continue taking following medication post discharge. The patient has no guns or weapons in her possession. The importance of medication compliance and maintaining regular appointments at psychiatric out-pt and PCP clinic was explained and encouraged. The patient was also advised to seek Substance abuse counseling and attend NA meetings. The understood and agreed with the recommendations. counter supply worker to arrange for and conduct family meeting to ensure safety upon discharge and answer any questions. The social services specialist to arrange for patients follow-up appointments at [facility] for psychiatric care along with follow-up with PCP. The patient provided psychoeducation. Advised to call 911 or go to nearest ED or call this hospital in case of acute worsening of symptomatology, severe side effects or having suicidal, homicidal thoughts and feeling unsafe at home. Patient Condition at Discharge: Stable Plan - Discharge Summary Discharge Rx Participant: No New Discharge Prescriptions: New Paliperidone [Invega] 3 mg PO 2100 15 Days #45 tab Discharge Medication List Paliperidone [Invega] 3 mg PO 2100 15 Days #45 tab 01/24/24 [Rx] Follow up Appointment(s)/Referral(s): Orquidea Short MD [Primary Care Provider] - 1-2 days Activity/Diet/Wound Care/Special Instructions: Avoid the use of street drugs and alcohol. Take all medications as prescribed. When you are in need of refills on your medications, please contact your medical provider and/or outpatient psychiatrist/provider to have this done. Please go to your scheduled outpatient appointment for aftercare treatment. If symptoms return or become worse, call the crisis line at and/or go to the nearest emergency room for evaluation. National Suicide Hotline 813 Discharge Disposition: HOME SELF-CARE
== END 2024-01-24 15:20 | disposition home or self-care (01) | DRG 751 ==
LOC: EC 12:08 → 3MHU 17:14
PROVIDERS: ADMIT Psychiatry & Neurology Psychiatry; ATTEND Psychiatry & Neurology Psychiatry
DX: F29 Unspecified psychosis not due to a substance or known physiological condition (principal); F32.9 Major depressive disorder, single episode, unspecified; J44.9 Chronic obstructive pulmonary disease, unspecified; G89.29 Other chronic pain; M54.50 Low back pain, unspecified; F41.9 Anxiety disorder, unspecified; G47.419 Narcolepsy without cataplexy; F60.89 Other specific personality disorders; F17.210 Nicotine dependence, cigarettes, uncomplicated; F19.10 Other psychoactive substance abuse, uncomplicated; F14.10 Cocaine abuse, uncomplicated; F12.10 Cannabis abuse, uncomplicated; F11.10 Opioid abuse, uncomplicated; Z28.310 Unvaccinated for COVID-19; Z87.440 Personal history of urinary (tract) infections; Z11.52 Encounter for screening for COVID-19; Z71.6 Tobacco abuse counseling; Z71.51 Drug abuse counseling and surveillance of drug abuser
CPT/HCPCS: 80053; 80061; 80306; 81001; 81025; 82075; 83036; 84443; 85025; 87635; 93005; 99285

== ENCOUNTER 2024-02-01 20:25 | Emergency (ER) | payer OTHER ==
[2024-02-01 20:48] VITALS: BP 136/89; PULSE 121; RESP 16; TEMP 98
--- NOTE | 2024-02-01 21:33 | ED ---
Psych HPI - General Chief Complaint: Psychiatric Symptoms Stated Complaint: mental health Time Seen by Provider: 02/01/24 20:48 Source: patient Mode of arrival: ambulatory - History of Present Illness Initial Comments: Patient is a 38-year-old woman who complains of having problems with anxiety and emotional outbursts. She is requesting Ativan. The patient however does deny s uicidal or homicidal ideation. Complaint: other -: days(s) Associated Psychiatric Symptoms: racing thoughts History of same: Yes Quality: getting worse Improves With: none Worsens With: none Associated Symptoms: denies other symptoms - Related Data Previous Rx's Medication Instructions Recorded Paliperidone [Invega] 3 mg PO 2100 15 Days #45 tab 01/24/24 Allergies Allergy/AdvReac Type Severity Reaction Status Date / Time No Known Allergies Allergy Verified 02/01/24 20:29 Review of Systems ROS Statement: Those systems with pertinent positive or pertinent negative responses have been documented in the HPI. ROS Other: All systems not noted in ROS Statement are negative. Constitutional: Denies: fever Respiratory: Denies: cough, dyspnea Cardiovascular: Denies: chest pain, syncope Gastrointestinal: Denies: abdominal pain, vomiting, diarrhea Genitourinary: Denies: dysuria, hematuria Musculoskeletal: Denies: back pain Skin: Denies: rash Neurological: Denies: headache, weakness Psychiatric: Reports: anxiety. Denies: depression, auditory hallucinations, visual hallucinations, homicidal thoughts, suicidal thoughts Past Medical History Past Medical History: COPD Additional Past Medical History / Comment(s): Past pyelonephritis/sepsis, UTIs, chronic low back pain, narcolepsy, bronchitis. History of Any Multi-Drug Resistant Organisms: None Reported Past Surgical History: Section, Orthopedic Surgery Additional Past Surgical History / Comment(s): Left knee meniscal tear repair Past Anesthesia/Blood Transfusion Reactions: No Reported Reaction Past Psychological History: Anxiety, Bipolar, Depression Smoking Status: Current every day smoker Past Alcohol Use History: Rare Past Drug Use History: Cocaine, Marijuana, Methamphetamine, Opiates - Past Family History Mother Family Medical History: COPD Additional Family Medical History / Comment(s): Multuple family memeber with ccancer, none affecting the urinary tract Father History Unknown: Yes General Exam Limitations: no limitations General appearance: alert, in no apparent distress Head exam: Present: atraumatic, normocephalic Eye exam: Present: normal appearance. Absent: scleral icterus, conjunctival injection ENT exam: Present: normal oropharynx Neck exam: Present: normal inspection Respiratory exam: Present: normal lung sounds bilaterally. Absent: respiratory distress, wheezes, rales, rhonchi, stridor Cardiovascular Exam: Present: regular rate (Heart rate is 96 at my exam), normal rhythm, normal heart sounds. Absent: systolic murmur, diastolic murmur, rubs, gallop GI/Abdominal exam: Present: soft. Absent: distended, tenderness, guarding, rebound, rigid, mass Extremities exam: Present: normal inspection, normal capillary refill. Absent: pedal edema, calf tenderness Back exam: Present: normal inspection. Absent: CVA tenderness (R), CVA tenderness (L) Neurological exam: Present: alert Psychiatric exam: Present: anxious. Absent: depressed, agitated, homicidal ideation, suicidal ideation Skin exam: Present: warm, dry, intact, normal color. Absent: rash Course Vital Signs 02/01/24 20:26 Temperature 98.0 F Pulse Rate 121 H Respiratory 16 Rate Blood Pressure 136/89 O2 Sat by Pulse 98 Oximetry Medical Decision Making - Medical Decision Making Was pt. sent in by a medical professional or institution (, PA, FIRESTOPPER TECHNICIAN, urgent care, hospital, or assisted...) When possible be specific @ -[No] Did you speak to anyone other than the patient for history (EMS, parent, family, police, friend...)? What history was obtained from this source @ -[No] Did you review nursing and triage notes (agree or disagree)? Why? @ -[I reviewed and agree with nursing and triage notes] Were old charts reviewed (outside hosp., previous admission, EMS record, old EKG, old radiological studies, urgent care reports/EKG's, assisted records)? Report findings @ -[No old charts were reviewed] Differential Diagnosis (chest pain, altered mental status, abdominal pain women, abdominal pain men, vaginal bleeding, weakness, fever, dyspnea, syncope, headache, dizziness, GI bleed, back pain, seizure, CVA, palpatations, mental health, musculoskeletal)? @ -[Differential Mental Health Depression, anxiety, bipolar, psychosis, schizophrenia, borderline personality, situational depression, adjustment disorder, behavioral disorder, brain tumor, malingering, substance abuse, encephalopathy, medication reaction, dementia, hypothyroidism, degenerative neurologic disorder, lupus.... This is not meant to be all-inclusive list EKG interpreted by me (3pts min.). @ -[As above] X-rays interpreted by me (1pt min.). @ -[None done] CT interpreted by me (1pt min.). @ -[None done] U/S interpreted by me (1pt. min.). @ -[None done] What testing was considered but not performed or refused? (CT, X-rays, U/S, labs)? Why? @ -[None] What meds were considered but not given or refused? Why? @ -[None] Did you discuss the management of the patient with other professionals ([facility] i.e. , PA, FIRESTOPPER TECHNICIAN, lab, RT, psych nurse, hospice social worker, rheumatology nurse, teacher, associate loan officer, case worker)? Give summary @ -The patient is discussed with EPS personnel, after they staffed case with psychiatrist, patient stable to follow-up with [facility] as outpatient Was smoking cessation discussed for >3mins.? @ -[No] Was critical care preformed (if so, how long)? @ -[No] Were there social determinants of health that impacted care today? How? (Homelessness, low income, unemployed, alcoholism, drug addiction, transportation, low edu. Level, literacy, decrease access to med. care, prison, rehab)? @ -[No] Was there de-escalation of care discussed even if they declined (Discuss DNR or withdrawal of care, Hospice)? DNR status @ -[No] What co-morbidities impacted this encounter? (DM, HTN, Smoking, COPD, CAD, Cancer, CVA, ARF, Chemo, Hep., AIDS, mental health diagnosis, sleep apnea, morbid obesity)? @ -[None] Was patient admitted / discharged? Hospital course, mention meds given and route, prescriptions, significant lab abnormalities, going to OR and other pertinent info. @ -[Patient currently stable to continue as outpatient, discussed that patient had safety plan and return parameters. Undiagnosed new problem with uncertain prognosis? @ -[No] Drug Therapy requiring intensive monitoring for toxicity (Heparin, Nitro, Insulin, Cardizem)? @ -[No] Were any procedures done? @ -[No] Diagnosis/symptom? @ -[Mood disorder, acute on chronic Acute anxiety Acute, or Chronic, or Acute on Chronic? @ -[ Uncomplicated (without systemic symptoms) or Complicated (systemic symptoms)? @ -[Uncomplicated Side effects of treatment? @ -[No] Exacerbation, Progression, or Severe Exacerbation? @ -[No] Poses a threat to life or bodily function? How? (Chest pain, USA, DE, pneumonia, PE, COPD, DKA, ARF, appy, cholecystitis, CVA, Diverticulitis, Homicidal, Suicidal, threat to staff... and all critical care pts) @ -[No] Disposition Clinical Impression: Adjustment reaction of adult life, Unspecified psychosis Disposition: HOME SELF-CARE Condition: Good Instructions (If sedation given, give patient instructions): Mood Disorders (ED) Is patient prescribed a controlled substance at d/c from ED?: No Referrals: Orquidea Short MD [Primary Care Provider] - 1-2 days
== END 2024-02-01 23:03 | disposition home or self-care (01) ==
LOC: EC 20:25
DX: F43.20 Adjustment disorder, unspecified (principal); F29 Unspecified psychosis not due to a substance or known physiological condition; F17.200 Nicotine dependence, unspecified, uncomplicated
CPT/HCPCS: 82075; 99283

== ENCOUNTER 2024-08-31 08:30 | Inpatient (IN) | payer MEDICAID, OTHER ==
--- NOTE | 2024-08-31 09:21 | ED ---
General Adult HPI - General Chief complaint: Psychiatric Symptoms Stated complaint: Petitioned Time Seen by Provider: 08/31/24 08:44 Source: patient, police, RN notes reviewed, old records reviewed Mode of arrival: ambulatory Limitations: no limitations - History of Present Illness Initial comments: 39-year-old female presents from the local custodial for evaluation by psychiatric team. Patient was petitioned for psychiatric evaluation. She has been agitated, aggressive, making threats to staff. She has threatened to hurt herself. Patient brought in by local assistant director of plant operations and restraints. - Related Data Home Medications Medication Instructions Recorded Confirmed OLANZapine [ZyPREXA] 5 mg PO HS 08/31/24 08/31/24 Sertraline [Zoloft] 25 mg PO DAILY 08/31/24 08/31/24 Allergies Allergy/AdvReac Type Severity Reaction Status Date / Time No Known Allergies Allergy Verified 08/31/24 10:10 Review of Systems ROS Statement: Those systems with pertinent positive or pertinent negative responses have been documented in the HPI. ROS Other: All systems not noted in ROS Statement are negative. Past Medical History Past Medical History: COPD Additional Past Medical History / Comment(s): Past pyelonephritis/sepsis, UTIs, chronic low back pain, narcolepsy, bronchitis. History of Any Multi-Drug Resistant Organisms: None Reported Past Surgical History: Section, Orthopedic Surgery Additional Past Surgical History / Comment(s): Left knee meniscal tear repair Past Anesthesia/Blood Transfusion Reactions: No Reported Reaction Past Psychological History: Anxiety, Bipolar, Depression Smoking Status: Current every day smoker Past Alcohol Use History: Rare Past Drug Use History: Cocaine, Marijuana, Methamphetamine, Opiates - Past Family History Mother Family Medical History: COPD Additional Family Medical History / Comment(s): Multuple family memeber with ccancer, none affecting the urinary tract Father History Unknown: Yes General Exam Limitations: no limitations General appearance: alert, anxious Head exam: Present: atraumatic, normocephalic Eye exam: Present: PERRL Neck exam: Present: normal inspection. Absent: tenderness, meningismus Respiratory exam: Present: normal lung sounds bilaterally. Absent: respiratory distress, wheezes Cardiovascular Exam: Present: regular rate, normal rhythm GI/Abdominal exam: Present: soft. Absent: distended, tenderness, guarding Neurological exam: Present: alert, oriented X3, CN II-XII intact. Absent: motor sensory deficit Psychiatric exam: Present: agitated, anxious, homicidal ideation, suicidal ideation, other (Patient is delusional) Skin exam: Present: warm, dry, intact, normal color Course Vital Signs 08/31/24 08:38 Temperature 97.3 F L Pulse Rate 111 H Respiratory 20 Rate Blood Pressure 135/85 O2 Sat by Pulse 97 Oximetry Medical Decision Making - Medical Decision Making Was pt. sent in by a medical professional or institution (SHIRLEY Paniagua, DEALER COMPLIANCE REPRESENTATIVE, urgent care, hospital, or usp...) When possible be specific @ -No Did you speak to anyone other than the patient for history (EMS, parent, family, police, friend...)? What history was obtained from this source @ -No Did you review nursing and triage notes (agree or disagree)? Why? @ -I reviewed and agree with nursing and triage notes Were old charts reviewed (outside hosp., previous admission, EMS record, old EKG, old radiological studies, urgent care reports/EKG's, usp records)? Report findings @ -No old charts were reviewed Differential Mental Health Depression, anxiety, bipolar, psychosis, schizophrenia, borderline personality, situational depression, adjustment disorder, behavioral disorder, brain tumor, malingering, substance abuse, encephalopathy, medication reaction, dementia, hypothyroidism, degenerative neurologic disorder, lupus.... This is not meant to be all-inclusive list EKG interpreted by me (3pts min.). @ -As above X-rays interpreted by me (1pt min.). @ -None done CT interpreted by me (1pt min.). @ -None done U/S interpreted by me (1pt. min.). @ -None done What testing was considered but not performed or refused? (CT, X-rays, U/S, labs)? Why? @ -None What meds were considered but not given or refused? Why? @ -None Did you discuss the management of the patient with other professionals (professionals i.e. SHIRLEY Paniagua, DEALER COMPLIANCE REPRESENTATIVE, lab, RT, psych nurse, social services assistant, pc technician, teacher, commercial escrow officer, case mgr)? Give summary @ -No Was smoking cessation discussed for >3mins.? @ -No Was critical care preformed (if so, how long)? @ -No Were there social determinants of health that impacted care today? How? (Homelessness, low income, unemployed, alcoholism, drug addiction, transportation, low edu. Level, literacy, decrease access to med. care, custodial, rehab)? @ -No Was there de-escalation of care discussed even if they declined (Discuss DNR or withdrawal of care, Hospice)? DNR status @ -No What co-morbidities impacted this encounter? (DM, HTN, Smoking, COPD, CAD, Cancer, CVA, ARF, Chemo, Hep., AIDS, mental health diagnosis, sleep apnea, morbid obesity)? @ -Depression, psychosis Was patient admitted / discharged? Hospital course, mention meds given and route, prescriptions, significant lab abnormalities, going to OR and other pertinent info. @ -Patient medically cleared and evaluated by EPS, felt to require inpatient psychiatric care. I do agree with this assessment. I completed a clinical certification on this patient. She will be admitted to this institution. Undiagnosed new problem with uncertain prognosis? @ -No Drug Therapy requiring intensive monitoring for toxicity (Heparin, Nitro, Insulin, Cardizem)? @ -No Were any procedures done? @ -No Diagnosis/symptom? @Depression, suicidal ideation, acute psychosis Acute, or Chronic, or Acute on Chronic? @ -Acute Uncomplicated (without systemic symptoms) or Complicated (systemic symptoms)? @ -Default Side effects of treatment? @ -No Exacerbation, Progression, or Severe Exacerbation? @ -No Poses a threat to life or bodily function? How? (Chest pain, USA, LA, pneumonia, PE, COPD, DKA, ARF, appy, cholecystitis, CVA, Diverticulitis, Homicidal, Suicidal, threat to staff... and all critical care pts) @ -[Yes, self-harm - Lab Data Lab Results 08/31/24 Range/Units 09:37 Urine Opiates Screen Not Detected (NotDetected) Ur Oxycodone Screen Not Detected (NotDetected) Urine Methadone Screen Not Detected (NotDetected) Ur Barbiturates Screen Not Detected (NotDetected) U Tricyclic Antidepress Not Detected (NotDetected) Ur Phencyclidine Scrn Not Detected (NotDetected) Ur Amphetamines Screen Not Detected (NotDetected) U Methamphetamines Scrn Not Detected (NotDetected) U Benzodiazepines Scrn Not Detected (NotDetected) Urine Cocaine Screen Not Detected (NotDetected) U Marijuana (THC) Screen Detected H (NotDetected) Disposition Clinical Impression: Depression, Unspecified psychosis, Suicidal ideation Disposition: ADMITTED IP TO THIS [facility] Condition: Stable Is patient prescribed a controlled substance at d/c from ED?: No Referrals: Orquidea Short MD [Primary Care Provider] - 1-2 days Time of Disposition: 12:30
[2024-08-31 09:59] LABS: Amphetamine Screen,Urine Not Detected (NotDetected); Benzodiazepines Screen,Urine Not Detected (NotDetected); Cocaine Screen,Urine Not Detected (NotDetected); Opiate Screen,Urine Not Detected (NotDetected); Phencyclidine Screen,Urine Not Detected (NotDetected); Tricyclic Antidepressant,Urine Not Detected (NotDetected); Urn Cannabinoid Scrn Detected (NotDetected)
[2024-08-31 10:00] LABS: Barbiturate Screen,Urine Not Detected (NotDetected); Methadone Screen, Urine Not Detected (NotDetected); Oxycodone Screen, Urine Not Detected (NotDetected)
[2024-08-31] MEDS ORDERED: MAG HYDROX/AL HYDROX/SIMETH 355 ML BOTTLE PO PRN (13:54)
[2024-08-31] MEDS ORDERED: MAGNESIUM HYDROXIDE 2,400 MG/30 ML CUP PO PRN (13:54)
[2024-08-31] MEDS ORDERED: ACETAMINOPHEN TAB 325 MG TAB PO PRN (13:54)
[2024-08-31] MEDS ORDERED: IBUPROFEN 600 MG TAB PO PRN (13:54)
[2024-08-31 16:52] VITALS: RESP 16
[2024-08-31] MEDS: ZIPRASIDONE 20 MG VIAL IM STA (16:59)
[2024-08-31 17:30] LABS: Appearance,Urine Cloudy (Clear); Bilirubin,Urine Negative (Negative); Blood,Urine Negative (Negative); Color,Urine Yellow; Glucose,Urine (UA) Negative (Negative); Ketones,Urine Negative (Negative); Leukocyte Esterase,Urine Negative (Negative); Mucus,Urine Many /hpf; Nitrite,Urine Negative (Negative); PH, Urine 6.5 (5.0-8.0); Protein,Urine Trace (Negative); RBC,Urine 1 /hpf (0-5); Specific Gravity,Urine 1.027 (1.001-1.035); Squamous Epithelial Cell,Urine 15 /hpf (0-4); Urobilinogen,Urine <2.0 mg/dL (<2.0); WBC,Urine 5 /hpf (0-5)
[2024-08-31] MEDS: OLANZapine 5 MG TAB PO SCH (21:55)
--- NOTE | 2024-09-01 10:30 | P.HP ---
Psychiatric H&P - . H&P Date: 09/01/24 History & Physical: Allergies Allergy/AdvReac Type Severity Reaction Status Date / Time No Known Allergies Allergy Verified 08/31/24 10:10 Vital Signs Temp 98.0 F 08/31/24 16:40 Pulse 97 08/31/24 16:40 Resp 16 08/31/24 16:40 BP 163/95 08/31/24 16:40 Pulse Ox 98 08/31/24 16:40 FiO2 Intake & Output 08/31/24 09/01/24 09/01/24 18:59 06:59 18:59 Weight 63.7 kg Laboratory Last Values Urine Color Yellow 08/31/24 09:37 Urine Appearance Cloudy (Clear) H 08/31/24 09:37 Urine pH 6.5 (5.0-8.0) 08/31/24 09:37 Ur Specific [place] 1.027 (1.001-1.035) 08/31/24 09:37 Urine Protein Trace (Negative) H 08/31/24 09:37 Urine Glucose (UA) Negative (Negative) 08/31/24 09:37 Urine Ketones Negative (Negative) 08/31/24 09:37 Urine Blood Negative (Negative) 08/31/24 09:37 Urine Nitrite Negative (Negative) 08/31/24 09:37 Urine Bilirubin Negative (Negative) 08/31/24 09:37 Urine Urobilinogen <2.0 mg/dL (<2.0) 08/31/24 09:37 Ur Leukocyte Esterase Negative (Negative) 08/31/24 09:37 Urine RBC 1 /hpf (0-5) 08/31/24 09:37 Urine WBC 5 /hpf (0-5) 08/31/24 09:37 Ur Squamous Epith Cells 15 /hpf (0-4) H 08/31/24 09:37 Urine Mucus Many /hpf (None) H 08/31/24 09:37 Urine HCG, Qual Not Detected (Not Detectd) 08/31/24 09:37 Urine Opiates Screen Not Detected (NotDetected) 08/31/24 09:37 Ur Oxycodone Screen Not Detected (NotDetected) 08/31/24 09:37 Urine Methadone Screen Not Detected (NotDetected) 08/31/24 09:37 Ur Barbiturates Screen Not Detected (NotDetected) 08/31/24 09:37 U Tricyclic Antidepress Not Detected (NotDetected) 08/31/24 09:37 Ur Phencyclidine Scrn Not Detected (NotDetected) 08/31/24 09:37 Ur Amphetamines Screen Not Detected (NotDetected) 08/31/24 09:37 U Methamphetamines Scrn Not Detected (NotDetected) 08/31/24 09:37 U Benzodiazepines Scrn Not Detected (NotDetected) 08/31/24 09:37 Urine Cocaine Screen Not Detected (NotDetected) 08/31/24 09:37 U Marijuana (THC) Screen Detected (NotDetected) H 08/31/24 09:37 SARS-CoV-2 (PCR) Not Detected (Not Detectd) 08/31/24 12:57 09/01/24 10:28 IDENTIFYING DATA: Patient is a 39-year-old female who is presenting from senior care with psychosis HPI: Patient presented to the ED from senior care on a pickup order. Per the petition, there were concerns about patient being psychotic, noncompliant with medications and b eing threatening towards others. While being interviewed in the ED, patient stated "I need the FBI here. That's what happens when you're being held by the devil or bad people. They were mad because I had my hands in the circles so they handcuffed me ". She also mentioned concerns about witchcraft. Patient was only seen briefly this morning while bedside due to refusal to engage in full assessment. She was guarded and grandiose on interview. Patient said "I'm the God of gods. FBI wants you out of my room." When asked further questions regarding mood, sleep, appetite, suicidal ideation, homicidal ideation, and auditory and/or visual hallucinations, patient would not answer. She began to write in the air with her hands but would not participate in further conversation. She then said "you will if you don't leave my room" because "they are watching". When attempting to discuss medications, patient was immediately agreeable with being started on Zyprexa and said she would only spea k with this provider after she received Zyprexa. PSYCH HX: Per chart review- Patient states that she has history of depression and polysubstance abuse. Patient denies being on any psychiatric medications, did not fill the prescription when she left the hospital. Was previously on Zoloft, Invega, remeron, BuSpar, lithium, Prozac, Abilify. Patient denies any psychiatric outpatient follow-up, ever states that she used to follow-up at [facility]. Patient denies any history of suicide attempts in the past. Patient was last psychiatrically admitted at 3 in Oct 2023 for psychosis and discharged on Invega SUAREZ, Zoloft 200 mg nightly, and trazodone 100 mg nightly as needed for sleep. PMH: COPD Additional Past Medical History / Comment(s): Past pyelonephritis/sepsis, UTIs, chronic low back pain, narcolepsy, bronchitis. SUBSTANCE HX: Hx of marijuana, cigarettes, opioid, and cocaine use. UDS was negative PERSONNEL ANALYST SOCIAL/LEGAL HX: Per chart review (unable to elicit further hx due to pt refusal today): Patient was born and raised in [facility]. She states that she is currently unemployed, has no kids. She lives in a house with her friend. She claims that she has been to senior care several times this past year, mainly drug-related charges. She states that she completed high school and did some college. 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 FAM PSYCH HX: Previously denied MENTAL STATUS EXAM: General Appearance: Patient appears to be stated age is alert, uncooperative. Patient appears to have poor hygiene and grooming. Has a lesion on the right side of her face Behavior: Guarded, uncooperative Speech: Patient's speech is fluent and nonpressured. Mood/Affect: irritable, affect is congruent and constricted. Suicidality/Homicidality: Patient did not endorse homicidal ideation or suicidal ideation Perceptions: Thought blocking, responding to internal stimuli Though content/process: Paranoia Memory and concentration: AOX3, grossly intact for the purposes of this session. Judgment and insight: poor STRENGTHS/WEAKNESSES: Strength is resilience. Weakness is comorbid substance use INTELLECT: average IMPRESSIONS: Schizoaffective disorder, unspecified Hx of polysubstance use (cocaine, opioid, cannabis, nicotine) PLAN: -Patient is admitted under involuntary status to [facility]HU for stabilization of psychiatric symptoms and safety. Completed second certificate -Medications : Start Zyprexa 5 mg BID for psychosis and mood stabilization. - Zyprexa/Vistaril PRN for agitation/anxiety. -Patient was counselled on substance abuse. Motivational interviewing. -Patient was informed of the risks, benefits and side effects of the medication and patient verbally consented to taking the medications. Patient did not sign med consent form -Internal Medicine consult to perform medical evaluation and physical. -SW on board for discharge planning. Encourage patient to participate in groups to work on coping skills.
[2024-09-01] MEDS: OLANZapine 5 MG TAB PO SCH (11:16)
[2024-09-01] MEDS: NICOTINE 14MG/24HR PATCH TRANSDERM SCH (11:16)
[2024-09-01] MEDS: OLANZapine 5 MG TAB PO PRN (18:39)
[2024-09-01] MEDS: hydrOXYzine HCL 50 MG/ML 1 ML VIAL IM PRN (19:23)
[2024-09-01] MEDS: OLANZapine 10 MG VIAL IM PRN (19:23)
--- NOTE | 2024-09-01 22:25 | P.EN ---
Face to Face evaluation Informed by the MHU Staff that patient was acting very erratically and attempting to strike staff and harm herself. She was physically held down by staff and given IM sedatives. The patient was seen subsequently in the MHU. She was sitting comfortably in bed and had no active complaints. She asked where she was to which she was informed she was in the BHU at [facility]. She denied any active physical complaints.
--- NOTE | 2024-09-02 08:08 | P.CONS ---
History of Present Illness - Reason for Consult Consult date: 09/01/24 - History of Present Illness This is a 39 year old female with medical history of COPD, narcolepsy, anxiety/depression/bipolar. Patient has history of polysubstance abuse. Presents to the ER department per reports from half-way due to suicidal ideations and has been petitioned to seek psychiatric evaluation and treatment. Patient was agitated and aggresive on arrival. Patient did not speak, look at, or engage with writing provider during the attempted history taking and physical assessment. Patient was resting in bed appeared comfortable and in no acute distress. All of the history was taken from the medical chart. Urine drug toxicology positive for marijuana. She has been resumed on zyprexa by psychiatry. She has been noncompliant with follow up in the past. Unable to complete a review of systems as patient is unwilling to participate in this assessment Unable to complete a physical exam Assessment History of COPD no acute exacerbation History of narcolepsy Anxiety/depression/bipolar Suicidal and homicidal ideations Auditory hallucinations GI prophylaxis Thank you for this consultation We will follow along as needed The impression and plan of care has been dictated by Monserrat Johns, Nurse Practitioner as directed. Dr. Gail MD I have performed a history and physical examination and medical decision making of this patient, discussed the same with the dictator, and agree with the dictators assessment and plan as written, documented as a scribe. Based on total visit time, I have performed more than 50% of this visit. Past Medical History Past Medical History: COPD Additional Past Medical History / Comment(s): Past pyelonephritis/sepsis, UTIs, chronic low back pain, narcolepsy, bronchitis. History of Any Multi-Drug Resistant Organisms: None Reported Past Surgical History: Section, Orthopedic Surgery Additional Past Surgical History / Comment(s): Left knee meniscal tear repair Past Anesthesia/Blood Transfusion Reactions: No Reported Reaction Smoking Status: Current every day smoker, Vaper - Past Family History Mother Family Medical History: Cancer, COPD Additional Family Medical History / Comment(s): Multuple family memeber with ccancer, none affecting the urinary tract Father History Unknown: Yes Medications and Allergies Home Medications Medication Instructions Recorded Confirmed Type OLANZapine [ZyPREXA] 5 mg PO HS 08/31/24 08/31/24 History Sertraline [Zoloft] 25 mg PO DAILY 08/31/24 08/31/24 History Allergies Allergy/AdvReac Type Severity Reaction Status Date / Time No Known Allergies Allergy Verified 08/31/24 10:10
[2024-09-02] MEDS: hydrOXYzine HCL 25 MG TAB PO PRN (12:09)
[2024-09-02] MEDS: LORazepam 1 MG TAB PO STA (12:44)
--- NOTE | 2024-09-02 12:59 | P.PN ---
Progress Note - Text Progress Note Date: 09/02/24 Interval history: Patient was seen bedside and was agreeable to speak with movie writer. When patient was approached this morning, she was initially clasping her head in her hands and after being called several times, she proceeded to stare intensely at this provider. She said "I want Patrica Velasquez arrested right now for dog rape." She also repeatedly made a "brrrr" noise repeatedly during the interview and while unobserved. When asked about this sound, patient was paranoid of why she was being asked this. She then said it was the sound of "locking up the God of Gods." Patient has been accepting scheduled medications, eating her meals, and sleeping at night. It was difficult to ascertain further information from the patient due to severity of thought disorder. In addition to staring, patient was noted to be posturing at times, occasional mutism, verbigeration, and intermittent agitation as evidenced by behavior last night. At this time patient denies any suicidal or homicidal ideations intent or plan. Denies any Auditory or visual hallucinations. She is noted to be responding to internal stimuli. Patient denies any side effects from the medications and has been compliant with meds. Mental status exam: General Appearance: Patient appears to be stated age is alert, directable, and cooperative. Staring intensely Behavior: Periods of agitation fluctuating with periods of reduced movement. No changes in ambulation/gait. Speech: Speaks few words and unresponsive to some questions for extended period of time Mood/Affect: Mood is irritable and affect is flat Suicidality/Homicidality: Patient denies having any suicidal or homicidal ideation intent or plan. However, she is noted to be posturing as if slitting her throat at times Perceptions: responding to internal stimuli Though content/process: Word salad, tangential, paranoia, numerous delusions Memory and concentration: Grossly oriented Judgment and insight: Poor Ruiz-Scott Catatonia rating scale: excitement (1), mutism (1), staring (2), posturing (1), stereotypy (2), verbigeration (1) = 8 Assessment/Plan: Catatonia associated with schizoaffective disorder Schizoaffective disorder, unspecified Hx of polysubstance use (cocaine, opioid, cannabis, nicotine) PLAN: -Patient is admitted under involuntary status to MHU for stabilization of psychiatric symptoms and safety. Completed second certificate -Medications : Continue Zyprexa 5 mg BID for psychosis and mood stabilization. Given Ativan 2 mg PO once today for catatonia. Avoid concomitant use of IM Zyprexa, as discussed with RN - Zyprexa/Vistaril PRN for agitation/anxiety. -Patient was counselled on substance abuse. Motivational interviewing. -Patient was informed of the risks, benefits and side effects of the medication and patient verbally consented to taking the medications. Patient did not sign med consent form -Internal Medicine consult to perform medical evaluation and physical. -SW on board for discharge planning. Encourage patient to participate in groups to work on coping skills.
--- NOTE | 2024-09-03 13:05 | P.PN ---
Progress Note - Text Progress Note Date: 09/03/24 Interval history: Patient was seen in her room, she agreed to speak with the covering provider. Asked about the reason for her current hospitalization, she states that "I was trying to save the whole planet." He states that she got some connection with God and she has been speaking and seeing him for a long time. The patient was responding to internal stimuli, he stared at the underwriter for few minutes, then she said " I just saved your life," she states that " the devil was standing next to you and I was able to push him away." She states that she has been having auditory and visual hallucination for the last 3-month, she was conservative and guarded and did not want to share more, she seemed paranoid at the time. She denied any current depression or anxiety, denied any suicidal, homicidal thoughts, intention or plan. Patient was reportedly she also repeatedly making the "brrrr" noise during the interview. She answered many questions by saying " I preferred not to answer." She admitted to good sleep and appetite. This reported the she has been yelling in her room. Refused to take Zyprexa this morning. She reported that she tried different medication in the past. She reported that she does not mind switching her medication to Invega and does not mind the injection if that is what well get her out of here. Psychoeducation was provided, risk, benefit and side effect discussed with her and she agreed to start Invega. Mental status exam: General Appearance: Patient appears to be stated age is alert, directable, and cooperative. Staring intensely Behavior: Periods of agitation fluctuating with periods of reduced movement. No changes in ambulation/gait. Speech: Speaks few words and unresponsive to some questions for extended period of time, speech was loud volume. Mood/Affect: Mood is irritable and affect is labile Suicidality/Homicidality: Patient denies having any suicidal or homicidal ideation intent or plan. However, she is noted to be posturing as if slitting her throat at times Perceptions: She was actively responding to internal stimuli during the interview, she reported seeing a devil standing next to the underwriter Though content/process: Word salad, tangential, paranoia, numerous delusions Memory and concentration: Grossly oriented Judgment and insight: Poor Assessment/Plan: Schizoaffective disorder, unspecified Hx of polysubstance use (cocaine, opioid, cannabis, nicotine) PLAN: -Patient is admitted under involuntary status to MHU for stabilization of psychiatric symptoms and safety. Second certificate was completed -Medications : Start Invega 3 mg p.o. at bedtime (take with food [address]), with a plan to increasing the dose over the next few days and SUAREZ prior to discharge the patient reported history of noncompliance with medication Will discontinue Zyprexa 5 mg BID -Will continue to monitor the patient progress and make medication adjustment as needed, patient continued to meet psychiatric inpatient hospitalization giving her current symptoms and disorganization - Zyprexa/Vistaril PRN for agitation/anxiety. -Patient was counselled on substance abuse. Motivational interviewing. -Patient was informed of the risks, benefits and side effects of the medication and patient verbally consented to taking the medications. Patient did not sign med consent form -Internal Medicine consult to perform medical evaluation and physical. -SW on board for discharge planning. Encourage patient to participate in groups to work on coping skills.
[2024-09-03] MEDS: PALIPERIDONE 3 MG TAB.ER.24 PO SCH (20:52)
--- NOTE | 2024-09-04 16:34 | P.PN ---
Progress Note - Text Progress Note Date: 09/04/24 Dictation was produced using [employer] dictation software. Please excuse any grammatical, word or spelling errors. Interval history: Nursing staff approach the underwriter mortgage loan and reported that patient has been agitated. Approach the patient she was in her room, seems to be irritable and agitated, she is actively responding to internal stimuli. She states that she is "God," dates that she will feel safe in another hospital, reported that has been seeing "bits" reported that they have been threatening her, reported that they want to curse on her. She states that " I am the God of God, that is statin, God is the devil." She states that is nothing we can change about that. She denied any current depression, or anxiety. Denied any current suicidal, homicidal thoughts or behavior, intention or plan. And asked about her behavior yesterday when she went to another patient room and had threatening gesture. States that she was just exercising and " I do not see anything wrong with that." Patient was educated on privacy rule and that she is not supposed to go to any other patient room. She reported that she understand and agreed. She is compliant with her medication, denied any current side effects. She received Zyprexa, and hydroxyzine as needed p.o. once yesterday. Was asked at if she wanted to take another PO as needed now but she declined and reported that " I only take Ativan." After providing education on Zyprexa, patient agreed to take an IM injection instead of oral. She was updated on the plan of increasing Invega tonight, she agreed. Psychoeducation was provided, risk, benefit and side effect discussed. Mental status exam: General Appearance: Patient appears to be stated age is alert, agitated, irritable, staring intensely, however redirectable Behavior: Periods of agitation fluctuating with periods of reduced movement, and staring, responding to internal stimuli. No changes in ambulation/gait. Speech: speech was loud volume, pressured at time, with threatening tone. Mood/Affect: Mood is irritable and affect is labile Suicidality/Homicidality: Patient denies having any suicidal or homicidal ideation intent or plan. However, she is noted to be posturing as if slitting her throat at times Perceptions: She was actively responding to internal stimuli during the interview, she reported seeing God, and devil Though content/process: Word salad, tangential, paranoia, numerous delusions Memory and concentration: Grossly oriented Judgment and insight: Poor Assessment/Plan: Schizoaffective disorder, unspecified Hx of polysubstance use (cocaine, opioid, cannabis, nicotine) PLAN: -Patient is admitted under involuntary status to MHU for stabilization of psychiatric symptoms and safety. Second certificate was completed -Medications : Increase Invega to 6 mg p.o. at bedtime, will continue to titrate the dose over the next few days and SUAREZ prior to discharge the patient reported history of noncompliance with medication Zyprexa 5 mg BID was discontinued -Will continue to monitor the patient progress and make medication adjustment as needed, patient continued to meet psychiatric inpatient hospitalization giving her current symptoms and disorganization - Zyprexa/Vistaril PRN for agitation/anxiety. -Patient was counselled on substance abuse. Motivational interviewing. -Patient was informed of the risks, benefits and side effects of the medication and patient verbally consented to taking the medications. Patient did not sign med consent form -Internal Medicine consult to perform medical evaluation and physical. -SW on board for discharge planning. Encourage patient to participate in groups to work on coping skills.
[2024-09-04] MEDS: PALIPERIDONE 6 MG TAB.ER.24 PO SCH (21:35)
--- NOTE | 2024-09-05 12:38 | P.PN ---
Progress Note - Text Progress Note Date: 09/05/24 Dictation was produced using [employer] dictation software. Please excuse any grammatical, word or spelling errors. Interval history: Patient was in her room, sitting in bed when asked to be interviewed today. Patient reported that she wanted to leave the hospital, and elaborates " you cannot keep me here, I am a God." States that " you can release me to the FBI." And did not want to elaborate more than that. She denied any current suicidal, self-harm or homicidal thoughts or behavior. o rted that she slept well overnight, it is reported as 6 hours. She reported that she continue to speak with God and Satan. She states that she only can take Ativan since other medication can get her a curse. She has been compliant with her medication, denied any side effects. Invega was increased yesterday, we discussed the possibility of increasing the medication over the next day or 2, patient agreed. She has been demanding, gets agitated easily, yelling and screaming while walking the hallways, she continue to have bizarre and disorganized behavior, she received prn Zyprexa and Vistaril once yesterday. She has no other concerns at this time. Mental status exam: General Appearance: Patient appears to be stated age is alert, agitated, irritable, staring intensely, however redirectable Behavior: Periods of agitation fluctuating with periods of reduced movement, and staring, responding to internal stimuli. No changes in ambulation/gait. Speech: speech was loud volume, pressured at time, with threatening tone. Mood/Affect: Mood is irritable and affect is labile Suicidality/Homicidality: Patient denies having any suicidal or homicidal ideation intent or plan. However, she is noted to be posturing as if slitting her throat at times Perceptions: She was actively responding to internal stimuli during the interview, she reported seeing God, and devil Though content/process: Word salad, tangential, paranoia, numerous delusions Memory and concentration: Grossly oriented Judgment and insight: Poor Assessment/Plan: Schizoaffective disorder, unspecified Hx of polysubstance use (cocaine, opioid, cannabis, nicotine) PLAN: -Patient is admitted under involuntary status to MHU for stabilization of psychiatric symptoms and safety. Second certificate was completed -Medications : Continue Invega 6 mg p.o. at bedtime, will continue to titrate the dose over the next few days and SUAREZ prior to discharge the patient reported history of noncompliance with medication Zyprexa 5 mg BID was discontinued -Will continue to monitor the patient progress and make medication adjustment as needed, patient continued to meet psychiatric inpatient hospitalization giving her current symptoms and disorganization - Zyprexa/Vistaril PRN for agitation/anxiety. -Patient was counselled on substance abuse. Motivational interviewing. -Patient was informed of the risks, benefits and side effects of the medication and patient verbally consented to taking the medications. Patient did not sign med consent form -Internal Medicine consult to perform medical evaluation and physical. -SW on board for discharge planning. Encourage patient to participate in groups to work on coping skills.
--- NOTE | 2024-09-06 15:47 | P.PN ---
Progress Note - Text Progress Note Date: 09/06/24 Dictation was produced using [employer] dictation software. Please excuse any grammatical, word or spelling errors. Interval history: Patient was in her room, sitting in bed when asked to be interviewed today. The patient states that " I am doing great today, can I leave." She states that she has a mission to save the world, she states that " I will have to take down all the child molesters." She states that otherwise she is feeling fine, admitted to good sleep and appetite. States that she did not take her medication last night as she believe it was "cursed." Patient was encouraged to take her medication, she reported that she will take it tonight. Denied any current suicidal, self-harm or homicidal thoughts or behavior, admitted to having ongoing auditory and visual hallucination of seeing and talking to God. We were planning to increase Invega however since patient did not take the medication yesterday plan to increase it tomorrow, patient agreed. She has been demanding, gets agitated easily, yelling and screaming while walking the hallways, she continue to have bizarre and disorganized behavior, she received prn Zyprexa. She has no other concerns at this time. Mental status exam: General Appearance: Patient appears to be stated age is alert, agitated, irritable, staring intensely, however redirectable Behavior: Periods of agitation fluctuating with periods of reduced movement, and staring, responding to internal stimuli. No changes in ambulation/gait. Speech: speech was loud volume, pressured at time, with threatening tone. Mood/Affect: Mood is irritable and affect is labile Suicidality/Homicidality: Patient denies having any suicidal or homicidal ideation intent or plan. However, she is noted to be posturing as if slitting her throat at times Perceptions: She was actively responding to internal stimuli during the interview, she reported seeing God, and devil Though content/process: Word salad, tangential, paranoia, numerous delusions Memory and concentration: Grossly oriented Judgment and insight: Poor Assessment/Plan: Schizoaffective disorder, unspecified Hx of polysubstance use (cocaine, opioid, cannabis, nicotine) PLAN: -Patient is admitted under involuntary status to [facility] for stabilization of psychiatric symptoms and safety. Second certificate was completed -Medications : Continue Invega 6 mg p.o. at bedtime, will continue to titrate the dose over the next few days and SUAREZ prior to discharge the patient reported history of noncomp liance with medication. (pt refused meds last night) Zyprexa 5 mg BID was discontinued -Will continue to monitor the patient progress and make medication adjustment as needed, patient continued to meet psychiatric inpatient hospitalization giving her current symptoms and disorganization - Zyprexa/Vistaril PRN for agitation/anxiety. -Patient was counselled on substance abuse. Motivational interviewing. -Patient was informed of the risks, benefits and side effects of the medication and patient verbally consented to taking the medications. Patient did not sign med consent form. Is awaiting court hearing -Internal Medicine consult to perform medical evaluation and physical. -SW on board for discharge planning. Encourage patient to participate in groups to work on coping skills.
--- NOTE | 2024-09-07 12:57 | P.PN ---
Progress Note - Text Progress Note Date: 09/07/24 Dictation was produced using [employer] dictation software. Please excuse any grammatical, word or spelling errors. Interval history: Patient was walking the hallway when asked to be interviewed the group room. She states that feeling well, she was taking time to respond and was staring at the insurance underwriter sales, the patient states that she slept well overnight over the report says that she slept 0 hours at night, discussed that with the patient she states " I was busy" and she did not want to elaborate. Denied any current depression or anxiety, asked about AVH she states " everything is good" per report patient has been responding to internal stimuli all night long, being loud in her room. She refused her medication yesterday however she agreed to take the Invega with the insurance underwriter sales this afternoon. She denied any current side effects. Was fixated on discharge, she is argumentative and demanding at times. She has no other concerns at this time. Mental status exam: General Appearance: Patient appears to be stated age is alert, irritable, staring intensely, however redirectable. Less agitated today Behavior: Periods of agitation fluctuating with periods of reduced movement, and staring, responding to internal stimuli. No changes in ambulation/gait. Speech: speech was loud volume, pressured at time, with threatening tone. Mood/Affect: Mood is irritable and affect is labile Suicidality/Homicidality: Patient denies having any suicidal or homicidal ideation intent or plan. Perceptions: responding to internal stimuli, she reported seeing God, and devil Though content/process: Word salad, tangential, paranoia, numerous delusions Memory and concentration: Grossly oriented Judgment and insight: Poor Assessment/Plan: Schizoaffective disorder, unspecified Hx of polysubstance use (cocaine, opioid, cannabis, nicotine) PLAN: -Patient is admitted under involuntary status to [facility] for stabilization of psychiatric symptoms and safety. Second certificate was completed -Medications : Continue Invega 6 mg p.o. at bedtime, will continue to titrate the dose over the next few days and SUAREZ prior to discharge the patient reported history of noncompliance with medication. (pt refused meds last night however she got it this afternoon with redirection) Zyprexa 5 mg BID was discontinued -Will continue to monitor the patient progress and make medication adjustment as needed, patient continued to meet psychiatric inpatient hospitalization giving her current symptoms and disorganization - Zyprexa/Vistaril PRN for agitation/anxiety. -Patient was counselled on substance abuse. Motivational interviewing. -Patient was informed of the risks, benefits and side effects of the medication and patient verbally consented to taking the medications. Patient did not sign med consent form. Is awaiting court hearing -Internal Medicine consult to perform medical evaluation and physical. -SW on board for discharge planning. Encourage patient to participate in groups to work on coping skills.
--- NOTE | 2024-09-08 11:51 | P.PN ---
Progress Note - Text Progress Note Date: 09/08/24 Interval history: Patient was seen wandering the hallways and was directable and agreeable to s peak with financial underwriter. She was agreeable to speak to financial underwriter today in her room. She appears to have improving hygiene and grooming. She had mainly a soft tone of voice, has been heard responding to internal stimuli in her room talking to herself. She is denying any depression or anxiety at this time has been taking her medications, states that she slept fairly last night. At this time patient denies any suicidal or homicidal ideations intent or plan. Denies any Auditory or visual hallucinations. Patient denies any side effects from the medications and has been compliant with meds. Mental status exam: General Appearance: Patient appears to be have short hair, stated age is alert, directable, and cooperative. [place] grooming improving Behavior: No agitated behavior. Patient is calm and directable temps to cooperate Speech: Patient's speech is fluent and nonpressured. Soft tone Mood/Affect: Mood is improving mildly, affect is congruent and constricted. Suicidality/Homicidality: Patient denies having any suicidal or homicidal ideation intent or plan. Perceptions: Patient denies any auditory or visual hallucinations. Though content/process: There is no evidence of any delusional thought content and thought process is linear and goal-directed. [place], poverty of content Memory and concentration: AOX3, grossly intact for the purposes of this session Judgment and insight: Chronically poor Assessment/Plan: Continue with current diagnosis. Patient continues to meet criteria for inpatient psychiatric admission for symptom stabilization and safety. Patient will be maintained on current psychotropic medication regimen, with the exception of increasing Invega p.o to 9 mg nightly. Monitor for medication compliance and for any psychotropic medication side effects. Will continue to monitor ongoing response to treatment. Encouraged participation in milieu.
[2024-09-08] MEDS: PALIPERIDONE 3 MG TAB.ER.24 PO SCH (21:41)
--- NOTE | 2024-09-09 11:26 | P.PN ---
Progress Note - Text Progress Note Date: 09/09/24 Interval history: Patient was seen laying in bed today, quality analyst/technical writer attempted to speak with patient today. Patient acknowledge quality analyst/technical writer briefly then turned away and closed her eyes. She did not respond to any questions today. Has been taking her medications. Patient reportedly got about 3 hours of sleep last night according to staff notes. Mental status exam: General Appearance: Patient appears to be have short hair, stated age is uncooperative, laying in bed Behavior: No agitated behavior. Calm and uncooperative Speech: Unable to assess Mood/Affect: Unable to assess Suicidality/Homicidality: Unable to assess Perceptions: Unable to assess Though content/process: Unable to assess Memory and concentration: Unable to assess Judgment and insight: Chronically poor Assessment/Plan: Continue with current diagnosis. Patient continues to meet criteria for inpatient psychiatric admission for symptom stabilization and safety. Patient will be maintained on current psychotropic medication regimen, with the exception of adding melatonin to help with sleep. Monitor for medication compliance and for any psychotropic medication side effects. Will continue to monitor ongoing response to treatment. Encouraged participation in milieu.
[2024-09-09] MEDS: MELATONIN 5 MG TABLET PO SCH (22:27)
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
[2024-09-10 15:08] VITALS: BMI 22.9
--- NOTE | 2024-09-11 10:22 | P.PN ---
Progress Note - Text Progress Note Date: 09/11/24 Interval History: Patient was seen at the nurses station, upset at the amount of hygiene products she received, stating "I only get 1 tampon, what I look like." Rocket Engine Component Mechanic attempted to converse with patient however she declined, stating "nope" and then walked off. Patient was adherent with her psychotropic medications last night, requiring no as needed medications. She continues to be largely isolative, not attending groups. Mental Status Exam: General Appearance: Patient appears to be stated age is alert, and uncooperative. Behavior: Patient was seen standing in the mueller, ambulating appropriately Speech: Patient's speech is fluent and nonpressured. Mood/Affect: Mood is improving mildly, affect is congruent and labile. Suicidality/Homicidality: Patient denies having any suicidal or homicidal ideation intent or plan. Perceptions: Patient denies any visual hallucinations and denies any auditory hallucinations Though content/process: There is no overt delusional thoughts superficially Memory and concentration: AOX3, grossly intact for the purposes of this session Judgment and insight: Improving mildly Assessment Schizoaffective disorder, unspecified History of polysubstance use disorder (cocaine, cannabis, nicotine) Plan: -Patient continues to meet criteria for inpatient psychiatric admission for symptom stabilization and safety. Patient has not signed adult voluntary form and medication consent and was placed in patient's chart. -Medications: Continue Invega 9 mg at bedtime for psychosis, melatonin 5 mg at bedtime for insomnia -When necessary Ativan and Zyprexa for agitation/aggression. -Labs: Reviewed -NRT -nicotine patch -SW on board for discharge planning. Encouraged the patient to participate in milieu. Court scheduled for 09/21/2024 as patient did not sign deferral
[2024-09-11] MEDS: traZODone HCL 50 MG TAB PO SCH (20:32)
[2024-09-11] MEDS: MELATONIN 5 MG TABLET PO SCH (20:32)
--- NOTE | 2024-09-12 09:03 | P.PN ---
Progress Note - Text Progress Note Date: 09/12/24 Interval History: Patient was seen laying in bed and was directable and agreeable to speak with clinical writer in the room. Patient refused to speak to clinical writer despite several attempts. Patient was seen laying in bed, facing the wall. She has been adherent with her psychotropic medications, sleeping better overnight. Mental Status Exam: General Appearance: Patient appears to be stated age is fatigued and uncooperative. Behavior: Patient is calmly seated without any agitated behavior. Speech: Patient's speech is fluent and nonpressured. Mood/Affect: Mood is improving mildly, affect is congruent and constricted. Suicidality/Homicidality: Patient denies having any suicidal or homicidal idea tion intent or plan. Perceptions: Patient denies any visual hallucinations and denies any auditory hallucinations Though content/process: Superficially there were no overt delusional thoughts Memory and concentration: AOX3, grossly intact for the purposes of this session Judgment and insight: Improving mildly Assessment Schizoaffective disorder, unspecified History of polysubstance use disorder (cocaine, cannabis, nicotine) Plan: -Patient continues to meet criteria for inpatient psychiatric admission for symptom stabilization and safety. Patient has not signed adult voluntary form and medication consent and was placed in patient's chart. -Medications: Continue Invega 9 mg at bedtime for psychosis, melatonin 10 mg at bedtime and trazodone 50 mg at bedtime for insomnia. Will plan to transition patient to Invega Sustenna later this week -When necessary Ativan and Zyprexa for agitation/aggression. -Labs: Reviewed -NRT -nicotine patch -SW on board for discharge planning. Encouraged the patient to participate in milieu. Court scheduled for 09/21/2024 as patient did not sign deferral
--- NOTE | 2024-09-13 11:17 | P.PN ---
Progress Note - Text Progress Note Date: 09/13/24 Interval History: Patient was seen wandering the hallways and was directable and agreeable to sp chato with physician underwriter in the mueller. Patient superficially appeared linear, expressing no concerns today and being adherent with medications however upon further conversation patient did display delusional thoughts, commenting on the medication being "cursed" and that this was part of the reason why she was hesitant on transitioning to a long-acting injectable. Patient wishes to be discharged in the upcoming court date was explained to patient however she was informed that she could waive and stip if she is in agreement with psychiatric treatment to which she agreed. Patient wished to obtain a list of side effects and mechanism of action of her current medication before she agrees to transitioning to SUAREZ however the importance of this was discussed in detail including maintaining adherence and keeping her out of the hospital. Patient was not aware that she will be discharged back to [facility]. Patient denies any side effects from the medications and has been compliant with meds. Mental Status Exam: General Appearance: Patient appears to be stated age is alert, directable, and cooperative. She was wearing a beanie Behavior: Patient is calmly standing without any agitated behavior. Speech: Patient's speech is fluent and nonpressured. Mood/Affect: Mood is improving mildly, affect is congruent and constricted. Suicidality/Homicidality: Patient denies having any suicidal or homicidal i deation intent or plan. Perceptions: Patient denies any visual hallucinations and denies any auditory hallucinations Though content/process: There is evidence of delusional thoughts however thought process was linear Memory and concentration: AOX3, grossly intact for the purposes of this session Judgment and insight: Improving mildly Assessment Schizoaffective disorder, unspecified History of polysubstance use disorder (cocaine, cannabis, nicotine) Plan: -Patient continues to meet criteria for inpatient psychiatric admission for symptom stabilization and safety. Patient has not signed adult voluntary form and medication consent and was placed in patient's chart. -Medications: Continue Invega 9 mg at bedtime for psychosis with a plan to transition to Invega Sustenna today, receiving first loading dose of 234 mg IM today with the second loading dose to be administered over the weekend. Continue trazodone 50 mg at bedtime for insomnia, melatonin 10 mg at bedtime for insomnia -When necessary Ativan and Zyprexa for agitation/aggression. -Labs: Reviewed -NRT -nicotine patch -SW on board for discharge planning. Encouraged the patient to participate in milieu. Awaiting court scheduled for 09/21/2024 however will have patient's finance attorney come speak to patient in the interim regarding possibly waiving and stipping this as she is in agreement with treatment
[2024-09-13] MEDS: PALIPERIDONE IM 234 MG/1.5 ML SYG IM ONE (13:48)
--- NOTE | 2024-09-14 11:14 | P.PN ---
Progress Note - Text Progress Note Date: 09/14/24 Interval History: Patient was seen laying in bed and was directable and agreeable to speak with fiction and nonfiction prose writer in the room. Patient was agreeable with starting Invega Sustenna yesterday, only reporting arm soreness this morning however she was not adherent with her nighttime medications, reporting that her voices were saying they were someone else's meds. Patient was agreeable yesterday with waive and stip the court hearing next week as she is agreeable with treatment. Her rubber and pounder will be by this afternoon. Patient was agreeable with discharge back to [facility] sometime next week after receiving her second loading dose of Invega Sustenna. At this time patient denies any suicidal or homicidal ideations, intent or plan. Patient denies any auditory, visual hallucinations and denies any paranoia or delusions. Mental Status Exam: General Appearance: Patient appears to be stated age is alert, directable, and cooperative. Behavior: Patient is calmly seated without any agitated behavior. Speech: Patient's speech is fluent and nonpressured. Mood/Affect: Mood is improving mildly, affect is congruent and blunted but reactive. Suicidality/Homicidality: Patient denies having any suicidal or homicidal ideation intent or plan. Perceptions: Patient denies any visual hallucinations and denies any auditory hallucinations Though content/process: Superficially, there were no overt delusional thoughts, patient was goal oriented today Memory and concentration: AOX3, grossly intact for the purposes of this session Judgment and insight: Improving mildly Assessment Schizoaffective disorder History of polysubstance use disorder (cocaine, cannabis, nicotine) Plan: -Patient continues to meet criteria for inpatient psychiatric admission for symptom stabilization and safety. Patient has not signed adult voluntary form and medication consent and was placed in patient's chart. -Medications: Invega Sustenna 234 mg IM given 09/13, will receive the second loading dose of 156 mg IM early next week. Continue Invega 9 mg at bedtime for psychosis, trazodone 50 mg at bedtime for insomnia, melatonin 10 mg at bedtime for insomnia -When necessary Ativan and Zyprexa for agitation/aggression. -Labs: Reviewed -NRT -nicotine patch -SW on board for discharge planning. Encouraged the patient to participate in milieu. Court scheduled for 09/21/2024 however patient's compliance attorney will be by this afternoon to waive and stip as patient is agreeable with mental health treatment
--- NOTE | 2024-09-15 10:51 | P.PN ---
Subjective Progress Note Date: 09/15/24 Principal diagnosis: schizoaffective and polysubstance use disorder Patient was seen laying in bed and was directable and agreeable to speak with filing writer in the room. Patient was agreeable with starting Invega Sustenna . Patient has agreed to waive and stip the court hearing next week as she is agreeable with treatment. Her hospice volunteer will be by this afternoon. Patient was agreeable with discharge back [facility] sometime next week after receiving her second loading dose of Invega Sustenna. At this time patient denies any suicidal or homicidal ideations, intent or plan. Patient denies any auditory, visual hallucinations and denies any paranoia or delusions. Mental Status Exam:patient was very sleepy she opened her eyes and talked with me softly but did not have the energy get up and come talk to me in the office General Appearance: Patient appears to be stated age Behavior: Patientwas calmwithout any agitated behavior. Speech: Patient's speech is fluent and nonpressured but not very productive slow soft-spoken. Mood/Affect: Mood is improving mildly, affect is congruent and blunted but reactive. Suicidality/Homicidality: Patient denies having any suicidal or homicidal ideation intent or plan. Perceptions: Patient denies any visual hallucinations and denies any auditory hallucinations Though content/process: Superficially, there were no overt delusional thoughts, patient was goal oriented today Memory and concentration: AOX3, grossly intact for the purposes of this session Judgment and insight: Improving mildly she did want to change any medicines and understood sometimes just takes a while to adjust. She slept well all night and is still sleepy at 10:00 this morning Assessment Schizoaffective disorder History of polysubstance use disorder (cocaine, cannabis, nicotine) Plan: -Patient continues to meet criteria for inpatient psychiatric admission for symptom stabilization and safety. Patient has not signed adult voluntary form and medication consent and was placed in patient's chart. -Medications: Invega Sustenna 234 mg IM given 09/13, will receive the second loading dose of 156 mg IM early next week. Continue Invega 9 mg at bedtime for psychosis, trazodone 50 mg at bedtime for insomnia, melatonin 10 mg at bedtime for insomnia -When necessary Ativan and Zyprexa for agitation/aggression. -Labs: Reviewed -NRT -nicotine patch -SW on board for discharge planning. Encouraged the patient to participate in milieu. Court scheduled for 09/21/2024 however patient's assistant prosecuting attorney will be by this afternoon to waive and stip as patient is agreeable with mental health treatment Objective - Vital Signs Vital signs: Vital Signs Temp 97.6 F 09/14/24 09:38 Pulse 125 H 09/14/24 09:38 Resp 16 08/31/24 16:40 BP 114/71 09/14/24 09:38 Pulse Ox 99 09/14/24 09:38 FiO2
--- NOTE | 2024-09-16 08:50 | P.PN ---
Subjective Progress Note Date: 09/16/24 Principal diagnosis: schizoaffective and polysubstance use disorder Patient was seen laying in bed and was directable and agreeable to speak with tech writer in the room but did not want to come down to the office. Patient he is taking Invega Sustenna . Patient has agreed to waive and stip the court hearing next week as she is agreeable with treatment. Patient was agreeable with discharge back to [facility] sometime next week after receiving her second loading dose of Invega Sustenna. she is scheduled to be in court on September 21. At this time patient denies any suicidal or homicidal ideations, intent or plan. Patient denies any auditory, visual hallucinations and denies any paranoia or delusions. Mental Status Exam:patient was very sleepy she opened her eyes and talked with me softly but did not have the energy get up and come talk to me in the office General Appearance: Patient appears to be stated age Behavior: Patient was calm without any agitated behavior. Speech: Patient's speech is fluent and nonpressured but not very productive slow soft-spoken. Mood/Affect: Mood is improving, affect is congruent and blunted but reactive. Suicidality/Homicidality: Patient denies having any suicidal or homicidal ideation intent or plan. Perceptions: Patient denies any visual hallucinations and denies any auditory hallucinations Though content/process: , there were no delusional thoughts, patient was goal oriented, today we talked about the need to present her own case and answered the judges questions about her insight what she is doing to deal with her problems and her plans for the future. She listened and participate angry that she needed to work on that. Memory and concentration: AOX3, grossly intact for the purposes of this session Judgment and insight: Improving she did notwant to change any medicines and understood sometimesthey just take a while to adjust. She slept well all night and is still sleepy this morning Assessment Schizoaffective disorder History of polysubstance use disorder (cocaine, cannabis, nicotine) Plan: -Patient continues to meet criteria for inpatient psychiatric admission for symptom stabilization and safety. -Medications: Invega Sustenna 234 mg IM given 09/13, will receive the second loading dose of 156 mg IM early next week. Continue Invega 9 mg at bedtime for psychosis, trazodone 50 mg at bedtime for insomnia, melatonin 10 mg at bedtime for insomnia -When necessary Ativan and Zyprexa for agitation/aggression. -Labs: Reviewed -NRT -nicotine patch -SW on board for discharge planning. Encouraged the patient to participate in milieu. Court scheduled for 09/21/2024 however patient's state attorney will be by this afternoon to waive and stip as patient is agreeable with mental health treatment Objective - Vital Signs Vital signs: Vital Signs Temp 97.6 F 09/14/24 09:38 Pulse 125 H 09/14/24 09:38 Resp 16 08/31/24 16:40 BP 114/71 09/14/24 09:38 Pulse Ox 99 09/14/24 09:38 FiO2
--- NOTE | 2024-09-17 11:25 | P.PN ---
Progress Note - Text Progress Note Date: 09/17/24 Interval History: Patient was seen laying in bed and was directable and agreeable to speak with marketing writer in the room. She expresses no concerns today. Patient has been intermittently adherent with her oral medications however she did receive the first loading dose last week and was agreeable with receiving the second loading dose of Invega Sustenna tomorrow and then return to prison on Tuesday. He states sleeping and eating well. Patient is now on a court order as she waived and stipped on Tuesday. At this time patient denies any suicidal or homicidal ideations, intent or plan. Patient denies any auditory, visual hallucinations and denies any paranoia or delusions. Patient denies any side effects from the medications. Mental Status Exam: General Appearance: Patient appears to be stated age is alert, directable, and cooperative. Behavior: Patient is calmly laying without any agitated behavior. Speech: Patient's speech is fluent and nonpressured. Mood/Affect: Mood is improving mildly, affect is congruent and constricted. Suicidality/Homicidality: Patient denies having any suicidal or homicidal ideation intent or plan. Perceptions: Patient denies any visual hallucinations and denies any auditory hallucinations Though content/process: There is no evidence of any overt delusional thought content and thought process is linear and goal-directed. Memory and concentration: AOX3, grossly intact for the purposes of this session Judgment and insight: Historically poor however improving mildly Assessment Schizoaffective disorder History of polysubstance use disorder (cocaine, cannabis, nicotine) Plan: -Patient continues to meet criteria for inpatient psychiatric admission for symptom stabilization and safety. Patient has not signed adult voluntary form and medication consent and was placed in patient's chart. -Medications: Invega Sustenna 234 mg IM given 09/13, patient to receive the second loading dose of 156 mg IM tomorrow with the maintenance of 156 mg monthly thereafter. Continue Invega 9 mg at bedtime for psychosis in the interim and trazodone 50 mg at bedtime for insomnia, melatonin 10 mg at bedtime for insomnia -When necessary Ativan and Zyprexa for agitation/aggression. -Labs: Reviewed -NRT -nicotine patch -SW on board for discharge planning. Encouraged the patient to participate in milieu. Patient court ordered on 09/14. Anticipate discharge to prison on Tuesday after receiving second loading dose of Invega Sustenna
[2024-09-18] MEDS: PALIPERIDONE IM 156 MG/ML SYG IM ONE (13:33)
--- NOTE | 2024-09-18 14:25 | P.PN ---
Progress Note - Text Interval History: Patient was seen at the bedside and was directable and agreeable to speak with movie writer. She reports her mood as "good." She did not have any complaints or concerns. She endorses sleeping well (though nursing notes reflect 1.5 hours of sleep), not feeling anxious. Briefly during the visit she had an abrupt change in affect from more expressive to flat; she denied any concerns or issues at that time. At this time patient denies any suicidal or homicidal ideations, intent or plan. Patient denies any auditory, visual hallucinations and denies any paranoia or delusions. Patient denies any side effects from the medications and has been intermittently compliant with oral meds. However, she did receive her Invega Sustenna this afternoon without issue. Mental Status Exam: General Appearance: Patient appears to be stated age is alert, directable, and cooperative. Behavior: Patient is calmly seated without any agitated behavior. Speech: Patient's speech is fluent and non-pressured. Mood/Affect: Mood is "good", affect is congruent and constricted. Briefly appears more flat during conversation. Suicidality/Homicidality: Patient denies having any suicidal or homicidal ideation, intent, or plan. Perceptions: Patient denies any visual hallucinations and denies any auditory hallucinations Though content/process: There is no evidence of any delusional thought content and thought process is linear and goal-directed. Memory and concentration: AOX3, grossly intact for the purposes of this session Judgment and insight: Improving mildly ASSESSMENT: Schizoaffective disorder History of polysubstance use disorder (cocaine, cannabis, nicotine) Plan: -Patient continues to meet criteria for inpatient psychiatric admission for symptom stabilization and safety. Patient has not signed adult voluntary form or medication consent; forms placed in patient's chart. Court ordered on 09/14/24. -Medications: - Invega Sustenna 234 mg IM given 09/13, patient received the second loading dose of 156 mg IM today (09/18/24) with plans to continue the maintenance of 156 mg monthly thereafter. - Continue Invega 9 mg at bedtime for psychosis in the interim - Continue trazodone 50 mg at bedtime for insomnia - Continue melatonin 10 mg at bedtime for insomnia -When necessary Ativan and Zyprexa for agitation/aggression. -Labs: No new labs -NRT -nicotine patch -SW on board for discharge planning. Encouraged the patient to participate in milieu. Anticipate discharge to shelter on Tuesday (09/19/24).
--- NOTE | 2024-09-19 13:55 | P.PN ---
Progress Note - Text Interval History: Patient was seen at the bedside and was directable and agreeable to speak with field underwriter. She is awake and alert at the time of the visit. She described her mood as "pretty good" but did feel tired today. Per review of nursing notes she slept about 6 hours overnight. Patient reports that she did not eat breakfast today mostly because she was not hungry and wanted to stay in bed but does feel her appetite remains normal. Denied suicidal ideation, intent, or plan. She also denied homicidal ideation, intent, or plan. She denies experiencing any auditory or visual hallucinations; no overt delusions or paranoia. This afternoon she did get frustrated and irritable secondary to wanting another set of clothing; she did not escalate further nor require PRNs. Mental Status Exam: General Appearance: Patient appears to be stated age is alert, directable, and cooperative. Behavior: Patient is calmly seated without any agitated behavior. Speech: Patient's speech is fluent and non-pressured. Mood/Affect: Mood is "pretty good", affect is congruent and euthymic. Notably brighter affect today. Suicidality/Homicidality: Patient denies having any suicidal or homicidal ideation, intent, or plan. Perceptions: Patient denies any visual hallucinations and denies any auditory hallucinations Though content/process: There is no evidence of any delusional thought content and thought process is linear and goal-directed. Memory and concentration: AOX3, grossly intact for the purposes of this session Judgment and insight: Improving mildly ASSESSMENT: Schizoaffective disorder History of polysubstance use disorder (cocaine, cannabis, nicotine) Plan: -Patient continues to meet criteria for inpatient psychiatric admission for symptom stabilization and safety. Patient has not signed adult voluntary form or medication consent; forms placed in patient's chart. Court ordered on 09/14/24. -Medications: - Invega Sustenna 234 mg IM given 09/13, patient received the second loading dose of 156 mg IM (09/18/24) with plans to continue the maintenance of 156 mg monthly thereafter. - Continue Invega 9 mg at bedtime for psychosis in the interim; will discontinue upon discharge. - Continue trazodone 50 mg at bedtime for insomnia - Continue melatonin 10 mg at bedtime for insomnia -When necessary Ativan and Zyprexa for agitation/aggression. -Labs: No new labs -NRT -nicotine patch -SW on board for discharge planning. Encouraged the patient to participate in milieu. Anticipate discharge tomorrow.
[2024-09-20 05:28] VITALS: BP 133/75; PULSE 118; TEMP 97.7
--- NOTE | 2024-09-20 11:07 | P.DS ---
Providers Date of admission: 08/31/24 13:52 Expected date of discharge: 09/20/24 Attending physician: Gricelda Castellon MD Consults: 08/31/24 13:54 Consult Physician Routine Consulting Provider: Peter Garner Consult Reason/Comments: Medical H&P Do you want consulting provider notified?: Yes Primary care physician: Orquidea Short - Discharge Diagnosis(es) (1) Schizoaffective disorder Current Visit: Yes Status: Chronic (2) Cannabis use disorder Current Visit: No Status: Chronic Priority: Medium (3) Cocaine use disorder Current Visit: No Status: Chronic Priority: High Hospital Course: Admission HPI: Admission note was completed by Dr. Walker. "[facility]. Per the petition, there were concerns about patient being psychotic, noncompliant with medications and being threatening towards others. While being interviewed in the ED, patient stated "I need the FBI here. That's what happens when you're being held by the devil or bad people. They were mad because I had my hands in the circles so they handcuffed me ". She also mentioned concerns about witchcraft. Patient was only seen briefly this morning while bedside due to refusal to engage in full assessment. She was guarded and grandiose on interview. Patient said "I'm the God of gods. FBI wants you out of my room." When asked further questions regarding mood, sleep, appetite, suicidal ideation, homicidal ideation, and auditory and/or visual hallucinations, patient would not answer. She began to write in the air with her hands but would not participate in further conversation. She then said "you will if you don't leave my room" because "they are watching". When attempting to discuss medications, patient was immediately agreeable with being started on Zyprexa and said she would only speak with this provider after she received Zyprexa." Hospital course: Upon admission to the unit patient was admitted involuntarily on a petition and certificate and a second certificate was completed and faxed to the courts. Patient ended up having a court hearing for mental health treatment and receiving a mental health treatment order on 09/14/24. Patient generally got along well with other patients on the unit and followed unit protocol. Patient was intermittently compliant with oral medications but was compliant with administration of the long-acting injection (Invega Sustenna). She denied any side effects throughout hospital course. Patient was started on oral paliperidone and transitioned to Invega Sustenna. She received the 234 mg IM loading dose on 09/13/24 followed by the 156 mg IM dose on 09/18/24. She was Plans were made for her to continue on 156 mg IM every month with the next dose to be due on 10/18/24. She was also started on Trazodone and Melatonin to help with insomnia. Patient spoke of her stressors and engaged in therapy both group and individual. Patient was also seen by medical team for history and physical exam. Throughout the course of the hospitalization patient gradually improved with regards to mood, sleep, and, decrease in psychotic symptoms. She returned back to their baseline level of functioning and demonstrated improved insight. On the day of discharge patient denied any suicidal or homicidal ideations, intent, or plan and denied any auditory or visual hallucinations. Patient endorsed wanting to live. The patient denied any access to guns or weapons. Patient denied any paranoia and did not endorse any delusions. Patient does have a significant history of substance abuse and was counseled on abstaining from all substances including alcohol and marijuana. [facility] with plans to follow-up with [facility] for outpatient treatment after release. Patient was also counseled on the medications and need for regular compliance and was encouraged to follow-up with their outpatient appointment for mental health and also for primary care following her release from incarceration. Mental status exam: General Appearance: Patient appears to be stated age is alert, pleasant, and cooperative. Patient is in no acute distress and has improved hygiene and grooming Behavior: Patient is calmly lying down without any agitated behavior. Speech: Patient's speech is fluent and nonpressured. Mood/Affect: Patient reports their mood is "good", affect is congruent and euthymic. Suicidality/Homicidality: Patient denies having any suicidal or homicidal ideation, intent, or plan. Perceptions: Patient denies any auditory or visual hallucinations. Though content/process: There is no evidence of any overtly delusional thought content and thought process is linear and goal-directed. Memory and concentration: AOX3, grossly intact for the purposes of this session. Judgment and insight: Chronically poor, however has improved with guarded prognosis Impression: Schizoaffective disorder History of polysubstance use disorders (cocaine, Nicotine dependence Plan: -Continue with discharge today as patient has improved and stabilized psychiatrically and is not currently an imminent threat to themself and/or other s. Patient will remain at chronically elevated risk for harm to self and/or others due to their impulsivity and substance abuse. -Continue medications: - Trazodone 50 mg at bedtime for insomnia - Melatonin 10 mg at bedtime for insomnia - Invega Sustenna 156 mg IM every month; next due on 10/18/24 (paper prescription will be sent with patient) -Patient was counseled on the need for medication compliance and appropriate follow-up at mental health and also primary care for medical issues. Patient verbalized understanding and agreed. -Social work to help coordinate patients discharge today. Patient will not need outpatient appointments at this time. -Patient counseled on abstaining from recreational drugs and marijuana and alcohol. Was informed/educated on the adverse effects on their physical and mental health. Patient verbally agreed and understood. -Patient was instructed to return to the hospital or seek immediate medical care if their psychiatric or medical symptoms do worsen or reoccur. Patient Condition at Discharge: Stable Plan - Discharge Summary Discharge Rx Participant: No New Discharge Prescriptions: New traZODone HCL [Desyrel] 50 mg PO HS #14 tab Melatonin 10 mg PO HS #28 tab Paliperidone IM [Invega Sustenna] 156 mg IM QMONTHLY #1 each Discontinued Sertraline [Zoloft] 25 mg PO DAILY OLANZapine [ZyPREXA] 5 mg PO HS Discharge Medication List Melatonin 10 mg PO HS #28 tab 09/20/24 [Rx] Paliperidone IM [Invega Sustenna] 156 mg IM QMONTHLY #1 each 09/20/24 [Rx] traZODone HCL [Desyrel] 50 mg PO HS #14 tab 09/20/24 [Rx] Follow up Appointment(s)/Referral(s): Care, yes [Other] - 09/20/24 4:00 pm Orquidea Short MD [Primary Care Provider] - 1-2 days Patient Instructions/Handouts: Schizoaffective Disorder (DC) Activity/Diet/Wound Care/Special Instructions: [facility] Discharge Info Avoid the use of street drugs and alcohol. Take all medications as prescribed. When you are in need of refills on your medications, please contact your outpatient medical provider and/or outpatient psychiatrist. Please go to your scheduled outpatient appointments for aftercare treatment. If symptoms return or become worse, call the crisis line at or and/or visit the nearest emergency room for assistance. National Suicide and Crisis Lifeline - call or text 900
== END 2024-09-20 15:09 | DRG 750 ==
LOC: EC 08:30 → 3MHU 13:52
PROVIDERS: ADMIT Psychiatry & Neurology Psychiatry; ATTEND Psychiatry & Neurology Psychiatry
DX: F25.9 Schizoaffective disorder, unspecified (principal); F06.1 Catatonic disorder due to known physiological condition; R45.850 Homicidal ideations; Z91.148 Patient's other noncompliance with medication regimen for other reason; R45.851 Suicidal ideations; F14.10 Cocaine abuse, uncomplicated; F11.10 Opioid abuse, uncomplicated; J44.9 Chronic obstructive pulmonary disease, unspecified; F12.10 Cannabis abuse, uncomplicated; T43.506A Underdosing of unspecified antipsychotics and neuroleptics, initial encounter; F17.290 Nicotine dependence, other tobacco product, uncomplicated; L98.9 Disorder of the skin and subcutaneous tissue, unspecified; G47.00 Insomnia, unspecified; F41.9 Anxiety disorder, unspecified; Z79.899 Other long term (current) drug therapy; Z56.0 Unemployment, unspecified
CPT/HCPCS: 80306; 81001; 81025; 87635; 99285